=== PATIENT | female | born 1955 | race Caucasian/White ===

== ENCOUNTER 2019-12-30 15:19 | Emergency (ER) | payer MEDICAID, SELFPAY | END 2019-12-30 19:41 | disposition admitted as inpatient to this hospital (09) | LOC: ER 03-30 13:19 | PROVIDERS: Emergency Provider Family Medicine | DX: R61 Generalized hyperhidrosis (principal); F17.210 Nicotine dependence, cigarettes, uncomplicated | CPT/HCPCS: 51702; 71045; 93005; 96372; 96374; 96375; 99285; J0330; J1940; J1956; J2704; J3490 ==

== ENCOUNTER 2019-12-30 15:19 | Inpatient (IN) | payer MEDICAID, SELFPAY ==
[2019-12-30] VITALS (39 sets, daily range): BP systolic 71–160; BP diastolic 46–90; PULSE 81–147; RESP 12–28; TEMP 37.2; O2SAT 90–100; BMI 42.9
--- NOTE | 2019-12-30 15:20 | ED_ITS ---
Entered by Sandy Owen, acting as scribe for Josh Alvarado DO HPI - General Adult General: Chief complaint: Arrhythmia/Palpitations Stated complaint: R/O PNEUMONIA, AFIB W RVR Time Seen by Provider: 12/30/19 15:21 History of Present Illness: HPI narrative: 64 yo female presents with possible pneumonia and afib with rvr. EMS has given pt breathing treatments enroute. Pt recieved cardizem for her heart rate that was 150. Pt was 94% on 4 liters of o2. Pt states that she feels hot. Pt is wheezing. On arrival patient was alert answers questions appropriately. Was diaphoretic and dyspneic. MD complaint: possible pneumonia and afib with rvr Associated symptoms: Reports diaphoresis and dyspnea; Deny chest pain, nausea or vomiting Review of Systems Const: Reports: fatigue and diaphoresis ENMT: Denies: throat pain, ear pain, nasal discharge or nasal congestion Card: Denies: chest pain, edema, shortness of breath on exertion or shortness of breath when lying down Resp: Reports: shortness of breath and wheezing GI: Denies: abdominal pain, nausea, vomiting, vomiting blood, coffee grounds in vomit, diarrhea, constipation, bloating, blood in stool or black tarry stool : Denies: flank pain, difficulty urinating, painful urination, urinary frequency or urinary urgency PFSH ED PFSH: Family History Other CAD (coronary artery disease) Social History Smoking and tobacco status: current every day smoker Alcohol intake: never Substance/Drug Use: never Physical Exam Const: GENERAL APPEARANCE: cooperative, in distress (Respiratory distress), lethargic and diaphoretic NUTRITIONAL APPEARANCE: obese ORIENTATION/CONSCIOUSNESS: Yes awake, Yes oriented to person, Yes oriented to place, Yes oriented to time and Yes lethargic HENMT: COMMON NORMALS: normocephalic, head/scalp atraumatic, hearing grossly normal bilaterally, external ears normal, EAC's normal, TM's normal bilaterally, nasal mucous membranes and turbinates normal, moist oral mucous membranes and oropharynx normal HEAD & SCALP: normocephalic and atraumatic NOSE: nasal mucous membranes and turbinates normal EXTERNAL EAR: Yes external ears normal EXTERNAL AUDITORY CANAL: EAC's normal TYMPANIC MEMBRANE: TM's normal bilaterally Eye: COMMON NORMALS: PERRL, EOMs intact bilaterally, conjunctivae normal and no scleral icterus CONJUNCTIVA: Yes conjunctivae normal PUPIL: Yes PERRL Neck/C-Spine: COMMON NORMALS: full ROM, no lymphadenopathy, supple and no JVD Lymph: LYMPHATIC: no lymphadenopathy noted and no lymphedema noted Resp: EFFORT & INSPECTION: Yes tachypneic, Yes respiratory distress and Yes labored AUSCULTATION: rhonchi and wheezes OTHER: pts lips are slightly cyanotic Cardio: COMMON NORMALS: no JVD and no murmurs RATE: tachycardic RHYTHM: abnormal rhythm GI: COMMON NORMALS: soft to palpation and no hepatosplenomegaly AUSCULTATION: Yes normoactive bowel sounds PALPATION: Yes soft, No tender, No guarding and Yes no hepatosplenomegaly Extremity: COMMON NORMALS: normal to inspection, normal capillary refill, no clubbing, cyanosis or edema, no calf tenderness and no pedal edema Neuro: SENSORIUM/ORIENTATION: Yes oriented to person, Yes oriented to place, Yes oriented to time and Yes lethargic Skin: COMMON NORMALS: no rashes or lesions noted GENERAL SKIN EXAM: no rashes or lesions noted Procedures Intubation Time out performed: No sedative: Etomidate paralytic: Succinylcholine Laryngoscope: Jameson ET Tube Size: 8.5 ET Tube Uncuffed: Yes Tube Secured Depth (cm): 22 Tube Secured Location: teeth Tube Placement Confirmation: visualized tube passing through cords, equal breath sounds bilaterally, no breath sounds over epigastrium and confirmation by capnometry Patient Tolerated Procedure: well Intubation Complications: none Course ED course: After arriving ABG showed a pH is 7.2. She is in acute respiratory distress and clinically is deteriorating. Patient was intubated emergently and started on a ventilator. After work-up complete. His she is in congestive heart failure secondary to her A. fib. A. fib was treated with diltiazem. Also concerned that she is septic suspect she has an underlying pneumonia her white count is 17K could in part be due to due to steroids she received in route and stress reaction but also believe she does need to be covered for sepsis secondary to pneumonia. Appropriate antibiotics were started she appears to be septic. Her delta on her first troponin was +20 think in part it was due to congestive heart failure and the stress from the atrial fibrillation she will need to be evaluated for coronary disease well discussed Dr. Stephens will admit her to the ICU she is currently on the ventilator. Her urine output to this point has been poor. Vital Signs: Vital signs: Vital Signs Temperature 98.5 F 01/01/20 02:00 Pulse Rate 88 01/01/20 06:00 Respiratory Rate 16 01/01/20 07:43 Blood Pressure 102/76 01/01/20 06:00 Pulse Oximetry 95 01/01/20 06:00 [facility] - General Adult Lab Data: Labs: Lab Results 12/30/19 12/30/19 12/30/19 Range/Units 15:58 15:58 15:58 WBC 17.3 H (4.0-10.0) 10^3/ uL RBC 4.44 (4.1-5.3) 10^6/u L Hgb 12.6 (11.5-15.3) g/dL Hct 43.5 (37.0-47.0) % MCV 98.0 (81-99) fL MCH 28.4 (28.0-34.0) pg MCHC 29.0 L (30.0-36.0) g/dL RDW 15.1 (12.1-15.1) % Plt Count 461 H (130-400) 10^3/c mm MPV 10.2 (7.4-10.4) fL Neut % (Auto) 64.1 % Lymph % (Auto) 24.1 % Vilas % (Auto) 10.6 % Eos % (Auto) 0.2 % Baso % (Auto) 0.3 % Neut # (Auto) 11.1 H (1.8-7.7) 10^3/u L Lymph # (Auto) 4.2 (0.8-4.8) 10^3/u L Vilas # (Auto) 1.8 H (0.2-0.9) 10^3/u L Eos # (Auto) 0.0 (0.0-0.8) 10^3/u L Baso # (Auto) 0.1 (0.0-0.1) 10^3/u L Nucleated RBC % (a uto) 1.1 % Nucleated RBCs # 0.2 /100WBC Specimen Type Sample Site ABG pH (7.35-7.45) ABG pCO2 (35-45) mmHg ABG pO2 (80.0-100.0) mmH g ABG HCO3 (22-26) mmol/L ABG O2 Saturation ABG Base Excess (-2.0-2.0) mmol/ L Bennett Test A-a O2 Gradient (5-10) mmHg Hematocrit (37-47) % Hgb O2 Saturation (95-100) % Carboxyhemoglobin (0.4-20.1) %THgb Methemoglobin (0.4-1.5) % Total Hemoglobin (12-16) g/dL Sodium 136 (131-143) mmol/L Potassium 4.3 (3.5-5.0) mmol/L Glucose 181 H (70-115) mg/dL Ionized Calcium (1.1-1.4) mmol/L Respiration Rate % O2 Delivery Device O2 Liters/Min % FiO2 % Tidal Volume PEEP cmH20 Instructor Of Education ID Chloride 97 L (98-107) mmol/L Carbon Dioxide 27 (22-29) mmol/L Anion Gap 16.3 (5-19) BUN 20 (8-23) mg/dL Creatinine 1.2 H (0.5-0.9) mg/dL GFR Calculation 45.5 L (90-130) mL/min Lactate (0.5-2.2) mmol/L Calcium 8.7 (8.5-10.5) mg/dL Phosphorus (2.5-4.5) mg/dL Magnesium (1.7-2.3) mg/dL Total Bilirubin 1.6 H (0.15-1.2) mg/dL AST 745 H (0-32) U/L ALT 563 H (0-33) U/L Alkaline Phosphata se 181 H (35-105) IU/L Troponin T Baselin e 47 H (0-10) ng/mL C-Reactive Protein (0.0-4.9) mg/L NT-Pro-B Natriuret Pep (0-125) pg/mL Total Protein 7.6 (6.6-8.7) g/dL Albumin 3.5 (3.5-5.2) g/dL Globulin 4.1 (1.3-4.6) g/dL Procalcitonin (0-0.5) ng/mL TSH (0.27-4.20) uIU/ mL Ethyl Alcohol (0-10) mg/dL Hepatitis A IgM Ab (Nonreactive) Hep Bs Antigen (Nonreactive) Hep B Core IgM Ab (Nonreactive) Hepatitis C Antibo dy (Nonreactive) 12/30/19 12/30/19 12/30/19 Range/Units 15:58 15:58 15:58 WBC (4.0-10.0) 10^3/ uL RBC (4.1-5.3) 10^6/u L Hgb (11.5-15.3) g/dL Hct (37.0-47.0) % MCV (81-99) fL MCH (28.0-34.0) pg MCHC (30.0-36.0) g/dL RDW (12.1-15.1) % Plt Count (130-400) 10^3/c mm MPV (7.4-10.4) fL Neut % (Auto) % Lymph % (Auto) % Vilas % (Auto) % Eos % (Auto) % Baso % (Auto) % Neut # (Auto) (1.8-7.7) 10^3/u L Lymph # (Auto) (0.8-4.8) 10^3/u L Vilas # (Auto) (0.2-0.9) 10^3/u L Eos # (Auto) (0.0-0.8) 10^3/u L Baso # (Auto) (0.0-0.1) 10^3/u L Nucleated RBC % (a uto) % Nucleated RBCs # /100WBC Specimen Type Arterial Sample Site Brachial, right ABG pH 7.22 L (7.35-7.45) ABG pCO2 79.1 H* (35-45) mmHg ABG pO2 38.6 L* (80.0-100.0) mmH g ABG HCO3 32.4 H (22-26) mmol/L ABG O2 Saturation 58.4 ABG Base Excess 2.2 H (-2.0-2.0) mmol/ L Bennett Test Pos A-a O2 Gradient 17.5 H (5-10) mmHg Hematocrit 41.5 (37-47) % Hgb O2 Saturation 57.0 L (95-100) % Carboxyhemoglobin 1.9 (0.4-20.1) %THgb Methemoglobin 0.5 (0.4-1.5) % Total Hemoglobin 13.5 (12-16) g/dL Sodium 140.0 (131-143) mmol/L Potassium 4.2 (3.5-5.0) mmol/L Glucose 150.0 H (70-115) mg/dL Ionized Calcium 1.1 (1.1-1.4) mmol/L Respiration Rate % O2 Delivery Device Nc O2 Liters/Min 6.0 % FiO2 % Tidal Volume PEEP cmH20 Instructor Of Education ID jmn Chloride (98-107) mmol/L Carbon Dioxide (22-29) mmol/L Anion Gap (5-19) BUN (8-23) mg/dL Creatinine (0.5-0.9) mg/dL GFR Calculation (90-130) mL/min Lactate 1.3 (0.5-2.2) mmol/L Calcium (8.5-10.5) mg/dL Phosphorus (2.5-4.5) mg/dL Magnesium (1.7-2.3) mg/dL Total Bilirubin (0.15-1.2) mg/dL AST (0-32) U/L ALT (0-33) U/L Alkaline Phosphata se (35-105) IU/L Troponin T Baselin e (0-10) ng/mL C-Reactive Protein 150.2 H (0.0-4.9) mg/L NT-Pro-B Natriuret Pep 5155 H (0-125) pg/mL Total Protein (6.6-8.7) g/dL Albumin (3.5-5.2) g/dL Globulin (1.3-4.6) g/dL Procalcitonin 0.23 (0-0.5) ng/mL TSH 1.87 (0.27-4.20) uIU/ mL Ethyl Alcohol < 10 (0-10) mg/dL Hepatitis A IgM Ab (Nonreactive) Hep Bs Antigen (Nonreactive) Hep B Core IgM Ab (Nonreactive) Hepatitis C Antibo dy (Nonreactive) 12/30/19 12/30/19 12/30/19 Range/Units 15:58 15:58 17:10 WBC (4.0-10.0) 10^3/ uL RBC (4.1-5.3) 10^6/u L Hgb (11.5-15.3) g/dL Hct (37.0-47.0) % MCV (81-99) fL MCH (28.0-34.0) pg MCHC (30.0-36.0) g/dL RDW (12.1-15.1) % Plt Count (130-400) 10^3/c mm MPV (7.4-10.4) fL Neut % (Auto) % Lymph % (Auto) % Vilas % (Auto) % Eos % (Auto) % Baso % (Auto) % Neut # (Auto) (1.8-7.7) 10^3/u L Lymph # (Auto) (0.8-4.8) 10^3/u L Vilas # (Auto) (0.2-0.9) 10^3/u L Eos # (Auto) (0.0-0.8) 10^3/u L Baso # (Auto) (0.0-0.1) 10^3/u L Nucleated RBC % (a uto) % Nucleated RBCs # /100WBC Specimen Type Arterial Sample Site Brachial, right ABG pH 7.26 L (7.35-7.45) ABG pCO2 60.8 H* (35-45) mmHg ABG pO2 69.2 L (80.0-100.0) mmH g ABG HCO3 27.4 H (22-26) mmol/L ABG O2 Saturation 90.6 ABG Base Excess -0.8 (-2.0-2.0) mmol/ L Bennett Test Pos A-a O2 Gradient 281.5 H (5-10) mmHg Hematocrit 39.6 (37-47) % Hgb O2 Saturation 88.6 L (95-100) % Carboxyhemoglobin 1.8 (0.4-20.1) %THgb Methemoglobin 0.5 (0.4-1.5) % Total Hemoglobin 12.9 (12-16) g/dL Sodium 139.0 (131-143) mmol/L Potassium 4.5 (3.5-5.0) mmol/L Glucose 170.0 H (70-115) mg/dL Ionized Calcium 1.1 (1.1-1.4) mmol/L Respiration Rate 16.0 % O2 Delivery Device Vent O2 Liters/Min % FiO2 60.0 % Tidal Volume 0.4 PEEP 8.0 cmH20 Instructor Of Education ID [email or web address] Chloride (98-107) mmol/L Carbon Dioxide (22-29) mmol/L Anion Gap (5-19) BUN (8-23) mg/dL Creatinine (0.5-0.9) mg/dL GFR Calculation (90-130) mL/min Lactate (0.5-2.2) mmol/L Calcium (8.5-10.5) mg/dL Phosphorus 5.3 H (2.5-4.5) mg/dL Magnesium 2.4 H (1.7-2.3) mg/dL Total Bilirubin (0.15-1.2) mg/dL AST (0-32) U/L ALT (0-33) U/L Alkaline Phosphata se (35-105) IU/L Troponin T Baselin e (0-10) ng/mL C-Reactive Protein (0.0-4.9) mg/L NT-Pro-B Natriuret Pep (0-125) pg/mL Total Protein (6.6-8.7) g/dL Albumin (3.5-5.2) g/dL Globulin (1.3-4.6) g/dL Procalcitonin (0-0.5) ng/mL TSH (0.27-4.20) uIU/ mL Ethyl Alcohol (0-10) mg/dL Hepatitis A IgM Ab Non-reactive (Nonreactive) Hep Bs Antigen Non-reactive (Nonreactive) Hep B Core IgM Ab Non-reactive (Nonreactive) Hepatitis C Antibo dy Non-reactive (Nonreactive) Discharge Plan Discharge Patient Disposition: Admitted As Inpatient Admit Provider: Harshad Dunham Discharge Date/Time: 12/30/19 19:41 Coding Level of Care Code ED Police Detention Attendant for Chg Fwd Exam Comprehensive The documentation recorded by the Brayden varma Kialy, accurately reflects the service I personally performed and the decisions made by Christiano hammer Curtis L, DO Dec 30, 2019 15:19
--- NOTE | 2019-12-30 15:27 | ECG_ITS ---
Measurements Intervals [place] Rate: 138 P: AL: 0 QRS: 3 QRSD: 102 T: 216 QT: 332 QTc: 505 ATRIAL FLUTTER WITH RAPID VENTRICULAR RESPONSE NONSPECIFIC ST & T-WAVE ABNORMALITY No previous ECG available for comparison Electronically Signed On 12-31-2019 6:30:52 CATEGORY CONSULTANT by Keira Rodriguez M.D. [id number] f
--- NOTE | 2019-12-30 15:51 | XRR_ITS ---
PROCEDURE INFORMATION: Exam: XR Chest, 1 View Exam date and time: 12/30/2019 4:48 PM Age: 64 years old Clinical indication: Device placement; Additional info: Dyspnea/cough TECHNIQUE: Imaging protocol: XR of the chest Views: 1 view. COMPARISON: No relevant prior studies available. FINDINGS: Tubes, catheters and devices: Intubation with tip 3 cm above the elba. NG tube extends into the mid stomach, off the field of view. Lungs: Vascular congestion. Diffuse interstitial pulmonary opacities. Pleural space: Unremarkable. No pleural effusion. No pneumothorax. Heart/Mediastinum: Cardiomegaly. Bones/joints: Unremarkable. XR/XR chest 1V portable [id number] IMPRESSION: Congestive heart failure pattern.
[2019-12-30 16:12] LABS: Basophils # 0.1 10^3/uL (0.0-0.1); Basophils % 0.3 %; Eosinophils % 0.2 %; Hematocrit 43.5 % (37.0-47.0); Hemoglobin 12.6 g/dL (11.5-15.3); Lymphocytes # 4.2 10^3/uL (0.8-4.8); Lymphocytes % 24.1 %; Mean Corpuscular Hemoglobin 28.4 pg (28.0-34.0); Mean Platelet Volume 10.2 fL (7.4-10.4); Monocytes # 1.8 10^3/uL (0.2-0.9); Monocytes % 10.6 %; Neutrophils # 11.1 10^3/uL (1.8-7.7); Neutrophils % 64.1 %; Nucleated Red Blood Cells # 0.2 /100WBC; Nucleated Red Blood Cells % 1.1 %; Platelet Count 461 10^3/cmm (130-400); Red Blood Count 4.44 10^6/uL (4.1-5.3); Red Cell Distribution Width 15.1 % (12.1-15.1); White Blood Count 17.3 10^3/uL (4.0-10.0)
[2019-12-30] MEDS: succinylcholine 20 mg/mL SDV 10mL 170.097 MG IV (16:13)
[2019-12-30 16:23] LABS: Alanine Aminotransferase 563 U/L (0-33); Albumin Level 3.5 g/dL (3.5-5.2); Alkaline Phosphatase 181 IU/L (35-105); Anion Gap 16.3 (5-19); Blood Urea Nitrogen 20 mg/dL (8-23); Calcium 8.7 mg/dL (8.5-10.5); Carbon Dioxide 27 mmol/L (22-29); Chloride 97 mmol/L (98-107); Globulin 4.1 g/dL (1.3-4.6); Glomerular Filtration Rate 45.5 mL/min (90-130); Glucose 181 mg/dL (65-115); Potassium 4.3 mmol/L (3.5-5.1); Sodium 136 mmol/L (136-145); Total Bilirubin 1.6 mg/dL (0.15-1.2); Total Protein 7.6 g/dL (6.6-8.7)
[2019-12-30 16:25] LABS: Troponin(5th) Baseline 47 ng/mL (0-10)
[2019-12-30 16:40] LABS: Lactate (Lactic Acid level) 1.3 mmol/L (0.5-2.2)
[2019-12-30 16:41] LABS: Aspartate Amino Transferase 745 U/L (0-32)
[2019-12-30 16:42] LABS: ABG PH Result 7.22 (7.35-7.45); Alveolar-Arterial Oxygen Gradi 17.5 mmHg (5-10); Arterial Blood Gas Hematocrit 41.5 % (37-47); Base Excess ABG 2.2 mmol/L (-2.0-2.0); Blood Gas Allen Test Pos; Blood Gas Sample Site Brachial, right; Blood Gas Sample Type Arterial; Carboxyhemoglobin 1.9 %THgb (0.4-20.1); HCO3 ABG 32.4 mmol/L (22-26); Ionized Calcium Level - ABG 1.1 mmol/L (1.1-1.4); Methemoglobin 0.5 % (0.4-1.5); Oxygen Device NC; Oxygen Saturation ABG 58.4; PO2 ABG 38.6 mmHg (80.0-100.0); Potassium Level - ABG 4.2 mmol/L (3.5-5.0); Total Hemoglobin 13.5 g/dL (12-16)
[2019-12-30 16:43] LABS: ABG PCO2 79.1 mmHg (35-45)
[2019-12-30] MEDS: aztreonam 2,000 MG in sodium chloride 0.9% (plus) 100 ML 200 MG IV (16:58)
[2019-12-30] MEDS: propofol 1,000 MG/100 ML INJ 10 MG (16:59)
[2019-12-30] MEDS: FUROsemide 10 mg/mL SDV 10mL 60 MG IVP (17:12)
[2019-12-30] MEDS: levofloxacin-dextrose 5 % 750 MG/150 ML PREMIX 150 MG IV (17:21)
[2019-12-30 17:23] LABS: ABG PH Result 7.26 (7.35-7.45); Alveolar-Arterial Oxygen Gradi 281.5 mmHg (5-10); Arterial Blood Gas Hematocrit 39.6 % (37-47); Base Excess ABG -0.8 mmol/L (-2.0-2.0); Blood Gas Allen Test Pos; Blood Gas Sample Site Brachial, right; Blood Gas Sample Type Arterial; Blood Gas Tidal Volume 0.4; Carboxyhemoglobin 1.8 %THgb (0.4-20.1); HCO3 ABG 27.4 mmol/L (22-26); HGB O2 Sat 88.6 % (95-100); Ionized Calcium Level - ABG 1.1 mmol/L (1.1-1.4); Methemoglobin 0.5 % (0.4-1.5); Oxygen Device VENT; Oxygen Saturation ABG 90.6; PO2 ABG 69.2 mmHg (80.0-100.0); Potassium Level - ABG 4.5 mmol/L (3.5-5.0); Total Hemoglobin 12.9 g/dL (12-16)
[2019-12-30 17:24] LABS: ABG PCO2 60.8 mmHg (35-45)
--- NOTE | 2019-12-30 17:27 | ECG_ITS ---
Measurements Intervals [place] Rate: 136 P: -88 DC: 118 QRS: 1 QRSD: 105 T: 214 QT: 328 QTc: 494 ATRIAL FLUTTER WITH RVR NONSPECIFIC ST & T-WAVE ABNORMALITY No previous ECG available for comparison Electronically Signed On 12-31-2019 6:38:48 TUBE CUTTER OPERATOR by Keira Rodriguez M.D. [id number] f
[2019-12-30 17:57] LABS: Magnesium 2.4 mg/dL (1.7-2.3); Phosphorus 5.3 mg/dL (2.5-4.5)
[2019-12-30 18:01] LABS: Hepatitis A Antibody IgM. Non-Reactive (Nonreactive); Hepatitis B Core IgM Non-Reactive (Nonreactive); Hepatitis B Surface Antigen. Non-Reactive (Nonreactive); Hepatitis C Virus Antibody Non-Reactive (Nonreactive)
[2019-12-30 18:03] LABS: C Reactive Protein 150.2 mg/L (0.0-4.9); NT Pro B Type Natriuretic Pept 5155 pg/mL (0-125); Thyroid Stimulating Hormone 1.87 uIU/mL (0.27-4.20)
--- NOTE | 2019-12-30 18:03 | PC.NURSE ---
patient at this time has had no urine output
[2019-12-30 18:08] LABS: Alcohol Level < 10 mg/dL (0-10)
--- NOTE | 2019-12-30 18:12 | P.HP_ITS ---
Providers/Chief Complaint Primary Care Provider: EDISON Castro Chief Complaint: ACUTE RESPIRACTORY FAILURE History of Present Illness Nehal Hull is a 64 year old female with no significant past medical history who presents to the emergency room for shortness of breath, cough, fevers, chills, URI symptoms. Currently patient is intubated, sedated, on a ventilator and most of the history was provided by the daughter at bedside. Patient's daughter states that patient lives alone, is retired, is fairly functional, can carry out activities of daily living, can drive, can take care of herself. Over the last year patient has a slow decline in her functioning, has been more short of breath, more short of breath with exertion. No complaints of chest pain. No hospitalizations. No ER visits. Has not seen a physician in over a year. Patient's daughter states that a month ago she had complaints of cough, fevers, chills, shortness of breath at rest on exertion.. Patient's daughter was diagnosed with influenza, but patient did not receive treatment. Over the period of a month patient has progressively become even more short of breath, short of breath with exertion, progressing to shortness of breath at rest, productive cough, complaints of fevers, chills, URI symptoms. Patient significantly deteriorated over the last week, however refused to come to the physician. Finally she agreed after the advisement of her daughter to come to the physician today, she presented to her Aileen Pelletier's office, where they told her to come immediately to the emergency room. In the emergency room patient was found to have acute hypoxic hypercarbic respiratory failure was tachypneic, was immediately intubated by emergency room physician, placed on the ventilator, still hypoxic and hypercarbic after ventilation, her PCO2 is 60.8, PO2 69.2, pH is 7.26. Patient was also found to have A. fib with RVR, heart rates in the high 150s, placed on the Cardizem drip, started on Levophed due to hypotensive episodes in addition. Her chest x-ray shows pulmonary vascular congestion, she was treated for CHF exacerbation with 80 mg of Lasix. In the ambulance arrived she did receive 125 mg of steroids and 60 mg of Lasix. Patient's daughter states that she has smoked for over 50 years, she does use Advair which is her daughters, no diagnosis of COPD, knows diagnosis of heart failure, no history of CAD, no significant medical history as per daughter's knowledge. Review of Systems Const: Reports: fever, chills, fatigue and malaise ENMT: Reports: nasal congestion; Denies: hoarseness Card: Reports: irregular heart rhythm; Denies: chest pain or palpitations Resp: Reports: shortness of breath and productive cough GI: Denies: abdominal pain, nausea or vomiting : Denies: flank pain, urinary frequency, urinary urgency or blood in urine Musc: Denies: back pain Neuro: Denies: headache Medications/Allergies Allergies Allergy/AdvReac Type Severity Reaction Status Date / Time Penicillins Allergy Unknown Verified 12/30/19 15:43 PFSH Acute PFSH: Family History (Updated 12/30/19 @ 18:18 by Harshad Dunham MD) Other CAD (coronary artery disease) Social History (Updated 12/30/19 @ 18:18 by Harshad Dunham MD) Smoking and tobacco status: current every day smoker Alcohol intake: never Substance/Drug Use: never Vitals/I&O/Wt Last Vital Signs Temp 98.9 F 12/30/19 15:34 Pulse 147 H 12/30/19 15:34 Resp 17 12/30/19 17:47 BP 160/88 12/30/19 15:34 Pulse Ox 90 12/30/19 15:34 Weight last 48 hrs Weight 113.398 kg Physical Exam Narrative: EXAM NARRATIVE: Intubated and sedated Const: COMMON NORMALS: no apparent distress NUTRITIONAL APPEARANCE: obese OTHER: Intubated and sedated HENMT: COMMON NORMALS: normocephalic HEAD & SCALP: normocephalic Eye: COMMON NORMALS: PERRL PUPIL: Yes PERRL Neck/C-Spine: COMMON NORMALS: full ROM, no lymphadenopathy, no JVD and thyroid normal THYROID: thyroid normal Lymph: LYMPHATIC: no lymphadenopathy noted Chest: COMMONS NORMALS: inspection of chest normal Resp: COMMON NORMALS: normal respiratory effort, no retractions, no use of accessory muscles and clear to auscultation bilaterally AUSCULTATION: clear to auscultation bilaterally Cardio: COMMON NORMALS: no JVD, S2 normal heart sound, no gallops, no clicks a nd no murmurs RATE: regular rate and tachycardic RHYTHM: abnormal rhythm irregularly irregular HEART SOUNDS: S1 normal and S2 normal GI: COMMON NORMALS: soft to palpation and no hepatosplenomegaly INSPECTION: Yes abdominal distension and Yes central obesity AUSCULTATION: Yes hypoactive bowel sounds PALPATION: Yes soft and Yes no hepatosplenomegaly PERCUSSION: tympanic to percussion Extremity: COMMON NORMALS: normal to inspection, full ROM and no pedal edema Neuro: COMMON NORMALS: oriented x3, CN's II-XII intact bilaterally, moves all extremities and no focal motor deficits Psych: COMMON NORMALS: mental status grossly normal, thought process normal and cooperative THOUGHT PROCESS: normal thought process Data : 12/30/19 15:58 12/30/19 15:58 Micro: Microbiology 12/30/19 15:58 Blood Culture - Preliminary Blood SPECIMEN COLLECTED 12/30/19 16:25 Blood Culture - Preliminary Blood SPECIMEN COLLECTED A&P Assessment and plan (1) Acute on chronic respiratory failure with hypoxia and hypercapnia: -Chest x-ray shows pulmonary vascular congestion, BNP 5155, mild pitting edema, JVD difficult to assess given body habitus, no history of heart failure -Patient has a white blood cell count of 17.3, patient received steroids on the way to the emergency room, procalcitonin pending, does have complaints of fevers, chills, URI symptoms, and exposure to influenza by family members -Lactate 1.3 Repeat ABG shows pH is 7.26, PCO2 60. 8, PO2 69.2 -Patient likely has acute flash pulmonary edema from underlying CHF and or atrial fibrillation Plan: -Currently on a ventilator, minimize FiO2, minimize PEEP -Lovenox for DVT prophylaxis, Protonix for GI prophylaxis -We will start the patient on a Lasix drip, Levophed for pressure support -Monitor urine output -Patient's daughter is at bedside, advised that her status is critical, prognosis is guarded, patient will be transferred to the ICU Status: Acute Code(s): J96.21 - Acute and chronic respiratory failure with hypoxia; J96.22 - Acute and chronic respiratory failure with hypercapnia (2) Transaminitis: -AST 745, ALT 563, T bili 1.6, alk phos 181, blood alcohol negative hep panel negative -Abdomen is quite distended -No abdominal complaints as per family members -No fevers here -We will do a right upper quadrant ultrasound, possibly shock liver secondary to respiratory failure Status: Acute Code(s): R74.0 - Nonspecific elevation of levels of transaminase and lactic acid dehydrogenase [LDH] (3) Acute kidney injury: Likely cardiorenal syndrome related to heart failure Status: Acute Code(s): N17.9 - Acute kidney failure, unspecified (4) Atrial flutter: -No known history of atrial flutter or atrial fibrillation -No complaints of chest pain, palpitations -Possibly atrial flutter is related to acute respiratory failure or vice versa, unsure as patient has not been vocal about her medical problems to family members Plan: -Continue Cardizem drip -TSH unremarkable -Magnesium 2.4 Status: Acute Code(s): I48.92 - Unspecified atrial flutter Attestations Medical Necessity Statement*: Patient requires hospitalization, inpatient, greater than 2 minutes due to acute respiratory failure Coding Level of Care Code Acute Territory Sales Consultant for [facility] Diagnoses Acute on chronic respiratory failure with hypoxia and hypercapnia J96.21; J96.22 Transaminitis R74.0 Acute kidney injury N17.9 Atrial flutter I48.92
[2019-12-30 18:24] LABS: Lactic Sepsis W/Reflex 2.8 mmol/L (0.5-2.2)
[2019-12-30 18:26] LABS: Troponin 5 2HR 67.37 ng/mL (0-10)
[2019-12-30] MEDS: enoxaparin 40 mg/0.4 mL Syringe SUBCUT (18:34)
[2019-12-30] MEDS: pantoprazole 40 mg SDV IVP (18:35)
[2019-12-30 18:40] LABS: Troponin 5 2HR Delta 20.37 ABS# (0-10)
[2019-12-30 18:43] LABS: Procalcitonin 0.23 ng/mL (0-0.5)
[2019-12-30 19:04] LABS: Influenza A by IFA Negative (Negative); Influenza B by IFA Negative (Negative)
[2019-12-30 19:20] LABS: Lipase 7 U/L (13-60)
[2019-12-30 19:51] LABS: Reflex Lactate Order REFLEX LACTIC ORDERD
[2019-12-30] MEDS: atorvastatin 40 mg Tablet PO ×2 (20:00→20:01)
[2019-12-30] MEDS: aspirin 325 mg Tablet PO (20:00)
[2019-12-30] MEDS: FUROsemide 100 MG in sodium chloride 0.9% 40 ML 20 MG IV (20:01)
[2019-12-30] MEDS: heparin 5,000 unit/mL INJ 1 mL IV (20:24)
[2019-12-30] MEDS: heparin drip 25,000 UNIT/500 ML PREMIX 33.6 UNIT IV (20:24)
[2019-12-30] MEDS: FUROsemide 100 MG in sodium chloride 0.9% 40 ML IV (20:26)
--- NOTE | 2019-12-30 20:30 | ECG_ITS ---
Measurements Intervals [place] Rate: 112 P: [place]: 0 QRS: 15 QRSD: 99 T: 240 QT: 356 QTc: 486 ATRIAL FLUTTER WITH RAPID VENTRICULAR RESPONSE NONSPECIFIC ST & T-WAVE ABNORMALITY No previous ECG available for comparison Electronically Signed On 12-31-2019 6:38:13 DIRECTOR SUPPLY CHAIN by Keira Rodriguez M.D. [id number]
[2019-12-30 20:58] LABS: Lactic Acid level (Lactate) 2.3 mmol/L (0.5-2.2)
[2019-12-30 20:59] LABS: Troponin 5 6HR 58.44 ng/mL (0-10); Troponin 5 6HR Delta 11.44 ng/L (0-12)
[2019-12-30 21:08] LABS: Partial Thromboplastin Time 160.2 SECONDS (23.9-36.7)
[2019-12-30 21:54] LABS: Barbiturates Screen Urine Negative (Negative); Benzodiazepines Screen Urine Negative (Negative); Cocaine Screen Urine Negative (Negative); Opiate Screen Urine Negative (Negative); PCP Screen Urine Negative (Negative); THC Screen Urine Negative (Negative)
[2019-12-30 22:05] LABS: Amphetamines Screen Urine Positive (Negative)
[2019-12-30] MEDS: propofol 1,000 MG/100 ML INJ 23.8 MG IV (22:18)
--- NOTE | 2019-12-30 22:55 | PC.NURSE ---
Went over all medications with daughter at great length. Education provided on all medications, lab and and morning xray. Daughter told multiple times that patient is extremely critical, daughter responded with question Will you discharge her with Oxygen?
--- NOTE | 2019-12-30 23:30 | ECG_ITS ---
Measurements Intervals [place] Rate: 81 P: [place]: 0 QRS: 5 QRSD: 95 T: 240 QT: 291 QTc: [address] DEVIATION AND MODERATE T-WAVE ABNORMALITY, CONSIDER INFERIOR ISCHEMIA [-0.1+ mV T WAVE IN II/aVF] No previous ECG available for comparison Electronically Signed On 12-31-2019 6:35:57 INVESTMENT SPECIALIST by Keira Rodriguez M.D. [id number]
[2019-12-31] VITALS (49 sets, daily range): BP systolic 77–120; BP diastolic 45–81; PULSE 72–147; RESP 14–16; TEMP 36.6–37; O2SAT 90–98; BMI 42.9
[2019-12-31] MEDS: propofol 1,000 MG/100 ML INJ 23.8 MG IV ×5 (01:12→17:54)
--- NOTE | 2019-12-31 01:42 | PC.NURSE ---
At 0006 patient converted to Sinus Rhythm
[2019-12-31] MEDS: FUROsemide 100 MG in sodium chloride 0.9% 40 ML IV ×2 (02:14→09:04)
[2019-12-31 02:22] LABS: Partial Thromboplastin Time 63.8 SECONDS (23.9-36.7)
[2019-12-31 04:49] LABS: Basophils % 0.1 %; Hematocrit 38.3 % (37.0-47.0); Hemoglobin 11.9 g/dL (11.5-15.3); Lymphocytes # 1.4 10^3/uL (0.8-4.8); Lymphocytes % 9.3 %; Mean Corpuscular HGB Conc 31.1 g/dL (30.0-36.0); Mean Corpuscular Hemoglobin 29.7 pg (28.0-34.0); Mean Corpuscular Volume 95.5 fL (81-99); Mean Platelet Volume 10.5 fL (7.4-10.4); Monocytes # 0.8 10^3/uL (0.2-0.9); Monocytes % 5.4 %; Neutrophils # 12.5 10^3/uL (1.8-7.7); Neutrophils % 84.1 %; Nucleated Red Blood Cells # 0.2 /100WBC; Nucleated Red Blood Cells % 1.2 %; Platelet Count 389 10^3/cmm (130-400); Red Blood Count 4.01 10^6/uL (4.1-5.3); Red Cell Distribution Width 14.8 % (12.1-15.1); White Blood Count 14.9 10^3/uL (4.0-10.0)
--- NOTE | 2019-12-31 04:55 | PC.NURSE ---
Spoke with Graciela Acevedo at [facility], Case #[id number]. Attempting to get son home who is in [employer]
[2019-12-31 05:03] LABS: Cholesterol 127 mg/dL (0-200); HDL Cholesterol 27 mg/dL (60-100); LDL Cholesterol Calculated 73 mg/dL (50-129); Triglycerides 135 mg/dL (0-150)
[2019-12-31 05:08] LABS: Alanine Aminotransferase 519 U/L (0-33); Albumin Level 2.9 g/dL (3.5-5.2); Alkaline Phosphatase 151 IU/L (35-105); Anion Gap 20.3 (5-19); Aspartate Amino Transferase 513 U/L (0-32); Blood Urea Nitrogen 28 mg/dL (8-23); Calcium 8.6 mg/dL (8.5-10.5); Carbon Dioxide 25 mmol/L (22-29); Chloride 97 mmol/L (98-107); Globulin 3.5 g/dL (1.3-4.6); Glomerular Filtration Rate 30.5 mL/min (90-130); Glucose 206 mg/dL (65-115); Magnesium 2.1 mg/dL (1.7-2.3); Phosphorus 4.2 mg/dL (2.5-4.5); Potassium 4.3 mmol/L (3.5-5.1); Sodium 138 mmol/L (136-145); Total Bilirubin 1.3 mg/dL (0.15-1.2); Total Protein 6.4 g/dL (6.6-8.7)
[2019-12-31 05:35] LABS: ABG PCO2 42.6 mmHg (35-45); ABG PH Result 7.42 (7.35-7.45); Arterial Blood Gas Hematocrit 37.7 % (37-47); Base Excess ABG 2.4 mmol/L (-2.0-2.0); Blood Gas Allen Test Pos; Blood Gas Sample Site Radial, right; Blood Gas Sample Type Arterial; Blood Gas Tidal Volume 0.45; HCO3 ABG 27.3 mmol/L (22-26); Oxygen Device VENT; PO2 ABG 67.9 mmHg (80.0-100.0)
[2019-12-31 05:47] LABS: Estmated Average Glucose 137; Hemoglobin A1C 6.4 % (4.0-6.0)
--- NOTE | 2019-12-31 06:00 | USCV_ITS ---
Nehal Hull Age: 64 Gender: F : 1955 Exam Date: 12/31/2019 06:21 Ordering Phys: Harshad Dunham MD Technologist: Rosy Gonzales [place] [facility] [place] NEW O[place]ET CHF BP: 116 / 76 HR: 81 Rhythm: Sinus Technical Quality: Technically difficult study MEASUREMENTS (Male / Female) Normal Values 2D ECHO LV Diastolic Diameter PLAX 5.7 cm 4.2 - 5.9 / 3.9 - 5.3 cm LV Systolic Diameter PLAX 5.2 cm IVS Diastolic Thickness 1.1 cm 0.6 - 1.0 / 0.6 - 0.9 cm IVS Systolic Thickness 1.2 cm LVPW Diastolic Thickness 1.1 cm 0.6 - 1.0 / 0.6 - 0.9 cm LVPW Systolic Thickness 1.1 cm LVOT Diameter 2.0 cm LV Ejection Fraction 2D Teich 21.0 % LA Diameter 3.9 cm LA Width 3.7 cm LA Height 5.1 cm RA Width 3.6 cm RA Height 4.5 cm Aorta at Sinotubular Diameter 2.4 cm M-MODE LV Diastolic Diameter MM 5.3 cm 4.2 - 5.9 / 3.9 - 5.3 cm LV Systolic Diameter MM 4.7 cm LV Ejection Fraction MM Teich 24.8 % IVS Diastolic Thickness MM 1.1 cm 0.6 - 1.0 / 0.6 - 0.9 cm IVS Systolic Thickness MM 1.2 cm LVPW Diastolic Thickness MM 1.2 cm 0.6 - 1.0 / 0.6 - 0.9 cm LVPW Systolic Thickness MM 1.3 cm Aortic Annulus Diameter 2.9 cm LA Ao Ratio MM 1.4 MV E Point Septal Separation 1.4 cm DOPPLER AV Peak Velocity 138.0 cm/s LVOT Peak Velocity 71.0 cm/s AV Area Cont Eq vti 1.6 cm squared AV Area Cont Eq pk 1.6 cm squared MV Area PHT 3.9 cm squared MV E' Velocity 120.0 cm/s TR Peak Velocity 251.3 cm/s TR Peak Gradient 25.3 mmHg TR Mean Velocity 182.6 cm/s TR Mean Gradient 15.1 mmHg TR Velocity Time Integral 82.2 cm TV Peak E Velocity 61.0 cm/s Right Atrial Pressure 8.0 mmHg Pulmonary Artery Systolic Pressu 33.3 mmHg PV Peak Velocity 64.0 cm/s RV Acceleration Time 0.1 s RV Ejection Time 0.3 s RV AcT/ET 0.3 FINDINGS Left Ventricle Dilated left ventricular cavity. Severely decreased left ventricular systolic function. Left ventricular ejection fraction is estimated at 20%. Severe global hypokinesis. Right Ventricle Normal right ventricular size and systolic function. Right ventricular systolic pressure 33.3 mmHg, assuming right atrial pressurte of 8 mm Hg. Right Atrium Normal right atrial size. Left Atrium Normal left atrial size. Mitral Valve Mild mitral annular calcification. No mitral valve stenosis. Trace mitral valve regurgitation. Aortic Valve Aortic valve not well visualized. Mildly thickened and calcified probably trileafleft aortic valve. No aortic valve stenosis. No aortic valve regurgitation. Tricuspid Valve Structurally normal tricuspid valve. No tricuspid valve stenosis. Mild tricuspid valve regurgitation. Pulmonic Valve Pulmonic valve not well visualized. Trace pulmonary valve regurgitation. Pericardium No pericardial effusion. Aorta Normal size aortic root and proximal ascending aorta. IVC not well viaualized. CONCLUSIONS 1. This is a technically difficult study. Ultrasound enhancing agent (Optison) was used. 2. Dilated left ventricular cavity with severely decreased left ventricular systolic function. Left ventricular ejection fraction is estimated at 20%. Severe global hypokinesis. 3. Normal right ventricular size and systolic function. 4. Pulmonary artery pressure estimated at 33 mmHg. 5. Mild tricuspid valve regurgitation. 6. No prior similar studies to compare. Keira Rodriguez MD (Electronically Signed) Final Date: 31 December 2019 17:51 S
--- NOTE | 2019-12-31 06:14 | PM.CONSULT ---
Providers/Reason For Consult Consulting Physican/Specialty*: Dr. Rodriguez, Cardiology Reason for Consult*: Pulmonary edema, Atrial flutter with RVR, concern for late presentation [place] Attending Physician: Harshad Dunham MD Primary Care Provider: Aileen Pelletier, DI[facility] History of Present Illness History of Present Illness Nehal Hull is a 64 year old female with history of hypertension, at least 50-year history of smoking and was not taking any medications. She presented to the ER from PCPs office with worsening shortness of breath. History was obtained from chart and from her daughters. Patient was living by herself and caring her out her activities of daily living until recently when she started having worsening shortness of breath. As per daughter she has been sick for a long time but refused to go to the physician. For the past month her shortness of breath progressively worsened and really got worse over the last week and she agreed to go to Ms. Aileen Pelletier's office. She does have history of hypertension but was not taking her medications regularly. On arrival to primary care physician's office she was noted to be in respiratory distress and she was sent immediately to the emergency room. In the ER she was found to be in acute hypoxic hypercarbic respiratory failure with tachypnea and was intubated by ER physician and placed on ventilator. ABG on arrival with pH of 7.22, PCO2 79 and PO2 of 38.6. her ABG post intubation showed pH of 7.26, PCO2 of 69 and PCO2 of 60. Her baseline troponin was 47 which increased to 67 and 6-hour troponin I has come down to 58.4. Her NT proBNP was 5155. Her hemoglobin A1c was 6.3. She was also noted to be in atrial flutter with rapid ventricular response with heart rate running in 140s to 50s. She was started on Cardizem drip as well as low-dose levophed given hypotension post intubation. Chest x-ray showed pulmonary vascular congestion and diffuse infiltrates and she was started on Lasix. Bedside ultrasound performed by Dr. Davenport showed dilated left atrium akinetic septum and dilated IVC. I have been asked to evaluate the patient and assist in further management. Overnight patient was placed on Lasix drip 10 mg/h but has her urine output has been poor and she has just made 450 mL of urine. EKG on arrival showed atrial flutter with rapid ventricular response and since then patient has converted to normal sinus rhythm at around midnight yesterday. Review of Systems General: Reports: ROS unobtainable due to endotracheal tube Meds/Allergies Home Medications and Allergies Home Medications Medication Instructions Recorded Confirmed Type No Known Home Medications 12/30/19 12/30/19 History Allergies Allergy/AdvReac Type Severity Reaction Status Date / Time Penicillins Allergy Unknown Verified 12/30/19 15:43 Current Medications Current Medications Generic Name Dose Route Start Last Admin Trade Name Freq PRN Reason Stop Dose Admin Aspirin 325 mg 12/30/19 18:58 12/30/19 20:00 Aspirin PO 325 mg DAILY BRANT Administration Atorvastatin Calcium 40 mg 12/30/19 21:00 12/30/19 20:01 Lipitor PO 40 mg BEDTIME BRANT Administration Heparin Sodium (Beef Lung) 0 unit 12/30/19 18:58 12/30/19 20:24 Heparin IV 6,000 unit PRN PRN Administration Heparin weight-base protocol Protocol Diltiazem HCl 125 mg/ Sodium 125 mls @ 0 mls/hr 12/30/19 15:30 12/31/19 04:26 Chloride IV 5 mg/hr .Q0M BRANT 5 mls/hr Administration Protocol Per Protocol Furosemide 100 mg/ Sodium 50 mls @ 0 mls/hr 12/30/19 18:00 12/31/19 02:14 Chloride IV 10 mg/hr .Q0M BRANT 5 mls/hr Administration Protocol Per Protocol Heparin Sodium/Sodium Chloride 25,000 unit in 500 mls @ 0 mls/hr 12/30/19 19:00 12/30/19 20:24 Heparin Drip IV 14.82 unit/kg/hr .Q0M BRANT 33.6 mls/hr Administration Protocol Per Protocol Fentanyl 1,000 mcg/ Sodium 100 mls @ 0 mls/hr 12/30/19 20:15 12/30/19 22:19 Chloride IV 50 mcg/hr .Q0M BRANT 5 mls/hr Titration Protocol Per Protocol Propofol 1,000 mg in 100 mls @ 0 mls/hr 12/30/19 22:00 12/31/19 04:59 Diprivan IV 35 mcg/kg/min .Q0M BRANT 23.8 mls/hr Administration Protocol Per Protocol Pantoprazole Sodium 40 mg 12/30/19 17:25 12/30/19 18:35 Protonix IVP 40 mg DAILY BRANT Administration PFSH Acute PFSH: Family History (Updated 12/30/19 @ 18:18 by Harshad Dunham MD) Other CAD (coronary artery disease) Social History (Updated 12/30/19 @ 18:18 by Harshad Dunham MD) Smoking and tobacco status: current every day smoker Alcohol intake: never Substance/Drug Use: never Vitals/I&O/Wt Last Vital Signs Temp 98.6 F 12/31/19 02:00 Pulse 80 12/31/19 04:00 Resp 16 12/31/19 05:42 BP 99/65 12/31/19 04:00 Pulse Ox 95 12/31/19 04:00 12/30/19 12/30/19 12/31/19 14:59 22:59 06:59 Intake Total 138.417 / 138.417 264.980 / 403.397 Output Total 450 / 450 Balance 138.417 / 138.417 -185.020 / -46.603 Weight last 48 hrs Weight 250 lb Physical Exam Narrative: EXAM NARRATIVE: GENERAL: Obese lady lying in bed currently intubated and sedated. HEENT: Pupils equal round reactive to light. No pallor or icterus. NECK: JVD not appreciated CARDIOVASCULAR SYSTEM: S1-S2 regular. No S3 or S4 present. No murmur rubs or gallops. RESPIRATORY SYSTEM: Coarse bilateral breath sounds. ABDOMEN: Soft and obese. Normal bowel sounds present. EXTREMITIES: No cyanosis; Trace lower extremity edema. 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: Patient is intubated and sedated Urinary Catheter Management^: Cedeño: Cath Placed During This Visit: yes Urethral Indwelling: Yes Reason for Continuing Indwelling Catheter: Accurate Measurement of Urinary Output in Critically Ill Patients Urinary Catheter Date of Insertion: 12/30/19 Data Labs: Other Labs: Laboratory Tests 12/30/19 12/30/19 12/30/19 15:58 15:58 15:58 Hemoglobin A1c Lactic Acid Lactic Acid (Sepsi s) Lactate 1.3 Calcium Magnesium Total Bilirubin AST ALT Alkaline Phosphata se Troponin I 6 Hour Troponin I Hi Sens Del Troponin T Baselin e 47 H Troponin T 120 Min cher-ae heights C-Reactive Protein 150.2 H NT-Pro-B Natriuret Pep 5155 H Triglycerides Cholesterol LDL Cholesterol, C alc HDL Cholesterol TSH 1.87 Ur Amphetamines Sc reen Hepatitis A IgM Ab Hep Bs Antigen Hep B Core IgM Ab Hepatitis C Antibo dy Influenza Type A A g POC Influenza B Ag 12/30/19 12/30/19 12/30/19 15:58 18:02 18:02 Hemoglobin A1c Lactic Acid 2.8 H Lactic Acid (Sepsi s) Lactate Calcium Magnesium Total Bilirubin AST ALT Alkaline Phosphata se Troponin I 6 Hour Troponin I Hi Sens Del Troponin T Baselin e Troponin T 120 Min cher-ae heights 67.37 H C-Reactive Protein NT-Pro-B Natriuret Pep Triglycerides Cholesterol LDL Cholesterol, C alc HDL Cholesterol TSH Ur Amphetamines Sc reen Hepatitis A IgM Ab Non-reactive Hep Bs Antigen Non-reactive Hep B Core IgM Ab Non-reactive Hepatitis C Antibo dy Non-reactive Influenza Type A A g POC Influenza B Ag 12/30/19 12/30/19 12/30/19 18:15 20:35 20:35 Hemoglobin A1c Lactic Acid Lactic Acid (Sepsi s) 2.3 H Lactate Calcium Magnesium Total Bilirubin AST ALT Alkaline Phosphata se Troponin I 6 Hour 58.44 H Troponin I Hi Sens Del 11.44 Troponin T Baselin e Troponin T 120 Min cher-ae heights C-Reactive Protein NT-Pro-B Natriuret Pep Triglycerides Cholesterol LDL Cholesterol, C alc HDL Cholesterol TSH Ur Amphetamines Sc reen Hepatitis A IgM Ab Hep Bs Antigen Hep B Core IgM Ab Hepatitis C Antibo dy Influenza Type A A g Negative POC Influenza B Ag Negative 12/30/19 12/31/19 12/31/19 21:00 04:30 04:30 Hemoglobin A1c 6.4 H Lactic Acid Lactic Acid (Sepsi s) Lactate Calcium Magnesium Total Bilirubin AST ALT Alkaline Phosphata se Troponin I 6 Hour Troponin I Hi Sens Del Troponin T Baselin e Troponin T 120 Min cher-ae heights C-Reactive Protein NT-Pro-B Natriuret Pep Triglycerides 135 Cholesterol 127 LDL Cholesterol, C alc 73 HDL Cholesterol 27 L TSH Ur Amphetamines Sc reen Positive H Hepatitis A IgM Ab Hep Bs Antigen Hep B Core IgM Ab Hepatitis C Antibo dy Influenza Type A A g POC Influenza B Ag 12/31/19 04:30 Hemoglobin A1c Lactic Acid Lactic Acid (Sepsi s) Lactate Calcium 8.6 Magnesium 2.1 Total Bilirubin 1.3 H AST 513 H ALT 519 H Alkaline Phosphata se 151 H Troponin I 6 Hour Troponin I Hi Sens Del Troponin T Baselin e Troponin T 120 Min cher-ae heights C-Reactive Protein NT-Pro-B Natriuret Pep Triglycerides Cholesterol LDL Cholesterol, C alc HDL Cholesterol TSH Ur Amphetamines Sc reen Hepatitis A IgM Ab Hep Bs Antigen Hep B Core IgM Ab Hepatitis C Antibo dy Influenza Type A A g POC Influenza B Ag Micro: Micro: Microbiology 12/30/19 20:58 Gram Stain - Final Sputum - Endotrac heal Tube Aspirate 12/30/19 21:00 Bacterial Antigens - Final Urine,Clean Catch 12/30/19 15:58 Blood Culture - Pr eliminary Blood SPECIMEN COLLE NIRU 12/30/19 16:25 Blood Culture - Pr eliminary Blood SPECIMEN [facility] A&P Assessment and plan (1) Acute on chronic respiratory failure with hypoxia and hypercapnia: Patient is currently intubated on 50% FiO2. Status: Acute Code(s): J96.21 - Acute and chronic respiratory failure with hypoxia; J96.22 - Acute and chronic respiratory failure with hypercapnia (2) Pulmonary edema: Unfortunately, not diuresing much inspite of lasix 20 mg/Hr drip. May support with dobutamine 1 mcg/kg/min. continue drip for now. Status: Acute Qualifiers: Chronicity: acute Qualified Code(s): J81.0 - Acute pulmonary edema Code(s): J81.1 - Chronic pulmonary edema (3) Atrial flutter: converted to NSR, stop cardizem. May try metoprolol 12.5 mg BID, depending on BP. For now use metoprolol 5 mg IV PRN. Status: Acute Code(s): I48.92 - Unspecified atrial flutter (4) CHF (NYHA class III, ACC/AHA stage C): Newly diagnosed CHF. This does not seem like acute event. Echo TDS, dilated LV with LV function severely decreased. Global hypokinesis. I will repeat another echo with contrast. -Possible etiology being Multivessel CAD vs late presentation post ACS now complicated by pulmonary edema vs viral myocarditis. -continue with lasix drip for now. Status: Acute Code(s): I50.9 - Heart failure, unspecified (5) Acute kidney injury: Worsening renal function with decreased UO. Lasix drip increased this morning after bolus of 120 mg of lasix IV. Metolazone ans aldactone added. Close UO monitoring and f/u on BMP. -Not requiring any pressors. Status: Acute Code(s): N17.9 - Acute kidney failure, unspecified (6) Transaminitis: Status: Acute Code(s): R74.0 - Nonspecific elevation of levels of transaminase and lactic acid dehydrogenase [LDH] Additional A&P Information Elevated troponin: NSTEMI type 2 in setting of respiratory failure and tachycardia Suspect portal vein thrombosis Leucocytosis : she is being emperically covered with broad spectrum antibiotics. Anemia Patient remains critically ill. This was discussed with patient and family. Thank you for allowing me to participate in patient's care. Please feel free to call with questions or concerns. Consult Attestations Medical Necessity Statement: She remains critically ill requiring ICU stay Coding Level of Care Code Acute Field Service Engineer for Mary Jane Coates Diagnoses Acute on chronic respiratory failure with hypoxia and hypercapnia J96.21; J96.22 Pulmonary edema J81.0 Chronicity: acute Atrial flutter I48.92 CHF (NYHA class III, ACC/AHA stage C) I50.9 Acute kidney injury N17.9 Transaminitis R74.0
--- NOTE | 2019-12-31 07:00 | US_ITS ---
WS: [id number] RIGHT UPPER QUADRANT ULTRASOUND HISTORY: transaminitis, elevated alkaline phosphatase COMPARISON: None available. Liver: 23.7 cm in length. Liver is enlarged and heterogeneous. Increased attenuation throughout the l iver. No mass or bile duct dilatation. No flow noted within the portal vein. Gallbladder: Contracted gallbladder with diffuse wall thickening and stones. No pericholecystic fluid . Gallbladder wall measures 3.7 mm. CBD: 0.7 cm Pancreas: Normal size and echogenicity. Right kidney: 11.2 cm in length. Normal echogenicity with no mass or hydronephrosis. Aorta and IVC: Unremarkable. No ascites. US/US abdomen limited [id number] IMPRESSION: 1. Cholelithiasis without evidence for acute cholecystitis. Diffuse wall thick ening suggesting chronic cholecystitis. 2. Moderate to severe hepatic enlargement and hepatic steatosis. 3. Suspect portal vein occlusion or thrombosis. No flow identified in the port al vein. Recommend follow-up CT abdomen and pelvis evaluation with IV contrast.
--- NOTE | 2019-12-31 07:00 | XR_ITS ---
WS: [id number] Portable AP supine chest, 12/31/2019 Clinical Data: sob Comparison: Portable chest, 12/30/2019 Findings: The heart is enlarged. There is a small left pleural effusion along with basilar atelectasi s. Right base is clear. There is minimal atelectasis in the right midlung. The pulmonary vascularity is slightly increased. No pneumonia or pneumothorax is seen. The endotracheal tube and nasogastric tu be remain in good position. The aortic arch is tortuous. Monitor leads on the chest wall. XR/XR chest 1V portable [id number] Impression: 1. Cardiomegaly and atherosclerosis. 2. Increased pulmonary vascularity. 3. Nasogastric tube and endotracheal tube remain in good position.
[2019-12-31] MEDS: metOLazone 5 MG Tablet PO (07:47)
[2019-12-31] MEDS: ipratropium-albuterol 3 mL Neb INHALATION ×3 (07:56→19:20)
[2019-12-31 08:42] LABS: Partial Thromboplastin Time 63.3 SECONDS (23.9-36.7)
[2019-12-31] MEDS: FUROsemide 10 mg/mL SDV 10mL 125 MG IVP (08:46)
[2019-12-31] MEDS: pantoprazole 40 mg SDV IVP (08:47)
[2019-12-31] MEDS: spironolactone 25 mg Tablet PO (08:47)
[2019-12-31] MEDS: aspirin 325 mg Tablet PO (08:47)
--- NOTE | 2019-12-31 09:12 | ECG_ITS ---
Measurements Intervals [place] Rate: 87 P: OR: 0 QRS: 13 QRSD: 101 T: 134 QT: 412 QTc: 497 SINUS RHYTHM WITH PAC'S T-WAVE ABNORMALITY, CONSIDER ANTEROLATERAL ISCHEMIA Compared to ECG 12/30/2019 23:56:07 Atrial flutter no longer present T-wave abnormality still present Electronically Signed On 12-31-2019 10:22:47 ELECTION ASSISTANT by Keira Rodriguez M.D. [email or web address]
[2019-12-31] MEDS: heparin drip 25,000 UNIT/500 ML PREMIX 33.6 UNIT IV ×2 (11:13→23:43)
[2019-12-31 11:22] LABS: Glucose Point of Care 166 mg/dL (70-110)
[2019-12-31] MEDS: metoprolol tartrate 25 mg Tablet 12.5 MG OG-TUBE (11:56)
[2019-12-31] MEDS: metoprolol tartrate 1 mg/1 mL SDV 5 mL 5 MG IV ×2 (11:56→22:26)
[2019-12-31] MEDS: DOBUTamine drip 500 MG/250 ML PREMIX 6.8 MG IV (12:07)
[2019-12-31 12:35] LABS: Erythrocyte Sedimentation Rate 30 mm/hr (0-15)
[2019-12-31] MEDS: FUROsemide 100 MG in sodium chloride 0.9% 40 ML 10 MG IV (12:46)
[2019-12-31 13:53] LABS: Alanine Aminotransferase 486 U/L (0-33); Alkaline Phosphatase 147 IU/L (35-105); Anion Gap 19.4 (5-19); Aspartate Amino Transferase 349 U/L (0-32); Blood Urea Nitrogen 38 mg/dL (8-23); Calcium 8.9 mg/dL (8.5-10.5); Carbon Dioxide 25 mmol/L (22-29); Chloride 96 mmol/L (98-107); Globulin 4.3 g/dL (1.3-4.6); Glomerular Filtration Rate 22.6 mL/min (90-130); Glucose 182 mg/dL (65-115); Potassium 4.4 mmol/L (3.5-5.1); Sodium 136 mmol/L (136-145); Total Protein 7.3 g/dL (6.6-8.7)
--- NOTE | 2019-12-31 14:23 | P.PN_ITS ---
Subjective Subjective: Interval history: This morning patient is on a ventilator, intubated, sedated, propofol and fentanyl her sedation had to be turned off due to episodes of agitation, currently on 50% FiO2 PEEP of 8, tidal volume of 450 unfortunately her urine output has been lackluster on Lasix drip, creatinine is increasing to 1.7, has some brief hypotensive episodes that require minimal Levophed, has converted into normal sinus rhythm on very minimal Cardizem, no new ST-T wave changes on EKG, her troponins have trended down, chest x-ray this morning shows progressive pulmonary vascular congestion, her bilateral lower extremities more flushed and pink, DP PT pulses are palpable Vitals/I&O/Wt Last Vital Signs Temp 97.8 F 12/31/19 12:00 Pulse 76 12/31/19 14:00 Resp 16 12/31/19 13:20 BP 91/69 12/31/19 14:00 Pulse Ox 93 12/31/19 14:00 12/30/19 12/31/19 12/31/19 22:59 06:59 14:59 Intake Total 138.417 / 138.417 264.980 / 881.466 3856.424 / 1039.424 Output Total 450 / 450 Balance 138.417 / 138.417 -185.020 / -46.603 1039.424 / 1039.424 Weight last 48 hrs Weight 113.398 kg Weight 113.398 kg Physical Exam Const: COMMON NORMALS: no apparent distress OTHER: Intubated and sedated HENMT: COMMON NORMALS: normocephalic HEAD & SCALP: normocephalic Neck/C-Spine: COMMON NORMALS: no JVD Resp: COMMON NORMALS: normal respiratory effort, no retractions and no use of accessory muscles AUSCULTATION: crackles Cardio: COMMON NORMALS: no JVD, regular rate, regular rhythm, S1 normal heart sound and S2 normal heart sound RATE: regular rate RHYTHM: regular rhythm HEART SOUNDS: S1 normal and S2 normal GI: COMMON NORMALS: normal to inspection, nondistended, normoactive bowel sounds, soft to palpation, non-tender, no hepatosplenomegaly, no masses and no bruits PALPATION: Yes soft and Yes no hepatosplenomegaly Extremity: COMMON NORMALS: normal capillary refill, no clubbing, cyanosis or edema, no calf tenderness and no pedal edema Skin: NARRATIVE SKIN EXAM: Bilateral DP PT pulses palpable, lower extremities flushed and pink-colored Urinary Catheter Management^: Cedeño: Cath Placed During This Visit: yes Urethral Indwelling: Yes Reason for Continuing Indwelling Catheter: Accurate Measurement of Urinary Output in Critically Ill Patients Urinary Catheter Date of Insertion: 12/30/19 Data : 12/31/19 04:30 12/31/19 13:25 Micro: Microbiology 12/30/19 20:15 MRSA Culture - Final Nose 12/30/19 20:58 Gram Stain - Final Sputum - Endotracheal Tube Aspirate 12/30/19 21:00 Bacterial Antigens - Final Urine,Clean Catch 12/30/19 15:58 Blood Culture - Preliminary Blood SPECIMEN COLLECTED 12/30/19 16:25 Blood Culture - Preliminary Blood SPECIMEN COLLECTED A&P Assessment and plan (1) Acute on chronic respiratory failure with hypoxia and hypercapnia: -Cardiogenic shock secondary to cardiomyopathy, ischemic versus nonischemic -Chest x-ray shows pulmonary vascular congestion, BNP 5155, mild pitting edema, JVD difficult to assess given body habitus, no history of heart failure -Patient has a white blood cell count of 17.3, likely reactive, patient received steroids on the way to the emergency room, procalcitonin pending, does have complaints of fevers, chills, URI symptoms, and exposure to influenza by family members -Repeat ABG shows pH is 7.42, PO2 67.9, bicarb 27.3, PCO2 42.6 -Chest x-ray this morning shows increased pulmonary vascular congestion -Echocardiogram so far pending, bedside ultrasound shows diminished ejection fraction 15 to 20%, with akinetic segments including septum Plan: -Currently on a ventilator, minimize FiO2, minimize PEEP: 450 tidal volume, 50% FiO2, 8 PEEP -Lovenox for DVT prophylaxis, Protonix for GI prophylaxis -Unfortunately patient has failed Lasix bolus, Lasix drip, metolazone, with wo rsening creatinine up to 2.2, and lackluster urine output, with concerns of cardiorenal syndrome versus ATN -Continue aspirin, statin -Continue heparin drip -We will consult nephrology for ultrafiltration, will need dialysis catheter placed if agreeable -Monitor urine output -Patient's daughter is at bedside, advised that her status is critical, prognosis is guarded, patient is in ICU Status: Acute Code(s): J96.21 - Acute and chronic respiratory failure with hypoxia; J96.22 - Acute and chronic respiratory failure with hypercapnia (2) CHF (NYHA class III, ACC/AHA stage C): Continue aspirin, statin, beta-arabella PRN Status: Acute Code(s): I50.9 - Heart failure, unspecified (3) Pulmonary edema: Status: Acute Qualifiers: Chronicity: acute Qualified Code(s): J81.0 - Acute pulmonary edema Code(s): J81.1 - Chronic pulmonary edema (4) Atrial flutter: -No known history of atrial flutter or atrial fibrillation -No complaints of chest pain, palpitations -Possibly atrial flutter is related to acute respiratory failure or vice versa, unsure as patient has not been vocal about her medical problems to family members -Currently in normal sinus rhythm Plan: -Cardizem drip has been stopped, and metoprolol IV as needed -TSH unremarkable -Magnesium within normal limits Status: Acute Code(s): I48.92 - Unspecified atrial flutter (5) Acute kidney injury: Likely cardiorenal syndrome related to heart failure with concerns for progressing to ATN, creatinine 2.2 Status: Acute Code(s): N17.9 - Acute kidney failure, unspecified (6) Transaminitis: -AST 745, ALT 563, T bili 1.6, alk phos 181, blood alcohol negative hep panel negative -Abdomen is quite distended -No abdominal complaints as per family members -No fevers here -Likely secondary to cardiogenic shock/cardiac cirrhosis, and portal vein thrombosis Status: Acute Code(s): R74.0 - Nonspecific elevation of levels of transaminase and lactic acid dehydrogenase [LDH] (7) Portal vein thrombosis: -Patient's right upper quadrant ultrasound shows concerns for no flow through portal vein, possible portal vein occlusion or thrombosis -I am not sure of the etiology, possibly is secondary to severe cardiogenic shoc k, with stasis of blood flow in portal vein? 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
--- NOTE | 2019-12-31 15:14 | P.CONIM_ITS ---
Providers/Reason For Consult Consulting Physican/Specialty*: Montse Medina DO, telenephrology Reason for Consult*: Acute Kidney Injury, pulmonary edema, oliguria Was on furosemide gtt at 10, then 20 mg/hr and received 125 mg IV furosemide without significant diuresis Currently on dobutamine and levophed. Echo with EF 15-20% Attending Physician: Harshad Dunham MD Primary Care Provider: EDISON Castro History of Present Illness History of Present Illness Nehal Hull is a 64 year old female who presented to ER in respiratory distress and was intubated. History obtained from daughters Megan and Lillian. Review of Systems General: Reports: ROS unobtainable due to medical condition Meds/Allergies Home Medications and Allergies Home Medications Medication Instructions Recorded Confirmed Type No Known Home Medications 12/30/19 12/30/19 History Allergies Allergy/AdvReac Type Severity Reaction Status Date / Time Penicillins Allergy Unknown Verified 12/30/19 15:43 Current Medications Current Medications Generic Name Dose Route Start Last Admin Trade Name Freq PRN Reason Stop Dose Admin Albuterol/Ipratropium 3 ml 12/31/19 00:00 12/31/19 15:07 Duoneb INHALATION 3 ml Q4H.RESPIRATORY PRN Administration BRONCHOSPASM Aspirin 325 mg 12/30/19 18:58 12/31/19 08:47 Aspirin PO 325 mg DAILY BRATN Administration Atorvastatin Calcium 40 mg 12/30/19 21:00 12/30/19 20:01 Lipitor PO 40 mg BEDTIME BRANT Administration Heparin Sodium (Beef Lung) 0 unit 12/30/19 18:58 12/30/19 20:24 Heparin IV 6,000 unit PRN PRN Administration Heparin weight-base protocol Protocol Diltiazem HCl 125 mg/ Sodium 125 mls @ 0 mls/hr 12/30/19 15:30 12/31/19 09:04 Chloride IV 0 mg/hr .Q0M BRANT 0 mls/hr Titration Protocol Per Protocol Furosemide 100 mg/ Sodium 50 mls @ 0 mls/hr 12/30/19 18:00 12/31/19 14:29 Chloride IV 0 mg/hr .Q0M BRANT 0 mls/hr Titration Protocol Per Protocol Heparin Sodium/Sodium Chloride 25,000 unit in 500 mls @ 0 mls/hr 12/30/19 19:00 12/31/19 11:13 Heparin Drip IV 14.82 unit/kg/hr .Q0M BRANT 33.6 mls/hr Administration Protocol Per Protocol Fentanyl 1,000 mcg/ Sodium 100 mls @ 0 mls/hr 12/30/19 20:15 12/31/19 09:04 Chloride IV 25 mcg/hr .Q0M BRANT 2.5 mls/hr Titration Protocol Per Protocol Propofol 1,000 mg in 100 mls @ 0 mls/hr 12/30/19 22:00 12/31/19 13:45 Diprivan IV 35 mcg/kg/min .Q0M BRANT 23.8 mls/hr Administration Protocol Per Protocol Dobutamine HCl/Dextrose 500 mg in 250 mls @ 0 mls/hr 12/31/19 11:45 12/31/19 12:07 Dobutamine Drip IV 2 mcg/kg/min .Q0M BRANT 6.8 mls/hr Administration Protocol Per Protocol Metolazone 5 mg 12/31/19 07:45 12/31/19 07:47 Zaroxolyn PO 5 mg DAILY BRANT Administration Pantoprazole Sodium 40 mg 12/30/19 17:25 12/31/19 08:47 Protonix IVP 40 mg DAILY BRANT Administration Spironolactone 25 mg 12/31/19 09:00 12/31/19 08:47 Aldactone PO 25 mg DAILY BRANT Administration PFSH Acute PFSH: Family History Other CAD (coronary artery disease) Social History Smoking and tobacco status: current every day smoker Alcohol intake: never Substance/Drug Use: never Vitals/I&O/Wt Last Vital Signs Temp 97.8 F 12/31/19 12:00 Pulse 97 12/31/19 15:11 Resp 16 12/31/19 15:11 BP 91/69 12/31/19 14:00 Pulse Ox 94 12/31/19 15:11 12/31/19 12/31/19 12/31/19 06:59 14:59 22:59 Intake Total 264.980 / 115.461 8689.591 / 1056.591 Output Total 450 / 450 Balance -185.020 / -46.603 1056.591 / 1056.591 Weight last 48 hrs Weight 113.398 kg Weight 113.398 kg Physical Exam Narrative: EXAM NARRATIVE: sedated on ventilator Resp: AUSCULTATION: crackles Cardio: COMMON NORMALS: regular rate RATE: regular rate Extremity: GENERAL: Yes edema Urinary Catheter Management^: Cedeño: Cath Placed During This Visit: yes Urethral Indwelling: Yes Reason for Continuing Indwelling Catheter: Accurate Measurement of Urinary Output in Critically Ill Patients Urinary Catheter Date of Insertion: 12/30/19 Data Micro: Micro: Microbiology 12/30/19 20:15 MRSA Culture - Fin al Nose 12/30/19 20:58 Gram Stain - Final Sputum - Endotrac heal Tube Aspirate 12/30/19 21:00 Bacterial Antigens - Final Urine,Clean Catch 12/30/19 15:58 Blood Culture - Pr eliminary Blood SPECIMEN COLLEC NIRU 12/30/19 16:25 Blood Culture - Pr eliminary Blood SPECIMEN COLLEC NIRU Other Data: Other data: 7.42/43/68 on 50% FIO2 Abdominal ultrasound: 1. Cholelithiasis without evidence for acute cholecystitis. Diffuse wall thickening suggesting chronic cholecystitis. 2. Moderate to severe hepatic enlargement and hepatic steatosis. No ascites 3. Suspect portal vein occlusion or thrombosis. No flow identified in the portal vein. Recommend follow-up CT abdomen and pelvis evaluation with IV contrast. CXR: 1. Cardiomegaly and atherosclerosis. 2. Increased pulmonary vascularity. 3. Nasogastric tube and endotracheal tube remain in good position. A&P Additional A&P Information Impression: 1. Acute oliguric kidney injury. Baseline renal function not known. 2. Volume overload, not responding adequately to diuretics 3. Cardiogenic shock Recommend: urinalysis, continue intermittent furosemide. Consider ultrafiltration/dialysis. Indications and potential complication discussed in detail with daughters and they are agreeable to proceeding. Hospitalist will discuss with critical care and cardiology and contact me regarding decision. Consult Attestations Medical Necessity Statement: critically ill, cardiogenic shock, JOSEFA, VDRF Time Spent in Patient Care: Greater than 35 minutes (>than 50% of time spent in counselling and/or direct pt care on unit) . Coding Level of Care Code Acute Aircraft Structural Repair Mechanic for Mary Jane Coates
[2019-12-31 16:08] LABS: Partial Thromboplastin Time 57.1 SECONDS (23.9-36.7)
[2019-12-31] MEDS: FUROsemide 10 mg/mL SDV 10mL 80 MG IVP (17:30)
[2019-12-31 18:06] LABS: Bilirubin Urine Neg (NEGATIVE); Blood Urine Neg (Negative); Glucose Urine UA Norm (Normal); Ketones Urine Negative (Negative); Leukocyte Esterase Urine Negative (Negative); Nitrate Urine Negative (Negative); Protein Urine Neg (Negative); Urine Appearance Hazy (CLEAR); Urine Color Yellow (Yellow); Urobilinogen Urine Norm (Negative); pH Urine 5 (5-7)
[2019-12-31 18:07] LABS: Bacteria Urine 1+; Squamous Epithelial Cell Urine 0-4 (0-5); WBC Urine 0-4 /hpf (0-5)
[2019-12-31 18:08] LABS: Add Urine Culture? No; Amorphous Sediment Urine TRACE; Mucus Urine TRACE
--- NOTE | 2019-12-31 18:18 | PM.OP ---
Operative Report Date of procedure: December 31, 2019 Pre-op Diagnosis: Acute on chronic renal failure. Post-op diagnosis: same Procedure Done: Right femoral vein temporary hemodialysis catheter placement. Specimens removed/disposition: None. Surgeon: Aaron Dickerson Anesthesia: Local Estimated blood loss (mL): 10 Complications: None. Condition: stable Disposition: ICU Procedure: The patient was encountered in the ICU in a supine position on her bed. She is intubated and sedated. The right femoral area was prepped and draped in a sterile fashion. 1% lidocaine was used for local anesthetic. The right femoral vein was accessed on the first pass with a needle and syringe as evidenced by the return of dark nonpulsatile blood. The guidewire was easily passed down the needle and the needle was removed. A scalpel was used to slightly enlarge the skin opening at the insertion point of the J-wire. Small to medium sized dilators were then sequentially placed over the guidewire to dilate the skin and subcutaneous tissue. The dialysis catheter was then easily passed over the wire into the vein. The wire was removed. Both ports were aspirated and flushed with hep flush solution. Both ports showed excellent flow and were then left filled with concentrated hep flush solution. The catheter was sewn in place in the right femoral area with some interrupted sutures of 3-0 nylon. A sterile dressing followed. The patient was left in the ICU following the procedure in stable condition.
[2019-12-31] MEDS: heparin, porcine 1,000 unit/mL INJ 10 mL 5000 UNIT INJECTION (18:20)
[2019-12-31] MEDS: propofol 1,000 MG/100 ML INJ 20.4 MG IV (22:00)
--- NOTE | 2019-12-31 22:04 | PC.NURSE ---
Called Dr. Daniel about heart rate sustaining 147. No new orders were given this timed. informed me she will look at it when she is done with admission in ER.
[2019-12-31 23:25] LABS: Partial Thromboplastin Time 28.5 SECONDS (23.9-36.7)
[2020-01-01] VITALS (42 sets, daily range): BP systolic 89–129; BP diastolic 54–89; PULSE 77–150; RESP 16; TEMP 36.5–36.9; O2SAT 94–100
--- NOTE | 2020-01-01 | SC_ITS ---
WS: [id number] C-arm FL for CVA [id number] REASON FOR EXAM: DIALYSIS CATHETER PLACEMENT FINDINGS: A dialysis catheter is inserted with the carotid approach. The tip appears to be poorly see n but appears to be in the upper's inferior vena cava. The endotracheal tube is well positioned. Better than previous exam. SC/C-arm FL for CVA [id number] IMPRESSION: Dialysis catheter insertion under fluoroscopic guidance. Note the projections a re underpenetrated. Recommend AP chest.
--- NOTE | 2020-01-01 | SCC_ITS ---
Procedure Done: 1. Placement of 12 Chinese dual-lumen 20 cm temporary hemodialysis catheter into the left subclavian vein with intraoperative fluoroscopy interpretation. 2. Placement of triple-lumen venous catheter in the right internal jugular vein with intraoperative fluoroscopy interpretation. 6.6 seconds of fluoroscopic guidance, for a cumulative dose of 00.69 mGy, was provided to Dr. Dickerson by the radiology department. C-arm images of the chest were saved for the patient's permanent record. HAIDER
[2020-01-01] MEDS: propofol 1,000 MG/100 ML INJ 13.6 MG IV (03:49)
[2020-01-01] MEDS: ipratropium-albuterol 3 mL Neb INHALATION ×2 (04:46→17:51)
[2020-01-01 05:14] LABS: Basophils % 0.1 %; Hematocrit 40.3 % (37.0-47.0); Hemoglobin 12.4 g/dL (11.5-15.3); Lymphocytes # 2.4 10^3/uL (0.8-4.8); Lymphocytes % 11.7 %; Mean Corpuscular HGB Conc 30.8 g/dL (30.0-36.0); Mean Corpuscular Hemoglobin 28.4 pg (28.0-34.0); Mean Corpuscular Volume 92.4 fL (81-99); Mean Platelet Volume 10.8 fL (7.4-10.4); Monocytes # 2.2 10^3/uL (0.2-0.9); Monocytes % 10.6 %; Neutrophils # 15.9 10^3/uL (1.8-7.7); Neutrophils % 76.6 %; Nucleated Red Blood Cells # 1.2 /100WBC; Nucleated Red Blood Cells % 5.8 %; Platelet Count 406 10^3/cmm (130-400); Red Blood Count 4.36 10^6/uL (4.1-5.3); Red Cell Distribution Width 14.9 % (12.1-15.1); White Blood Count 20.7 10^3/uL (4.0-10.0)
[2020-01-01 05:54] LABS: Partial Thromboplastin Time 40.7 SECONDS (23.9-36.7)
[2020-01-01] MEDS: heparin 5,000 unit/mL INJ 1 mL IV (06:13)
--- NOTE | 2020-01-01 07:00 | XRR_ITS ---
PROCEDURE INFORMATION: Exam: XR Chest, 1 View Exam date and time: 01/01/2020 5:40 AM Age: 64 years old Clinical indication: Device placement; Ett placement (vent status); Additional info: SOB TECHNIQUE: Imaging protocol: XR of the chest Views: Frontal portable supine view of the chest. COMPARISON: CR XR chest 1V portable [id number] 12/31/2019 5:57 AM FINDINGS: Tubes, catheters and devices: The endotracheal tube tip is approximately 4 cm above the elba. The feeding tube enters the stomach with the tip off the limits of the image. EKG leads are present overlying the chest. Lungs: Stable bibasilar partial/subsegmental atelectasis. The pulmonary vasculature is less congested and better defined. Pleural space: No definite pleural effusion. No pneumothorax. Heart/Mediastinum: Stable moderate cardiomegaly. Mediastinum: Stable. Bones/joints: Stable. XR/XR chest 1V portable [id number] IMPRESSION: 1. Stable bibasilar partial/subsegmental atelectasis. 2. Improved pulmonary vascular congestion.
[2020-01-01 07:03] LABS: Magnesium 2.6 mg/dL (1.7-2.3); Phosphorus 6.8 mg/dL (2.5-4.5)
[2020-01-01 07:42] LABS: Alanine Aminotransferase 473 U/L (0-33); Albumin Level 3.1 g/dL (3.5-5.2); Alkaline Phosphatase 157 IU/L (35-105); Anion Gap 22.4 (5-19); Aspartate Amino Transferase 305 U/L (0-32); Blood Urea Nitrogen 60 mg/dL (8-23); Calcium 8.9 mg/dL (8.5-10.5); Carbon Dioxide 21 mmol/L (22-29); Chloride 93 mmol/L (98-107); Globulin 3.9 g/dL (1.3-4.6); Glomerular Filtration Rate 14.2 mL/min (90-130); Glucose 162 mg/dL (65-115); Potassium 4.4 mmol/L (3.5-5.1); Sodium 132 mmol/L (136-145); Total Bilirubin 0.8 mg/dL (0.15-1.2)
[2020-01-01] MEDS: aspirin 325 mg Tablet PO (08:49)
[2020-01-01] MEDS: metOLazone 5 MG Tablet PO (08:49)
[2020-01-01] MEDS: spironolactone 25 mg Tablet PO (08:50)
[2020-01-01] MEDS: pantoprazole 40 mg SDV IVP (08:50)
--- NOTE | 2020-01-01 08:50 | PM.PN ---
Subjective Subjective: Interval history: cardiogenic shock, VDRF, JOSEFA received 2'50 UF overnight with UF 1.8 liters - catheter flow as poor FIO2 reduced to 40%, off dobutamin and levophed overnight urine output 450 ml Medications: Reviewed: Yes Vitals/I&O/Wt Last Vital Signs Temp 98.5 F 01/01/20 02:00 Pulse 88 01/01/20 06:00 Resp 16 01/01/20 07:43 BP 102/76 01/01/20 06:00 Pulse Ox 95 01/01/20 06:00 12/31/19 01/01/20 01/01/20 22:59 06:59 14:59 Intake Total 241.57 / 1298.161 644.752 / 1942.913 Output Total 550 / 550 200 / 750 Balance -308.43 / 748.161 444.752 / 1192.913 Weight last 48 hrs Weight 117.027 kg Weight 113.398 kg Weight 113.398 kg Physical Exam Narrative: EXAM NARRATIVE: sedated on ventilator, daughter at bedside HENMT: COMMON NORMALS: normocephalic HEAD & SCALP: normocephalic MOUTH: other (oral ETT) Resp: AUSCULTATION: rhonchi Cardio: COMMON NORMALS: regular rate RATE: regular rate Extremity: NARRATIVE EXTREMITY EXAM: + edema Urinary Catheter Management^: Cedeño: Cath Placed During This Visit: yes Urethral Indwelling: Yes Reason for Continuing Indwelling Catheter: Accurate Measurement of Urinary Output in Critically Ill Patients Urinary Catheter Date of Insertion: 12/30/19 Data : 01/01/20 04:57 01/01/20 06:30 Micro: Microbiology 12/30/19 15:58 Blood Culture - Preliminary Blood NEGATIVE TO DATE 12/30/19 16:25 Blood Culture - Preliminary Blood NEGATIVE TO DATE 12/30/19 20:15 MRSA Culture - Final Nose CXR: 1. Stable bibasilar partial/subsegmental atelectasis. 2. Improved pulmonary vascular congestion. Urinalysis unremarkable, 7.42/37/83, Phos 6.8, albumin 3.1, transaminases improving A&P Additional A&P Information Impression: 1. Acute oliguric kidney injury. 2. Volume overload, not responding adequately to diuretics, s/p ultrafiltration overnight with improvement in oxygenation 3. Cardiogenic shock 4. hyperphosphatemia Recommend: will dialyze today 3 hours with goal UF 2 liters as BP tolerates, continue intermittent furosemide. Dialysis catheter may need repositioning. Continue intermittent lasix. When enteral feeds initiated, use renal solution ([place]). Attestations Medical Necessity Statement*: critically ill Time Spent in Patient Care: Greater than 35 minutes Coding Level of Care Code Acute Screen Examiner for Mary Jane Coates
[2020-01-01] MEDS: FUROsemide 10 mg/mL SDV 10mL 80 MG IVP ×2 (08:51→18:06)
[2020-01-01] MEDS: propofol 1,000 MG/100 ML INJ 20.4 MG IV ×3 (10:24→19:18)
[2020-01-01 11:05] LABS: ABG PCO2 36.9 mmHg (35-45); ABG PH Result 7.42 (7.35-7.45); Base Excess ABG -0.4 mmol/L (-2.0-2.0); HCO3 ABG 23.8 mmol/L (22-26); Oxygen Device VENT; PO2 ABG 82.7 mmHg (80.0-100.0)
--- NOTE | 2020-01-01 11:12 | PC.CHAP ---
Pastoral Care Encounter/Spiritual Assessment Type of Contact [] Declined filler and trimmer visit [] Patient/Family/Request visit [] Outpatient visit [] Follow-up visit [] Physician referral [] Code/Alert [x] Routine visit [] Staff referral [] Actively dying [] Patient sleeping [x] Family support [] [] Out of room [] Palliative care [] [] Receiving care in room [] Pre-surgical visit [] Trauma [] Long length of stay [x] ICU visit [] Other: Relational/Emotional Strength [] Patient feels connected with others/family/visitors/staff [] Distress [] Loneliness/isolation [] Abandonment Spirituality of Patient [] Person of [place] [] Attends Christianity of their [place] [] Believes in Prayer [] Reads Bible or Roman Catholic materials [] There are Spiritual issues to be addressed Still Cleaner Interventions [x] Prayer [] Active listening [] Non-anxious presence [] Spiritual/emotional support [] Crisis/trauma care [] Spiritual counseling [] Bereavement support [] Provided bereavement packet [] Provided Bible/devotional materials [] Provided toy/stuffed animal, coloring book to patient or family member [] Provided Communion [] Anointing/[place] [] Salvation [x] Completed spiritual assessment [] Other: Impact on Illness or Injury [] Angry [] Fearful [] Anxious [] Often cries [] Exhaustion [] Unable to work [] Unable to attend rastafari [] Unable to walk/stand [] Unable to read [] Unable to drive [] Unable to eat/drink [] Unable to sleep [] Unable to be with family [] Patient intubated [] Other: Summary Patient no responsive, however daughter present. Prayed with daughter. Time spent with patient 10min
[2020-01-01 11:26] LABS: Partial Thromboplastin Time 101.3 SECONDS (23.9-36.7)
--- NOTE | 2020-01-01 12:46 | P.PN_ITS ---
Subjective Subjective: Interval history: Was notified by the dialysis team today that they were having some difficulty with high pressures regarding the right femoral dialysis catheter that was placed yesterday. This apparently happened last night and despite trying to reverse lines, changing circuits on the dialysis machine, etc. they were still having issues with low flow at times. I came in today and actually pulled the dialysis catheter out slightly to see if that would make any difference but it seems as if the venous or arterial pressure is always high and the flow rates are not adequate, although this seems to be an intermittent problem. They seem to be convinced that the patient's body habitus is the issue given the femoral location of the catheter. Vitals/I&O/Wt Last Vital Signs Temp 98.5 F 01/01/20 02:00 Pulse 88 01/01/20 10:00 Resp 16 01/01/20 11:08 BP 102/82 01/01/20 10:00 Pulse Ox 97 01/01/20 10:00 12/31/19 01/01/20 01/01/20 22:59 06:59 14:59 Intake Total 273.236 / 1329.827 644.752 / 1974.579 72.573 / 72.573 Output Total 550 / 550 200 / 750 Balance -276.764 / 779.827 444.752 / 1224.579 72.573 / 72.573 Weight last 48 hrs Weight 258 lb Weight 250 lb Weight 250 lb Physical Exam Narrative: EXAM NARRATIVE: The right femoral dialysis catheter was removed after a J-wire had been placed through the existing catheter. I was going to try to replace the catheter with a shorter one but the second catheter would not thread easily along the wire after the first dialysis catheter had been removed and so the procedure was aborted. Urinary Catheter Management^: Cedeño: Cath Placed During This Visit: yes Urethral Indwelling: Yes Reason for Continuing Indwelling Catheter: Accurate Measurement of Urinary Output in Critically Ill Patients Urinary Catheter Date of Insertion: 12/30/19 Data : 01/01/20 04:57 01/01/20 06:30 Micro: Microbiology 12/30/19 20:58 Gram Stain - Final Sputum - Endotracheal Tube Aspirate Sputum Culture - Preliminary 12/30/19 15:58 Blood Culture - Preliminary Blood NEGATIVE TO DATE 12/30/19 16:25 Blood Culture - Preliminary Blood NEGATIVE TO DATE 12/30/19 20:15 MRSA Culture - Final Nose A&P Assessment and plan (1) Acute renal failure: The dialysis team has requested a temporary subclavian hemodialysis catheter if possible. They are fairly convinced that the patient's body habitus is making this a difficult case. The patient's heparin drip has been put on hold. I will make arrangements to take her to the operating room for a hemodialysis catheter placement at a different access site. Status: Acute Code(s): N17.9 - Acute kidney failure, unspecified Attestations Medical Necessity Statement*: See admitting service's notation. Coding Level of Care Code Acute Guest Laundry Attendant for [facility] Aminata Diagnoses Acute renal failure N17.9
--- NOTE | 2020-01-01 13:13 | ANES.PREANE2 ---
Pre-Anesthetic Assessment Pre-Anesthetic Assessment: Height/Weight: Height 1.63 m Weight 117.027 kg Temp Pulse Resp BP Pulse Ox 98.5 F 88 16 102/82 97 01/01/20 02:00 01/01/20 10:00 01/01/20 13:09 01/01/20 10:00 01/01/20 10:00 Preop Diagnosis: Acute on chronic renal failure. Proposed Procedure: Operation Date: 01/01/20 14:00 Proposed Procedures p Dialysis Catheter Insertion(Not Applicable) - Aaron Dickerson MD Last Intake: 23:59 Social: Social History: Tobacco Exam: Pre-Anes Outpt Exam: regular rate & rhythm Airway: Additional comments: intubated Pulmonary: Comments: hypoxic, hypercapnia respiratory failure requiring intubation on Saturday CV/HEM: CV/HEM: Afib and CHF Comments: Echo EF 15% : : None reported Comments: acute renal failure requiring dialysis Hepatic: Comments: hepatic congestion Neuropsych: Comments: sedated Anesthetic Plan: ASA status: 4 Meds/Allergies Current Medications: Current Medications Generic Name Dose Route Start Last Admin Trade Name Freq PRN Reason Stop Dose Admin Albuterol/Ipratrop ium 3 ml 12/31/19 00:00 01/01/20 04:46 Duoneb INHALATION 3 ml Q4H.RESPIRATORY P RN Administration BRONCHOSPASM Aspirin 325 mg 12/30/19 18:58 01/01/20 08:49 Aspirin PO 325 mg DAILY BRANT Administration Atorvastatin Calci um 40 mg 12/30/19 21:00 12/30/19 20:01 Lipitor PO 40 mg BEDTIME BRANT Administration Furosemide 80 mg 12/31/19 16:15 01/01/20 08:51 Lasix IVP 80 mg Q8H BRANT Administration Heparin Sodium (Be ef Lung) 0 unit 12/30/19 18:58 01/01/20 06:13 Heparin IV 4,800 unit PRN PRN Administration Heparin weight-ba se protocol Protocol Diltiazem HCl 125 mg/ Sodium 125 mls @ 0 mls/h r 12/30/19 15:30 12/31/19 09:04 Chloride IV 0 mg/hr .Q0M BRANT 0 mls/hr Titration Protocol Per Protocol Norepinephrine Bit artrate 4 mg 254 mls @ 0 mls/h r 12/30/19 17:45 01/01/20 03:49 / Dextrose IV 2 mcg/min .Q0M BRANT 7.6 mls/hr Titration Protocol Per Protocol Furosemide 100 mg/ Sodium 50 mls @ 0 mls/hr 12/30/19 18:00 12/31/19 14:29 Chloride IV 0 mg/hr .Q0M BRANT 0 mls/hr Titration Protocol Per Protocol Heparin Sodium/Sod ium Chloride 25,000 unit in 50 0 mls @ 0 mls/hr 12/30/19 19:00 12/31/19 23:43 Heparin Drip IV 14.82 unit/kg/hr .Q0M BRANT 33.6 mls/hr Administration Protocol Per Protocol Fentanyl 1,000 mcg / Sodium 100 mls @ 0 mls/h r 12/30/19 20:15 01/01/20 08:44 Chloride IV 25 mcg/hr .Q0M BRANT 2.5 mls/hr Administration Protocol Per Protocol Propofol 1,000 mg in 100 m ls @ 0 mls/hr 12/30/19 22:00 01/01/20 10:24 Diprivan IV 30 mcg/kg/min .Q0M BRANT 20.4 mls/hr Administration Protocol Per Protocol Dobutamine HCl/Dex trose 500 mg in 250 mls @ 0 mls/hr 12/31/19 11:45 12/31/19 18:46 Dobutamine Drip IV 0 mcg/kg/min .Q0M BRANT 0 mls/hr Titration Protocol Per Protocol Metolazone 5 mg 12/31/19 07:45 01/01/20 08:49 Zaroxolyn PO 5 mg DAILY BRANT Administration Pantoprazole Sodiu m 40 mg 12/30/19 17:25 01/01/20 08:50 Protonix IVP 40 mg DAILY BRANT Administration Spironolactone 25 mg 12/31/19 09:00 01/01/20 08:50 Aldactone PO 25 mg DAILY BRANT Administration PFSH Anesthesia PFSH: Family History Other CAD (coronary artery disease) Social History Smoking and tobacco status: current every day smoker Alcohol intake: never Substance/Drug Use: never Data Anesthesia CBC & Chem 7: 01/01/20 04:57 01/01/20 06:30 Other Labs: Laboratory Results - last 48 hr 12/30/19 12/30/19 12/30/19 15:58 15:58 15:58 WBC 17.3 H RBC 4.44 Hgb 12.6 Hct 43.5 MCV 98.0 MCH 28.4 MCHC 29.0 L RDW 15.1 Plt Count 461 H MPV 10.2 Neut % (Auto) 64.1 Lymph % (Auto) 24.1 [place] % (Auto) 10.6 Eos % (Auto) 0.2 Baso % (Auto) 0.3 Neut # (Auto) 11.1 H Lymph # (Auto) 4.2 [place] # (Auto) 1.8 H Eos # (Auto) 0.0 Baso # (Auto) 0.1 Nucleated RBC % (auto) 1.1 Nucleated RBCs # 0.2 ESR APTT Specimen Type Sample Site ABG pH ABG pCO2 ABG pO2 ABG HCO3 ABG O2 Saturation ABG Base Excess Bennett Test A-a O2 Gradient Hematocrit Hgb O2 Saturation Carboxyhemoglobin Methemoglobin Total Hemoglobin Sodium 136 Potassium 4.3 Glucose 181 H Ionized Calcium Respiration Rate O2 Delivery Device O2 Liters/Min FiO2 Tidal Volume PEEP Building Construction Engineer ID Chloride 97 L Carbon Dioxide 27 Anion Gap 16.3 BUN 20 Creatinine 1.2 H GFR Calculation 45.5 L POC Glucose Random Glucose Estimat Average Glucose Hemoglobin A1c Lactic Acid Lactic Acid (Sepsis) Lactate Calcium 8.7 Phosphorus Magnesium Total Bilirubin 1.6 H AST 745 H ALT 563 H Alkaline Phosphatase 181 H Troponin I 6 Hour Troponin I Hi Sens Del Troponin T Baseline 47 H Troponin T 120 Minute Delta Troponin T C-Reactive Protein NT-Pro-B Natriuret Pep Total Protein 7.6 Albumin 3.5 Globulin 4.1 Triglycerides Cholesterol LDL Cholesterol, Calc HDL Cholesterol LDL/HDL Ratio Cholesterol/HDL Ratio Lipase Procalcitonin TSH Urine Color Urine Appearance Urine pH Ur Specific [place] Urine Protein Urine Glucose (UA) Urine Ketones Urine Blood Urine Nitrate Urine Bilirubin Urine Urobilinogen Ur Leukocyte Esterase Urine RBC Urine WBC Ur Squamous Epith Cells Amorphous Sediment Urine Bacteria Hyaline Casts Urine Mucus Urine Opiates Screen Ur Barbiturates Screen Ur Phencyclidine Scrn Ur Amphetamines Screen U Benzodiazepines Scrn Urine Cocaine Screen U Marijuana (THC) Screen Ethyl Alcohol Hepatitis A IgM Ab Hep Bs Antigen Hep B Core IgM Ab Hepatitis C Antibody Influenza Type A Ag POC Influenza B Ag 12/30/19 12/30/19 12/30/19 15:58 15:58 15:58 WBC RBC Hgb Hct MCV MCH MCHC RDW Plt Count MPV Neut % (Auto) Lymph % (Auto) [place] % (Auto) Eos % (Auto) Baso % (Auto) Neut # (Auto) Lymph # (Auto) [place] # (Auto) Eos # (Auto) Baso # (Auto) Nucleated RBC % (auto) Nucleated RBCs # ESR APTT Specimen Type Arterial Sample Site Brachial, right ABG pH 7.22 L ABG pCO2 79.1 H* ABG pO2 38.6 L* ABG HCO3 32.4 H ABG O2 Saturation 58.4 ABG Base Excess 2.2 H Bennett Test Pos A-a O2 Gradient 17.5 H Hematocrit 41.5 Hgb O2 Saturation 57.0 L Carboxyhemoglobin 1.9 Methemoglobin 0.5 Total Hemoglobin 13.5 Sodium 140.0 Potassium 4.2 Glucose 150.0 H Ionized Calcium 1.1 Respiration Rate O2 Delivery Device Nc O2 Liters/Min 6.0 FiO2 Tidal Volume PEEP Building Construction Engineer ID jmn Chloride Carbon Dioxide Anion Gap BUN Creatinine GFR Calculation POC Glucose Random Glucose Estimat Average Glucose Hemoglobin A1c Lactic Acid Lactic Acid (Sepsis) Lactate 1.3 Calcium Phosphorus Magnesium Total Bilirubin AST ALT Alkaline Phosphatase Troponin I 6 Hour Troponin I Hi Sens Del Troponin T Baseline Troponin T 120 Minute Delta Troponin T C-Reactive Protein 150.2 H NT-Pro-B Natriuret Pep 5155 H Total Protein Albumin Globulin Triglycerides Cholesterol LDL Cholesterol, Calc HDL Cholesterol LDL/HDL Ratio Cholesterol/HDL Ratio Lipase Procalcitonin 0.23 TSH 1.87 Urine Color Urine Appearance Urine pH Ur Specific [place] Urine Protein Urine Glucose (UA) Urine Ketones Urine Blood Urine Nitrate Urine Bilirubin Urine Urobilinogen Ur Leukocyte Esterase Urine RBC Urine WBC Ur Squamous Epith Cells Amorphous Sediment Urine Bacteria Hyaline Casts Urine Mucus Urine Opiates Screen Ur Barbiturates Screen Ur Phencyclidine Scrn Ur Amphetamines Screen U Benzodiazepines Scrn Urine Cocaine Screen U Marijuana (THC) Screen Ethyl Alcohol < 10 Hepatitis A IgM Ab Hep Bs Antigen Hep B Core IgM Ab Hepatitis C Antibody Influenza Type A Ag POC Influenza B Ag 12/30/19 12/30/19 12/30/19 15:58 15:58 17:10 WBC RBC Hgb Hct MCV MCH MCHC RDW Plt Count MPV Neut % (Auto) Lymph % (Auto) [place] % (Auto) Eos % (Auto) Baso % (Auto) Neut # (Auto) Lymph # (Auto) [place] # (Auto) Eos # (Auto) Baso # (Auto) Nucleated RBC % (auto) Nucleated RBCs # ESR APTT Specimen Type Arterial Sample Site Brachial, right ABG pH 7.26 L ABG pCO2 60.8 H* ABG pO2 69.2 L ABG HCO3 27.4 H ABG O2 Saturation 90.6 ABG Base Excess -0.8 Bennett Test Pos A-a O2 Gradient 281.5 H Hematocrit 39.6 Hgb O2 Saturation 88.6 L Carboxyhemoglobin 1.8 Methemoglobin 0.5 Total Hemoglobin 12.9 Sodium 139.0 Potassium 4.5 Glucose 170.0 H Ionized Calcium 1.1 Respiration Rate 16.0 O2 Delivery Device Vent O2 Liters/Min FiO2 60.0 Tidal Volume 0.4 PEEP 8.0 Building Construction Engineer ID [place]ro Chloride Carbon Dioxide Anion Gap BUN Creatinine GFR Calculation POC Glucose Random Glucose Estimat Average Glucose Hemoglobin A1c Lactic Acid Lactic Acid (Sepsis) Lactate Calcium Phosphorus 5.3 H Magnesium 2.4 H Total Bilirubin AST ALT Alkaline Phosphatase Troponin I 6 Hour Troponin I Hi Sens Del Troponin T Baseline Troponin T 120 Minute Delta Troponin T C-Reactive Protein NT-Pro-B Natriuret Pep Total Protein Albumin Globulin Triglycerides Cholesterol LDL Cholesterol, Calc HDL Cholesterol LDL/HDL Ratio Cholesterol/HDL Ratio Lipase Procalcitonin TSH Urine Color Urine Appearance Urine pH Ur Specific [place] Urine Protein Urine Glucose (UA) Urine Ketones Urine Blood Urine Nitrate Urine Bilirubin Urine Urobilinogen Ur Leukocyte Esterase Urine RBC Urine WBC Ur Squamous Epith Cells Amorphous Sediment Urine Bacteria Hyaline Casts Urine Mucus Urine Opiates Screen Ur Barbiturates Screen Ur Phencyclidine Scrn Ur Amphetamines Screen U Benzodiazepines Scrn Urine Cocaine Screen U Marijuana (THC) Screen Ethyl Alcohol Hepatitis A IgM Ab Non-reactive Hep Bs Antigen Non-reactive Hep B Core IgM Ab Non-reactive Hepatitis C Antibody Non-reactive Influenza Type A Ag POC Influenza B Ag 12/30/19 12/30/19 12/30/19 18:02 18:02 18:02 WBC RBC Hgb Hct MCV MCH MCHC RDW Plt Count MPV Neut % (Auto) Lymph % (Auto) [place] % (Auto) Eos % (Auto) Baso % (Auto) Neut # (Auto) Lymph # (Auto) [place] # (Auto) Eos # (Auto) Baso # (Auto) Nucleated RBC % (auto) Nucleated RBCs # ESR APTT Specimen Type Sample Site ABG pH ABG pCO2 ABG pO2 ABG HCO3 ABG O2 Saturation ABG Base Excess Bennett Test A-a O2 Gradient Hematocrit Hgb O2 Saturation Carboxyhemoglobin Methemoglobin Total Hemoglobin Sodium Potassium Glucose Ionized Calcium Respiration Rate O2 Delivery Device O2 Liters/Min FiO2 Tidal Volume PEEP Building Construction Engineer ID Chloride Carbon Dioxide Anion Gap BUN Creatinine GFR Calculation POC Glucose Random Glucose Estimat Average Glucose Hemoglobin A1c Lactic Acid 2.8 H Lactic Acid (Sepsis) Lactate Calcium Phosphorus Magnesium Total Bilirubin AST ALT Alkaline Phosphatase Troponin I 6 Hour Troponin I Hi Sens Del Troponin T Baseline Troponin T 120 Minute 67.37 H Delta Troponin T 20.37 H* C-Reactive Protein NT-Pro-B Natriuret Pep Total Protein Albumin Globulin Triglycerides Cholesterol LDL Cholesterol, Calc HDL Cholesterol LDL/HDL Ratio Cholesterol/HDL Ratio Lipase 7 L Procalcitonin TSH Urine Color Urine Appearance Urine pH Ur Specific [place] Urine Protein Urine Glucose (UA) Urine Ketones Urine Blood Urine Nitrate Urine Bilirubin Urine Urobilinogen Ur Leukocyte Esterase Urine RBC Urine WBC Ur Squamous Epith Cells Amorphous Sediment Urine Bacteria Hyaline Casts Urine Mucus Urine Opiates Screen Ur Barbiturates Screen Ur Phencyclidine Scrn Ur Amphetamines Screen U Benzodiazepines Scrn Urine Cocaine Screen U Marijuana (THC) Screen Ethyl Alcohol Hepatitis A IgM Ab Hep Bs Antigen Hep B Core IgM Ab Hepatitis C Antibody Influenza Type A Ag POC Influenza B Ag 12/30/19 12/30/19 12/30/19 18:15 20:35 20:35 WBC RBC Hgb Hct MCV MCH MCHC RDW Plt Count MPV Neut % (Auto) Lymph % (Auto) [place] % (Auto) Eos % (Auto) Baso % (Auto) Neut # (Auto) Lymph # (Auto) [place] # (Auto) Eos # (Auto) Baso # (Auto) Nucleated RBC % (auto) Nucleated RBCs # ESR APTT Specimen Type Sample Site ABG pH ABG pCO2 ABG pO2 ABG HCO3 ABG O2 Saturation ABG Base Excess Bennett Test A-a O2 Gradient Hematocrit Hgb O2 Saturation Carboxyhemoglobin Methemoglobin Total Hemoglobin Sodium Potassium Glucose Ionized Calcium Respiration Rate O2 Delivery Device O2 Liters/Min FiO2 Tidal Volume PEEP Building Construction Engineer ID Chloride Carbon Dioxide Anion Gap BUN Creatinine GFR Calculation POC Glucose Random Glucose Estimat Average Glucose Hemoglobin A1c Lactic Acid Lactic Acid (Sepsis) 2.3 H Lactate Calcium Phosphorus Magnesium Total Bilirubin AST ALT Alkaline Phosphatase Troponin I 6 Hour 58.44 H Troponin I Hi Sens Del 11.44 Troponin T Baseline Troponin T 120 Minute Delta Troponin T C-Reactive Protein NT-Pro-B Natriuret Pep Total Protein Albumin Globulin Triglycerides Cholesterol LDL Cholesterol, Calc HDL Cholesterol LDL/HDL Ratio Cholesterol/HDL Ratio Lipase Procalcitonin TSH Urine Color Urine Appearance Urine pH Ur Specific [place] Urine Protein Urine Glucose (UA) Urine Ketones Urine Blood Urine Nitrate Urine Bilirubin Urine Urobilinogen Ur Leukocyte Esterase Urine RBC Urine WBC Ur Squamous Epith Cells Amorphous Sediment Urine Bacteria Hyaline Casts Urine Mucus Urine Opiates Screen Ur Barbiturates Screen Ur Phencyclidine Scrn Ur Amphetamines Screen U Benzodiazepines Scrn Urine Cocaine Screen U Marijuana (THC) Screen Ethyl Alcohol Hepatitis A IgM Ab Hep Bs Antigen Hep B Core IgM Ab Hepatitis C Antibody Influenza Type A Ag Negative POC Influenza B Ag Negative 12/30/19 12/30/19 12/31/19 20:35 21:00 01:55 WBC RBC Hgb Hct MCV MCH MCHC RDW Plt Count MPV Neut % (Auto) Lymph % (Auto) [place] % (Auto) Eos % (Auto) Baso % (Auto) Neut # (Auto) Lymph # (Auto) [place] # (Auto) Eos # (Auto) Baso # (Auto) Nucleated RBC % (auto) Nucleated RBCs # ESR APTT 160.2 H* 63.8 H D Specimen Type Sample Site ABG pH ABG pCO2 ABG pO2 ABG HCO3 ABG O2 Saturation ABG Base Excess Bennett Test A-a O2 Gradient Hematocrit Hgb O2 Saturation Carboxyhemoglobin Methemoglobin Total Hemoglobin Sodium Potassium Glucose Ionized Calcium Respiration Rate O2 Delivery Device O2 Liters/Min FiO2 Tidal Volume PEEP Building Construction Engineer ID Chloride Carbon Dioxide Anion Gap BUN Creatinine GFR Calculation POC Glucose Random Glucose Estimat Average Glucose Hemoglobin A1c Lactic Acid Lactic Acid (Sepsis) Lactate Calcium Phosphorus Magnesium Total Bilirubin AST ALT Alkaline Phosphatase Troponin I 6 Hour Troponin I Hi Sens Del Troponin T Baseline Troponin T 120 Minute Delta Troponin T C-Reactive Protein NT-Pro-B Natriuret Pep Total Protein Albumin Globulin Triglycerides Cholesterol LDL Cholesterol, Calc HDL Cholesterol LDL/HDL Ratio Cholesterol/HDL Ratio Lipase Procalcitonin TSH Urine Color Urine Appearance Urine pH Ur Specific [place] Urine Protein Urine Glucose (UA) Urine Ketones Urine Blood Urine Nitrate Urine Bilirubin Urine Urobilinogen Ur Leukocyte Esterase Urine RBC Urine WBC Ur Squamous Epith Cells Amorphous Sediment Urine Bacteria Hyaline Casts Urine Mucus Urine Opiates Screen Negative Ur Barbiturates Screen Negative Ur Phencyclidine Scrn Negative Ur Amphetamines Screen Positive H U Benzodiazepines Scrn Negative Urine Cocaine Screen Negative U Marijuana (THC) Screen Negative Ethyl Alcohol Hepatitis A IgM Ab Hep Bs Antigen Hep B Core IgM Ab Hepatitis C Antibody Influenza Type A Ag POC Influenza B Ag 12/31/19 12/31/19 12/31/19 04:30 04:30 04:30 WBC 14.9 H RBC 4.01 L Hgb 11.9 Hct 38.3 MCV 95.5 MCH 29.7 MCHC 31.1 D RDW 14.8 Plt Count 389 MPV 10.5 H Neut % (Auto) 84.1 Lymph % (Auto) 9.3 [place] % (Auto) 5.4 Eos % (Auto) 0.0 Baso % (Auto) 0.1 Neut # (Auto) 12.5 H Lymph # (Auto) 1.4 [place] # (Auto) 0.8 Eos # (Auto) 0.0 Baso # (Auto) 0.0 Nucleated RBC % (auto) 1.2 Nucleated RBCs # 0.2 ESR APTT Specimen Type Sample Site ABG pH ABG pCO2 ABG pO2 ABG HCO3 ABG O2 Saturation ABG Base Excess Bennett Test A-a O2 Gradient Hematocrit Hgb O2 Saturation Carboxyhemoglobin Methemoglobin Total Hemoglobin Sodium Potassium Glucose Ionized Calcium Respiration Rate O2 Delivery Device O2 Liters/Min FiO2 Tidal Volume PEEP Building Construction Engineer ID Chloride Carbon Dioxide Anion Gap BUN Creatinine GFR Calculation POC Glucose Random Glucose Estimat Average Glucose 137 Hemoglobin A1c 6.4 H Lactic Acid Lactic Acid (Sepsis) Lactate Calcium Phosphorus Magnesium Total Bilirubin AST ALT Alkaline Phosphatase Troponin I 6 Hour Troponin I Hi Sens Del Troponin T Baseline Troponin T 120 Minute Delta Troponin T C-Reactive Protein NT-Pro-B Natriuret Pep Total Protein Albumin Globulin Triglycerides 135 Cholesterol 127 LDL Cholesterol, Calc 73 HDL Cholesterol 27 L LDL/HDL Ratio 2.70 Cholesterol/HDL Ratio 4.70 H Lipase Procalcitonin TSH Urine Color Urine Appearance Urine pH Ur Specific [place] Urine Protein Urine Glucose (UA) Urine Ketones Urine Blood Urine Nitrate Urine Bilirubin Urine Urobilinogen Ur Leukocyte Esterase Urine RBC Urine WBC Ur Squamous Epith Cells Amorphous Sediment Urine Bacteria Hyaline Casts Urine Mucus Urine Opiates Screen Ur Barbiturates Screen Ur Phencyclidine Scrn Ur Amphetamines Screen U Benzodiazepines Scrn Urine Cocaine Screen U Marijuana (THC) Screen Ethyl Alcohol Hepatitis A IgM Ab Hep Bs Antigen Hep B Core IgM Ab Hepatitis C Antibody Influenza Type A Ag POC Influenza B Ag 12/31/19 12/31/19 12/31/19 04:30 04:30 05:23 WBC RBC Hgb Hct MCV MCH MCHC RDW Plt Count MPV Neut % (Auto) Lymph % (Auto) [place] % (Auto) Eos % (Auto) Baso % (Auto) Neut # (Auto) Lymph # (Auto) [place] # (Auto) Eos # (Auto) Baso # (Auto) Nucleated RBC % (auto) Nucleated RBCs # ESR 30 H APTT Specimen Type Arterial Sample Site Radial, right ABG pH 7.42 ABG pCO2 42.6 ABG pO2 67.9 L ABG HCO3 27.3 H ABG O2 Saturation ABG Base Excess 2.4 H Bennett Test Pos A-a O2 Gradient Hematocrit 37.7 Hgb O2 Saturation Carboxyhemoglobin Methemoglobin Total Hemoglobin Sodium 138 Potassium 4.3 Glucose 206 H Ionized Calcium Respiration Rate 16.0 O2 Delivery Device Vent O2 Liters/Min FiO2 50.0 Tidal Volume 0.45 PEEP 8.0 Building Construction Engineer ID jose Chloride 97 L Carbon Dioxide 25 Anion Gap 20.3 H BUN 28 H Creatinine 1.7 H GFR Calculation 30.5 L POC Glucose Random Glucose Estimat Average Glucose Hemoglobin A1c Lactic Acid Lactic Acid (Sepsis) Lactate Calcium 8.6 Phosphorus 4.2 Magnesium 2.1 Total Bilirubin 1.3 H AST 513 H ALT 519 H Alkaline Phosphatase 151 H Troponin I 6 Hour Troponin I Hi Sens Del Troponin T Baseline Troponin T 120 Minute Delta Troponin T C-Reactive Protein NT-Pro-B Natriuret Pep Total Protein 6.4 L Albumin 2.9 L Globulin 3.5 Triglycerides Cholesterol LDL Cholesterol, Calc HDL Cholesterol LDL/HDL Ratio Cholesterol/HDL Ratio Lipase Procalcitonin TSH Urine Color Urine Appearance Urine pH Ur Specific [place] Urine Protein Urine Glucose (UA) Urine Ketones Urine Blood Urine Nitrate Urine Bilirubin Urine Urobilinogen Ur Leukocyte Esterase Urine RBC Urine WBC Ur Squamous Epith Cells Amorphous Sediment Urine Bacteria Hyaline Casts Urine Mucus Urine Opiates Screen Ur Barbiturates Screen Ur Phencyclidine Scrn Ur Amphetamines Screen U Benzodiazepines Scrn Urine Cocaine Screen U Marijuana (THC) Screen Ethyl Alcohol Hepatitis A IgM Ab Hep Bs Antigen Hep B Core IgM Ab Hepatitis C Antibody Influenza Type A Ag POC Influenza B Ag 12/31/19 12/31/19 12/31/19 07:53 11:07 13:25 WBC RBC Hgb Hct MCV MCH MCHC RDW Plt Count MPV Neut % (Auto) Lymph % (Auto) [place] % (Auto) Eos % (Auto) Baso % (Auto) Neut # (Auto) Lymph # (Auto) [place] # (Auto) Eos # (Auto) Baso # (Auto) Nucleated RBC % (auto) Nucleated RBCs # ESR APTT 63.3 H Specimen Type Sample Site ABG pH ABG pCO2 ABG pO2 ABG HCO3 ABG O2 Saturation ABG Base Excess Bennett Test A-a O2 Gradient Hematocrit Hgb O2 Saturation Carboxyhemoglobin Methemoglobin Total Hemoglobin Sodium 136 Potassium 4.4 Glucose 182 H Ionized Calcium Respiration Rate O2 Delivery Device O2 Liters/Min FiO2 Tidal Volume PEEP Building Construction Engineer ID Chloride 96 L Carbon Dioxide 25 Anion Gap 19.4 H BUN 38 H Creatinine 2.2 H GFR Calculation 22.6 L POC Glucose 166 Random Glucose Estimat Average Glucose Hemoglobin A1c Lactic Acid Lactic Acid (Sepsis) Lactate Calcium 8.9 Phosphorus Magnesium Total Bilirubin 1.0 AST 349 H ALT 486 H Alkaline Phosphatase 147 H Troponin I 6 Hour Troponin I Hi Sens Del Troponin T Baseline Troponin T 120 Minute Delta Troponin T C-Reactive Protein NT-Pro-B Natriuret Pep Total Protein 7.3 Albumin 3.0 L Globulin 4.3 Triglycerides Cholesterol LDL Cholesterol, Calc HDL Cholesterol LDL/HDL Ratio Cholesterol/HDL Ratio Lipase Procalcitonin TSH Urine Color Urine Appearance Urine pH Ur Specific [place] Urine Protein Urine Glucose (UA) Urine Ketones Urine Blood Urine Nitrate Urine Bilirubin Urine Urobilinogen Ur Leukocyte Esterase Urine RBC Urine WBC Ur Squamous Epith Cells Amorphous Sediment Urine Bacteria Hyaline Casts Urine Mucus Urine Opiates Screen Ur Barbiturates Screen Ur Phencyclidine Scrn Ur Amphetamines Screen U Benzodiazepines Scrn Urine Cocaine Screen U Marijuana (THC) Screen Ethyl Alcohol Hepatitis A IgM Ab Hep Bs Antigen Hep B Core IgM Ab Hepatitis C Antibody Influenza Type A Ag POC Influenza B Ag 12/31/19 12/31/19 12/31/19 15:23 17:15 22:35 WBC RBC Hgb Hct MCV MCH MCHC RDW Plt Count MPV Neut % (Auto) Lymph % (Auto) [place] % (Auto) Eos % (Auto) Baso % (Auto) Neut # (Auto) Lymph # (Auto) [place] # (Auto) Eos # (Auto) Baso # (Auto) Nucleated RBC % (auto) Nucleated RBCs # ESR APTT 57.1 H 28.5 D Specimen Type Sample Site ABG pH ABG pCO2 ABG pO2 ABG HCO3 ABG O2 Saturation ABG Base Excess Bennett Test A-a O2 Gradient Hematocrit Hgb O2 Saturation Carboxyhemoglobin Methemoglobin Total Hemoglobin Sodium Potassium Glucose Ionized Calcium Respiration Rate O2 Delivery Device O2 Liters/Min FiO2 Tidal Volume PEEP Building Construction Engineer ID Chloride Carbon Dioxide Anion Gap BUN Creatinine GFR Calculation POC Glucose Random Glucose Estimat Average Glucose Hemoglobin A1c Lactic Acid Lactic Acid (Sepsis) Lactate Calcium Phosphorus Magnesium Total Bilirubin AST ALT Alkaline Phosphatase Troponin I 6 Hour Troponin I Hi Sens Del Troponin T Baseline Troponin T 120 Minute Delta Troponin T C-Reactive Protein NT-Pro-B Natriuret Pep Total Protein Albumin Globulin Triglycerides Cholesterol LDL Cholesterol, Calc HDL Cholesterol LDL/HDL Ratio Cholesterol/HDL Ratio Lipase Procalcitonin TSH Urine Color Yellow Urine Appearance Hazy A Urine pH 5 Ur Specific [place] 1.010 Urine Protein Neg Urine Glucose (UA) Norm Urine Ketones Negative Urine Blood Neg Urine Nitrate Negative Urine Bilirubin Neg Urine Urobilinogen Norm Ur Leukocyte Esterase Negative Urine RBC None Urine WBC 0-4 H Ur Squamous Epith Cells 0-4 H Amorphous Sediment Trace Urine Bacteria 1+ H Hyaline Casts 5-10 H Urine Mucus Trace Urine Opiates Screen Ur Barbiturates Screen Ur Phencyclidine Scrn Ur Amphetamines Screen U Benzodiazepines Scrn Urine Cocaine Screen U Marijuana (THC) Screen Ethyl Alcohol Hepatitis A IgM Ab Hep Bs Antigen Hep B Core IgM Ab Hepatitis C Antibody Influenza Type A Ag POC Influenza B Ag 01/01/20 01/01/20 01/01/20 04:57 04:57 04:57 WBC 20.7 H RBC 4.36 Hgb 12.4 Hct 40.3 MCV 92.4 MCH 28.4 MCHC 30.8 RDW 14.9 Plt Count 406 H MPV 10.8 H Neut % (Auto) 76.6 Lymph % (Auto) 11.7 [place] % (Auto) 10.6 Eos % (Auto) 0.0 Baso % (Auto) 0.1 Neut # (Auto) 15.9 H Lymph # (Auto) 2.4 [place] # (Auto) 2.2 H Eos # (Auto) 0.0 Baso # (Auto) 0.0 Nucleated RBC % (auto) 5.8 Nucleated RBCs # 1.2 ESR APTT 40.7 H Specimen Type Sample Site ABG pH ABG pCO2 ABG pO2 ABG HCO3 ABG O2 Saturation ABG Base Excess Bennett Test A-a O2 Gradient Hematocrit Hgb O2 Saturation Carboxyhemoglobin Methemoglobin Total Hemoglobin Sodium Cancelled Potassium Cancelled Glucose Cancelled Ionized Calcium Respiration Rate O2 Delivery Device O2 Liters/Min FiO2 Tidal Volume PEEP Building Construction Engineer ID Chloride Cancelled Carbon Dioxide Cancelled Anion Gap Cancelled BUN Cancelled Creatinine Cancelled GFR Calculation Cancelled POC Glucose Random Glucose Estimat Average Glucose Hemoglobin A1c Lactic Acid Lactic Acid (Sepsis) Lactate Calcium Cancelled Phosphorus Cancelled Magnesium Cancelled Total Bilirubin Cancelled AST Cancelled ALT Cancelled Alkaline Phosphatase Cancelled Troponin I 6 Hour Troponin I Hi Sens Del Troponin T Baseline Troponin T 120 Minute Delta Troponin T C-Reactive Protein NT-Pro-B Natriuret Pep Total Protein Cancelled Albumin Cancelled Globulin Cancelled Triglycerides Cholesterol LDL Cholesterol, Calc HDL Cholesterol LDL/HDL Ratio Cholesterol/HDL Ratio Lipase Procalcitonin TSH Urine Color Urine Appearance Urine pH Ur Specific [place] Urine Protein Urine Glucose (UA) Urine Ketones Urine Blood Urine Nitrate Urine Bilirubin Urine Urobilinogen Ur Leukocyte Esterase Urine RBC Urine WBC Ur Squamous Epith Cells Amorphous Sediment Urine Bacteria Hyaline Casts Urine Mucus Urine Opiates Screen Ur Barbiturates Screen Ur Phencyclidine Scrn Ur Amphetamines Screen U Benzodiazepines Scrn Urine Cocaine Screen U Marijuana (THC) Screen Ethyl Alcohol Hepatitis A IgM Ab Hep Bs Antigen Hep B Core IgM Ab Hepatitis C Antibody Influenza Type A Ag POC Influenza B Ag 01/01/20 01/01/20 01/01/20 05:16 06:30 06:30 WBC RBC Hgb Hct MCV MCH MCHC RDW Plt Count MPV Neut % (Auto) Lymph % (Auto) [place] % (Auto) Eos % (Auto) Baso % (Auto) Neut # (Auto) Lymph # (Auto) [place] # (Auto) Eos # (Auto) Baso # (Auto) Nucleated RBC % (auto) Nucleated RBCs # ESR APTT Specimen Type Arterial Sample Site Rr ABG pH 7.42 ABG pCO2 36.9 ABG pO2 82.7 ABG HCO3 23.8 ABG O2 Saturation ABG Base Excess -0.4 Bennett Test Pos A-a O2 Gradient Hematocrit 40.0 Hgb O2 Saturation Carboxyhemoglobin Methemoglobin Total Hemoglobin Sodium Cancelled 132 L Potassium Cancelled 4.4 Glucose 162 H Ionized Calcium Respiration Rate O2 Delivery Device Vent O2 Liters/Min FiO2 40.0 Tidal Volume PEEP Building Construction Engineer ID Jh Chloride Cancelled 93 L Carbon Dioxide Cancelled 21 L Anion Gap Cancelled 22.4 H BUN Cancelled 60 H Creatinine Cancelled 3.3 H GFR Calculation Cancelled 14.2 L POC Glucose Random Glucose Cancelled Estimat Average Glucose Hemoglobin A1c Lactic Acid Lactic Acid (Sepsis) Lactate Calcium Cancelled 8.9 Phosphorus 6.8 H Magnesium 2.6 H Total Bilirubin Cancelled 0.8 AST Cancelled 305 H ALT Cancelled 473 H Alkaline Phosphatase Cancelled 157 H Troponin I 6 Hour Troponin I Hi Sens Del Troponin T Baseline Troponin T 120 Minute Delta Troponin T C-Reactive Protein NT-Pro-B Natriuret Pep Total Protein Cancelled 7.0 Albumin Cancelled 3.1 L Globulin Cancelled 3.9 Triglycerides Cholesterol LDL Cholesterol, Calc HDL Cholesterol LDL/HDL Ratio Cholesterol/HDL Ratio Lipase Procalcitonin TSH Urine Color Urine Appearance Urine pH Ur Specific [place] Urine Protein Urine Glucose (UA) Urine Ketones Urine Blood Urine Nitrate Urine Bilirubin Urine Urobilinogen Ur Leukocyte Esterase Urine RBC Urine WBC Ur Squamous Epith Cells Amorphous Sediment Urine Bacteria Hyaline Casts Urine Mucus Urine Opiates Screen Ur Barbiturates Screen Ur Phencyclidine Scrn Ur Amphetamines Screen U Benzodiazepines Scrn Urine Cocaine Screen U Marijuana (THC) Screen Ethyl Alcohol Hepatitis A IgM Ab Hep Bs Antigen Hep B Core IgM Ab Hepatitis C Antibody Influenza Type A Ag POC Influenza B Ag 01/01/20 11:01 WBC RBC Hgb Hct MCV MCH MCHC RDW Plt Count MPV Neut % (Auto) Lymph % (Auto) [place] % (Auto) Eos % (Auto) Baso % (Auto) Neut # (Auto) Lymph # (Auto) [place] # (Auto) Eos # (Auto) Baso # (Auto) Nucleated RBC % (auto) Nucleated RBCs # ESR APTT 101.3 H D Specimen Type Sample Site ABG pH ABG pCO2 ABG pO2 ABG HCO3 ABG O2 Saturation ABG Base Excess Bennett Test A-a O2 Gradient Hematocrit Hgb O2 Saturation Carboxyhemoglobin Methemoglobin Total Hemoglobin Sodium Potassium Glucose Ionized Calcium Respiration Rate O2 Delivery Device O2 Liters/Min FiO2 Tidal Volume PEEP Building Construction Engineer ID Chloride Carbon Dioxide Anion Gap BUN Creatinine GFR Calculation POC Glucose Random Glucose Estimat Average Glucose Hemoglobin A1c Lactic Acid Lactic Acid (Sepsis) Lactate Calcium Phosphorus Magnesium Total Bilirubin AST ALT Alkaline Phosphatase Troponin I 6 Hour Troponin I Hi Sens Del Troponin T Baseline Troponin T 120 Minute Delta Troponin T C-Reactive Protein NT-Pro-B Natriuret Pep Total Protein Albumin Globulin Triglycerides Cholesterol LDL Cholesterol, Calc HDL Cholesterol LDL/HDL Ratio Cholesterol/HDL Ratio Lipase Procalcitonin TSH Urine Color Urine Appearance Urine pH Ur Specific [place] Urine Protein Urine Glucose (UA) Urine Ketones Urine Blood Urine Nitrate Urine Bilirubin Urine Urobilinogen Ur Leukocyte Esterase Urine RBC Urine WBC Ur Squamous Epith Cells Amorphous Sediment Urine Bacteria Hyaline Casts Urine Mucus Urine Opiates Screen Ur Barbiturates Screen Ur Phencyclidine Scrn Ur Amphetamines Screen U Benzodiazepines Scrn Urine Cocaine Screen U Marijuana (THC) Screen Ethyl Alcohol Hepatitis A IgM Ab Hep Bs Antigen Hep B Core IgM Ab Hepatitis C Antibody Influenza Type A Ag POC Influenza B Ag Micro: Microbiology 12/30/19 20:58 Gram Stain - Final Sputum - Endotracheal Tube Aspirate Sputum Culture - Preliminary 12/30/19 15:58 Blood Culture - Preliminary Blood NEGATIVE TO DATE 12/30/19 16:25 Blood Culture - Preliminary Blood NEGATIVE TO DATE 12/30/19 20:15 MRSA Culture - Final Nose Cardiac Studies: Echocardiogram 12/31/19
--- NOTE | 2020-01-01 13:17 | P.PN_ITS ---
Subjective Subjective: Interval history: Patient underwent dialysis catheter placement and underwent ultrafiltration of 1.8 L. Overnight urine output of 450 mL. Intermittent episodes of atrial flutter with rapid ventricular response with conversion to sinus rhythm after IV Lopressor. Patient remains intubated FiO2 has reduced to 40%. Medications: Reviewed: Yes Vitals/I&O/Wt Last Vital Signs Temp 98.5 F 01/01/20 02:00 Pulse 88 01/01/20 10:00 Resp 16 01/01/20 13:09 BP 102/82 01/01/20 10:00 Pulse Ox 97 01/01/20 10:00 12/31/19 01/01/20 01/01/20 22:59 06:59 14:59 Intake Total 273.236 / 1329.827 644.752 / 1974.579 72.573 / 72.573 Output Total 550 / 550 200 / 750 Balance -276.764 / 779.827 444.752 / 1224.579 72.573 / 72.573 Weight last 48 hrs Weight 258 lb Weight 250 lb Weight 250 lb Physical Exam Narrative: EXAM NARRATIVE: GENERAL: Obese lady lying in bed currently intubated and sedated. HEENT: Pupils equal round reactive to light. No pallor or icterus. NECK: JVD not appreciated CARDIOVASCULAR SYSTEM: S1-S2 regular. No S3 or S4 present. No murmur rubs or gallops. RESPIRATORY SYSTEM: Coarse bilateral breath sounds. ABDOMEN: Soft and obese. Normal bowel sounds present. EXTREMITIES: No cyanosis; Trace lower extremity edema. Bilateral dorsalis pedis 1+, biphasic flow on Doppler, warm to touch. MANAGER RECRUITMENT: Patient is intubated and sedated Urinary Catheter Management^: Cedeño: Cath Placed During This Visit: yes Urethral Indwelling: Yes Reason for Continuing Indwelling Catheter: Accurate Measurement of Urinary Output in Critically Ill Patients Urinary Catheter Date of Insertion: 12/30/19 Data : 01/01/20 04:57 01/01/20 06:30 Micro: Microbiology 12/30/19 20:58 Gram Stain - Final Sputum - Endotracheal Tube Aspirate Sputum Culture - Preliminary 12/30/19 15:58 Blood Culture - Preliminary Blood NEGATIVE TO DATE 12/30/19 16:25 Blood Culture - Preliminary Blood NEGATIVE TO DATE 12/30/19 20:15 MRSA Culture - Final Nose A&P Assessment and plan (1) Acute on chronic respiratory failure with hypoxia and hypercapnia: Patient is currently intubated on 40% FiO2. Status: Acute Code(s): J96.21 - Acute and chronic respiratory failure with hypoxia; J96.22 - Acute and chronic respiratory failure with hypercapnia (2) Pulmonary edema: Did not respond much to diuretics and was started on ultrafiltration. - 1.8 UF yesterday with a goal of 2 L today. Repeat chest x-ray with continued pulmonary congestion with some improvement and stable bibasilar partial/subsegmental atelectasis. -Volume management with ultrafiltration. Status: Acute Qualifiers: Chronicity: acute Qualified Code(s): J81.0 - Acute pulmonary edema Code(s): J81.1 - Chronic pulmonary edema (3) Atrial flutter: converted to NSR, stop cardizem. May try metoprolol 12.5 mg BID, depending on BP. For now use metoprolol 5 mg IV PRN. Status: Acute Qualifiers: Atrial flutter type: typical Qualified Code(s): I48.3 - Typical atrial flutter Code(s): I48.92 - Unspecified atrial flutter (4) CHF (NYHA class III, ACC/AHA stage C): Newly diagnosed CHF. This does not seem like acute event. Echo TDS, dilated LV with LV function severely decreased. Global hypokinesis. LVEF=15%. 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 -continue with lasix and UF. Status: Acute Code(s): I50.9 - Heart failure, unspecified (5) Transaminitis: Status: Acute Code(s): R74.0 - Nonspecific elevation of levels of transaminase and lactic acid dehydrogenase [LDH] (6) Acute renal failure: Worsening renal function with decreased UO. Continue ultrafiltration. Currently on furosemide 80 mg IV every 8 hours and metolazone. Stop spironolactone. Status: Acute Qualifiers: Acute renal failure type: unspecified Qualified Code(s): N17.9 - Acute kidney failure, unspecified Code(s): N17.9 - Acute kidney failure, unspecified Additional A&P Information Elevated troponin: NSTEMI type 2 in setting of respiratory failure and tachycardia Suspect portal vein thrombosis Leucocytosis : she is being emperically covered with broad spectrum antibiotics. Anemia Patient remains critically ill. This was discussed with patient and family. Thank you for allowing me to participate in patient's care. Please feel free to call with questions or concerns. Attestations Medical Necessity Statement*: Patient remains critically ill. Coding Level of Care Code Acute Ambulance Operations Supervisor for Mary Jane Coates Diagnoses Acute on chronic respiratory failure with hypoxia and hypercapnia J96.21; J96.22 Pulmonary edema J81.0 Chronicity: acute Atrial flutter I48.3 Atrial flutter type: typical CHF (NYHA class III, ACC/AHA stage C) I50.9 Transaminitis R74.0 Acute renal failure N17.9 Acute renal failure type: unspecified
[2020-01-01 13:30] LABS: Blood Gas Allen Test Pos; Blood Gas Sample Site Radial, right; Blood Gas Sample Type Arterial; Blood Gas Tidal Volume 0.45
--- NOTE | 2020-01-01 14:10 | PC.NURSE ---
pt transferred to OR with OR staff.
[2020-01-01] MEDS: heparin, porcine 1,000 unit/mL INJ 10 mL 7000 UNIT HE (14:38)
--- NOTE | 2020-01-01 14:57 | P.OP_ITS ---
Operative Report Date of procedure: January 01, 2020 Pre-op Diagnosis: 1. Acute on chronic renal failure.2. ICU patient in need of central venous access. Post-op diagnosis: same Procedure Done: 1. Placement of 12 Portuguese dual-lumen 20 cm temporary hemodialysis catheter into the left subclavian vein with intraoperative fluoroscopy interpretation. 2. Placement of triple-lumen venous catheter in the right internal jugular vein with intraoperative fluoroscopy interpretation. Implants: As above. Pathology: none sent Surgeon: Aaron Dickerson Anesthesia: General Estimated blood loss (mL): 10 Complications: None. Condition: stable Disposition: ICU Procedure: The patient was brought to the operating room from the intensive care unit and was placed in a supine position on the operating room table bed. The patient was already intubated. Further sedation/general anesthesia was continued. The anterior surface of the neck and chest were prepped and draped in a sterile fashion. 1% lidocaine was used for local anesthesia throughout the procedures for postoperative anesthesia. The patient was placed in Trendelenburg position. The left subclavian vein was accessed with a needle and syringe as evidenced by the return of dark nonpulsatile blood. The J-wire was easily passed down the needle and the needle was removed. The C-arm was positioned and showed the wire extending down into the vena cava. The skin opening was slightly enlarged with a scalpel and then the skin and subcutaneous tissue were progressively dilated with the dilators provided in the kit. The dual-lumen hemodialysis catheter was then placed over the wire and the wire was removed. The C arm was once again position and showed good placement of the dialysis catheter tip in the superior vena cava. The ports aspirated very well and were flushed with some concentrated heparin solution. The catheter was sewn in place at the skin with some interrupted sutures of 3-0 nylon. Eventually a sterile dressing was placed. Attention was then directed to the right internal jugular area. The right internal jugular vein was accessed with a needle and syringe, once again as e videnced by the return of dark, nonpulsatile blood. The J-wire was easily passed down the needle and the needle was withdrawn. The C-arm was positioned and showed the wire extending down the vena cava. The opening at the skin was slightly enlarged with a scalpel and then the dilator was passed over the wire. The dilator was withdrawn and then the triple-lumen catheter was easily passed over the guidewire and the wire was removed. The ports aspirated easily and were flushed with hep flush solution. The triple-lumen catheter was sewn in place on the right side of the neck with some interrupted sutures of 3-0 silk. A sterile dressing was applied. The patient was subsequently taken back to the intensive care unit in stable condition postoperatively.
--- NOTE | 2020-01-01 15:05 | PC.NURSE ---
pt back from OR hemodialysis line noted to left subclavian and triple lumen central line noted to the right IJ
--- NOTE | 2020-01-01 16:29 | PM.PN ---
Subjective Subjective: Interval history: Patient is been afebrile overnight, normotensive, taken off Levophed, dobutamine, she was dialyzed yesterday with issues with flow through her catheter, but 1.8 L was taken off, her chest x-ray is improved this morning, her creatinine has increased to 3.3, transaminitis has significantly improved, bilirubin has improved, patient's family is at bedside, all questions answered, voiced understanding plans to continue dialysis today, continue ventilator, if required she will require a pigtail catheter Medications: Reviewed: Yes Vitals/I&O/Wt Last Vital Signs Temp 98.0 F 01/01/20 15:30 Pulse 81 01/01/20 16:00 Resp 16 01/01/20 16:00 BP 109/74 01/01/20 16:00 Pulse Ox 97 01/01/20 16:00 01/01/20 01/01/20 01/01/20 06:59 14:59 22:59 Intake Total 644.752 / 1974.579 72.573 / 72.573 100 / 172.573 Output Total 200 / 750 Balance 444.752 / 1224.579 72.573 / 72.573 100 / 172.573 Weight last 48 hrs Weight 117.027 kg Weight 113.398 kg Physical Exam Narrative: EXAM NARRATIVE: Intubated and sedated Const: COMMON NORMALS: no apparent distress NUTRITIONAL APPEARANCE: obese OTHER: Intubated and sedated HENMT: COMMON NORMALS: normocephalic HEAD & SCALP: normocephalic Eye: COMMON NORMALS: PERRL PUPIL: Yes PERRL Neck/C-Spine: COMMON NORMALS: full ROM, no lymphadenopathy, no JVD and thyroid normal THYROID: thyroid normal Lymph: LYMPHATIC: no lymphadenopathy noted Chest: COMMONS NORMALS: inspection of chest normal Resp: COMMON NORMALS: normal respiratory effort, no retractions and no use of accessory muscles AUSCULTATION: crackles Cardio: COMMON NORMALS: no JVD, regular rate, regular rhythm, S1 normal heart sound, S2 normal heart sound, no gallops, no clicks and no murmurs RATE: regular rate and tachycardic RHYTHM: regular rhythm and abnormal rhythm irregularly irregular HEART SOUNDS: S1 normal and S2 normal GI: COMMON NORMALS: normal to inspection, nondistended, normoactive bowel sounds, soft to palpation, non-tender, no hepatosplenomegaly, no masses and no bruits INSPECTION: Yes abdominal distension and Yes central obesity AUSCULTATION: Yes hypoactive bowel sounds PALPATION: Yes soft and Yes no hepatosplenomegaly PERCUSSION: tympanic to percussion Extremity: COMMON NORMALS: normal to inspection, full ROM, normal capillary refill, no clubbing, cyanosis or edema, no calf tenderness and no pedal edema Neuro: COMMON NORMALS: CN's II-XII intact bilaterally, moves all extremities and no focal motor deficits Psych: COMMON NORMALS: mental status grossly normal, thought process normal and cooperative THOUGHT PROCESS: normal thought process Skin: NARRATIVE SKIN EXAM: Bilateral DP PT pulses palpable, lower extremities flushed and pink-colored Urinary Catheter Management^: Cedeño: Cath Placed During This Visit: yes Urethral Indwelling: Yes Reason for Continuing Indwelling Catheter: Accurate Measurement of Urinary Output in Critically Ill Patients Urinary Catheter Date of Insertion: 12/30/19 Data : 01/01/20 04:57 01/01/20 06:30 Micro: Microbiology 12/30/19 20:58 Gram Stain - Final Sputum - Endotracheal Tube Aspirate Sputum Culture - Preliminary 12/30/19 15:58 Blood Culture - Preliminary Blood NEGATIVE TO DATE 12/30/19 16:25 Blood Culture - Preliminary Blood NEGATIVE TO DATE 12/30/19 20:15 MRSA Culture - Final Nose A&P Assessment and plan (1) Acute on chronic respiratory failure with hypoxia and hypercapnia: -Cardiogenic shock secondary to cardiomyopathy, ischemic versus nonischemic -Chest x-ray shows pulmonary vascular congestion, BNP 5155, mild pitting edema, JVD difficult to assess given body habitus, no history of heart failure -Patient has a white blood cell count of 20.7, likely reactive, but given the risk of aspiration pneumonia given her intubation, will start her on Primaxin -Chest x-ray this morning shows increased pulmonary vascular congestion but improved from yesterday -Echocardiogram so far pending, bedside ultrasound shows diminished ejection fraction 15 to 20%, with akinetic segments including septum Plan: -Currently on a ventilator, minimize FiO2, minimize PEEP: 450 tidal volume, 40% FiO2, 8 PEEP -Lovenox for DVT prophylaxis, Protonix for GI prophylaxis -Unfortunately patient has failed Lasix bolus, Lasix drip, metolazone, with worsening creatinine up to 2.2, and lackluster urine output, with concerns of cardiorenal syndrome versus ATN -Right femoral catheter in place, receiving dialysis 1.8 L removed, plans for dialysis today, possibly requiring pigtail catheter -Continue aspirin, statin -Continue heparin drip -Monitor urine output -Patient's daughter is at bedside, advised that her status is critical, prognosis is guarded, patient is in ICU Status: Acute Code(s): J96.21 - Acute and chronic respiratory failure with hypoxia; J96.22 - Acute and chronic respiratory failure with hypercapnia (2) CHF (NYHA class III, ACC/AHA stage C): Continue aspirin, statin, beta-arabella PRN Status: Acute Code(s): I50.9 - Heart failure, unspecified (3) Pulmonary edema: Status: Acute Qualifiers: Chronicity: acute Qualified Code(s): J81.0 - Acute pulmonary edema Code(s): J81.1 - Chronic pulmonary edema (4) Atrial flutter: -No known history of atrial flutter or atrial fibrillation -No complaints of chest pain, palpitations -Possibly atrial flutter is related to acute respiratory failure or vice versa, unsure as patient has not been vocal about her medical problems to family members -Currently in normal sinus rhythm Plan: -Cardizem drip has been stopped, and metoprolol IV as needed -TSH unremarkable -Magnesium within normal limits Status: Acute Qualifiers: Atrial flutter type: typical Qualified Code(s): I48.3 - Typical atrial flutter Code(s): I48.92 - Unspecified atrial flutter (5) Acute kidney injury: Likely cardiorenal syndrome related to heart failure with concerns for progressing to ATN, creatinine 3.3 Status: Acute Code(s): N17.9 - Acute kidney failure, unspecified (6) Transaminitis: -AST 305, ALT 473, bili 0.8, blood alcohol negative hep panel negative -Abdomen is quite distended -No abdominal complaints as per family members -No fevers here -Likely secondary to cardiogenic shock/cardiac cirrhosis, and portal vein thrombosis Status: Acute Code(s): R74.0 - Nonspecific elevation of levels of transaminase and lactic acid dehydrogenase [LDH] (7) Portal vein thrombosis: -Patient's right upper quadrant ultrasound shows concerns for no flow through portal vein, possible portal vein occlusion or thrombosis -I am not sure of the etiology, possibly is secondary to severe cardiogenic shock, with stasis of blood flow in portal vein? -Cannot do further imaging to characterize liver and portal vein as creatinine is 3.3 -We will do further work-up if and when patient gets dialysis Status: Acute Code(s): I81 - Portal vein thrombosis Attestations Medical Necessity Statement*: She requires continued hospitalization for acute respiratory failure secondary cardiogenic shock Coding Level of Care Code Acute Power Press Tender for Chg Fwd Diagnoses Acute on chronic respiratory failure with hypoxia and hypercapnia J96.21; J96.22 CHF (NYHA class III, ACC/AHA stage C) I50.9 Pulmonary edema J81.0 Chronicity: acute Atrial flutter I48.3 Atrial flutter type: typical Acute kidney injury N17.9 Transaminitis R74.0 Portal vein thrombosis I81
--- NOTE | 2020-01-01 16:50 | PC.RESP ---
Patient given Pulmonary Rehab/Smoking Cessation information.
[2020-01-01] MEDS: heparin drip 25,000 UNIT/500 ML PREMIX 33.6 UNIT IV (16:55)
[2020-01-01] MEDS: metoprolol tartrate 1 mg/1 mL SDV 5 mL 5 MG IV (20:36)
--- NOTE | 2020-01-01 20:45 | PM.EVENT ---
Event Note Event Note: Called with patient being back in a flutter. Rates as high as 160s. I went on and gave her dose of IV metoprolol. Will monitor response to treatment. She had had an episode last night as well and did respond to metoprolol then. Blood pressure is stable.
[2020-01-01] MEDS: atorvastatin 40 mg Tablet PO (21:00)
--- NOTE | 2020-01-01 21:17 | PC.NURSE ---
Dr Daniel notified of patients heart rate in 150's. Metoprolol 5 mg ordered. Will continue to monitor heart rate.
[2020-01-01 22:15] LABS: Partial Thromboplastin Time 127.6 SECONDS (23.9-36.7)
[2020-01-01] MEDS: propofol 1,000 MG/100 ML INJ 17 MG IV (23:21)
[2020-01-02] VITALS (54 sets, daily range): BP systolic 81–145; BP diastolic 47–96; PULSE 78–153; RESP 16; TEMP 37.2; O2SAT 92–97
[2020-01-02] MEDS: FUROsemide 10 mg/mL SDV 10mL 80 MG IVP ×3 (00:58→17:22)
--- NOTE | 2020-01-02 01:27 | PC.NURSE ---
Dr. Daniel notified of patients heart rate sustaining 140's after 5 mg of metoprolol given. Patient is not symptomatic. Blood pressure 92/68. No new orders at this time.
[2020-01-02] MEDS: metoprolol tartrate 1 mg/1 mL SDV 5 mL 5 MG IV (02:23)
[2020-01-02 04:19] LABS: Basophils % 0.1 %; Eosinophils % 0.1 %; Hematocrit 41.1 % (37.0-47.0); Hemoglobin 12.4 g/dL (11.5-15.3); Lymphocytes # 4.7 10^3/uL (0.8-4.8); Lymphocytes % 22.3 %; Mean Corpuscular HGB Conc 30.2 g/dL (30.0-36.0); Mean Corpuscular Hemoglobin 29.1 pg (28.0-34.0); Mean Corpuscular Volume 96.5 fL (81-99); Mean Platelet Volume 10.5 fL (7.4-10.4); Monocytes # 2.6 10^3/uL (0.2-0.9); Monocytes % 12.2 %; Neutrophils # 13.4 10^3/uL (1.8-7.7); Neutrophils % 63.7 %; Nucleated Red Blood Cells % 4.5 %; Platelet Count 436 10^3/cmm (130-400); Red Blood Count 4.26 10^6/uL (4.1-5.3); Red Cell Distribution Width 15.5 % (12.1-15.1)
[2020-01-02 04:29] LABS: Partial Thromboplastin Time 47.8 SECONDS (23.9-36.7)
[2020-01-02 04:42] LABS: Alanine Aminotransferase 382 U/L (0-33); Albumin Level 3.1 g/dL (3.5-5.2); Alkaline Phosphatase 156 IU/L (35-105); Anion Gap 19.5 (5-19); Aspartate Amino Transferase 206 U/L (0-32); Blood Urea Nitrogen 33 mg/dL (8-23); Calcium 9.1 mg/dL (8.5-10.5); Carbon Dioxide 26 mmol/L (22-29); Chloride 95 mmol/L (98-107); Globulin 4.4 g/dL (1.3-4.6); Glomerular Filtration Rate 20.5 mL/min (90-130); Glucose 153 mg/dL (65-115); Magnesium 2.4 mg/dL (1.7-2.3); Phosphorus 6.4 mg/dL (2.5-4.5); Potassium 4.5 mmol/L (3.5-5.1); Sodium 136 mmol/L (136-145); Total Bilirubin 0.9 mg/dL (0.15-1.2); Total Protein 7.5 g/dL (6.6-8.7)
[2020-01-02] MEDS: heparin 5,000 unit/mL INJ 1 mL IV ×2 (04:47→11:04)
[2020-01-02] MEDS: propofol 1,000 MG/100 ML INJ 17 MG IV ×2 (04:53→16:37)
[2020-01-02 06:20] LABS: ABG PCO2 41.3 mmHg (35-45); ABG PH Result 7.41 (7.35-7.45); Arterial Blood Gas Hematocrit 38.5 % (37-47); Base Excess ABG 1.5 mmol/L (-2.0-2.0); Blood Gas Sample Site Brachial, right; Blood Gas Sample Type Arterial; HCO3 ABG 26.3 mmol/L (22-26); Oxygen Device VENT; PO2 ABG 82.9 mmHg (80.0-100.0)
--- NOTE | 2020-01-02 07:00 | XRR_ITS ---
PROCEDURE INFORMATION: Exam: XR Chest, 1 View Exam date and time: 01/02/2020 6:14 AM Age: 64 years old Clinical indication: Shortness of breath; Additional info: SOB TECHNIQUE: Imaging protocol: XR of the chest Views: 1 view. COMPARISON: CR XR chest 1V portable [id number] 01/01/2020 5:28 AM FINDINGS: Tubes, catheters and devices: The endotracheal tube is above the level of the elba. Dialysis catheter via the left internal jugular approach with the tip in the region of the superior vena cava. Central venous catheter via the right jugular approach with the tip projecting over the superior vena cava. Nasogastric tube overlies the body of the stomach Lungs: See Heart/mediastinum Finding. Pleural space: Unremarkable. No pleural effusion. No pneumothorax. Heart/Mediastinum: Cardiomegaly with mild edema. Some mild basilar airspace disease/atelectasis left greater than right. Minimal change. Bones/joints: Unremarkable. XR/XR chest 1V portable [id number] IMPRESSION: Cardiomegaly with mild edema. mild basilar airspace disease/atelectasis left greater than right. Minimal change.
--- NOTE | 2020-01-02 08:39 | CTR_ITS ---
PROCEDURE INFORMATION: Exam: CT Angiography Chest With Contrast Exam date and time: 01/02/2020 10:21 AM Age: 64 years old Clinical indication: Abdominal pain; Generalized; Other: SOB TECHNIQUE: Imaging protocol: Computed tomographic angiography of the chest with intravenous contrast. 3D rendering: MIP and/or 3D reconstructed images were created by the technologist. Total DLP: 2321.64 mGy-cm Radiation optimization: All CT scans at this facility use at least one of these dose optimization techniques: automated exposure control; mA and/or kV adjustment per patient size (includes targeted exams where dose is matched to clinical indication); or iterative reconstruction. Contrast material: VISI 320; Contrast volume: 95 ml; Contrast route: RT AC; COMPARISON: CR XR chest 1V portable [id number] 01/02/2020 6:06 AM FINDINGS: Tubes, catheters and devices: Nasogastric tube with the tip at the region of the EG junction. Recommend further advancement. Central venous catheter via the left subclavian approach with the tip projecting over the superior vena cava. Endotracheal tube is slightly above the elba. Pulmonary arteries: The exam is limited for embolus. No embolus within the right and left main pulmonary arteries . Consider alternative form of imaging if indicated. Aorta: Non opacification of the aorta however no evidence of dissection. Lungs: Dense airspace consolidation within the right greater than left lung bases. Small pleural effusions. Pleural space: See Lungs Finding. Heart: Cardiomegaly Lymph nodes: Unremarkable. No enlarged lymph nodes. Bones/joints: Unremarkable. No acute fracture. Soft tissues: Soft tissues are unremarkable Other findings: In regards to the visualized portions of the abdomen, no acute process. The thoracic inlet is unremarkable. Mild vascular calcifications IMPRESSION: 1. Nasogastric tube with the tip at the region of the EG junction. Recommend further advancement. 2. The exam is limited for embolus. No embolus within the right and left main pulmonary arteries . Consider alternative form of imaging if indicated. 3. Dense airspace consolidation within the right greater than left lung bases. Small pleural effusions. PROCEDURE INFORMATION: Exam: CT Abdomen And Pelvis With Contrast Exam date and time: 01/02/2020 10:21 AM Age: 64 years old Clinical indication: Abdominal pain; Generalized; Other: SOB TECHNIQUE: Imaging protocol: Computed tomography of the abdomen and pelvis with intravenous contrast. Total DLP: 2321.64 mGy-cm Radiation optimization: All CT scans at this facility use at least one of these dose optimization techniques: automated exposure control; mA and/or kV adjustment per patient size (includes targeted exams where dose is matched to clinical indication); or iterative reconstruction. Contrast material: VISI 320; Contrast volume: 95 ml; Contrast route: RT AC; COMPARISON: CR XR chest 1V portable [id number] 01/02/2020 6:06 AM FINDINGS: Liver: Normal. No mass. Gallbladder and bile ducts: Numerous gallstones. Pancreas: Normal. No ductal dilation. Spleen: Normal. No splenomegaly. Adrenals: 17 mm adrenal nodule on the left Kidneys and ureters: 1 cm cyst upper pole right kidney Stomach and bowel: Diverticulosis without evidence of diverticulitis. Appendix: The appendix is normal. Intraperitoneal space: Trace of free fluid within the pelvis and within the perihepatic region anteriorly. Vasculature: Calcification of the aorta. Lymph nodes: Unremarkable. No enlarged lymph nodes. Bladder: Cedeño catheter is present within a nondistended bladder. Reproductive: Unremarkable as visualized. Bones/joints: Unremarkable. No acute fracture. Soft tissues: Unremarkable. Other findings: No acute intra-abdominal process. No inflammatory process. No obstruction. CT/CT angio chest w abd pel w con IMPRESSION: 1. No acute intra-abdominal process. No inflammatory process. No obstruction. 2. Trace of free fluid within the pelvis and within the perihepatic region anteriorly. 3. Numerous gallstones. 4. Diverticulosis without evidence of diverticulitis. 5. The appendix is normal. Radiation Dose CTDIVOL = (mGy): DLP = 2321.64~2321.64 (mGy-cm)
--- NOTE | 2020-01-02 08:39 | USR_ITS ---
PROCEDURE INFORMATION: Exam: US Duplex Lower Extremity Arteries Exam date and time: 01/02/2020 10:01 AM Age: 64 years old Clinical indication: Other: Decreased flow; Additional info: Decreased blood flow TECHNIQUE: Imaging protocol: Real-time ultrasound scan of the arteries of the bilateral lower extremities with 2-D brown scale, color Doppler flow and spectral waveform analysis. COMPARISON: No relevant prior studies available. FINDINGS: Ankle brachial index on the right 1.1 Ankle brachial index on the left 1.1 Left lower extremity: Left common femoral artery, proximal, mid, and distal superficial femoral artery, and popliteal arteries are triphasic. Left posterior tibial artery distally is likely biphasic. Left dorsalis pedis artery likely biphasic. Right lower extremity: The common femoral artery, proximal, mid, and distal superficial femoral artery, and popliteal arteries are triphasic. Right posterior tibial artery is triphasic. Right dorsalis pedis artery is biphasic. Cardiac arrhythmia US/[place] [id number] IMPRESSION: Minimal infragenicular vascular disease suggested. Otherwise unremarkable.
[2020-01-02 09:05] LABS: NT Pro B Type Natriuretic Pept 1610 pg/mL (0-125)
[2020-01-02] MEDS: pantoprazole 40 mg SDV IVP (09:33)
[2020-01-02 10:01] LABS: Partial Thromboplastin Time 32.1 SECONDS (23.9-36.7)
[2020-01-02] MEDS: digoxin 250 mcg/ml INJ 2 mL IVP ×3 (10:06→19:21)
--- NOTE | 2020-01-02 10:06 | PM.PN ---
Subjective Subjective: Interval history: Remains very sick on the vent. Atrial fib with RVR on iv cardizem. Levo at 4. UO 450 ml overnight. Remains grossly anasarcic Medications: Reviewed: Yes Vitals/I&O/Wt Last Vital Signs Temp 98.9 F 01/02/20 06:00 Pulse 145 H 01/02/20 08:00 Resp 16 01/02/20 09:29 BP 91/75 01/02/20 08:00 Pulse Ox 96 01/02/20 08:00 01/01/20 01/02/20 01/02/20 22:59 06:59 14:59 Intake Total 177.86 / 750.433 350.343 / 1100.776 100 / 100 Output Total 1025 / 1025 350 / 1375 350 / 350 Balance -847.14 / -274.567 0.343 / -274.224 -250 / -250 Weight last 48 hrs Weight 113.852 kg Weight 117.027 kg Physical Exam Const: ORIENTATION/CONSCIOUSNESS: Yes other (sedated and vented ) Lymph: LYMPHATIC: no lymphadenopathy noted Chest: COMMONS NORMALS: inspection of chest normal and palpation of chest normal Resp: AUSCULTATION: crackles and rales Cardio: RATE: tachycardic RHYTHM: abnormal rhythm GI: COMMON NORMALS: normal to inspection, nondistended, normoactive bowel sounds Urinary Catheter Management^: Cedeño: Cath Placed During This Visit: yes Urethral Indwelling: Yes Reason for Continuing Indwelling Catheter: Accurate Measurement of Urinary Output in Critically Ill Patients Urinary Catheter Date of Insertion: 12/30/19 Data : 01/02/20 03:28 01/02/20 03:28 Micro: Microbiology 12/30/19 20:58 Gram Stain - Final Sputum - Endotracheal Tube Aspirate Sputum Culture - Preliminary A&P Additional A&P Information 1. Acute oliguric kidney injury. - clinical picture is consistent with cardiorenal syndrome and renal hypoperfusion - for dialysis later today after iv contrast given - 1-2 L, 3K bath, Albumin prn if pressure drop - will eval for additional need for dialysis tomorrow but likely give her a break - avoid the usuals if at all possible 2. Cardiogenic shock - per Dr Dang - iv Levo at 4 - iv Cardizem to be transitioned to alternative agent - pressors as needed - ? angio/AICD etc down road 3. Lytes look stable 4. LE cyanosis - apparently no evidence of arterial clot - may need vasc surgical eval; defer to primary team 5. 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
[2020-01-02] MEDS: iodixanol 320 mg/mL 100mL Btl IV (10:43)
[2020-01-02] MEDS: aspirin 325 mg Tablet PO (11:03)
[2020-01-02] MEDS: metOLazone 5 MG Tablet PO (11:04)
[2020-01-02] MEDS: heparin drip 25,000 UNIT/500 ML PREMIX 33.6 UNIT IV (11:04)
[2020-01-02] MEDS: ipratropium-albuterol 3 mL Neb INHALATION ×2 (11:21→21:47)
--- NOTE | 2020-01-02 11:40 | PC.NURSE ---
took the patient to CT scan, patient did well, patient back in room heart rate back to normal, stopped the cardizem
--- NOTE | 2020-01-02 15:05 | PM.PN ---
Subjective Subjective: Interval history: Cardiology coverage This patient is admitted to hospital with multiple medical problems. She was found to be in congestive heart failure with a severe left ventricular systolic dysfunction, ejection fraction of around 15%. She also was found to have features of ischemic liver injury, acute kidney failure possibly from the low output state, respiratory failure, portal vein thrombosis and multiple other medical issues. She is currently on a ventilator. She is requiring inotropes for blood pressure. She also was found to be in atrial fibrillation with rapid ventricular rate this morning. Medications: Reviewed: Yes Medication Review Details: Current Medications Acetaminophen (Tylenol) 650 mg PO Q6H PRN PRN Reason: Mild/Mod Pain Or Temp >/= 101 Albuterol/Ipratropium (Duoneb) 3 ml INHALATION Q4H.RESPIRATORY PRN PRN Reason: BRONCHOSPASM Last Admin: 01/02/20 11:21 Dose: 3 ml Documented by: Aspirin (Aspirin) 325 mg PO DAILY [facility] Last Admin: 01/02/20 11:03 Dose: 325 mg Documented by: Atorvastatin Calcium (Lipitor) 40 mg PO BEDTIME [facility] Last Admin: 01/01/20 21:00 Dose: 40 mg Documented by: Dextrose (D50w) 25 ml IVP ONCE PRN; Protocol PRN Reason: hypoglycemia protocol Dextrose (D50w) 50 ml IVP PRN PRN; Protocol PRN Reason: hypoglycemia protocol Furosemide (Lasix) 80 mg IVP Q8H [facility] Last Admin: 01/02/20 09:22 Dose: 80 mg Documented by: Glucagon (Glucagen) 1 mg IM ONCE PRN; Protocol PRN Reason: Adult Acute Hypoglycemia Prot. Heparin Sodium (Beef Lung) (Heparin) 0 unit IV PRN PRN; Protocol PRN Reason: Heparin weight-base protocol Last Admin: 01/02/20 11:04 Dose: 4,800 unit Documented by: Diltiazem HCl 125 mg/ Sodium (Chloride) 125 mls @ 0 mls/hr IV .Q0M [facility]; Protocol Last Titration: 01/02/20 07:55 Dose: 5 mg/hr, 5 mls/hr Documented by: Norepinephrine Bitartrate 4 mg (/ Dextrose) 254 mls @ 0 mls/hr IV .Q0M [facility]; Protocol Last Titration: 01/02/20 04:53 Dose: 2 mcg/min, 7.6 mls/hr Documented by: Furosemide 100 mg/ Sodium (Chloride) 50 mls @ 0 mls/hr IV .Q0M [facility]; Protocol Last Titration: 12/31/19 14:29 Dose: 0 mg/hr, 0 mls/hr Documented by: Dextrose (D5w) 500 mls @ 100 mls/hr IV ONCE PRN; Protocol PRN Reason: Adult Acute Hypoglycemia Prot Heparin Sodium/Sodium Chloride (Heparin Drip) 25,000 unit in 500 mls @ 0 mls/hr IV .Q0M [facility]; Protocol Last Admin: 01/02/20 11:04 Dose: 14.82 unit/kg/hr, 33.6 mls/hr Documented by: Fentanyl 1,000 mcg/ Sodium (Chloride) 100 mls @ 0 mls/hr IV .Q0M [facility]; Protocol Last Titration: 01/01/20 23:21 Dose: 50 mcg/hr, 5 mls/hr Documented by: Propofol (Diprivan) 1,000 mg in 100 mls @ 0 mls/hr IV .Q0M [facility]; Protocol Last Admin: 01/02/20 04:53 Dose: 25 mcg/kg/min, 17 mls/hr Documented by: Dobutamine HCl/Dextrose (Dobutamine Drip) 500 mg in 250 mls @ 0 mls/hr IV .Q0M [facility]; Protocol Last Titration: 12/31/19 18:46 Dose: 0 mcg/kg/min, 0 mls/hr Documented by: Imipenem/Cilastatin Sodium 250 (mg/ Sodium Chloride) 100 mls @ 200 mls/hr IV Q6H [facility]; Protocol Last Admin: 01/02/20 06:38 Dose: 200 mls/hr Documented by: Diltiazem HCl 125 mg/ Sodium (Chloride) 125 mls @ 0 mls/hr IV .Q0M [facility]; Protocol Albumin Human (Albumin) 12.5 gm in 50 mls @ 60 mls/hr IV PRN PRN PRN Reason: Hypotension and/or symptomatic Metolazone (Zaroxolyn) 5 mg PO DAILY [facility] Last Admin: 01/02/20 11:04 Dose: 5 mg Documented by: Midazolam HCl (Versed) 1 mg IVP Q1H PRN PRN Reason: gordon 3 Morphine Sulfate (Morphine) 2 mg IVP Q4H PRN PRN Reason: SEVERE PAIN Ondansetron HCl (Zofran) 4 mg IVP Q8H PRN PRN Reason: vomiting, or N/V if npo Ondansetron HCl (Zofran) 4 mg IVP Q6H PRN PRN Reason: NAUSEA AND VOMITING Pantoprazole Sodium (Protonix) 40 mg IVP DAILY [facility] Last Admin: 01/02/20 09:33 Dose: 40 mg Documented by: Vitals/I&O/Wt Last Vital Signs Temp 98.9 F 01/02/20 14:00 Pulse 84 01/02/20 14:00 Resp 16 01/02/20 14:41 BP 91/75 01/02/20 14:00 Pulse Ox 94 01/02/20 11:21 01/02/20 01/02/20 01/02/20 06:59 14:59 22:59 Intake Total 350.343 / 1100.776 700 / 700 Output Total 350 / 1375 700 / 700 Balance 0.343 / -274.224 0 / 0 Weight last 48 hrs Weight 251 lb Weight 258 lb Physical Exam Narrative: EXAM NARRATIVE: GENERAL: The patient is intubated and sedated HEENT: Moderate pallor, no or lymphadenopathy.Oral cavity: There are no mucous membrane lesions. NECK: Trachea appears to be central. No masses noted. No JVD or thyromegaly appreciated. RESPIRATORY: Chest is symmetrical. No intercostals muscle retraction or any accessory muscle activation. There is no chest wall tenderness. Breath sounds are heard bilaterally. No rales or rhonchi heard. No evidence of any consolidation. BREASTS: Deferred. HEART: The heart sounds are variable. Soft S3. Short systolic murmur in the left sternal border. No pericardial rub ABDOMEN: No vessel pulsations or distention. No tenderness. No organomegaly appreciated. Bowel sounds are normally heard. : Deferred. RECTAL: Deferred. LYMPHATIC: No lymphadenopathy noted in the neck region. EXTREMITIES: Trace edema with no cyanosis. Peripheral pulses are very weak bilaterally. The left lower extremity is relatively cold. Mottling is noted. MUSCULOSKELETAL: No acute joint deformities or swelling SKIN: There are no significant scars or skin rash noted. NEUROPSYCHIATRIC: Patient is sedated and intubated. She moves all the 4 extremities. Urinary Catheter Management^: Cedeño: Cath Placed During This Visit: yes Urethral Indwelling: Yes Reason for Continuing Indwelling Catheter: Accurate Measurement of Urinary Output in Critically Ill Patients Urinary Catheter Date of Insertion: 12/30/19 Data : 01/02/20 03:28 01/02/20 03:28 Other Labs: Abnormal lab results 01/01/20 01/02/20 01/02/20 Range/Units 21:31 03:28 03:28 WBC 21.0 H (4.0-10.0) 10^3/uL RDW 15.5 H (12.1-15.1) % Plt Count 436 H (130-400) 10^3/cmm MPV 10.5 H (7.4-10.4) fL Neut # (Auto) 13.4 H (1.8-7.7) 10^3/uL Snyder # (Auto) 2.6 H (0.2-0.9) 10^3/uL APTT 127.6 H (23.9-36.7) SECONDS ABG HCO3 (22-26) mmol/L Chloride 95 L (98-107) mmol/L Anion Gap 19.5 H (5-19) BUN 33 H (8-23) mg/dL Creatinine 2.4 H (0.5-0.9) mg/dL GFR Calculation 20.5 L (90-130) mL/min Glucose 153 H (65-115) mg/dL Phosphorus 6.4 H (2.5-4.5) mg/dL Magnesium 2.4 H (1.7-2.3) mg/dL AST 206 H (0-32) U/L ALT 382 H (0-33) U/L Alkaline Phosphatase 156 H (35-105) IU/L NT-Pro-B Natriuret Pep (0-125) pg/mL Albumin 3.1 L (3.5-5.2) g/dL 01/02/20 01/02/20 01/02/20 Range/Units 03:28 05:40 08:20 WBC (4.0-10.0) 10^3/uL RDW (12.1-15.1) % Plt Count (130-400) 10^3/cmm MPV (7.4-10.4) fL Neut # (Auto) (1.8-7.7) 10^3/uL Snyder # (Auto) (0.2-0.9) 10^3/uL APTT 47.8 H D (23.9-36.7) SECONDS ABG HCO3 26.3 H (22-26) mmol/L Chloride (98-107) mmol/L Anion Gap (5-19) BUN (8-23) mg/dL Creatinine (0.5-0.9) mg/dL GFR Calculation (90-130) mL/min Glucose (65-115) mg/dL Phosphorus (2.5-4.5) mg/dL Magnesium (1.7-2.3) mg/dL AST (0-32) U/L ALT (0-33) U/L Alkaline Phosphatase (35-105) IU/L NT-Pro-B Natriuret Pep 1610 H (0-125) pg/mL Albumin (3.5-5.2) g/dL The liver enzymes are trending down. However the white cell count is going up. Micro: Microbiology 12/30/19 20:58 Gram Stain - Final Sputum - Endotracheal Tube Aspirate Sputum Culture - Preliminary A&P Assessment and plan (1) Acute on chronic systolic heart failure: Patient has severe LV systolic dysfunction. She has features of low output syndrome. Cold and clammy extremities, acute renal failure, hepatic liver injury, etc. are most likely secondary to the low output state. The blood pressure seems to be maintained with the inotropics. Status: Acute Code(s): I50.23 - Acute on chronic systolic (congestive) heart failure (2) Acute renal failure: Patient is on hemodialysis. Being managed by the nephrology service. Status: Acute Qualifiers: Acute renal failure type: unspecified Qualified Code(s): N17.9 - Acute kidney failure, unspecified Code(s): N17.9 - Acute kidney failure, unspecified (3) Hypotension: Improving with inotropic's. May titrate the dose of Levophed to maintain the mean arterial pressure above 70 Status: Acute Qualifiers: Hypotension type: other hypotension type Qualified Code(s): I95.89 - Other hypotension Code(s): I95.9 - Hypotension, unspecified (4) Elevated liver enzymes: The liver enzymes seem to be trending down. Continue to maintain mean arterial pressure as mentioned above Status: Acute Code(s): R74.8 - Abnormal levels of other serum enzymes (5) Atrial fibrillation/flutter: This appears to be new onset. May be given digoxin IV 0.25 mg now. Because of the severely dysfunction, I may discontinue the Cardizem and start her on an esmolol drip. Status: Acute Code(s): I48.91 - Unspecified atrial fibrillation; I48.92 - Unspecified atrial flutter Additional A&P Information Leukocytosis, etiology? 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
[2020-01-02 18:40] LABS: Partial Thromboplastin Time 66.9 SECONDS (23.9-36.7)
[2020-01-02] MEDS: esmolol drip 2,500 MG/250 ML PREMIX 17.1 MG IV (19:18)
--- NOTE | 2020-01-02 19:54 | PM.PN ---
Subjective Subjective: Interval history: This morning patient was examined, is on a ventilator, on fentanyl and propofol, doing well on the ventilator, episodes of atrial fibrillation overnight, did not respond to metoprolol pushes, responded well to diuresis yesterday, has some urine output, remains afebrile, creatinine improving, white blood cell count has trended up, no fevers, transaminitis has improved Vitals/I&O/Wt Last Vital Signs Temp 98.9 F 01/02/20 16:00 Pulse 92 01/02/20 18:00 Resp 16 01/02/20 18:06 BP 110/69 01/02/20 18:00 Pulse Ox 94 01/02/20 18:00 01/02/20 01/02/20 01/02/20 06:59 14:59 22:59 Intake Total 350.343 / 1100.776 800 / 800 304.234 / 1104.234 Output Total 350 / 1375 700 / 700 1400 / 2100 Balance 0.343 / -274.224 100 / 100 -1095.766 / -995.766 Weight last 48 hrs Weight 113.852 kg Weight 117.027 kg Physical Exam Narrative: EXAM NARRATIVE: Intubated and sedated Const: COMMON NORMALS: no apparent distress NUTRITIONAL APPEARANCE: obese OTHER: Intubated and sedated HENMT: COMMON NORMALS: normocephalic HEAD & SCALP: normocephalic Eye: COMMON NORMALS: PERRL PUPIL: Yes PERRL Neck/C-Spine: COMMON NORMALS: full ROM, no lymphadenopathy, no JVD and thyroid normal THYROID: thyroid normal Lymph: LYMPHATIC: no lymphadenopathy noted Chest: COMMONS NORMALS: inspection of chest normal Resp: COMMON NORMALS: normal respiratory effort, no retractions and no use of accessory muscles AUSCULTATION: crackles Cardio: COMMON NORMALS: no JVD, regular rate, regular rhythm, S1 normal heart sound, S2 normal heart sound, no gallops, no clicks and no murmurs RATE: regular rate and tachycardic RHYTHM: regular rhythm and abnormal rhythm irregularly irregular HEART SOUNDS: S1 normal and S2 normal GI: COMMON NORMALS: normal to inspection, nondistended, normoactive bowel sounds, soft to palpation, non-tender, no hepatosplenomegaly, no masses and no bruits INSPECTION: Yes abdominal distension and Yes central obesity AUSCULTATION: Yes hypoactive bowel sounds PALPATION: Yes soft and Yes no hepatosplenomegaly PERCUSSION: tympanic to percussion Extremity: COMMON NORMALS: normal to inspection, full ROM, normal capillary refill, no clubbing, cyanosis or edema, no calf tenderness and no pedal edema Neuro: COMMON NORMALS: CN's II-XII intact bilaterally, moves all extremities and no focal motor deficits Psych: COMMON NORMALS: mental status grossly normal, thought process normal and cooperative THOUGHT PROCESS: normal thought process Skin: NARRATIVE SKIN EXAM: Bilateral DP PT pulses palpable, lower extremities flushed and pink-colored Urinary Catheter Management^: Cedeño: Cath Placed During This Visit: yes Urethral Indwelling: Yes Reason for Continuing Indwelling Catheter: Accurate Measurement of Urinary Output in Critically Ill Patients Urinary Catheter Date of Insertion: 12/30/19 Data : 01/02/20 03:28 01/02/20 03:28 Micro: Microbiology 12/30/19 20:58 Gram Stain - Final Sputum - Endotracheal Tube Aspirate Sputum Culture - Final Klebsiella oxytoca A&P Assessment and plan (1) Acute on chronic respiratory failure with hypoxia and hypercapnia: -Cardiogenic shock secondary to cardiomyopathy, ischemic versus nonischemic -Chest x-ray shows pulmonary vascular congestion, BNP 5155, mild pitting edema, JVD difficult to assess given body habitus, no history of heart failure -Patient has a white blood cell count of 20.7, likely reactive, but given the risk of aspiration pneumonia given her intubation, will start her on Primaxin -Chest x-ray this morning shows increased pulmonary vascular congestion but improved from yesterday -Echocardiogram so far pending, bedside ultrasound shows diminished ejection fraction 15 to 20%, with akinetic segments including septum Plan: -Currently on a ventilator, minimize FiO2, minimize PEEP: 450 tidal volume, 40% FiO2, 8 PEEP -Lovenox for DVT prophylaxis, Protonix for GI prophylaxis -Unfortunately patient has failed Lasix bolus, Lasix drip, metolazone, with worsening creatinine up to 2.2, and lackluster urine output, with concerns of cardiorenal syndrome versus ATN, doing well on dialysis, dialyzing well, in addition urine output is picking up, creatinine is improving -Right femoral catheter in place, right dialysis catheter in place -Continue aspirin, statin -Continue heparin drip -Monitor urine output -Patient's daughter is at bedside, advised that her status is critical, prognosis is guarded, patient is in ICU Status: Acute Code(s): J96.21 - Acute and chronic respiratory failure with hypoxia; J96.22 - Acute and chronic respiratory failure with hypercapnia (2) CHF (NYHA class III, ACC/AHA stage C): Continue aspirin, statin, beta-arabella PRN Status: Acute Code(s): I50.9 - Heart failure, unspecified (3) Pulmonary edema: Status: Acute Qualifiers: Chronicity: acute Qualified Code(s): J81.0 - Acute pulmonary edema Code(s): J81.1 - Chronic pulmonary edema (4) Atrial flutter: -No known history of atrial flutter or atrial fibrillation -No complaints of chest pain, palpitations -Possibly atrial flutter is related to acute respiratory failure or vice versa, unsure as patient has not been vocal about her medical problems to family members -Currently went back into atrial fibrillation, started on Cardizem drip, converted to normal sinus rhythm Plan: -Cardizem drip has been stopped, was given digoxin bolus -TSH unremarkable -Magnesium within normal limits Status: Acute Qualifiers: Atrial flutter type: typical Qualified Code(s): I48.3 - Typical atrial flutter Code(s): I48.92 - Unspecified atrial flutter (5) Acute kidney injury: Likely cardiorenal syndrome related to heart failure with concerns for progressing to ATN, creatinine 3.3 Status: Acute Code(s): N17.9 - Acute kidney failure, unspecified (6) Transaminitis: -Improving, blood alcohol negative hep panel negative -Abdomen is quite distended -No abdominal complaints as per family members -No fevers here -Likely secondary to cardiogenic shock/cardiac cirrhosis, and portal vein thrombosis -We will obtain a CTA of the chest and abdomen Status: Acute Code(s): R74.0 - Nonspecific elevation of levels of transaminase and lactic acid dehydrogenase [LDH] (7) Portal vein thrombosis: -Patient's right upper quadrant ultrasound shows concerns for no flow through portal vein, possible portal vein occlusion or thrombosis -I am not sure of the etiology, possibly is secondary to severe cardiogenic shock, with stasis of blood flow in portal vein? 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
[2020-01-02] MEDS: atorvastatin 40 mg Tablet PO (20:56)
[2020-01-02] MEDS: propofol 1,000 MG/100 ML INJ 20.4 MG IV (21:31)
[2020-01-03] VITALS (59 sets, daily range): BP systolic 81–160; BP diastolic 40–88; PULSE 96–147; RESP 14–38; TEMP 36.4–36.9; O2SAT 86–98
[2020-01-03] MEDS: lanolin oint 7 gm 1 APPLIC TOPICAL (00:30)
[2020-01-03] MEDS: propofol 1,000 MG/100 ML INJ 20.4 MG IV (00:31)
[2020-01-03] MEDS: FUROsemide 10 mg/mL SDV 10mL 80 MG IVP ×3 (00:33→17:36)
[2020-01-03 00:38] LABS: Partial Thromboplastin Time 58.9 SECONDS (23.9-36.7)
[2020-01-03] MEDS: esmolol drip 2,500 MG/250 ML PREMIX 51.2 MG IV ×2 (01:52→17:26)
[2020-01-03] MEDS: heparin drip 25,000 UNIT/500 ML PREMIX 33.6 UNIT IV (03:02)
[2020-01-03 04:49] LABS: Basophils % 0.2 %; Eosinophils # 0.1 10^3/uL (0.0-0.8); Eosinophils % 0.7 %; Hematocrit 38.5 % (37.0-47.0); Hemoglobin 11.7 g/dL (11.5-15.3); Lymphocytes # 3.7 10^3/uL (0.8-4.8); Mean Corpuscular HGB Conc 30.4 g/dL (30.0-36.0); Mean Corpuscular Hemoglobin 28.1 pg (28.0-34.0); Mean Corpuscular Volume 92.3 fL (81-99); Mean Platelet Volume 10.7 fL (7.4-10.4); Monocytes # 2.5 10^3/uL (0.2-0.9); Monocytes % 12.7 %; Neutrophils # 12.7 10^3/uL (1.8-7.7); Neutrophils % 65.6 %; Nucleated Red Blood Cells # 0.5 /100WBC; Nucleated Red Blood Cells % 2.5 %; Platelet Count 366 10^3/cmm (130-400); Red Blood Count 4.17 10^6/uL (4.1-5.3); Red Cell Distribution Width 15.6 % (12.1-15.1); White Blood Count 19.3 10^3/uL (4.0-10.0)
[2020-01-03 05:12] LABS: Procalcitonin 0.69 ng/mL (0-0.5)
[2020-01-03 05:37] LABS: Alanine Aminotransferase 247 U/L (0-33); Albumin Level 3.3 g/dL (3.5-5.2); Alkaline Phosphatase 152 IU/L (35-105); Anion Gap 21.4 (5-19); Aspartate Amino Transferase 120 U/L (0-32); Blood Urea Nitrogen 42 mg/dL (8-23); C Reactive Protein 74.5 mg/L (0.0-4.9); Calcium 9.2 mg/dL (8.5-10.5); Carbon Dioxide 24 mmol/L (22-29); Chloride 92 mmol/L (98-107); Globulin 3.7 g/dL (1.3-4.6); Glomerular Filtration Rate 23.9 mL/min (90-130); Glucose 164 mg/dL (65-115); Magnesium 2.5 mg/dL (1.7-2.3); Phosphorus 5.7 mg/dL (2.5-4.5); Potassium 4.4 mmol/L (3.5-5.1); Sodium 133 mmol/L (136-145); Total Bilirubin 0.7 mg/dL (0.15-1.2)
[2020-01-03] MEDS: ipratropium-albuterol 3 mL Neb INHALATION ×2 (05:39→11:11)
[2020-01-03 06:10] LABS: ABG PCO2 43.1 mmHg (35-45); ABG PH Result 7.41 (7.35-7.45); Blood Gas Allen Test Pos; Blood Gas Sample Site Radial, right; Blood Gas Sample Type Arterial; HCO3 ABG 27.1 mmol/L (22-26); Oxygen Device VENT; PO2 ABG 85.5 mmHg (80.0-100.0)
--- NOTE | 2020-01-03 07:00 | XRR_ITS ---
PROCEDURE INFORMATION: Exam: XR Chest, 1 View Exam date and time: 01/03/2020 6:19 AM Age: 64 years old Clinical indication: Shortness of breath; Additional info: SOB TECHNIQUE: Imaging protocol: XR of the chest Views: 1 view. COMPARISON: CR XR chest 1V portable [id number] 01/02/2020 6:06 AM FINDINGS: Tubes, catheters and devices: Endotracheal tube adjacent to the elba. Recommend repositioning. Central venous catheter via the right jugular approach with the tip projecting over the superior vena cava. Dialysis catheter via the left internal jugular approach with the tip in the region of the caval atrial junction. Lungs: central pulmonary vasculature is prominent and indistinct. Mild airspace consolidation within the lung bases left greater than right. Pleural space: Small effusions left greater than right. Heart/Mediastinum: cardiac silhouette is enlarged. Bones/joints: Unremarkable. XR/XR chest 1V portable [id number] IMPRESSION: 1. Mild edema with mild basilar consolidation and pleural effusions left greater than right. 2. Endotracheal tube adjacent to the elba. Recommend repositioning.
[2020-01-03 07:08] LABS: Partial Thromboplastin Time 59.2 SECONDS (23.9-36.7)
[2020-01-03 07:31] LABS: Glucose Point of Care 171 mg/dL (70-110)
[2020-01-03] MEDS: metOLazone 5 MG Tablet PO (09:23)
[2020-01-03] MEDS: aspirin 325 mg Tablet PO (09:23)
[2020-01-03] MEDS: pantoprazole 40 mg SDV IVP (09:23)
--- NOTE | 2020-01-03 09:42 | PM.PN ---
Subjective Subjective: Interval history: Remains intubated and vented. iv Cardizem switched to iv Esmolol, rate still high at 140s. Levo at 4, FiO2 at 35%. Good urine output of ~3L yesterday in addition to the dialysis which she had. Minimal edema (improved) Medications: Reviewed: Yes Medication Review Details: Current Medications Acetaminophen (Tylenol) 650 mg PO Q6H PRN PRN Reason: Mild/Mod Pain Or Temp >/= 101 Albuterol/Ipratropium (Duoneb) 3 ml INHALATION Q4H.RESPIRATORY PRN PRN Reason: BRONCHOSPASM Last Admin: 01/02/20 11:21 Dose: 3 ml Documented by: Aspirin (Aspirin) 325 mg PO DAILY BRANT Last Admin: 01/02/20 11:03 Dose: 325 mg Documented by: Atorvastatin Calcium (Lipitor) 40 mg PO BEDTIME BRANT Last Admin: 01/01/20 21:00 Dose: 40 mg Documented by: Dextrose (D50w) 25 ml IVP ONCE PRN; Protocol PRN Reason: hypoglycemia protocol Dextrose (D50w) 50 ml IVP PRN PRN; Protocol PRN Reason: hypoglycemia protocol Furosemide (Lasix) 80 mg IVP Q8H [facility]ANT Last Admin: 01/02/20 09:22 Dose: 80 mg Documented by: Glucagon (Glucagen) 1 mg IM ONCE PRN; Protocol PRN Reason: Adult Acute Hypoglycemia Prot. Heparin Sodium (Beef Lung) (Heparin) 0 unit IV PRN PRN; Protocol PRN Reason: Heparin weight-base protocol Last Admin: 01/02/20 11:04 Dose: 4,800 unit Documented by: Diltiazem HCl 125 mg/ Sodium (Chloride) 125 mls @ 0 mls/hr IV .Q0M BRANT; Protocol Last Titration: 01/02/20 07:55 Dose: 5 mg/hr, 5 mls/hr Documented by: Norepinephrine Bitartrate 4 mg (/ Dextrose) 254 mls @ 0 mls/hr IV .Q0M [facility]ANT; Protocol Last Titration: 01/02/20 04:53 Dose: 2 mcg/min, 7.6 mls/hr Documented by: Furosemide 100 mg/ Sodium (Chloride) 50 mls @ 0 mls/hr IV .Q0M BRANT; Protocol Last Titration: 12/31/19 14:29 Dose: 0 mg/hr, 0 mls/hr Documented by: Dextrose (D5w) 500 mls @ 100 mls/hr IV ONCE PRN; Protocol PRN Reason: Adult Acute Hypoglycemia Prot Heparin Sodium/Sodium Chloride (Heparin Drip) 25,000 unit in 500 mls @ 0 mls/hr IV .Q0M BRANT; Protocol Last Admin: 01/02/20 11:04 Dose: 14.82 unit/kg/hr, 33.6 mls/hr Documented by: Fentanyl 1,000 mcg/ Sodium (Chloride) 100 mls @ 0 mls/hr IV .Q0M BRANT; Protocol Last Titration: 01/01/20 23:21 Dose: 50 mcg/hr, 5 mls/hr Documented by: Propofol (Diprivan) 1,000 mg in 100 mls @ 0 mls/hr IV .Q0M BRANT; Protocol Last Admin: 01/02/20 04:53 Dose: 25 mcg/kg/min, 17 mls/hr Documented by: Dobutamine HCl/Dextrose (Dobutamine Drip) 500 mg in 250 mls @ 0 mls/hr IV .Q0M BRANT; Protocol Last Titration: 12/31/19 18:46 Dose: 0 mcg/kg/min, 0 mls/hr Documented by: Imipenem/Cilastatin Sodium 250 (mg/ Sodium Chloride) 100 mls @ 200 mls/hr IV Q6H BRANT; Protocol Last Admin: 01/02/20 06:38 Dose: 200 mls/hr Documented by: Diltiazem HCl 125 mg/ Sodium (Chloride) 125 mls @ 0 mls/hr IV .Q0M BRANT; Protocol Albumin Human (Albumin) 12.5 gm in 50 mls @ 60 mls/hr IV PRN PRN PRN Reason: Hypotension and/or symptomatic Metolazone (Zaroxolyn) 5 mg PO DAILY [facility] Last Admin: 01/02/20 11:04 Dose: 5 mg Documented by: Midazolam HCl (Versed) 1 mg IVP Q1H PRN PRN Reason: gordon 3 Morphine Sulfate (Morphine) 2 mg IVP Q4H PRN PRN Reason: SEVERE PAIN Ondansetron HCl (Zofran) 4 mg IVP Q8H PRN PRN Reason: vomiting, or N/V if npo Ondansetron HCl (Zofran) 4 mg IVP Q6H PRN PRN Reason: NAUSEA AND VOMITING Pantoprazole Sodium (Protonix) 40 mg IVP DAILY [facility] Last Admin: 01/02/20 09:33 Dose: 40 mg Documented by: Vitals/I&O/Wt Last Vital Signs Temp 98.4 F 01/03/20 04:00 Pulse 142 H 01/03/20 08:00 Resp 30 H 01/03/20 09:15 BP 88/69 01/03/20 08:00 Pulse Ox 95 01/03/20 08:00 01/02/20 01/03/20 01/03/20 22:59 06:59 14:59 Intake Total 458.909 / 1716.753 6949.03 / 3028.397 Output Total 1400 / 2100 975 / 3075 Balance -941.091 / -777.633 731.03 / -46.603 Weight last 48 hrs Weight 112.491 kg Weight 113.852 kg Physical Exam Const: ORIENTATION/CONSCIOUSNESS: Yes other (sedated and vented ) Lymph: LYMPHATIC: no lymphadenopathy noted Chest: COMMONS NORMALS: inspection of chest normal and palpation of chest normal Resp: AUSCULTATION: crackles and rales Cardio: RATE: tachycardic RHYTHM: abnormal rhythm GI: COMMON NORMALS: normal to inspection, nondistended, normoactive bowel sounds Urinary Catheter Management^: Cedeño: Cath Placed During This Visit: yes Urethral Indwelling: Yes Reason for Continuing Indwelling Catheter: Accurate Measurement of Urinary Output in Critically Ill Patients Urinary Catheter Date of Insertion: 12/30/19 Data : 01/03/20 04:15 01/03/20 04:15 Micro: Microbiology 12/30/19 20:58 Gram Stain - Final Sputum - Endotracheal Tube Aspirate Sputum Culture - Final Klebsiella oxytoca A&P Additional A&P Information 1. Acute oliguric kidney injury. - clinical picture is consistent with cardiorenal syndrome and renal hypoperfusion - excellent urine output - will eval for additional need for dialysis tomorrow but will evaluate her before ordering dialysis - avoid the usuals if at all possible 2. Cardiogenic shock - per Dr Dang - iv Levo at 4 - iv Cardizem to be transitioned to esmolol - pressors as needed - ? angio/AICD etc down road 3. Lytes look stable 4. LE cyanosis - apparently no evidence of arterial clot - may need vasc surgical eval; defer to primary team 5. VDRF - CXR reviewed, vascular prominence. 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
[2020-01-03] MEDS: digoxin 250 mcg/ml INJ 2 mL IVP (10:26)
--- NOTE | 2020-01-03 11:00 | PM.PN ---
Subjective Subjective: Interval history: Overnight had episodes of sinus tachycardia, currently on esmolol drip, no fevers, had a couple of hypotensive episodes likely secondary to sinus tachycardia, on Levophed, remains afebrile, leukocytosis 19.3, creatinine improved to 2.1, urine output 0.5 mL/kg/hr, had dialysis yesterday, chest x-ray looks improved this morning, patient is doing well on the ventilator, will attempt weaning trial this morning, try to get heart rate under control Vitals/I&O/Wt Last Vital Signs Temp 98.4 F 01/03/20 09:36 Pulse 102 H 01/03/20 10:30 Resp 30 H 01/03/20 09:36 BP 91/68 01/03/20 10:30 Pulse Ox 93 01/03/20 10:30 01/02/20 01/03/20 01/03/20 22:59 06:59 14:59 Intake Total 458.909 / 2369.543 2187.03 / 3028.397 Output Total 1400 / 2100 975 / 3075 Balance -941.091 / -777.633 731.03 / -46.603 Weight last 48 hrs Weight 112.491 kg Weight 113.852 kg Physical Exam Narrative: EXAM NARRATIVE: Intubated and sedated Const: COMMON NORMALS: no apparent distress and oriented x3 NUTRITIONAL APPEARANCE: obese OTHER: Intubated and sedated HENMT: COMMON NORMALS: normocephalic HEAD & SCALP: normocephalic Eye: COMMON NORMALS: PERRL PUPIL: Yes PERRL Neck/C-Spine: COMMON NORMALS: no JVD and thyroid normal THYROID: thyroid normal Lymph: LYMPHATIC: no lymphadenopathy noted Chest: COMMONS NORMALS: inspection of chest normal Resp: COMMON NORMALS: normal respiratory effort, no retractions, no use of accessory muscles and clear to auscultation bilaterally AUSCULTATION: clear to auscultation bilaterally Cardio: COMMON NORMALS: no JVD, regular rhythm, S1 normal heart sound and S2 normal heart sound RATE: tachycardic RHYTHM: regular rhythm HEART SOUNDS: S1 normal and S2 normal GI: COMMON NORMALS: normal to inspection, nondistended, normoactive bowel sounds, soft to palpation, non-tender, no hepatosplenomegaly, no masses and no bruits INSPECTION: Yes abdominal distension and Yes central obesity AUSCULTATION: Yes hypoactive bowel sounds PALPATION: Yes soft and Yes no hepatosplenomegaly PERCUSSION: tympanic to percussion Extremity: COMMON NORMALS: normal capillary refill and no calf tenderness NARRATIVE EXTREMITY EXAM: Right lower extremity, flushed, pink, good DP PT pulses Left lower extremity, cool, diminished DP pulse but dopplerable, Neuro: COMMON NORMALS: oriented x3 Psych: COMMON NORMALS: mental status grossly normal and thought process normal THOUGHT PROCESS: normal thought process Skin: NARRATIVE SKIN EXAM: Bilateral DP PT pulses palpable, lower extremities flushed and pink-colored Urinary Catheter Management^: Cedeño: Cath Placed During This Visit: yes Urethral Indwelling: Yes Reason for Continuing Indwelling Catheter: Accurate Measurement of Urinary Output in Critically Ill Patients Urinary Catheter Date of Insertion: 12/30/19 Data : 01/03/20 04:15 01/03/20 04:15 Micro: Microbiology 12/30/19 20:58 Gram Stain - Final Sputum - Endotracheal Tube Aspirate Sputum Culture - Final Klebsiella oxytoca A&P Assessment and plan (1) Acute on chronic respiratory failure with hypoxia and hypercapnia: -Cardiogenic shock secondary to cardiomyopathy, ischemic versus nonischemic -Chest x-ray shows pulmonary vascular congestion, BNP improved to 1610, chest x-ray improved pulmonary vascular congestion, had 2000 cc output from dialysis -Patient has a white blood cell count of 19.3, likely reactive, no fevers, unremarkable procalcitonin, but given the risk of aspiration pneumonia given her intubation, on Primaxin for possible aspiration -Chest x-ray this morning shows improved probably vascular congestion, -Echocardiogram shows ejection fraction of 20%, severe global hypokinesis, pulmonary arterial pressure 33 Plan: -Currently on a ventilator, minimize FiO2, minimize PEEP: 450 tidal volume, 40% FiO2, 8 PEEP -Heparin for DVT prophylaxis, Protonix for GI prophylaxis -Unfortunately patient has failed Lasix bolus, Lasix drip, metolazone, with worsening creatinine up to 2.2, and lackluster urine output, with concerns of cardiorenal syndrome versus ATN, creatinine improving to 2.1, doing well on dialysis, dialyzing well, in addition urine output is picking up, creatinine is improving -Right femoral catheter in place, right dialysis catheter in place -Continue aspirin, statin -Continue heparin drip -Monitor urine output -Plan is to do a weaning trial today, but given her sinus tachycardia, and hypotension, I think that she will be on the ventilator for at least another 24 hours until we get patients cardiac status in a better place -Patient's daughter is at bedside, advised that her status is critical, prognosis is guarded, patient is in ICU Status: Acute Code(s): J96.21 - Acute and chronic respiratory failure with hypoxia; J96.22 - Acute and chronic respiratory failure with hypercapnia (2) CHF (NYHA class III, ACC/AHA stage C): Continue aspirin, statin, esmolol drip Status: Acute Code(s): I50.9 - Heart failure, unspecified (3) Pulmonary edema: Status: Acute Qualifiers: Chronicity: acute Qualified Code(s): J81.0 - Acute pulmonary edema Code(s): J81.1 - Chronic pulmonary edema (4) Atrial flutter: -No known history of atrial flutter or atrial fibrillation -No complaints of chest pain, palpitations -Possibly atrial flutter is related to acute respiratory failure or vice versa, unsure as patient has not been vocal about her medical problems to family members -This morning patient has sinus tachycardia heart rates in the 140s, on esmolol drip, receiving digoxin pushes Plan: -On esmolol drip, getting digoxin pushes -We will await cardiology's recommendation -TSH unremarkable -Magnesium within normal limits Status: Acute Qualifiers: Atrial flutter type: typical Qualified Code(s): I48.3 - Typical atrial flutter Code(s): I48.92 - Unspecified atrial flutter (5) Acute kidney injury: Likely cardiorenal syndrome related to heart failure with concerns for progressing to ATN, creatinine 2.1 Status: Acute Code(s): N17.9 - Acute kidney failure, unspecified (6) Transaminitis: -Improving, blood alcohol negative hep panel negative -Abdomen is quite distended -No abdominal complaints as per family members -No fevers here -Likely secondary to cardiogenic shock/cardiac cirrhosis, and portal vein thrombosis -We will obtain a CTA of the chest and abdomen Status: Acute Code(s): R74.0 - Nonspecific elevation of levels of transaminase and lactic acid dehydrogenase [LDH] (7) Portal vein thrombosis: -Patient's right upper quadrant ultrasound shows concerns for no flow through portal vein, possible portal vein occlusion or thrombosis -I am not sure of the etiology, possibly is secondary to severe cardiogenic shock, with stasis of blood flow in portal vein? 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
[2020-01-03 11:19] LABS: Glucose Point of Care 161 mg/dL (70-110)
[2020-01-03 11:19] LABS: Glucose Point of Care 114 mg/dL (70-110)
[2020-01-03 11:19] LABS: Glucose Point of Care 166 mg/dL (70-110)
[2020-01-03 11:19] LABS: Glucose Point of Care 140 mg/dL (70-110)
[2020-01-03 11:19] LABS: Glucose Point of Care 127 mg/dL (70-110)
[2020-01-03 11:19] LABS: Glucose Point of Care 93 mg/dL (70-110)
--- NOTE | 2020-01-03 17:26 | PM.PN ---
Subjective Subjective: Interval history: Cardiology coverage This patient is admitted to hospital with multiple medical problems. She was found to be in congestive heart failure with a severe left ventricular systolic dysfunction, ejection fraction of around 15%. She also was found to have features of ischemic liver injury, acute kidney failure possibly from the low output state, respiratory failure, portal vein thrombosis and multiple other medical issues. Patient just is still having intermittent atrial fibrillation with rapid ventricular rate. She continues to require IV Levophed intermittently to maintain the mean arterial pressure above 70. She was given esmolol and a total of 0.75 mg of IV digoxin. After the 0.5 mg of digoxin, she had hemodialysis She is in the process of being extubated Medications: Reviewed: Yes Medication Review Details: Current Medications Acetaminophen (Tylenol) 650 mg PO Q6H PRN PRN Reason: Mild/Mod Pain Or Temp >/= 101 Hydrocodone Bitart/Acetaminophen ([place] 5-325 Mg) 1 tab PO Q6H PRN PRN Reason: MODERATE PAIN Last Admin: 01/03/20 17:27 Dose: 1 tab Documented by: Albuterol/Ipratropium (Duoneb) 3 ml INHALATION Q4H.RESPIRATORY PRN PRN Reason: BRONCHOSPASM Last Admin: 01/03/20 11:11 Dose: 3 ml Documented by: Aspirin (Aspirin) 325 mg PO DAILY [facility] Last Admin: 01/03/20 09:23 Dose: 325 mg Documented by: Atorvastatin Calcium (Lipitor) 40 mg PO BEDTIME [facility] Last Admin: 01/02/20 20:56 Dose: 40 mg Documented by: Dextrose (D50w) 25 ml IVP ONCE PRN; Protocol PRN Reason: hypoglycemia protocol Dextrose (D50w) 50 ml IVP PRN PRN; Protocol PRN Reason: hypoglycemia protocol Furosemide (Lasix) 80 mg IVP Q8H [facility] Last Admin: 01/03/20 09:24 Dose: 80 mg Documented by: Glucagon (Glucagen) 1 mg IM ONCE PRN; Protocol PRN Reason: Adult Acute Hypoglycemia Prot. Heparin Sodium (Beef Lung) (Heparin) 0 unit IV PRN PRN; Protocol PRN Reason: Heparin weight-base protocol Last Admin: 01/02/20 11:04 Dose: 4,800 unit Documented by: Norepinephrine Bitartrate 4 mg (/ Dextrose) 254 mls @ 0 mls/hr IV .Q0M BRANT; Protocol Last Admin: 01/02/20 19:44 Dose: 2 mcg/min, 7.6 mls/hr Documented by: Furosemide 100 mg/ Sodium (Chloride) 50 mls @ 0 mls/hr IV .Q0M [facility]ANT; Protocol Last Titration: 12/31/19 14:29 Dose: 0 mg/hr, 0 mls/hr Documented by: Dextrose (D5w) 500 mls @ 100 mls/hr IV ONCE PRN; Protocol PRN Reason: Adult Acute Hypoglycemia Prot Heparin Sodium/Sodium Chloride (Heparin Drip) 25,000 unit in 500 mls @ 0 mls/hr IV .Q0M BRANT; Protocol Last Admin: 01/03/20 03:02 Dose: 14.82 unit/kg/hr, 33.6 mls/hr Documented by: Fentanyl 1,000 mcg/ Sodium (Chloride) 100 mls @ 0 mls/hr IV .Q0M [facility]ANT; Protocol Last Titration: 01/03/20 17:12 Dose: Infused Documented by: Propofol (Diprivan) 1,000 mg in 100 mls @ 0 mls/hr IV .Q0M [facility]; Protocol Last Admin: 01/03/20 00:31 Dose: 30 mcg/kg/min, 20.4 mls/hr Documented by: Dobutamine HCl/Dextrose (Dobutamine Drip) 500 mg in 250 mls @ 0 mls/hr IV .Q0M [facility]; Protocol Last Titration: 12/31/19 18:46 Dose: 0 mcg/kg/min, 0 mls/hr Documented by: Imipenem/Cilastatin Sodium 250 (mg/ Sodium Chloride) 100 mls @ 200 mls/hr IV Q6H [facility]; Protocol Last Admin: 01/03/20 10:34 Dose: 200 mls/hr Documented by: Diltiazem HCl 125 mg/ Sodium (Chloride) 125 mls @ 0 mls/hr IV .Q0M BRANT; Protocol Albumin Human (Albumin) 12.5 gm in 50 mls @ 60 mls/hr IV PRN PRN PRN Reason: Hypotension and/or symptomatic Esmolol HCl (Brevibloc Drip) 2,500 mg in 250 mls @ 0 mls/hr IV .Q0M [facility]ANT; Protocol Last Admin: 01/03/20 17:26 Dose: 75 mcg/kg/min, 51.2 mls/hr Documented by: Lanolin (Lanolin Oint) 1 applic TOPICAL PRN PRN PRN Reason: DRYNESS Last Admin: 01/03/20 00:30 Dose: 1 applic Documented by: Metolazone (Zaroxolyn) 5 mg PO DAILY [facility] Last Admin: 01/03/20 09:23 Dose: 5 mg Documented by: Midazolam HCl (Versed) 1 mg IVP Q1H PRN PRN Reason: gordon 3 Morphine Sulfate (Morphine) 2 mg IVP Q4H PRN PRN Reason: SEVERE PAIN Ondansetron HCl (Zofran) 4 mg IVP Q8H PRN PRN Reason: vomiting, or N/V if npo Pantoprazole Sodium (Protonix) 40 mg IVP DAILY [facility] Last Admin: 01/03/20 09:23 Dose: 40 mg Documented by: Vitals/I&O/Wt Last Vital Signs Temp 98.4 F 01/03/20 13:00 Pulse 102 H 01/03/20 14:30 Resp 26 H 01/03/20 13:21 BP 125/61 01/03/20 14:30 Pulse Ox 92 01/03/20 14:30 01/03/20 01/03/20 01/03/20 06:59 14:59 22:59 Intake Total 1706.03 / 3028.397 Output Total 975 / 3075 700 / 700 Balance 731.03 / -46.603 -700 / -700 20 / -680 Weight last 48 hrs Weight 248 lb Weight 251 lb Physical Exam Narrative: EXAM NARRATIVE: GENERAL: The patient is intubated and sedated HEENT: Moderate pallor, no or lymphadenopathy.Oral cavity: There are no mucous membrane lesions. NECK: Trachea appears to be central. No masses noted. No JVD or thyromegaly appreciated. RESPIRATORY: Chest is symmetrical. No intercostals muscle retraction or any accessory muscle activation. There is no chest wall tenderness. Breath sounds are heard bilaterally. No rales or rhonchi heard. No evidence of any consolidation. BREASTS: Deferred. HEART: The heart sounds are variable. Soft S3. Short systolic murmur in the left sternal border. No pericardial rub ABDOMEN: No vessel pulsations or distention. No tenderness. No organomegaly appreciated. Bowel sounds are normally heard. : Deferred. RECTAL: Deferred. LYMPHATIC: No lymphadenopathy noted in the neck region. EXTREMITIES: Trace edema with no cyanosis. Peripheral pulses are very weak bilaterally. The left lower extremity is warmer today MUSCULOSKELETAL: No acute joint deformities or swelling SKIN: There are no significant scars or skin rash noted. NEUROPSYCHIATRIC: Patient is sedated and intubated. She moves all the 4 extremities. Urinary Catheter Management^: Cedeño: Cath Placed During This Visit: yes Urethral Indwelling: Yes Reason for Continuing Indwelling Catheter: Accurate Measurement of Urinary Output in Critically Ill Patients Urinary Catheter Date of Insertion: 12/30/19 Data : 01/03/20 04:15 01/03/20 04:15 Other Labs: Abnormal lab results 01/02/20 01/03/20 01/03/20 Range/Units 18:09 00:13 04:15 WBC 19.3 H (4.0-10.0) 10^3/uL RDW 15.6 H (12.1-15.1) % MPV 10.7 H (7.4-10.4) fL Neut # (Auto) 12.7 H (1.8-7.7) 10^3/uL [place] # (Auto) 2.5 H (0.2-0.9) 10^3/uL APTT 66.9 H D 58.9 H (23.9-36.7) SECONDS ABG HCO3 (22-26) mmol/L Sodium (136-145) mmol/L Chloride (98-107) mmol/L Anion Gap (5-19) BUN (8-23) mg/dL Creatinine (0.5-0.9) mg/dL GFR Calculation (90-130) mL/min Glucose (65-115) mg/dL Phosphorus (2.5-4.5) mg/dL Magnesium (1.7-2.3) mg/dL AST (0-32) U/L ALT (0-33) U/L Alkaline Phosphatase (35-105) IU/L C-Reactive Protein (0.0-4.9) mg/L Albumin (3.5-5.2) g/dL Procalcitonin (0-0.5) ng/mL 01/03/20 01/03/20 01/03/20 Range/Units 04:15 04:15 05:45 WBC (4.0-10.0) 10^3/uL RDW (12.1-15.1) % MPV (7.4-10.4) fL Neut # (Auto) (1.8-7.7) 10^3/uL [place] # (Auto) (0.2-0.9) 10^3/uL APTT (23.9-36.7) SECONDS ABG HCO3 27.1 H (22-26) mmol/L Sodium 133 L (136-145) mmol/L Chloride 92 L (98-107) mmol/L Anion Gap 21.4 H (5-19) BUN 42 H (8-23) mg/dL Creatinine 2.1 H (0.5-0.9) mg/dL GFR Calculation 23.9 L (90-130) mL/min Glucose 164 H (65-115) mg/dL Phosphorus 5.7 H (2.5-4.5) mg/dL Magnesium 2.5 H (1.7-2.3) mg/dL AST 120 H (0-32) U/L ALT 247 H (0-33) U/L Alkaline Phosphatase 152 H (35-105) IU/L C-Reactive Protein 74.5 H (0.0-4.9) mg/L Albumin 3.3 L (3.5-5.2) g/dL Procalcitonin 0.69 H (0-0.5) ng/mL 01/03/20 Range/Units 06:51 WBC (4.0-10.0) 10^3/uL RDW (12.1-15.1) % MPV (7.4-10.4) fL Neut # (Auto) (1.8-7.7) 10^3/uL [place] # (Auto) (0.2-0.9) 10^3/uL APTT 59.2 H (23.9-36.7) SECONDS ABG HCO3 (22-26) mmol/L Sodium (136-145) mmol/L Chloride (98-107) mmol/L Anion Gap (5-19) BUN (8-23) mg/dL Creatinine (0.5-0.9) mg/dL GFR Calculation (90-130) mL/min Glucose (65-115) mg/dL Phosphorus (2.5-4.5) mg/dL Magnesium (1.7-2.3) mg/dL AST (0-32) U/L ALT (0-33) U/L Alkaline Phosphatase (35-105) IU/L C-Reactive Protein (0.0-4.9) mg/L Albumin (3.5-5.2) g/dL Procalcitonin (0-0.5) ng/mL Micro: Microbiology 12/30/19 20:58 Gram Stain - Final Sputum - Endotracheal Tube Aspirate Sputum Culture - Final Klebsiella oxytoca A&P Assessment and plan (1) Acute on chronic systolic heart failure: Patient has severe LV systolic dysfunction. Her heart failure is slowly getting compensated. Some improvement in the hemodynamic status. Consider coronary angiogram, once the other medical conditions are properly treated Status: Acute Code(s): I50.23 - Acute on chronic systolic (congestive) heart failure (2) Acute renal failure: Patient is on hemodialysis. Being managed by the nephrology service. The BUN/creatinine ratio is improving. Status: Acute Qualifiers: Acute renal failure type: unspecified Qualified Code(s): N17.9 - Acute kidney failure, unspecified Code(s): N17.9 - Acute kidney failure, unspecified (3) Hypotension: Improving with inotropic's. May gradually titrate off the IV Levophed. Status: Acute Qualifiers: Hypotension type: other hypotension type Qualified Code(s): I95.89 - Other hypotension Code(s): I95.9 - Hypotension, unspecified (4) Elevated liver enzymes: The liver enzymes seem to be trending down. Continue to maintain mean arterial pressure as mentioned above Status: Acute Code(s): R74.8 - Abnormal levels of other serum enzymes (5) Atrial fibrillation/flutter: Patient may be given another 0.25 mg of IV digoxin. May consider starting her on amiodarone, once the liver functions are returned back to baseline. Status: Acute Code(s): I48.91 - Unspecified atrial fibrillation; I48.92 - Unspecified atrial flutter Additional A&P Information Leukocytosis, etiology? Portal vein thrombosis-no mention of portal vein thrombosis, based on the CTA of the abdomen Hypoxic and hypercapnic respiratory failure clinically improving Attestations Medical Necessity Statement*: Patient requires continued hospital stay for close monitoring and further management Coding Level of Care Code Acute Movie Shot Camera Operator for Chg Fwd Diagnoses Acute on chronic systolic heart failure I50.23 Acute renal failure N17.9 Acute renal failure type: unspecified Hypotension I95.89 Hypotension type: other hypotension type Elevated liver enzymes R74.8 Atrial fibrillation/flutter I48.91; I48.92
[2020-01-03] MEDS: HYDROcodone-acetaminophen 5-325 mg Tablet 1 TAB PO (17:27)
[2020-01-03 17:57] LABS: Glucose Point of Care 125 mg/dL (70-110)
[2020-01-03 17:57] LABS: Glucose Point of Care 188 mg/dL (70-110)
[2020-01-03 17:57] LABS: Glucose Point of Care 105 mg/dL (70-110)
[2020-01-03 17:57] LABS: Glucose Point of Care 112 mg/dL (70-110)
--- NOTE | 2020-01-03 19:27 | PC.NURSE ---
Dr. Dang at bedside, order given to keep patient NPO for possible heart cath tomorrow.
[2020-01-03] MEDS: heparin drip 25,000 UNIT/500 ML PREMIX 31.6 UNIT IV (19:44)
[2020-01-03 19:54] LABS: Glucose Point of Care 206 mg/dL (70-110)
[2020-01-03 19:54] LABS: Glucose Point of Care 129 mg/dL (70-110)
[2020-01-03 20:35] LABS: Partial Thromboplastin Time 55.8 SECONDS (23.9-36.7)
[2020-01-03] MEDS: atorvastatin 40 mg Tablet PO (21:44)
[2020-01-04] VITALS (45 sets, daily range): BP systolic 93–152; BP diastolic 46–102; PULSE 81–130; RESP 16–31; TEMP 36.7–37.1; O2SAT 75–100
[2020-01-04 02:30] LABS: Basophils % 0.2 %; Eosinophils # 0.2 10^3/uL (0.0-0.8); Hematocrit 43.5 % (37.0-47.0); Hemoglobin 13.4 g/dL (11.5-15.3); Lymphocytes # 2.7 10^3/uL (0.8-4.8); Lymphocytes % 15.4 %; Mean Corpuscular HGB Conc 30.8 g/dL (30.0-36.0); Mean Corpuscular Hemoglobin 29.2 pg (28.0-34.0); Mean Corpuscular Volume 94.8 fL (81-99); Mean Platelet Volume 10.3 fL (7.4-10.4); Monocytes # 2.2 10^3/uL (0.2-0.9); Monocytes % 12.6 %; Neutrophils # 12.1 10^3/uL (1.8-7.7); Neutrophils % 69.1 %; Nucleated Red Blood Cells # 0.2 /100WBC; Platelet Count 304 10^3/cmm (130-400); Red Blood Count 4.59 10^6/uL (4.1-5.3); Red Cell Distribution Width 15.8 % (12.1-15.1); White Blood Count 17.5 10^3/uL (4.0-10.0)
[2020-01-04 02:52] LABS: Partial Thromboplastin Time 52.6 SECONDS (23.9-36.7)
[2020-01-04 02:56] LABS: Alanine Aminotransferase 171 U/L (0-33); Albumin Level 3.4 g/dL (3.5-5.2); Alkaline Phosphatase 142 IU/L (35-105); Anion Gap 18.6 (5-19); Aspartate Amino Transferase 94 U/L (0-32); Blood Urea Nitrogen 45 mg/dL (8-23); Calcium 9.6 mg/dL (8.5-10.5); Carbon Dioxide 31 mmol/L (22-29); Chloride 89 mmol/L (98-107); Globulin 4.5 g/dL (1.3-4.6); Glomerular Filtration Rate 32.7 mL/min (90-130); Glucose 111 mg/dL (65-115); Magnesium 2.6 mg/dL (1.7-2.3); Phosphorus 5.5 mg/dL (2.5-4.5); Potassium 3.6 mmol/L (3.5-5.1); Sodium 135 mmol/L (136-145); Total Bilirubin 1.1 mg/dL (0.15-1.2); Total Protein 7.9 g/dL (6.6-8.7)
[2020-01-04 03:08] LABS: Procalcitonin 0.42 ng/mL (0-0.5)
[2020-01-04] MEDS: FUROsemide 10 mg/mL SDV 10mL 80 MG IVP ×3 (03:27→19:33)
[2020-01-04] MEDS: heparin 5,000 unit/mL INJ 1 mL IV (03:48)
[2020-01-04 06:14] LABS: Glucose Point of Care 132 mg/dL (70-110)
[2020-01-04 07:31] LABS: Glucose Point of Care 106 mg/dL (70-110)
[2020-01-04 09:02] LABS: Partial Thromboplastin Time 74.9 SECONDS (23.9-36.7)
[2020-01-04] MEDS: aspirin 325 mg Tablet PO (09:31)
[2020-01-04] MEDS: metOLazone 5 MG Tablet PO (09:31)
[2020-01-04] MEDS: pantoprazole 40 mg SDV IVP (09:31)
[2020-01-04] MEDS: esmolol drip 2,500 MG/250 ML PREMIX 51.2 MG IV (09:32)
--- NOTE | 2020-01-04 10:41 | P.PN_ITS ---
Subjective Subjective: Interval history: Last 24 hours: She has been extubated yesterday. UO > 3200 ml. Renal function improving. She continues to be in atrial flutter with RVR and is on esmolol drip. No episodes of hypotension requiring levophed. Vitals/I&O/Wt Last Vital Signs Temp 98.7 F 01/04/20 10:00 Pulse 83 01/04/20 10:00 Resp 19 H 01/04/20 10:00 BP 115/82 01/04/20 10:00 Pulse Ox 97 01/04/20 10:00 01/03/20 01/04/20 01/04/20 22:59 06:59 14:59 Intake Total 1200 / 1200 554.907 / 1754.907 Output Total 2575 / 3275 Balance 1200 / 500 -2020.093 / -1520.093 Intake & Output 01/02/20 01/03/20 01/04/20 01/05/20 06:59 06:59 06:59 06:59 Intake Total 1200.776 / 9426.232 2417.397 / 3278.397 1754.907 / 1754.907 705.093 / 705.093 Output Total 1375 / 1375 3075 / 3075 3275 / 3275 3600 / 3600 Balance -174.224 / -174.224 203.397 / 203.397 -1520.093 / -1520.093 -2894.907 / -2894.907 Weight 251 lb 248 lb 236 lb 12.8 oz Weight last 48 hrs Weight 236 lb 12.8 oz Weight 248 lb Physical Exam Narrative: EXAM NARRATIVE: GEN: obese woman with mild respiratory distress Neck: No JVD appreciated HEENT: PERRL, No pallor RS: air entry equal bilaterally, No wheezing or rales CVS: S1, S2 irregular, No murmur, rub or gallop Ext: warm extremities, No edema, cyanosis or clubbing INCLUSION PARAEDUCATOR: AAOx 3, No FND Urinary Catheter Management^: Cedeño: Cath Placed During This Visit: yes Urethral Indwelling: Yes Reason for Continuing Indwelling Catheter: Accurate Measurement of Urinary Output in Critically Ill Patients Urinary Catheter Date of Insertion: 12/30/19 Data : 01/04/20 02:22 03/02/20 02:22 A&P Assessment and plan (1) Acute on chronic systolic heart failure: Possible etiology ischemic (multivessel CAD) vs non ischemic (viral myocarditis). -Coronary angiogram discussed in detail with patient and her daughter. Patient is reluctant to have the procedure as her dad due to complications of coronary angiogram. I will continue with medical management. -Continue lasix, metolazone. UF as needed. I will start on ACEI/ARB or entresto once renal function improves. -I/O charting. Status: Acute Code(s): I50.23 - Acute on chronic systolic (congestive) heart failure (2) Acute renal failure: Renal function improving. Status: Acute Qualifiers: Acute renal failure type: unspecified Qualified Code(s): N17.9 - Acute kidney failure, unspecified Code(s): N17.9 - Acute kidney failure, unspecified (3) Hypotension: -resolved. She has not needed pressors for last 24 hours. Status: Acute Qualifiers: Hypotension type: other hypotension type Qualified Code(s): I95.89 - Other hypotension Code(s): I95.9 - Hypotension, unspecified (4) Elevated liver enzymes: resolving Status: Acute Code(s): R74.8 - Abnormal levels of other serum enzymes (5) Atrial fibrillation/flutter: start on low dose metoporlol and wean off esmolol. Start on Amiodarone once liver function normalizes. Status: Acute Code(s): I48.91 - Unspecified atrial fibrillation; I48.92 - Unspecified atrial flutter Additional A&P Information Leukocytosis: Unclear etiology, on broad spectrum antibiotics Portal vein thrombosis-no evidence of portal vein thrombosis on the CTA of the abdomen Hypoxic and hypercapnic respiratory failure clinically improving : extubated. Attestations Medical Necessity Statement*: As per primary team Coding Level of Care Code Acute Electronic Systems Technician for Mary Jane Fwd Diagnoses Acute on chronic systolic heart failure I50.23 Acute renal failure N17.9 Acute renal failure type: unspecified Hypotension I95.89 Hypotension type: other hypotension type Elevated liver enzymes R74.8 Atrial fibrillation/flutter I48.91; I48.92
--- NOTE | 2020-01-04 12:10 | US_ITS ---
WS: [id number] Abdomen ultrasound, 01/04/2020 Clinical Data: evaluate flow through portal vine Comparison: Abdomen ultrasound, 12/31/2019. Findings: The pancreas shows no cyst, pseudocyst or evidence of pancreatitis. The liver shows no cysts, masses or dilated intrahepatic ducts. The liver measures 19.[address] AP diameter. There was fatty infiltration. Portal vein did show normal flow on this examination. The gallbladder has stones.. The wall measures 3.0 mm with no pericholecystic fluid. The common bile duct is 4.2 mm and no intraductal abnormalities are noted. The right kidney is 10.6 cm. No cysts, masses or hydronephrosis is seen. The left kidney is 10.9 cm. No cysts, masses or hydronephrosis is seen. The abdominal aorta is not dilated and the inferior vena cava has normal flow. No vascular abnormalit ies are seen. The spleen measures 13.64 cm and there are no intrasplenic masses are capsular abnormalities. US/US abdomen complete* [id number] Impression: 1. Normal portal venous flow. 2. Cholelithiasis with thickened gallbladder wall consistent with acute and/or chronic cholecystitis. 3. Enlarged liver with fatty infiltration.
[2020-01-04] MEDS: heparin drip 25,000 UNIT/500 ML PREMIX 33.6 UNIT IV (12:40)
--- NOTE | 2020-01-04 12:49 | PM.PN ---
Subjective Subjective: Interval history: Extubated and feels better. No acute pain issues, breathing comfortably, minimal edema. Hemodynamics are much jaquan stable since yesterday. Cedeño in and making a robust amount of urine. Eating clear liquids and pudding etc. No acute uremic Sx. Medications: Reviewed: Yes Medication Review Details: Current Medications Acetaminophen (Tylenol) 650 mg PO Q6H PRN PRN Reason: Mild/Mod Pain Or Temp >/= 101 Hydrocodone Bitart/Acetaminophen ([place] 5-325 Mg) 1 tab PO Q6H PRN PRN Reason: MODERATE PAIN Last Admin: 01/03/20 17:27 Dose: 1 tab Documented by: Albuterol/Ipratropium (Duoneb) 3 ml INHALATION Q4H.RESPIRATORY PRN PRN Reason: BRONCHOSPASM Last Admin: 01/03/20 11:11 Dose: 3 ml Documented by: Aspirin (Aspirin) 325 mg PO DAILY [facility] Last Admin: 01/03/20 09:23 Dose: 325 mg Documented by: Atorvastatin Calcium (Lipitor) 40 mg PO BEDTIME [facility] Last Admin: 01/02/20 20:56 Dose: 40 mg Documented by: Dextrose (D50w) 25 ml IVP ONCE PRN; Protocol PRN Reason: hypoglycemia protocol Dextrose (D50w) 50 ml IVP PRN PRN; Protocol PRN Reason: hypoglycemia protocol Furosemide (Lasix) 80 mg IVP Q8H [facility] Last Admin: 01/03/20 09:24 Dose: 80 mg Documented by: Glucagon (Glucagen) 1 mg IM ONCE PRN; Protocol PRN Reason: Adult Acute Hypoglycemia Prot. Heparin Sodium (Beef Lung) (Heparin) 0 unit IV PRN PRN; Protocol PRN Reason: Heparin weight-base protocol Last Admin: 01/02/20 11:04 Dose: 4,800 unit Documented by: Norepinephrine Bitartrate 4 mg (/ Dextrose) 254 mls @ 0 mls/hr IV .Q0M [facility]; Protocol Last Admin: 01/02/20 19:44 Dose: 2 mcg/min, 7.6 mls/hr Documented by: Furosemide 100 mg/ Sodium (Chloride) 50 mls @ 0 mls/hr IV .Q0M [facility]; Protocol Last Titration: 12/31/19 14:29 Dose: 0 mg/hr, 0 mls/hr Documented by: Dextrose (D5w) 500 mls @ 100 mls/hr IV ONCE PRN; Protocol PRN Reason: Adult Acute Hypoglycemia Prot Heparin Sodium/Sodium Chloride (Heparin Drip) 25,000 unit in 500 mls @ 0 mls/hr IV .Q0M [facility]; Protocol Last Admin: 01/03/20 03:02 Dose: 14.82 unit/kg/hr, 33.6 mls/hr Documented by: Fentanyl 1,000 mcg/ Sodium (Chloride) 100 mls @ 0 mls/hr IV .Q0M [facility]; Protocol Last Titration: 01/03/20 17:12 Dose: Infused Documented by: Propofol (Diprivan) 1,000 mg in 100 mls @ 0 mls/hr IV .Q0M [facility]; Protocol Last Admin: 01/03/20 00:31 Dose: 30 mcg/kg/min, 20.4 mls/hr Documented by: Dobutamine HCl/Dextrose (Dobutamine Drip) 500 mg in 250 mls @ 0 mls/hr IV .Q0M BRANT; Protocol Last Titration: 12/31/19 18:46 Dose: 0 mcg/kg/min, 0 mls/hr Documented by: Imipenem/Cilastatin Sodium 250 (mg/ Sodium Chloride) 100 mls @ 200 mls/hr IV Q6H [facility]; Protocol Last Admin: 01/03/20 10:34 Dose: 200 mls/hr Documented by: Diltiazem HCl 125 mg/ Sodium (Chloride) 125 mls @ 0 mls/hr IV .Q0M BRANT; Protocol Albumin Human (Albumin) 12.5 gm in 50 mls @ 60 mls/hr IV PRN PRN PRN Reason: Hypotension and/or symptomatic Esmolol HCl (Brevibloc Drip) 2,500 mg in 250 mls @ 0 mls/hr IV .Q0M [facility]ANT; Protocol Last Admin: 01/03/20 17:26 Dose: 75 mcg/kg/min, 51.2 mls/hr Documented by: Lanolin (Lanolin Oint) 1 applic TOPICAL PRN PRN PRN Reason: DRYNESS Last Admin: 01/03/20 00:30 Dose: 1 applic Documented by: Metolazone (Zaroxolyn) 5 mg PO DAILY [facility] Last Admin: 01/03/20 09:23 Dose: 5 mg Documented by: Midazolam HCl (Versed) 1 mg IVP Q1H PRN PRN Reason: gordon 3 Morphine Sulfate (Morphine) 2 mg IVP Q4H PRN PRN Reason: SEVERE PAIN Ondansetron HCl (Zofran) 4 mg IVP Q8H PRN PRN Reason: vomiting, or N/V if npo Pantoprazole Sodium (Protonix) 40 mg IVP DAILY [facility] Last Admin: 01/03/20 09:23 Dose: 40 mg Documented by: Vitals/I&O/Wt Last Vital Signs Temp 98.7 F 01/04/20 10:00 Pulse 83 01/04/20 10:00 Resp 19 H 01/04/20 10:00 BP 115/82 01/04/20 10:00 Pulse Ox 97 01/04/20 10:00 01/03/20 01/04/20 01/04/20 22:59 06:59 14:59 Intake Total 1200 / 1200 554.907 / 1754.907 245.093 / 245.093 Output Total 2575 / 3275 Balance 1200 / 500 -2020.093 / -1520.093 245.093 / 245.093 Weight last 48 hrs Weight 107.411 kg Weight 112.491 kg Physical Exam Const: ORIENTATION/CONSCIOUSNESS: Yes other (sedated and vented ) Lymph: LYMPHATIC: no lymphadenopathy noted Chest: COMMONS NORMALS: inspection of chest normal and palpation of chest normal Resp: AUSCULTATION: crackles and rales Cardio: RATE: tachycardic RHYTHM: abnormal rhythm GI: COMMON NORMALS: normal to inspection, nondistended, normoactive bowel sounds Urinary Catheter Management^: Cedeño: Cath Placed During This Visit: yes Urethral Indwelling: Yes Reason for Continuing Indwelling Catheter: Accurate Measurement of Urinary Output in Critically Ill Patients Urinary Catheter Date of Insertion: 12/30/19 Data : 01/04/20 02:22 01/04/20 02:22 A&P Additional A&P Information 1. Acute oliguric kidney injury. - clinical picture is consistent with cardiorenal syndrome and renal hypoperfusion - excellent urine output - no indication for dialysis today and hopefully will continue to show evidence of recovery - avoid the usuals if at all possible 2. Cardiogenic shock - per Dr Dang - ? angio/AICD etc down road - angio will put her renal fucntion at risk of course, but the potential benefit of some salvage of cardiac function is appreciated 3. Lytes look stable 4. LE cyanosis - apparently no evidence of arterial clot - may need vasc surgical eval; defer to primary team 5. VDRF - extubated 01/03/20 - d/w bedside RN Attestations Medical Necessity Statement*: renal failure Coding Level of Care Code Acute Traffic Engineering Director for Mary Jane Coates
[2020-01-04] MEDS: metoprolol tartrate 25 mg Tablet 12.5 MG PO (13:17)
[2020-01-04] MEDS: HYDROcodone-acetaminophen 5-325 mg Tablet 1 TAB PO (14:26)
[2020-01-04 14:56] LABS: Partial Thromboplastin Time 81.8 SECONDS (23.9-36.7)
--- NOTE | 2020-01-04 16:30 | P.PN_ITS ---
Subjective Subjective: Interval history: This morning patient was examined, she is on 4 L oxygen, has complaints of sore throat, she wants to try to eat something, she has been kept n.p.o. for possible cardiac catheterization, states that her breathing has improved, she does feel weak, no lightheadedness, no dizziness, no nausea, no vomiting, no chest pain Patient states that for the past few months she is been having increased shortness of breath, shortness of breath with exertion progressing to shortness of breath at rest. She denies any chest pain, does not does have a family history of CAD. Patient states that she has a history of hypertension, has not been taking her hypertensive medications due to not having any insurance. This afternoon patient was reexamined with patient's daughter, patient adamantly refuses to have a cardiac catheterization, she states that her father after his cardiac catheterization, she does not want that the same fate, after discussion risk and benefits, patient voiced understanding, all questions answered, patient refuses cardiac catheterization. Patient states that she wants some time to think about possibly having it in the near future, wants medical treatment for now. Patient wants to remain a full code. Vitals/I&O/Wt Last Vital Signs Temp 98.2 F 01/04/20 15:00 Pulse 85 01/04/20 15:00 Resp 21 H 01/04/20 15:00 BP 128/65 01/04/20 15:00 Pulse Ox 98 01/04/20 15:00 01/04/20 01/04/20 01/04/20 06:59 14:59 22:59 Intake Total 554.907 / 1754.907 585.093 / 585.093 Output Total 2575 / 3275 Balance -2020.093 / -1520.093 585.093 / 585.093 Weight last 48 hrs Weight 107.411 kg Weight 112.491 kg Physical Exam Narrative: EXAM NARRATIVE: Intubated and sedated Const: COMMON NORMALS: no apparent distress and oriented x3 NUTRITIONAL APPEARANCE: obese OTHER: Intubated and sedated HENMT: COMMON NORMALS: normocephalic HEAD & SCALP: normocephalic Eye: COMMON NORMALS: PERRL PUPIL: Yes PERRL Neck/C-Spine: COMMON NORMALS: no JVD and thyroid normal THYROID: thyroid normal Lymph: LYMPHATIC: no lymphadenopathy noted Chest: COMMONS NORMALS: inspection of chest normal Resp: COMMON NORMALS: normal respiratory effort, no retractions, no use of accessory muscles and clear to auscultation bilaterally AUSCULTATION: clear to auscultation bilaterally Cardio: COMMON NORMALS: no JVD, regular rate, regular rhythm, S1 normal heart sound and S2 normal heart sound RATE: regular rate RHYTHM: regular rhythm HEART SOUNDS: S1 normal and S2 normal GI: COMMON NORMALS: normal to inspection, nondistended, normoactive bowel sounds, soft to palpation, non-tender, no hepatosplenomegaly, no masses and no bruits INSPECTION: Yes abdominal distension and Yes central obesity AUSCULTATION: Yes hypoactive bowel sounds PALPATION: Yes soft and Yes no hepatosplenomegaly PERCUSSION: tympanic to percussion Extremity: COMMON NORMALS: normal capillary refill, no clubbing, cyanosis or edema, no calf tenderness and no pedal edema NARRATIVE EXTREMITY EXAM: Right lower extremity, flushed, pink, good DP PT pulses Left lower extremity, cool, diminished DP pulse but dopplerable, Neuro: COMMON NORMALS: oriented x3 Psych: COMMON NORMALS: mental status grossly normal and thought process normal THOUGHT PROCESS: normal thought process Skin: NARRATIVE SKIN EXAM: Bilateral DP PT pulses palpable, lower extremities flushed and pink-colored Urinary Catheter Management^: Cedeño: Cath Placed During This Visit: yes Urethral Indwelling: Yes Reason for Continuing Indwelling Catheter: Accurate Measurement of Urinary Output in Critically Ill Patients Urinary Catheter Date of Insertion: 12/30/19 Data : 01/04/20 02:22 01/04/20 02:22 Micro: Microbiology 12/30/19 16:25 Blood Culture - Final Blood NO GROWTH AFTER 5 DAYS A&P Assessment and plan (1) Acute on chronic respiratory failure with hypoxia and hypercapnia: -Cardiogenic shock secondary to cardiomyopathy, ischemic versus nonischemic -Echocardiogram shows ejection fraction of 20%, severe global hypokinesis, pulmonary arterial pressure 33 -Currently creatinine 1.6, patient's diuresed 8925 cc this admission, tolerating diuresis well, breathing has improved, patient remains bedbound Plan: -Continue Lasix 80 every 8 hours, monitor urine output, fluid restrictions 1500 cc -Currently on esmolol drip, heart rates in the 80s, normal sinus rhythm -Heparin for DVT prophylaxis, Protonix for GI prophylaxis -Right femoral catheter in place, right dialysis catheter in place -Continue aspirin, statin -Continue heparin drip -Monitor urine output -Follow cardiology's recommendations, currently patient refuses cardiac catheterizations, understands the risks and benefits, voiced understanding -Plan is to have PT OT evaluate patient, up out of bed into a chair, oxygen therapy Status: Acute Code(s): J96.21 - Acute and chronic respiratory failure with hypoxia; J96.22 - Acute and chronic respiratory failure with hypercapnia (2) CHF (NYHA class III, ACC/AHA stage C): Continue aspirin, statin, esmolol drip, Lasix, monitor urine output Status: Acute Code(s): I50.9 - Heart failure, unspecified (3) Pulmonary edema: Status: Acute Qualifiers: Chronicity: acute Qualified Code(s): J81.0 - Acute pulmonary edema Code(s): J81.1 - Chronic pulmonary edema (4) Atrial flutter: -No known history of atrial flutter or atrial fibrillation -No complaints of chest pain, palpitations -Possibly atrial flutter is related to acute respiratory failure or vice versa, unsure as patient has not been vocal about her medical problems to family members -This morning she is normal sinus rhythm, on esmolol drip Plan: -On esmolol drip, getting digoxin pushes, currently normal sinus rhythm -We will await cardiology's recommendation -TSH unremarkable -Magnesium within normal limits Status: Acute Qualifiers: Atrial flutter type: typical Qualified Code(s): I48.3 - Typical atrial flutter Code(s): I48.92 - Unspecified atrial flutter (5) Acute kidney injury: Likely cardiorenal syndrome related to heart failure with concerns for progressing to ATN, creatinine improving to 1.6 Status: Acute Code(s): N17.9 - Acute kidney failure, unspecified (6) Transaminitis: -Improving, blood alcohol negative hep panel negative -Abdomen is quite distended -No abdominal complaints as per family members -No fevers here -Likely secondary to cardiogenic shock/cardiac cirrhosis, and portal vein thrombosis -Creatinine is improving Status: Acute Code(s): R74.0 - Nonspecific elevation of levels of transaminase and lactic acid dehydrogenase [LDH] (7) Portal vein thrombosis: -Likely secondary to venous stasis from severe cardiogenic shock and heart failure -Patient's right upper quadrant ultrasound shows concerns for no flow through portal vein, possible portal vein occlusion or thrombosis -Patient's repeat CT of the abdomen and pelvis with contrast does not show the thrombus -I reached out to radiology Dr. Montes today, to go over the scans, he definitely stay states that he sees no portal vein on the ultrasound, but the CT scan does not show any thrombus -He asked me to repeat the ultrasound of the abdomen, will await results, continue heparin Status: Acute Code(s): I81 - Portal vein thrombosis Attestations Medical Necessity Statement*: Patient requires continued hospitalization for cardiogenic shock, atrial flutter, portal vein thrombosis Coding Level of Care Code Acute Machine Operator Transplanter for [facility] F[facility] Diagnoses Acute on chronic respiratory failure with hypoxia and hypercapnia J96.21; J96.22 CHF (NYHA class III, ACC/AHA stage C) I50.9 Pulmonary edema J81.0 Chronicity: acute Atrial flutter I48.3 Atrial flutter type: typical Acute kidney injury N17.9 Transaminitis R74.0 Portal vein thrombosis I81
[2020-01-04 17:35] LABS: Glucose Point of Care 117 mg/dL (70-110)
[2020-01-04] MEDS: morphine 4 mg/mL SDV 1 mL 2 MG IVP (19:39)
[2020-01-04 20:43] LABS: Partial Thromboplastin Time 71.6 SECONDS (23.9-36.7)
[2020-01-04] MEDS: atorvastatin 40 mg Tablet PO (21:09)
[2020-01-04 22:03] LABS: Glucose Point of Care 147 mg/dL (70-110)
[2020-01-05] VITALS (23 sets, daily range): BP systolic 91–148; BP diastolic 38–86; PULSE 79–142; RESP 13–26; TEMP 36.1–37.1; O2SAT 91–97
[2020-01-05] MEDS: metoprolol tartrate 25 mg Tablet 12.5 MG PO (00:29)
[2020-01-05] MEDS: morphine 4 mg/mL SDV 1 mL 2 MG IVP (00:29)
[2020-01-05 02:27] LABS: Basophils % 0.2 %; Eosinophils # 0.5 10^3/uL (0.0-0.8); Eosinophils % 2.5 %; Hematocrit 41.4 % (37.0-47.0); Lymphocytes # 2.6 10^3/uL (0.8-4.8); Lymphocytes % 13.2 %; Mean Corpuscular HGB Conc 31.4 g/dL (30.0-36.0); Mean Corpuscular Volume 89.2 fL (81-99); Mean Platelet Volume 10.1 fL (7.4-10.4); Monocytes # 2.5 10^3/uL (0.2-0.9); Monocytes % 12.7 %; Neutrophils # 13.9 10^3/uL (1.8-7.7); Neutrophils % 70.5 %; Nucleated Red Blood Cells % 0.1 %; Platelet Count 335 10^3/cmm (130-400); Red Blood Count 4.64 10^6/uL (4.1-5.3); Red Cell Distribution Width 15.2 % (12.1-15.1); White Blood Count 19.6 10^3/uL (4.0-10.0)
[2020-01-05 02:50] LABS: Alanine Aminotransferase 109 U/L (0-33); Albumin Level 3.6 g/dL (3.5-5.2); Alkaline Phosphatase 135 IU/L (35-105); Anion Gap 16.4 (5-19); Aspartate Amino Transferase 61 U/L (0-32); Blood Urea Nitrogen 50 mg/dL (8-23); C Reactive Protein 75.6 mg/L (0.0-4.9); Calcium 9.6 mg/dL (8.5-10.5); Carbon Dioxide 38 mmol/L (22-29); Chloride 82 mmol/L (98-107); Globulin 4.6 g/dL (1.3-4.6); Glomerular Filtration Rate 45.5 mL/min (90-130); Glucose 127 mg/dL (65-115); Magnesium 2.4 mg/dL (1.7-2.3); Phosphorus 5.4 mg/dL (2.5-4.5); Potassium 3.4 mmol/L (3.5-5.1); Sodium 133 mmol/L (136-145); Total Bilirubin 1.1 mg/dL (0.15-1.2); Total Protein 8.2 g/dL (6.6-8.7)
[2020-01-05 03:01] LABS: Procalcitonin 0.27 ng/mL (0-0.5)
[2020-01-05 03:16] LABS: Partial Thromboplastin Time 59.3 SECONDS (23.9-36.7)
[2020-01-05] MEDS: FUROsemide 10 mg/mL SDV 10mL 80 MG IVP (04:15)
[2020-01-05] MEDS: heparin drip 25,000 UNIT/500 ML PREMIX 31.6 UNIT IV (04:47)
--- NOTE | 2020-01-05 07:00 | XR_ITS ---
WS: [id number] Portable AP upright chest, 01/05/2020 Clinical Data: extuabted/respiratory Comparison: Portable chest, 01/03/2020. Findings: The endotracheal tube and nasogastric tube have been removed. The right internal jugular ve nous catheter remains in the same position. The left dialysis catheter remains unchanged. The pulmona ry vascularity remains increased. There is opacification of the left lower lobe which is probably a c ombination of atelectasis and possible minimal pneumonia. The heart size remains the same. XR/XR chest 1V portable [id number] Impression: 1. Removal of nasogastric tube and endotracheal tube. 2. No change in right internal jugular venous catheter and left dialysis cathet er. 3. No change in cardiomegaly, pulmonary vascular congestion and left lower lobe opacity.
[2020-01-05] MEDS: HYDROcodone-acetaminophen 5-325 mg Tablet 1 TAB PO ×2 (07:52→17:59)
[2020-01-05] MEDS: potassium chloride premix 40 MEQ/100 ML PREMIX 25 MEQ IV (07:55)
[2020-01-05] MEDS: aspirin 325 mg Tablet PO (08:05)
[2020-01-05] MEDS: pantoprazole DR 40 mg Tablet PO (08:05)
[2020-01-05] MEDS: metOLazone 5 MG Tablet PO (08:05)
[2020-01-05 09:26] LABS: Partial Thromboplastin Time 81.9 SECONDS (23.9-36.7)
--- NOTE | 2020-01-05 09:52 | PC.CHAP ---
Pastoral Care Encounter/Spiritual Assessment Type of Contact [] Declined automotive buyer visit [] Patient/Family/Request visit [] Outpatient visit [] Follow-up visit [] Physician referral [] Code/Alert [x] Routine visit [] Staff referral [] Actively dying [x] Patient sleeping [] Family support [] [] Out of room [] Palliative care [] [] Receiving care in room [] Pre-surgical visit [] Trauma [] Long length of stay [x] ICU visit [] Other: Relational/Emotional Strength [] Patient feels connected with others/family/visitors/staff [] Distress [] Loneliness/isolation [] Abandonment Spirituality of Patient [] Person of [place] [] Attends Buddhism of their [place] [] Believes in Prayer [] Reads Bible or Synagogue materials [] There are Spiritual issues to be addressed 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 Interventions [] Prayer [] Active listening [] Non-anxious presence [] Spiritual/emotional support [] Crisis/trauma care [] Spiritual counseling [] Bereavement support [] Provided bereavement packet [] Provided Bible/devotional materials [] Provided toy/stuffed animal, coloring book to patient or family member [] Provided Communion [] Anointing/[place] [] Salvation [x] Completed spiritual assessment [] Other: Impact on Illness or Injury [] Angry [] Fearful [] Anxious [] Often cries [] Exhaustion [] Unable to work [] Unable to attend restoration [] Unable to walk/stand [] Unable to read [] Unable to drive [] Unable to eat/drink [] Unable to sleep [] Unable to be with family [] Patient intubated [] Other: Summary seemed to be resting better today. Time spent with patient
--- NOTE | 2020-01-05 10:15 | PM.PN ---
Subjective Subjective: Interval history: Last 24 Hrs: She continues to have excellent UO ~ 5.5 L yesterday. She is currently on oxygen via [place] at 4-5 L. No CP, SOB. She remains in atrial flutter with RVR. HR currently in 110's-130's. Medications: Reviewed: Yes Medication Review Details: Current Medications Acetaminophen (Tylenol) 650 mg PO Q6H PRN PRN Reason: Mild/Mod Pain Or Temp >/= 101 Hydrocodone Bitart/Acetaminophen ([place] 5-325 Mg) 1 tab PO Q6H PRN PRN Reason: MODERATE PAIN Last Admin: 01/05/20 07:52 Dose: 1 tab Documented by: Albuterol/Ipratropium (Duoneb) 3 ml INHALATION Q4H.RESPIRATORY PRN PRN Reason: BRONCHOSPASM Last Admin: 01/03/20 11:11 Dose: 3 ml Documented by: Amiodarone HCl (Cordarone) 200 mg PO Q12H [facility] Aspirin (Aspirin) 325 mg PO DAILY [facility] Last Admin: 01/05/20 08:05 Dose: 325 mg Documented by: Atorvastatin Calcium (Lipitor) 40 mg PO BEDTIME BRANT Last Admin: 01/04/20 21:09 Dose: 40 mg Documented by: Dextrose (D50w) 25 ml IVP ONCE PRN; Protocol PRN Reason: hypoglycemia protocol Dextrose (D50w) 50 ml IVP PRN PRN; Protocol PRN Reason: hypoglycemia protocol Furosemide (Lasix) 80 mg IVP DAILY [facility]ANT Glucagon (Glucagen) 1 mg IM ONCE PRN; Protocol PRN Reason: Adult Acute Hypoglycemia Prot. Heparin Sodium (Beef Lung) (Heparin) 0 unit IV PRN PRN; Protocol PRN Reason: Heparin weight-base protocol Last Admin: 01/04/20 03:48 Dose: 2,400 unit Documented by: Dextrose (D5w) 500 mls @ 100 mls/hr IV ONCE PRN; Protocol PRN Reason: Adult Acute Hypoglycemia Prot Heparin Sodium/Sodium Chloride (Heparin Drip) 25,000 unit in 500 mls @ 0 mls/hr IV .Q0M [facility]ANT; Protocol Last Admin: 01/05/20 04:47 Dose: 13.93 unit/kg/hr, 31.6 mls/hr Documented by: Fentanyl 1,000 mcg/ Sodium (Chloride) 100 mls @ 0 mls/hr IV .Q0M [facility]ANT; Protocol Last Titration: 01/03/20 17:12 Dose: Infused Documented by: Imipenem/Cilastatin Sodium 250 (mg/ Sodium Chloride) 100 mls @ 200 mls/hr IV Q6H [facility]; Protocol Last Admin: 01/05/20 09:06 Dose: 200 mls/hr Documented by: Albumin Human (Albumin) 12.5 gm in 50 mls @ 60 mls/hr IV PRN PRN PRN Reason: Hypotension and/or symptomatic Esmolol HCl (Brevibloc Drip) 2,500 mg in 250 mls @ 0 mls/hr IV .Q0M [facility]; Protocol Last Admin: 01/04/20 09:32 Dose: 75 mcg/kg/min, 51.2 mls/hr Documented by: Potassium Chloride (K-Tito) 40 meq in 100 mls @ 25 mls/hr IV ONCE ONE Stop: 01/05/20 11:16 Last Admin: 01/05/20 07:55 Dose: 25 mls/hr Documented by: Lanolin (Lanolin Oint) 1 applic TOPICAL PRN PRN PRN Reason: DRYNESS Last Admin: 01/03/20 00:30 Dose: 1 applic Documented by: Metolazone (Zaroxolyn) 5 mg PO DAILY [facility] Last Admin: 01/05/20 08:05 Dose: 5 mg Documented by: Metoprolol Tartrate (Lopressor) 12.5 mg PO Q12H [facility] Last Admin: 01/05/20 00:29 Dose: 12.5 mg Documented by: Midazolam HCl (Versed) 1 mg IVP Q1H PRN PRN Reason: gordon 3 Morphine Sulfate (Morphine) 2 mg IVP Q4H PRN PRN Reason: SEVERE PAIN Last Admin: 01/05/20 00:29 Dose: 2 mg Documented by: Ondansetron HCl (Zofran) 4 mg IVP Q8H PRN PRN Reason: vomiting, or N/V if npo Pantoprazole Sodium (Protonix) 40 mg PO DAILY [facility] Last Admin: 01/05/20 08:05 Dose: 40 mg Documented by: Vitals/I&O/Wt Last Vital Signs Temp 98.1 F 01/04/20 22:00 Pulse 126 H 01/05/20 08:17 Resp 20 H 01/05/20 08:17 BP 107/38 01/05/20 06:00 Pulse Ox 91 01/05/20 08:17 01/04/20 01/05/20 01/05/20 22:59 06:59 14:59 Intake Total 532.8 / 1117.893 370.18 / 1488.073 200 / 200 Output Total 4600 / 4600 1000 / 5600 Balance -4067.2 / -3482.107 -629.82 / -4111.927 200 / 200 Weight last 48 hrs Weight 235 lb Weight 236 lb 12.8 oz Physical Exam Narrative: EXAM NARRATIVE: EXAM NARRATIVE: GEN: obese woman with no respiratory distress Neck: No JVD appreciated HEENT: PERRL, No pallor or icterus RS: air entry equal bilaterally, No wheezing or rales CVS: S1, S2 irregular, tachycardia +, No murmur, rub or gallop Ext: warm extremities, No edema, cyanosis or clubbing, 2+ DP 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 OPERATOR: AAOx 3, No FND Urinary Catheter Management^: Cedeño: Cath Placed During This Visit: yes Urethral Indwelling: Yes Reason for Continuing Indwelling Catheter: Accurate Measurement of Urinary Output in Critically Ill Patients Urinary Catheter Date of Insertion: 12/30/19 Data : 01/05/20 02:25 01/05/20 02:25 Micro: Microbiology 12/30/19 15:58 Blood Culture - Final Blood NO GROWTH AFTER 5 DAYS 12/30/19 16:25 Blood Culture - Final Blood NO GROWTH AFTER 5 DAYS A&P Assessment and plan (1) Acute on chronic systolic heart failure: Possible etiology ischemic (multivessel CAD) vs non ischemic (viral myocarditis). -Coronary angiogram discussed in detail with patient and her daughter. Patient is reluctant to have the procedure as her dad due to complications of coronary angiogram. I will continue with the medical management. -Continue metolazone. Decrease lasix from 80 mg TID to daily. I/O charting and follow up on BMP. -I will start her on ACEI/ARB or entresto once renal function improves. -continue metoprolol. Status: Acute Code(s): I50.23 - Acute on chronic systolic (congestive) heart failure (2) Acute renal failure: Renal function improving. Creatinine down to 1.2 and BUN increased to 50. Status: Acute Qualifiers: Acute renal failure type: unspecified Qualified Code(s): N17.9 - Acute kidney failure, unspecified Code(s): N17.9 - Acute kidney failure, unspecified (3) Hypotension: -resolved. She has not needed pressors for last 24 hours. Status: Acute Qualifiers: Hypotension type: other hypotension type Qualified Code(s): I95.89 - Other hypotension Code(s): I95.9 - Hypotension, unspecified (4) Elevated liver enzymes: resolving Status: Acute Code(s): R74.8 - Abnormal levels of other serum enzymes (5) Atrial fibrillation/flutter: -continue low dose metoprolol. She has been off esmolol. -Start on Amiodarone 200 mg twice a day. Follow up on liver panel. -transition to Eliquis this evening. Status: Acute Code(s): I48.91 - Unspecified atrial fibrillation; I48.92 - Unspecified atrial flutter Additional A&P Information Leukocytosis: Unclear etiology, on broad spectrum antibiotics Portal vein thrombosis-no evidence of portal vein thrombosis on the CTA of the abdomen Hypoxic and hypercapnic respiratory failure clinically improving : extubated to [place]. Hypokalemia: replaced Attestations Medical Necessity Statement*: As per primary team. Coding Level of Care Code Acute [place] Presser for [facility] Coates Diagnoses Acute on chronic systolic heart failure I50.23 Acute renal failure N17.9 Acute renal failure type: unspecified Hypotension I95.89 Hypotension type: other hypotension type Elevated liver enzymes R74.8 Atrial fibrillation/flutter I48.91; I48.92
--- NOTE | 2020-01-05 10:24 | PM.PN ---
Subjective Subjective: Interval history: Last 24 hours reviewed. UO very robust. Renal function improving. She continues to be in atrial flutter which is rate controlled and she is stating amiodarone and currently on oral esmol. No episodes of hypotension requiring levophed. Minimal edema Medications: Reviewed: Yes Medication Review Details: Current Medications Acetaminophen (Tylenol) 650 mg PO Q6H PRN PRN Reason: Mild/Mod Pain Or Temp >/= 101 Hydrocodone Bitart/Acetaminophen ([place] 5-325 Mg) 1 tab PO Q6H PRN PRN Reason: MODERATE PAIN Last Admin: 01/03/20 17:27 Dose: 1 tab Documented by: Albuterol/Ipratropium (Duoneb) 3 ml INHALATION Q4H.RESPIRATORY PRN PRN Reason: BRONCHOSPASM Last Admin: 01/03/20 11:11 Dose: 3 ml Documented by: Aspirin (Aspirin) 325 mg PO DAILY [facility] Last Admin: 01/03/20 09:23 Dose: 325 mg Documented by: Atorvastatin Calcium (Lipitor) 40 mg PO BEDTIME [facility] Last Admin: 01/02/20 20:56 Dose: 40 mg Documented by: Dextrose (D50w) 25 ml IVP ONCE PRN; Protocol PRN Reason: hypoglycemia protocol Dextrose (D50w) 50 ml IVP PRN PRN; Protocol PRN Reason: hypoglycemia protocol Furosemide (Lasix) 80 mg IVP Q8H [facility] Last Admin: 01/03/20 09:24 Dose: 80 mg Documented by: Glucagon (Glucagen) 1 mg IM ONCE PRN; Protocol PRN Reason: Adult Acute Hypoglycemia Prot. Heparin Sodium (Beef Lung) (Heparin) 0 unit IV PRN PRN; Protocol PRN Reason: Heparin weight-base protocol Last Admin: 01/02/20 11:04 Dose: 4,800 unit Documented by: Norepinephrine Bitartrate 4 mg (/ Dextrose) 254 mls @ 0 mls/hr IV .Q0M [facility]; Protocol Last Admin: 01/02/20 19:44 Dose: 2 mcg/min, 7.6 mls/hr Documented by: Furosemide 100 mg/ Sodium (Chloride) 50 mls @ 0 mls/hr IV .Q0M [facility]; Protocol Last Titration: 12/31/19 14:29 Dose: 0 mg/hr, 0 mls/hr Documented by: Dextrose (D5w) 500 mls @ 100 mls/hr IV ONCE PRN; Protocol PRN Reason: Adult Acute Hypoglycemia Prot Heparin Sodium/Sodium Chloride (Heparin Drip) 25,000 unit in 500 mls @ 0 mls/hr IV .Q0M [facility]; Protocol Last Admin: 01/03/20 03:02 Dose: 14.82 unit/kg/hr, 33.6 mls/hr Documented by: Fentanyl 1,000 mcg/ Sodium (Chloride) 100 mls @ 0 mls/hr IV .Q0M [facility]; Protocol Last Titration: 01/03/20 17:12 Dose: Infused Documented by: Propofol (Diprivan) 1,000 mg in 100 mls @ 0 mls/hr IV .Q0M [facility]; Protocol Last Admin: 01/03/20 00:31 Dose: 30 mcg/kg/min, 20.4 mls/hr Documented by: Dobutamine HCl/Dextrose (Dobutamine Drip) 500 mg in 250 mls @ 0 mls/hr IV .Q0M [facility]; Protocol Last Titration: 12/31/19 18:46 Dose: 0 mcg/kg/min, 0 mls/hr Documented by: Imipenem/Cilastatin Sodium 250 (mg/ Sodium Chloride) 100 mls @ 200 mls/hr IV Q6H [facility]; Protocol Last Admin: 01/03/20 10:34 Dose: 200 mls/hr Documented by: Diltiazem HCl 125 mg/ Sodium (Chloride) 125 mls @ 0 mls/hr IV .Q0M [facility]; Protocol Albumin Human (Albumin) 12.5 gm in 50 mls @ 60 mls/hr IV PRN PRN PRN Reason: Hypotension and/or symptomatic Esmolol HCl (Brevibloc Drip) 2,500 mg in 250 mls @ 0 mls/hr IV .Q0M [facility]; Protocol Last Admin: 01/03/20 17:26 Dose: 75 mcg/kg/min, 51.2 mls/hr Documented by: Lanolin (Lanolin Oint) 1 applic TOPICAL PRN PRN PRN Reason: DRYNESS Last Admin: 01/03/20 00:30 Dose: 1 applic Documented by: Metolazone (Zaroxolyn) 5 mg PO DAILY [facility] Last Admin: 01/03/20 09:23 Dose: 5 mg Documented by: Midazolam HCl (Versed) 1 mg IVP Q1H PRN PRN Reason: gordon 3 Morphine Sulfate (Morphine) 2 mg IVP Q4H PRN PRN Reason: SEVERE PAIN Ondansetron HCl (Zofran) 4 mg IVP Q8H PRN PRN Reason: vomiting, or N/V if npo Pantoprazole Sodium (Protonix) 40 mg IVP DAILY [facility] Last Admin: 01/03/20 09:23 Dose: 40 mg Documented by: Vitals/I&O/Wt Last Vital Signs Temp 98.1 F 01/04/20 22:00 Pulse 126 H 01/05/20 08:17 Resp 20 H 01/05/20 08:17 BP 107/38 01/05/20 06:00 Pulse Ox 91 01/05/20 08:17 01/04/20 01/05/20 01/05/20 22:59 06:59 14:59 Intake Total 532.8 / 1117.893 370.18 / 1488.073 200 / 200 Output Total 4600 / 4600 1000 / 5600 Balance -4067.2 / -3482.107 -629.82 / -4111.927 200 / 200 Weight last 48 hrs Weight 106.594 kg Weight 107.411 kg Physical Exam Const: ORIENTATION/CONSCIOUSNESS: Yes other (sedated and vented ) Lymph: LYMPHATIC: no lymphadenopathy noted Chest: COMMONS NORMALS: inspection of chest normal and palpation of chest normal Resp: AUSCULTATION: crackles and rales Cardio: RATE: tachycardic RHYTHM: abnormal rhythm GI: COMMON NORMALS: normal to inspection, nondistended, normoactive bowel sounds Urinary Catheter Management^: Cedeño: Cath Placed During This Visit: yes Urethral Indwelling: Yes Reason for Continuing Indwelling Catheter: Accurate Measurement of Urinary Output in Critically Ill Patients Urinary Catheter Date of Insertion: 12/30/19 Data : 01/05/20 02:25 01/05/20 02:25 Micro: Microbiology 12/30/19 15:58 Blood Culture - Final Blood NO GROWTH AFTER 5 DAYS 12/30/19 16:25 Blood Culture - Final Blood NO GROWTH AFTER 5 DAYS A&P Additional A&P Information 1. Acute oliguric kidney injury. - clinical picture is consistent with cardiorenal syndrome and renal hypoperfusion - excellent urine output - no indication for dialysis today and will DC dialysis line and foleyt cath - avoid the usuals if at all possible 2. Cardiogenic shock - per Dr Dang - ? angio/AICD etc down road - patient counseled by cardiology and she is currently refusing 3. Lytes look stable 4. VDRF - extubated 01/03/20 5. OOB to chair, PT/OT etc - d/w bedside RN Attestations Medical Necessity Statement*: mgmt of JOSEFA Coding Level of Care Code Acute Studio Technician Video Operator for Mary Jane Coates
[2020-01-05] MEDS: amiodarone 200 mg Tablet PO ×2 (10:29→23:04)
--- NOTE | 2020-01-05 11:08 | PC.NURSE ---
dr. jerez notified of dialysis cath removal per dr. oneal. orders tostop heparin gtt now. and restart after catheter removed.
[2020-01-05 11:09] LABS: Glucose Point of Care 222 mg/dL (70-110)
[2020-01-05] MEDS: metoprolol tartrate 1 mg/1 mL SDV 5 mL 5 MG IV (12:19)
[2020-01-05] MEDS: metoprolol tartrate 25 mg Tablet PO ×2 (12:19→17:59)
--- NOTE | 2020-01-05 14:13 | PM.PN ---
Subjective Subjective: Interval history: This morning patient was examined she was laying in bed, she had no complaints this morning, no chest pain, no shortness of breath, was able to sit up in bed, has not ambulated out of bed, no lightheadedness, no dizziness, no nausea, no vomiting, no lightheadedness, no dizziness, no abdominal pain, no fevers, no chills Patient still adamant about not having a cardiac catheterization procedure wants to be medically managed, is adamant that she will follow-up with a primary care provider, she will follow medical instructions Vitals/I&O/Wt Last Vital Signs Temp 98.1 F 01/04/20 22:00 Pulse 126 H 01/05/20 08:17 Resp 20 H 01/05/20 08:17 BP 107/38 01/05/20 06:00 Pulse Ox 91 01/05/20 08:17 01/04/20 01/05/20 01/05/20 22:59 06:59 14:59 Intake Total 532.8 / 1117.893 370.18 / 1488.073 200 / 200 Output Total 4600 / 4600 1000 / 5600 Balance -4067.2 / -3482.107 -629.82 / -4111.927 200 / 200 Weight last 48 hrs Weight 106.594 kg Weight 107.411 kg Physical Exam Const: COMMON NORMALS: no apparent distress and oriented x3 HENMT: COMMON NORMALS: normocephalic HEAD & SCALP: normocephalic Neck/C-Spine: COMMON NORMALS: no JVD Resp: COMMON NORMALS: normal respiratory effort, no retractions, no use of accessory muscles and clear to auscultation bilaterally AUSCULTATION: clear to auscultation bilaterally Cardio: COMMON NORMALS: no JVD, regular rate, regular rhythm, S1 normal heart sound and S2 normal heart sound RATE: regular rate RHYTHM: regular rhythm HEART SOUNDS: S1 normal and S2 normal GI: COMMON NORMALS: normal to inspection, nondistended, normoactive bowel sounds, soft to palpation, non-tender, no hepatosplenomegaly, no masses and no bruits PALPATION: Yes soft and Yes no hepatosplenomegaly Extremity: COMMON NORMALS: normal capillary refill, no clubbing, cyanosis or edema, no calf tenderness and no pedal edema Neuro: COMMON NORMALS: oriented x3 Psych: COMMON NORMALS: mental status grossly normal Urinary Catheter Management^: Cedeño: Cath Placed During This Visit: yes Urethral Indwelling: Yes Reason for Continuing Indwelling Catheter: Accurate Measurement of Urinary Output in Critically Ill Patients Urinary Catheter Date of Insertion: 12/30/19 Data : 01/05/20 02:25 01/05/20 02:25 Micro: Microbiology 12/30/19 15:58 Blood Culture - Final Blood NO GROWTH AFTER 5 DAYS 12/30/19 16:25 Blood Culture - Final Blood NO GROWTH AFTER 5 DAYS A&P Assessment and plan (1) Acute on chronic respiratory failure with hypoxia and hypercapnia: -Cardiogenic shock secondary to cardiomyopathy, ischemic versus nonischemic -Echocardiogram shows ejection fraction of 20%, severe global hypokinesis, pulmonary arterial pressure 33 -Currently creatinine 1.2, patient's diuresed 19062 cc this admission, tolerating diuresis well, breathing has improved, patient remains bedbound -We will move the patient out of the ICU to cardiac stepdown unit Plan: -Patient continues to have good urine output, Lasix has been decreased to 80 mg once daily -Currently metoprolol p.o. -Lovenox for DVT prophylaxis, Protonix for GI prophylaxis -Dialysis catheter will be removed today by Dr. Dickerson -Continue aspirin, statin -Patient cannot afford Eliquis, with 340b be will cost $90 a month, patient does not have insurance, I will transition to Lovenox bridge and Coumadin for atrial flutter and portal vein thrombosis -Follow cardiology's recommendations, currently patient refuses cardiac catheterizations, understands the risks and benefits, voiced understanding -Plan is to have PT OT evaluate patient, up out of bed into a chair, oxygen therapy Status: Acute Code(s): J96.21 - Acute and chronic respiratory failure with hypoxia; J96.22 - Acute and chronic respiratory failure with hypercapnia (2) CHF (NYHA class III, ACC/AHA stage C): Continue aspirin, statin, esmolol drip, Lasix, monitor urine output Status: Acute Code(s): I50.9 - Heart failure, unspecified (3) Pulmonary edema: Status: Acute Qualifiers: Chronicity: acute Qualified Code(s): J81.0 - Acute pulmonary edema Code(s): J81.1 - Chronic pulmonary edema (4) Atrial flutter: -No known history of atrial flutter or atrial fibrillation -No complaints of chest pain, palpitations -Possibly atrial flutter is related to acute respiratory failure or vice versa, unsure as patient has not been vocal about her medical problems to family members -This morning she is normal sinus rhythm, on esmolol drip Plan: -On esmolol drip, getting digoxin pushes, currently normal sinus rhythm -We will await cardiology's recommendation -TSH unremarkable -Magnesium within normal limits Status: Acute Qualifiers: Atrial flutter type: typical Qualified Code(s): I48.3 - Typical atrial flutter Code(s): I48.92 - Unspecified atrial flutter (5) Acute kidney injury: Likely cardiorenal syndrome related to heart failure with concerns for progressing to ATN, creatinine improving to 1.2 Status: Acute Code(s): N17.9 - Acute kidney failure, unspecified (6) Transaminitis: -Improving, blood alcohol negative hep panel negative -Abdomen is quite distended -No abdominal complaints as per family members -No fevers here -Likely secondary to cardiogenic shock/cardiac cirrhosis, and portal vein thrombosis -Liver functions are improving Status: Acute Code(s): R74.0 - Nonspecific elevation of levels of transaminase and lactic acid dehydrogenase [LDH] (7) Portal vein thrombosis: -Likely secondary to venous stasis from severe cardiogenic shock and heart failure -Patient's right upper quadrant ultrasound shows concerns for no flow through portal vein, possible portal vein occlusion or thrombosis -Patient's repeat CT of the abdomen and pelvis with contrast does not show the thrombus -I reached out to radiology Dr. Montes today, to go over the scans, he definitely stay states that he sees no portal vein on the ultrasound, but the CT scan does not show any thrombus -Repeat ultrasound shows no portal vein thrombosis, transaminitis is significantly improved -Likely patient's portal vein thrombus dissolved or recannulated with anticoagulation heparin drip Plan: -Coumadin for at least 6 months, bridging with Lovenox, INR 2-3 Status: Acute Code(s): I81 - Portal vein thrombosis (8) Embolism, arterial, leg, left: -Patient's left lower extremity, was cool, clammy during admission, but DP PT pulses were dopplerable -Ultrasound of left lower extremity showed JUANY 1.1 on the left -areterial study showed Left lower extremity: Left common femoral artery, proximal, mid, and distal superficial femoral artery, and popliteal arteries are triphasic. Left posterior tibial artery distally is likely biphasic. Left dorsalis pedis artery likely biphasic. -Today left lower extremity is flushed, pink, DP PT pulses are palpable -Patient has no pain in left lower extremity, no evidence of ischemia -Possibly patient could have shed emboli with her atrial flutter, which have resolved with anticoagulation -Patient's receiving anticoagulation, and will receive anticoagulation chronically due to atrial flutter Status: Acute Code(s): I74.3 - Embolism and thrombosis of arteries of the lower extremities Attestations Medical Necessity Statement*: Patient requires hospitalization due to acute respiratory failure secondary to cardiogenic shock Coding Level of Care Code Acute Reed Fixer for [facility] Diagnoses Acute on chronic respiratory failure with hypoxia and hypercapnia J96.21; J96.22 CHF (NYHA class III, ACC/AHA stage C) I50.9 Pulmonary edema J81.0 Chronicity: acute Atrial flutter I48.3 Atrial flutter type: typical Acute kidney injury N17.9 Transaminitis R74.0 Portal vein thrombosis I81 Embolism, arterial, leg, left I74.3
--- NOTE | 2020-01-05 15:21 | PC.NURSE ---
has been resting quietly this afternoon
--- NOTE | 2020-01-05 15:39 | PC.NURSE ---
dr. jerez in this afternoon. dialysis catheter removed, appears to be intact. pressure dressing in place.
[2020-01-05] MEDS: enoxaparin 100 mg/mL Syringe SUBCUT (16:54)
[2020-01-05] MEDS: warfarin 5 mg Tablet PO (17:57)
--- NOTE | 2020-01-05 18:21 | PC.NURSE ---
up to chair. incontient of stool and urine with coughing. severereddened areasbetween legs.
[2020-01-05] MEDS: atorvastatin 40 mg Tablet PO (20:43)
[2020-01-05 21:04] LABS: Glucose Point of Care 126 mg/dL (70-110)
[2020-01-06] VITALS (7 sets, daily range): BP systolic 100–141; BP diastolic 53–62; PULSE 86–141; RESP 17–27; TEMP 36.6–37.1; O2SAT 94–100
--- NOTE | 2020-01-06 00:51 | PC.NURSE ---
Patient requesting something for sleep. Dr. Lares notified with new order received for Trazadone 25mg PO x1. Medication given. Patient repositioned with assist of 2. Will monitor.
[2020-01-06] MEDS: trazodone 50 mg Tablet 25 MG PO (01:02)
[2020-01-06] MEDS: metoprolol tartrate 25 mg Tablet PO ×3 (03:41→21:15)
[2020-01-06] MEDS: HYDROcodone-acetaminophen 5-325 mg Tablet 1 TAB PO ×4 (03:42→22:45)
--- NOTE | 2020-01-06 03:46 | PC.NURSE ---
Patient's HR sustaining 140-150's. Dr. Lares notified. Order received to give am dose of Metoprolol. Medication given along with pain medication for generalized pain rating a 9 . Will monitor.
--- NOTE | 2020-01-06 04:39 | PC.NURSE ---
HR down to lower 100's. Continues to show A-Fib. Resting with eyes closed with respirations even and unlabored. Will monitor.
--- NOTE | 2020-01-06 05:00 | PC.NURSE ---
This nurse went to draw labs from right internal jugular. Triple lumen noted. Only able to draw blood from blue port. Flushed without difficulty. Area slightly red. No drainage noted. Patient requesting another pain pill. Didn't realize that she had just gotten one approximately an hour ago. States, Oh...I forgot. Up to BSC with assist of 1. Very unsteady. This nurse called for assistance to assist patient back to bed after voiding. Will monitor.
[2020-01-06] MEDS: levoFLOXacin 750 mg Tablet PO (05:11)
[2020-01-06] MEDS: enoxaparin 100 mg/mL Syringe SUBCUT ×2 (05:12→18:28)
[2020-01-06 05:30] LABS: Basophils % 0.1 %; Eosinophils # 0.7 10^3/uL (0.0-0.8); Eosinophils % 3.3 %; Hematocrit 42.5 % (37.0-47.0); Lymphocytes # 2.3 10^3/uL (0.8-4.8); Lymphocytes % 11.3 %; Mean Corpuscular HGB Conc 30.6 g/dL (30.0-36.0); Mean Corpuscular Hemoglobin 27.5 pg (28.0-34.0); Mean Corpuscular Volume 89.9 fL (81-99); Mean Platelet Volume 10.3 fL (7.4-10.4); Monocytes # 2.6 10^3/uL (0.2-0.9); Monocytes % 12.7 %; Neutrophils # 14.5 10^3/uL (1.8-7.7); Neutrophils % 71.9 %; Nucleated Red Blood Cells % 0 %; Platelet Count 365 10^3/cmm (130-400); Red Blood Count 4.73 10^6/uL (4.1-5.3); White Blood Count 20.1 10^3/uL (4.0-10.0)
[2020-01-06 05:43] LABS: Alanine Aminotransferase 67 U/L (0-33); Albumin Level 3.5 g/dL (3.5-5.2); Alkaline Phosphatase 142 IU/L (35-105); Anion Gap 15.6 (5-19); Aspartate Amino Transferase 34 U/L (0-32); Blood Urea Nitrogen 66 mg/dL (8-23); Calcium 9.9 mg/dL (8.5-10.5); Carbon Dioxide 38 mmol/L (22-29); Chloride 83 mmol/L (98-107); Globulin 4.3 g/dL (1.3-4.6); Glomerular Filtration Rate 45.5 mL/min (90-130); Glucose 165 mg/dL (65-115); Magnesium 2.5 mg/dL (1.7-2.3); Phosphorus 4.1 mg/dL (2.5-4.5); Potassium 3.6 mmol/L (3.5-5.1); Sodium 133 mmol/L (136-145); Total Bilirubin 0.8 mg/dL (0.15-1.2); Total Protein 7.8 g/dL (6.6-8.7)
[2020-01-06 06:21] LABS: Glucose Point of Care 159 mg/dL (70-110)
--- NOTE | 2020-01-06 07:00 | XR_ITS ---
WS: [id number] XR chest 1V portable [id number] REASON FOR EXAM: sob FINDINGS: Comparisons were made to January 05, 2020. The catheter is again seen from the jugular approac h on the right. Satisfactory position. Fullness persist in the right hilum suggesting low-grade atele ctasis this appears to be somewhat improved since earlier exam. There is a severe scoliosis convex to the left. XR/XR chest 1V portable [id number] IMPRESSION: Fullness persist in the right hilum with low-grade atelectasis. A catheter is seen extending from the jugular approach on the right in good pos ition. Severe scoliosis convex to the left.
[2020-01-06 09:33] LABS: INR 1.01 (0.8-1.2)
[2020-01-06] MEDS: pantoprazole DR 40 mg Tablet PO (09:35)
[2020-01-06] MEDS: aspirin 325 mg Tablet PO (09:35)
[2020-01-06] MEDS: amiodarone 200 mg Tablet PO ×2 (09:51→22:46)
[2020-01-06 10:26] LABS: LAB Peripheral Smear Sent for Review
--- NOTE | 2020-01-06 10:34 | P.PN_ITS ---
Subjective Subjective: Interval history: She feels worn and generally unwell, she didn't sleep well last night. She denies uremic Sx. Dialysis and Cedeño lines removed. No edema and no SOB at this time. No uremic Sx. N o acute issues at this time Medications: Reviewed: Yes Medication Review Details: Current Medications Acetaminophen (Tylenol) 650 mg PO Q6H PRN PRN Reason: Mild/Mod Pain Or Temp >/= 101 Hydrocodone Bitart/Acetaminophen ([place] 5-325 Mg) 1 tab PO Q6H PRN PRN Reason: MODERATE PAIN Last Admin: 01/03/20 17:27 Dose: 1 tab Documented by: Albuterol/Ipratropium (Duoneb) 3 ml INHALATION Q4H.RESPIRATORY PRN PRN Reason: BRONCHOSPASM Last Admin: 01/03/20 11:11 Dose: 3 ml Documented by: Aspirin (Aspirin) 325 mg PO DAILY BRANT Last Admin: 01/03/20 09:23 Dose: 325 mg Documented by: Atorvastatin Calcium (Lipitor) 40 mg PO BEDTIME BRANT Last Admin: 01/02/20 20:56 Dose: 40 mg Documented by: Dextrose (D50w) 25 ml IVP ONCE PRN; Protocol PRN Reason: hypoglycemia protocol Dextrose (D50w) 50 ml IVP PRN PRN; Protocol PRN Reason: hypoglycemia protocol Furosemide (Lasix) 80 mg IVP Q8H BRANT Last Admin: 01/03/20 09:24 Dose: 80 mg Documented by: Glucagon (Glucagen) 1 mg IM ONCE PRN; Protocol PRN Reason: Adult Acute Hypoglycemia Prot. Heparin Sodium (Beef Lung) (Heparin) 0 unit IV PRN PRN; Protocol PRN Reason: Heparin weight-base protocol Last Admin: 01/02/20 11:04 Dose: 4,800 unit Documented by: Norepinephrine Bitartrate 4 mg (/ Dextrose) 254 mls @ 0 mls/hr IV .Q0M BRANT; Protocol Last Admin: 01/02/20 19:44 Dose: 2 mcg/min, 7.6 mls/hr Documented by: Furosemide 100 mg/ Sodium (Chloride) 50 mls @ 0 mls/hr IV .Q0M BRANT; Protocol Last Titration: 12/31/19 14:29 Dose: 0 mg/hr, 0 mls/hr Documented by: Dextrose (D5w) 500 mls @ 100 mls/hr IV ONCE PRN; Protocol PRN Reason: Adult Acute Hypoglycemia Prot Heparin Sodium/Sodium Chloride (Heparin Drip) 25,000 unit in 500 mls @ 0 mls/hr IV .Q0M BRANT; Protocol Last Admin: 01/03/20 03:02 Dose: 14.82 unit/kg/hr, 33.6 mls/hr Documented by: Fentanyl 1,000 mcg/ Sodium (Chloride) 100 mls @ 0 mls/hr IV .Q0M BRANT; Protocol Last Titration: 01/03/20 17:12 Dose: Infused Documented by: Propofol (Diprivan) 1,000 mg in 100 mls @ 0 mls/hr IV .Q0M BRANT; Protocol Last Admin: 01/03/20 00:31 Dose: 30 mcg/kg/min, 20.4 mls/hr Documented by: Dobutamine HCl/Dextrose (Dobutamine Drip) 500 mg in 250 mls @ 0 mls/hr IV .Q0M BRANT; Protocol Last Titration: 12/31/19 18:46 Dose: 0 mcg/kg/min, 0 mls/hr Documented by: Imipenem/Cilastatin Sodium 250 (mg/ Sodium Chloride) 100 mls @ 200 mls/hr IV Q6H BRANT; Protocol Last Admin: 01/03/20 10:34 Dose: 200 mls/hr Documented by: Diltiazem HCl 125 mg/ Sodium (Chloride) 125 mls @ 0 mls/hr IV .Q0M BRANT; Protocol Albumin Human (Albumin) 12.5 gm in 50 mls @ 60 mls/hr IV PRN PRN PRN Reason: Hypotension and/or symptomatic Esmolol HCl (Brevibloc Drip) 2,500 mg in 250 mls @ 0 mls/hr IV .Q0M BRANT; Protocol Last Admin: 01/03/20 17:26 Dose: 75 mcg/kg/min, 51.2 mls/hr Documented by: Lanolin (Lanolin Oint) 1 applic TOPICAL PRN PRN PRN Reason: DRYNESS Last Admin: 01/03/20 00:30 Dose: 1 applic Documented by: Metolazone (Zaroxolyn) 5 mg PO DAILY BRANT Last Admin: 01/03/20 09:23 Dose: 5 mg Documented by: Midazolam HCl (Versed) 1 mg IVP Q1H PRN PRN Reason: gordon 3 Morphine Sulfate (Morphine) 2 mg IVP Q4H PRN PRN Reason: SEVERE PAIN Ondansetron HCl (Zofran) 4 mg IVP Q8H PRN PRN Reason: vomiting, or N/V if npo Pantoprazole Sodium (Protonix) 40 mg IVP DAILY BRANT Last Admin: 01/03/20 09:23 Dose: 40 mg Documented by: Vitals/I&O/Wt Last Vital Signs Temp 98.1 F 01/06/20 07:13 Pulse 100 01/06/20 09:05 Resp 18 01/06/20 09:05 BP 100/60 01/06/20 07:13 Pulse Ox 94 01/06/20 09:05 01/05/20 01/06/20 01/06/20 22:59 06:59 14:59 Intake Total 600 / 800 240 / 1040 120 / 120 Output Total 1800 / 1800 300 / 2100 Balance -1200 / -1000 -60 / -1060 120 / 120 Weight last 48 hrs Weight 107.275 kg Weight 106.594 kg Physical Exam Const: ORIENTATION/CONSCIOUSNESS: Yes other (sedated and vented ) Lymph: LYMPHATIC: no lymphadenopathy noted Chest: COMMONS NORMALS: inspection of chest normal and palpation of chest normal Resp: COMMON NORMALS: normal respiratory effort and no retractions Cardio: RATE: tachycardic RHYTHM: abnormal rhythm GI: COMMON NORMALS: normal to inspection, nondistended, normoactive bowel sounds Urinary Catheter Management^: Cedeño: Cath Placed During This Visit: yes, but has since been removed by the nurse Urethral Indwelling: No Urinary Catheter Date of Insertion: 12/30/19 Date Urinary Catheter Removed: 01/05/20 Data : 01/06/20 05:02 01/06/20 05:02 A&P Additional A&P Information 1. Acute oliguric kidney injury. - clinical picture is consistent with cardiorenal syndrome and renal hypoperfusion - excellent urine output - renal function has recovered nicely 2. Cardiogenic shock - per Dr Dang - patient counseled by cardiology and she is currently refusing LHC 3. Lytes look stable 4. VDRF - extubated 01/03/20 5. 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
--- NOTE | 2020-01-06 11:05 | PC.NURSE ---
telenephrologist saw pt today...and stated he will now be off case.dr nick held zaroxyln and lasix today.right tlc dc'd using aseptic technique.pt tolerated procedure well.
[2020-01-06] MEDS: metoprolol tartrate 1 mg/1 mL SDV 5 mL 5 MG IV (11:34)
[2020-01-06 11:41] LABS: Glucose Point of Care 149 mg/dL (70-110)
--- NOTE | 2020-01-06 12:54 | P.PN_ITS ---
Subjective Subjective: Interval history: This morning patient was examined in bed, patient states that she is doing well, no fevers, no chills, no nausea, no vomiting, no lightheadedness patient has not gotten out of bed, the plan is today for her to get up out of bed Vitals/I&O/Wt Last Vital Signs Temp 98.7 F 01/06/20 10:56 Pulse 112 H 01/06/20 10:56 Resp 17 01/06/20 10:56 BP 131/53 01/06/20 10:56 Pulse Ox 95 01/06/20 10:56 01/05/20 01/06/20 01/06/20 22:59 06:59 14:59 Intake Total 600 / 800 240 / 1040 120 / 120 Output Total 1800 / 1800 300 / 2100 Balance -1200 / -1000 -60 / -1060 120 / 120 Weight last 48 hrs Weight 107.275 kg Weight 106.594 kg Physical Exam Narrative: EXAM NARRATIVE: Intubated and sedated Const: COMMON NORMALS: no apparent distress and oriented x3 NUTRITIONAL APPEARANCE: obese OTHER: Intubated and sedated HENMT: COMMON NORMALS: normocephalic HEAD & SCALP: normocephalic Eye: COMMON NORMALS: PERRL PUPIL: Yes PERRL Neck/C-Spine: COMMON NORMALS: no JVD and thyroid normal THYROID: thyroid normal Lymph: LYMPHATIC: no lymphadenopathy noted Chest: COMMONS NORMALS: inspection of chest normal Resp: COMMON NORMALS: normal respiratory effort, no retractions, no use of accessory muscles and clear to auscultation bilaterally AUSCULTATION: clear to auscultation bilaterally Cardio: COMMON NORMALS: no JVD, regular rate, regular rhythm, S1 normal heart sound and S2 normal heart sound RATE: regular rate RHYTHM: regular rhythm HEART SOUNDS: S1 normal and S2 normal GI: COMMON NORMALS: normal to inspection, nondistended, normoactive bowel sounds, soft to palpation, non-tender, no hepatosplenomegaly, no masses and no bruits INSPECTION: Yes abdominal distension and Yes central obesity AUSCULTATION: Yes hypoactive bowel sounds PALPATION: Yes soft and Yes no hepatosplenomegaly PERCUSSION: tympanic to percussion Extremity: COMMON NORMALS: normal capillary refill, no clubbing, cyanosis or edema, no calf tenderness and no pedal edema NARRATIVE EXTREMITY EXAM: Right lower extremity, flushed, pink, good DP PT pulses Left lower extremity, cool, diminished DP pulse but dopplerable, Neuro: COMMON NORMALS: oriented x3 Psych: COMMON NORMALS: mental status grossly normal and thought process normal THOUGHT PROCESS: normal thought process Skin: NARRATIVE SKIN EXAM: Bilateral DP PT pulses palpable, lower extremities flushed and pink-colored Urinary Catheter Management^: Cedeño: Cath Placed During This Visit: yes, but has since been removed by the nurse Urethral Indwelling: No Reason for Continuing Indwelling Catheter: Accurate Measurement of Urinary Output in Critically Ill Patients Urinary Catheter Date of Insertion: 12/30/19 Date Urinary Catheter Removed: 01/05/20 Data : 01/06/20 05:02 01/06/20 05:02 A&P Assessment and plan (1) Acute on chronic respiratory failure with hypoxia and hypercapnia: -Cardiogenic shock secondary to cardiomyopathy, ischemic versus nonischemic -Echocardiogram shows ejection fraction of 20%, severe global hypokinesis, pulmonary arterial pressure 33 -Currently creatinine 1.2, patient's diuresed 61801 cc this admission, tolerating diuresis well, breathing has improved, patient remains bedbound -Patient is in the cardiac IMC PLAN: -Hold diuresis today as patient is quite dry, BUN has been elevated -Currently metoprolol p.o. -Lovenox for DVT prophylaxis, Protonix for GI prophylaxis -Dialysis catheter will be removed today by Dr. Dickerson -Continue aspirin, statin -Patient cannot afford Eliquis, with 340b be will cost $90 a month, patient does not have insurance, I will transition to Lovenox bridge and Coumadin for atrial flutter and portal vein thrombosis -Follow cardiology's recommendations, currently patient refuses cardiac catheterizations, understands the risks and benefits, voiced understanding -Plan is to have PT OT evaluate patient, up out of bed into a chair, oxygen therapy Status: Acute Code(s): J96.21 - Acute and chronic respiratory failure with hypoxia; J96.22 - Acute and chronic respiratory failure with hypercapnia (2) CHF (NYHA class III, ACC/AHA stage C): Continue aspirin, statin, esmolol drip, Lasix, monitor urine output Status: Acute Code(s): I50.9 - Heart failure, unspecified (3) Pulmonary edema: Status: Acute Qualifiers: Chronicity: acute Qualified Code(s): J81.0 - Acute pulmonary edema Code(s): J81.1 - Chronic pulmonary edema (4) Atrial flutter: -No known history of atrial flutter or atrial fibrillation -No complaints of chest pain, palpitations -Possibly atrial flutter is related to acute respiratory failure or vice versa, unsure as patient has not been vocal about her medical problems to family members -This morning she is normal sinus rhythm, on esmolol drip Plan: -On esmolol drip, getting digoxin pushes, currently normal sinus rhythm -We will await cardiology's recommendation -TSH unremarkable -Magnesium within normal limits Status: Acute Qualifiers: Atrial flutter type: typical Qualified Code(s): I48.3 - Typical atrial flutter Code(s): I48.92 - Unspecified atrial flutter (5) Acute kidney injury: Likely cardiorenal syndrome related to heart failure with concerns for progressing to ATN, creatinine improving to 1.2 Status: Acute Code(s): N17.9 - Acute kidney failure, unspecified (6) Transaminitis: -Improving, blood alcohol negative hep panel negative -Abdomen is quite distended -No abdominal complaints as per family members -No fevers here -Likely secondary to cardiogenic shock/cardiac cirrhosis, and portal vein thrombosis -Liver functions are improving Status: Acute Code(s): R74.0 - Nonspecific elevation of levels of transaminase and lactic acid dehydrogenase [LDH] (7) Portal vein thrombosis: -Likely secondary to venous stasis from severe cardiogenic shock and heart failure -Patient's right upper quadrant ultrasound shows concerns for no flow through portal vein, possible portal vein occlusion or thrombosis -Patient's repeat CT of the abdomen and pelvis with contrast does not show the thrombus -I reached out to radiology Dr. Montes today, to go over the scans, he definitely stay states that he sees no portal vein on the ultrasound, but the CT scan does not show any thrombus -Repeat ultrasound shows no portal vein thrombosis, transaminitis is significantly improved -Likely patient's portal vein thrombus dissolved or recannulated with anticoa gulation heparin drip Plan: -Coumadin for at least 6 months, bridging with Lovenox, INR 2-3 Status: Acute Code(s): I81 - Portal vein thrombosis (8) Embolism, arterial, leg, left: -Patient's left lower extremity, was cool, clammy during admission, but DP PT pulses were dopplerable -Ultrasound of left lower extremity showed JUANY 1.1 on the left -areterial study showed Left lower extremity: Left common femoral artery, proximal, mid, and distal superficial femoral artery, and popliteal arteries are triphasic. Left posterior tibial artery distally is likely biphasic. Left dorsalis pedis artery likely biphasic. -Today left lower extremity is flushed, pink, DP PT pulses are palpable -Patient has no pain in left lower extremity, no evidence of ischemia -Possibly patient could have shed emboli with her atrial flutter, which have resolved with anticoagulation -Patient's receiving anticoagulation, and will receive anticoagulation chronically due to atrial flutter Status: Acute Code(s): I74.3 - Embolism and thrombosis of arteries of the lower extremities Attestations Medical Necessity Statement*: Patient requires continued hospitalization due to cardiogenic shock, acute respiratory failure, atrial flutter, Coding Level of Care Code 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
[2020-01-06] MEDS: warfarin 5 mg Tablet PO (14:21)
--- NOTE | 2020-01-06 14:25 | P.PN_ITS ---
Subjective Subjective: Interval history: She continues to have good UO. She is currently on oxygen via NC at 4 L. No CP, SOB. She remains in atrial flutter with RVR. She received earlier dose of metoprolol and later got lopressor 5 mg IV as she was tachycardic. Metolazone and lasix held this morning. Medications: Reviewed: Yes Medication Review Details: Current Medications Acetaminophen (Tylenol) 650 mg PO Q6H PRN PRN Reason: Mild/Mod Pain Or Temp >/= 101 Hydrocodone Bitart/Acetaminophen (Lenora 5-325 Mg) 1 tab PO Q6H PRN PRN Reason: MODERATE PAIN Last Admin: 01/06/20 09:34 Dose: 1 tab Documented by: Albuterol/Ipratropium (Duoneb) 3 ml INHALATION Q4H.RESPIRATORY PRN PRN Reason: BRONCHOSPASM Last Admin: 01/03/20 11:11 Dose: 3 ml Documented by: Amiodarone HCl (Cordarone) 200 mg PO Q12H [facility] Last Admin: 01/06/20 09:51 Dose: 200 mg Documented by: Aspirin (Aspirin) 325 mg PO DAILY [facility] Last Admin: 01/06/20 09:35 Dose: 325 mg Documented by: Atorvastatin Calcium (Lipitor) 40 mg PO BEDTIME [facility] Last Admin: 01/05/20 20:43 Dose: 40 mg Documented by: Dextrose (D50w) 25 ml IVP ONCE PRN; Protocol PRN Reason: hypoglycemia protocol Dextrose (D50w) 50 ml IVP PRN PRN; Protocol PRN Reason: hypoglycemia protocol Enoxaparin Sodium (Lovenox) 100 mg 1 mg/kg (110 mg) SUBCUT Q12H [facility] Last Admin: 01/06/20 05:12 Dose: 100 mg Documented by: Furosemide (Lasix) 80 mg IVP DAILY [facility] Last Admin: 01/06/20 10:59 Dose: Not Given Documented by: Glucagon (Glucagen) 1 mg IM ONCE PRN; Protocol PRN Reason: Adult Acute Hypoglycemia Prot. Dextrose (D5w) 500 mls @ 100 mls/hr IV ONCE PRN; Protocol PRN Reason: Adult Acute Hypoglycemia Prot Albumin Human (Albumin) 12.5 gm in 50 mls @ 60 mls/hr IV PRN PRN PRN Reason: Hypotension and/or symptomatic Lanolin (Lanolin Oint) 1 applic TOPICAL PRN PRN PRN Reason: DRYNESS Last Admin: 01/03/20 00:30 Dose: 1 applic Documented by: Levofloxacin (Levaquin) 750 mg PO DAILY@0600 [facility]; Protocol Last Admin: 01/06/20 05:11 Dose: 750 mg Documented by: Metoprolol Succinate (Toprol Xl) 50 mg PO DAILY [facility] Metoprolol Succinate (Toprol Xl) 25 mg PO BEDTIME [facility] Metoprolol Tartrate (Lopressor) 25 mg PO BID [facility] Stop: 01/06/20 20:00 Last Admin: 01/06/20 03:41 Dose: 25 mg Documented by: Ondansetron HCl (Zofran) 4 mg IVP Q8H PRN PRN Reason: vomiting, or N/V if npo Pantoprazole Sodium (Protonix) 40 mg PO DAILY [facility] Last Admin: 01/06/20 09:35 Dose: 40 mg Documented by: Warfarin Sodium (Coumadin) 5 mg PO 1400 [facility] Last Admin: 01/06/20 14:21 Dose: 5 mg Documented by: Vitals/I&O/Wt Last Vital Signs Temp 98.7 F 01/06/20 10:56 Pulse 112 H 01/06/20 10:56 Resp 17 01/06/20 10:56 BP 131/53 01/06/20 10:56 Pulse Ox 95 01/06/20 10:56 01/05/20 01/06/20 01/06/20 22:59 06:59 14:59 Intake Total 600 / 800 240 / 1040 120 / 120 Output Total 1800 / 1800 300 / 2100 Balance -1200 / -1000 -60 / -1060 120 / 120 Weight last 48 hrs Weight 236 lb 8 oz Weight 235 lb Physical Exam Narrative: EXAM NARRATIVE: GEN: obese woman with no respiratory distress; lying comfortably in bed Neck: No JVD appreciated HEENT: PERRL, No pallor or icterus RS: air entry equal bilaterally, No wheezing or rales heard. 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 -Coronary angiogram discussed in detail with patient and her daughter. Patient is reluctant to have the procedure as her dad due to complications of coronary angiogram. I will continue with the medical management. -D/C metolazone. Lasix held. Possibly transition to PO lasix 60 mg in morning based on renal function. - I/O charting and follow up on BMP. -I will start her on ACEI/ARB/ARNI once renal function improves. -Change to metoprolol succinate in morning. -will get her fitted for life vest. Patient and family agreeable. Status: Acute Code(s): I50.9 - Heart failure, unspecified (2) Atrial fibrillation/flutter: -Increase metoprolol to 25 mg three times a day. -Started on Amiodarone 200 mg twice a day, continue for 3 weeks and then change to 200 mg daily. Follow up on liver panel. -transition to warfarin and lovenox yesterday. Status: Acute Code(s): I48.91 - Unspecified atrial fibrillation; I48.92 - Unspecified atrial flutter (3) Acute renal failure: Cardiorenal in etiology: Renal function improved with UF and diuresis. Creatinine down to 1.2 and BUN increased to 66. Status: Acute Qualifiers: Acute renal failure type: unspecified Qualified Code(s): N17.9 - Acute kidney failure, unspecified Code(s): N17.9 - Acute kidney failure, unspecified (4) Hypotension: -Probably cardiogenic in nature given severely decreased LV function and atrial flutter with RVR; leading to intermittent hypotension. -She was on dobutamine and levophed briefly -resolved. She has not needed pressors for last 2-3 days. Status: Acute Qualifiers: Hypotension type: other hypotension type Qualified Code(s): I95.89 - Other hypotension Code(s): I95.9 - Hypotension, unspecified (5) Elevated liver enzymes: resolving Status: Acute Code(s): R74.8 - Abnormal levels of other serum enzymes Additional A&P Information Leukocytosis: Treated emperically for PNA, on levaquin. Portal vein thrombosis-no evidence of portal vein thrombosis on the CTA of the abdomen Hypoxic and hypercapnic respiratory failure clinically improving : extubated to [place]. Hypokalemia: replaced Attestations Medical Necessity Statement*: Needs hospital stay for atrial flutter with RVR, CHF and renal failure. 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
[2020-01-06 17:05] LABS: Glucose Point of Care 214 mg/dL (70-110)
[2020-01-06] MEDS: nicotine 21 mg Patch 1 PATCH TRANSDERMA (18:29)
[2020-01-06] MEDS: atorvastatin 40 mg Tablet PO (21:14)
[2020-01-06] MEDS: hyDROXYzine 25 mg Capsule PO (21:15)
[2020-01-07] VITALS (8 sets, daily range): BP systolic 116–139; BP diastolic 65–93; PULSE 80–95; RESP 17–27; TEMP 36.7–37.1; O2SAT 96–100
--- NOTE | 2020-01-07 | USCV_ITS ---
Nehal Hull Age: 64 Gender: F : 1955 Exam Date: 01/07/2020 11:21 Ordering Phys: Harshad Dunham MD Technologist: Shelia Baca Exam Location: [facility] [place] Indication: REDUCED LV FUNCTION BP: / HR: 86 Rhythm: Sinus Technical Quality: Adequate MEASUREMENTS (Male / Female) Normal Values 2D ECHO LV Ejection Fraction MOD 2C 57.6 % LV Ejection Fraction 2C AL 57.1 % FINDINGS Left Ventricle Normal left ventricular cavity size. Normal left ventricular systolic function. Left ventricular ejection fraction is estimated at 55 %. No regional wall motion abnormalities. Right Ventricle Right ventricle not well visualized. Probably normal right ventricle size and systolic function. Right Atrium Right atrium not well visualized. Left Atrium Left atrium not well visualized. Mitral Valve Mitral valve not well visualized. Aortic Valve Aortic valve not well visualized. Tricuspid Valve Tricuspid valve not well visualized. Pulmonic Valve Pulmonic valve not well visualized. Pericardium No pericardial effusion. Aorta Aorta not well visualized. CONCLUSIONS 1. This is a limited echocardiogram with ultrasound enhancing agent (Optison). 2. Normal left ventricular cavity size and systolic function. Left ventricular ejection fraction is estimated at 55%. No regional wall motion abnormalities. 3. Probably normal right ventricle size and systolic function. 4. When compared to previous echocardiogram dated 12/31/19, left ventricular systolic function has significantly improved. Keira Rodriguez MD (Electronically Signed) Final Date: 07 January 2020 13:16 C MTDD
--- NOTE | 2020-01-07 00:58 | PC.NURSE ---
Patient requesting ice cream. Reminded patient that she is NPO except for water. Oh...I didn't know what that meant. Will monitor.
[2020-01-07] MEDS: hyDROXYzine 25 mg Capsule PO ×3 (01:05→17:45)
--- NOTE | 2020-01-07 01:22 | PC.NURSE ---
Patient states, Did I take my pain pill yet tonight? This nurse explained to patient that she had taken the pain pill earlier. Ok...can I have one when it's time.....I just elvia hurt all over. Will monitor.
[2020-01-07 04:19] LABS: Basophils % 0.2 %; Eosinophils # 0.6 10^3/uL (0.0-0.8); Eosinophils % 3.7 %; Hematocrit 41.6 % (37.0-47.0); Hemoglobin 12.7 g/dL (11.5-15.3); Lymphocytes % 18.1 %; Mean Corpuscular HGB Conc 30.5 g/dL (30.0-36.0); Mean Corpuscular Hemoglobin 27.7 pg (28.0-34.0); Mean Corpuscular Volume 90.8 fL (81-99); Mean Platelet Volume 10.6 fL (7.4-10.4); Monocytes # 2.3 10^3/uL (0.2-0.9); Monocytes % 14.1 %; Neutrophils # 10.3 10^3/uL (1.8-7.7); Neutrophils % 62.9 %; Nucleated Red Blood Cells % 0 %; Platelet Count 374 10^3/cmm (130-400); Red Blood Count 4.58 10^6/uL (4.1-5.3); White Blood Count 16.4 10^3/uL (4.0-10.0)
[2020-01-07 04:27] LABS: INR 1.12 (0.8-1.2)
[2020-01-07 04:43] LABS: Alanine Aminotransferase 43 U/L (0-33); Albumin Level 3.2 g/dL (3.5-5.2); Alkaline Phosphatase 128 IU/L (35-105); Anion Gap 14.3 (5-19); Aspartate Amino Transferase 25 U/L (0-32); Blood Urea Nitrogen 48 mg/dL (8-23); Calcium 9.9 mg/dL (8.5-10.5); Carbon Dioxide 40 mmol/L (22-29); Chloride 85 mmol/L (98-107); Globulin 4.6 g/dL (1.3-4.6); Glomerular Filtration Rate 45.5 mL/min (90-130); Glucose 114 mg/dL (65-115); Magnesium 2.5 mg/dL (1.7-2.3); Phosphorus 3.9 mg/dL (2.5-4.5); Potassium 3.3 mmol/L (3.5-5.1); Sodium 136 mmol/L (136-145); Total Bilirubin 0.7 mg/dL (0.15-1.2); Total Protein 7.8 g/dL (6.6-8.7)
[2020-01-07] MEDS: HYDROcodone-acetaminophen 5-325 mg Tablet 1 TAB PO ×3 (05:38→20:13)
[2020-01-07] MEDS: levoFLOXacin 750 mg Tablet PO (05:38)
[2020-01-07] MEDS: enoxaparin 100 mg/mL Syringe SUBCUT ×2 (05:38→17:45)
--- NOTE | 2020-01-07 05:46 | PC.NURSE ---
Dressing to right side of neck, where IJ was, is dry and intact with no drainage noted. Will monitor.
--- NOTE | 2020-01-07 07:57 | SUR.PREOP ---
Patient reports no pain or discomfort prior to the start of the procedure.
[2020-01-07] MEDS: regadenoson 0.4 Mg/5 ml Syringe IVP (08:02)
[2020-01-07] MEDS: nicotine 21 mg Patch 1 PATCH TRANSDERMA (10:16)
[2020-01-07] MEDS: metoprolol succinate ER (24 HR) 50 mg Tablet PO (10:17)
[2020-01-07] MEDS: pantoprazole DR 40 mg Tablet PO (10:17)
[2020-01-07] MEDS: aspirin 325 mg Tablet PO (10:17)
[2020-01-07] MEDS: perflutren protein-a microsphr 0.22 mg/mL SDV 3 mL IV (11:31)
[2020-01-07] MEDS: amiodarone 200 mg Tablet PO ×2 (11:41→23:01)
[2020-01-07] MEDS: FUROsemide 40 mg Tablet 60 MG PO (11:41)
[2020-01-07] MEDS: potassium chloride premix 40 MEQ/100 ML PREMIX 25 MEQ IV (11:42)
[2020-01-07] MEDS: lidocaine 1% INJ 20 mL 5 ML IV (11:43)
--- NOTE | 2020-01-07 13:05 | PM.PN ---
Subjective Subjective: Interval history: She continues to have good UO. She has converted to NSR with HR in 80's. She underwent stress test and echocardiogram today. Medications: Reviewed: Yes Medication Review Details: Current Medications Acetaminophen (Tylenol) 650 mg PO Q6H PRN PRN Reason: Mild/Mod Pain Or Temp >/= 101 Hydrocodone Bitart/Acetaminophen (Maupin 5-325 Mg) 1 tab PO Q6H PRN PRN Reason: MODERATE PAIN Last Admin: 01/07/20 11:41 Dose: 1 tab Documented by: Albuterol/Ipratropium (Duoneb) 3 ml INHALATION Q4H.RESPIRATORY PRN PRN Reason: BRONCHOSPASM Last Admin: 01/03/20 11:11 Dose: 3 ml Documented by: Aminophylline (Aminophylline) 25 mg IVP Q2M PRN PRN Reason: see dose instructions Stop: 01/08/20 06:33 Amiodarone HCl (Cordarone) 200 mg PO Q12H [facility] Last Admin: 01/07/20 11:41 Dose: 200 mg Documented by: Aspirin (Aspirin) 325 mg PO DAILY [facility] Last Admin: 01/07/20 10:17 Dose: 325 mg Documented by: Atorvastatin Calcium (Lipitor) 40 mg PO BEDTIME [facility] Last Admin: 01/06/20 21:14 Dose: 40 mg Documented by: Dextrose (D50w) 25 ml IVP ONCE PRN; Protocol PRN Reason: hypoglycemia protocol Dextrose (D50w) 50 ml IVP PRN PRN; Protocol PRN Reason: hypoglycemia protocol Enoxaparin Sodium (Lovenox) 100 mg 1 mg/kg (110 mg) SUBCUT Q12H [facility] Last Admin: 01/07/20 05:38 Dose: 100 mg Documented by: Furosemide (Lasix) 60 mg PO DAILY@0800 [facility] Last Admin: 01/07/20 11:41 Dose: 60 mg Documented by: Glucagon (Glucagen) 1 mg IM ONCE PRN; Protocol PRN Reason: Adult Acute Hypoglycemia Prot. Hydroxyzine Pamoate (Vistaril) 25 mg PO Q8H [facility] Last Admin: 01/07/20 10:17 Dose: 25 mg Documented by: Dextrose (D5w) 500 mls @ 100 mls/hr IV ONCE PRN; Protocol PRN Reason: Adult Acute Hypoglycemia Prot Albumin Human (Albumin) 12.5 gm in 50 mls @ 60 mls/hr IV PRN PRN PRN Reason: Hypotension and/or symptomatic Lanolin (Lanolin Oint) 1 applic TOPICAL PRN PRN PRN Reason: DRYNESS Last Admin: 01/03/20 00:30 Dose: 1 applic Documented by: Levofloxacin (Levaquin) 750 mg PO DAILY@0600 [facility]; Protocol Last Admin: 01/07/20 05:38 Dose: 750 mg Documented by: Metoprolol Succinate (Toprol Xl) 50 mg PO DAILY [facility] Last Admin: 01/07/20 10:17 Dose: 50 mg Documented by: Metoprolol Succinate (Toprol Xl) 25 mg PO BEDTIME [facility] Nicotine (Nicoderm 21 Mg Patch) 1 patch TRANSDERMA DAILY [facility] Last Admin: 01/07/20 10:16 Dose: 1 patch Documented by: Nitroglycerin (Nitrostat) 0.4 mg SUBLINGUAL Q5M PRN PRN Reason: CHEST PAIN Stop: 01/08/20 06:33 Ondansetron HCl (Zofran) 4 mg IVP Q8H PRN PRN Reason: vomiting, or N/V if npo Ondansetron HCl (Zofran) 4 mg IVP Q2M PRN PRN Reason: NAUSEA Pantoprazole Sodium (Protonix) 40 mg PO DAILY [facility] Last Admin: 01/07/20 10:17 Dose: 40 mg Documented by: Potassium Chloride (Klor-Con 10) 20 meq PO DAILY [facility] Last Admin: 01/07/20 10:17 Dose: 20 meq Documented by: Warfarin Sodium (Coumadin) 5 mg PO 1400 [facility] Last Admin: 01/06/20 14:21 Dose: 5 mg Documented by: Vitals/I&O/Wt Last Vital Signs Temp 98.0 F 01/07/20 07:18 Pulse 93 01/07/20 08:10 Resp 27 H 01/07/20 07:18 BP 116/65 01/07/20 08:10 Pulse Ox 98 01/07/20 07:18 01/06/20 01/07/20 01/07/20 22:59 06:59 14:59 Intake Total 240 / 360 480 / 480 Output Total 150 / 150 100 / 250 Balance 90 / 210 -100 / 110 480 / 480 Weight last 48 hrs Weight 233 lb 9.6 oz Weight 236 lb 8 oz Physical Exam Narrative: EXAM NARRATIVE: GEN: obese woman with no respiratory distress; lying comfortably in bed Neck: No JVD appreciated HEENT: PERRL, No pallor or icterus RS: air entry equal bilaterally, No wheezing or rales heard. 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 -Stress test with no ischemia and LV function has normalized. -change to lasix 40 mg daily, probably would need it for short duration after diacharge. - I/O charting and follow up on BMP. -continue metoprolol succinate 50 mg daily.. -No indication for life vest. -Follow up with me in [facility] in 1 week. -CMP in 1 week Status: Acute Code(s): I50.9 - Heart failure, unspecified (2) Atrial fibrillation/flutter: -Paroxysmal and converted to NSR. -continue Amiodarone 200 mg twice a day, continue for 3 weeks and then change to 200 mg daily. -Follow up on liver panel. -transition to warfarin and lovenox yesterday. INR goal 2-3. Status: Acute Code(s): I48.91 - Unspecified atrial fibrillation; I48.92 - Unspecified atrial flutter (3) Acute renal failure: Cardiorenal in etiology: Renal function improved with UF and diuresis. Creatinine down to 1.2 and BUN decreased to 48. Status: Acute Qualifiers: Acute renal failure type: unspecified Qualified Code(s): N17.9 - Acute kidney failure, unspecified Code(s): N17.9 - Acute kidney failure, unspecified (4) Hypotension: -Probably cardiogenic in nature given severely decreased LV function and atrial flutter with RVR; leading to intermittent hypotension. -She was on dobutamine and levophed briefly -resolved. She has not needed pressors for last 2-3 days. Status: Acute Qualifiers: Hypotension type: other hypotension type Qualified Code(s): I95.89 - Other hypotension Code(s): I95.9 - Hypotension, unspecified (5) Elevated liver enzymes: resolving Status: Acute Code(s): R74.8 - Abnormal levels of other serum enzymes Additional A&P Information Leukocytosis: Treated emperically for PNA, on levaquin. Portal vein thrombosis-no evidence of portal vein thrombosis on the CTA of the abdomen Hypoxic and hypercapnic respiratory failure clinically improving : extubated to [place]. Hypokalemia: replaced Deconditioning Attestations Medical Necessity Statement*: Stable from cardiac standpoint to be discharged. Discharge planning as per primary team. 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
[2020-01-07] MEDS: warfarin 5 mg Tablet PO (13:49)
--- NOTE | 2020-01-07 16:29 | P.PN_ITS ---
Subjective Subjective: Interval history: Patient was seen in the stress lab this morning, states that she wants to eat something after the stress test, states that she was able to ambulate yesterday, she is improving, still feels weak Vitals/I&O/Wt Last Vital Signs Temp 98.7 F 01/07/20 14:50 Pulse 83 01/07/20 14:50 Resp 19 H 01/07/20 14:50 BP 131/93 01/07/20 14:50 Pulse Ox 98 01/07/20 14:50 01/07/20 01/07/20 01/07/20 06:59 14:59 22:59 Intake Total 480 / 480 Output Total 100 / 250 Balance -100 / 110 480 / 480 Weight last 48 hrs Weight 105.959 kg Weight 107.275 kg Physical Exam Const: COMMON NORMALS: no apparent distress and oriented x3 HENMT: COMMON NORMALS: normocephalic HEAD & SCALP: normocephalic Neck/C-Spine: COMMON NORMALS: no JVD Resp: COMMON NORMALS: normal respiratory effort, no retractions, no use of ac cessory muscles and clear to auscultation bilaterally AUSCULTATION: clear to auscultation bilaterally Cardio: COMMON NORMALS: no JVD, regular rate, regular rhythm, S1 normal heart sound and S2 normal heart sound RATE: regular rate RHYTHM: regular rhythm HEART SOUNDS: S1 normal and S2 normal GI: COMMON NORMALS: normal to inspection, nondistended, normoactive bowel sounds, soft to palpation, non-tender, no hepatosplenomegaly, no masses and no bruits PALPATION: Yes soft and Yes no hepatosplenomegaly Extremity: COMMON NORMALS: normal capillary refill, no clubbing, cyanosis or edema, no calf tenderness and no pedal edema Neuro: COMMON NORMALS: oriented x3 Psych: COMMON NORMALS: mental status grossly normal Urinary Catheter Management^: Cedeño: Cath Placed During This Visit: yes, but has since been removed by the nurse Urethral Indwelling: No Reason for Continuing Indwelling Catheter: Accurate Measurement of Urinary Output in Critically Ill Patients Urinary Catheter Date of Insertion: 12/30/19 Date Urinary Catheter Removed: 01/05/20 Data : 01/07/20 03:20 01/07/20 03:20 A&P Assessment and plan (1) Acute on chronic respiratory failure with hypoxia and hypercapnia: -Cardiogenic shock secondary to cardiomyopathy, ischemic versus nonischemic -Echocardiogram shows ejection fraction of 20%, severe global hypokinesis, pulmonary arterial pressure 33 -Currently creatinine 1.2, patient's diuresed 81741 cc this admission, tolerating diuresis well, breathing has improved, patient remains bedbound -Patient is in the cardiac IMC PLAN: -Continue Lasix 40 mg p.o. daily -Currently metoprolol p.o. -Lovenox for DVT prophylaxis, Protonix for GI prophylaxis -Continue aspirin, statin -Continue Coumadin with Lovenox bridge -will have a cardiac stress test today -Plan is to have PT OT evaluate patient, up out of bed into a chair, oxygen therapy -Discharge in the next 24 hours Status: Acute Code(s): J96.21 - Acute and chronic respiratory failure with hypoxia; J96.22 - Acute and chronic respiratory failure with hypercapnia (2) CHF (NYHA class III, ACC/AHA stage C): Continue aspirin, statin, esmolol drip, Lasix, monitor urine output Status: Acute Code(s): I50.9 - Heart failure, unspecified (3) Pulmonary edema: Status: Acute Qualifiers: Chronicity: acute Qualified Code(s): J81.0 - Acute pulmonary edema Code(s): J81.1 - Chronic pulmonary edema (4) Atrial flutter: -No known history of atrial flutter or atrial fibrillation -No complaints of chest pain, palpitationsp Plan: -Continue amiodarone 200 twice daily, metoprolol 50 once daily Status: Acute Qualifiers: Atrial flutter type: typical Qualified Code(s): I48.3 - Typical atrial flutter Code(s): I48.92 - Unspecified atrial flutter (5) Acute kidney injury: Likely cardiorenal syndrome related to heart failure with concerns for progressing to ATN, creatinine improving to 1.2 Status: Acute Code(s): N17.9 - Acute kidney failure, unspecified (6) Transaminitis: -Improving, blood alcohol negative hep panel negative -Abdomen is quite distended -No abdominal complaints as per family members -No fevers here -Likely secondary to cardiogenic shock/cardiac cirrhosis, and portal vein thrombosis -Liver functions are improving Status: Acute Code(s): R74.0 - Nonspecific elevation of levels of transaminase and lactic acid deh ydrogenase [LDH] (7) Portal vein thrombosis: -Likely secondary to venous stasis from severe cardiogenic shock and heart failure -Patient's right upper quadrant ultrasound shows concerns for no flow through portal vein, possible portal vein occlusion or thrombosis -Patient's repeat CT of the abdomen and pelvis with contrast does not show the thrombus -I reached out to radiology Dr. Montes today, to go over the scans, he definitely stay states that he sees no portal vein on the ultrasound, but the CT scan does not show any thrombus -Repeat ultrasound shows no portal vein thrombosis, transaminitis is significantly improved -Likely patient's portal vein thrombus dissolved or recannulated with anticoagulation heparin drip Plan: -Coumadin for at least 6 months, bridging with Lovenox, INR 2-3 Status: Acute Code(s): I81 - Portal vein thrombosis (8) Embolism, arterial, leg, left: -Patient's left lower extremity, was cool, clammy during admission, but DP PT pulses were dopplerable -Ultrasound of left lower extremity showed JUANY 1.1 on the left -areterial study showed Left lower extremity: Left common femoral artery, proximal, mid, and distal superficial femoral artery, and popliteal arteries are triphasic. Left posterior tibial artery distally is likely biphasic. Left dorsalis pedis artery likely biphasic. 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 Status: Acute Code(s): I74.3 - Embolism and thrombosis of arteries of the lower extremities Attestations Medical Necessity Statement*: She requires hospitalization due to acute respiratory failure, discharge in the next 24 hours Coding Level of Care Code Acute [employer] for [facility] Diagnoses Acute on chronic respiratory failure with hypoxia and hypercapnia J96.21; J96.22 CHF (NYHA class III, ACC/AHA stage C) I50.9 Pulmonary edema J81.0 Chronicity: acute Atrial flutter I48.3 Atrial flutter type: typical Acute kidney injury N17.9 Transaminitis R74.0 Portal vein thrombosis I81 Embolism, arterial, leg, left I74.3
--- NOTE | 2020-01-07 17:24 | NMCV_ITS ---
NM jesus perf SPECT r/s* [id number] Nehal Hull Age: 64 Gender: F : 1955 Exam Date: 01/07/2020 07:08 Ordering Phys: Keira Rodriguez MD [email or web address]) Technologist: KITTY Menard Exam Location: [facility] Indications: ACUTE RESPIRATORY FAILURE STRESS TEST Please see separate stress test report in [facility] for full findings IMAGE PROTOCOL Rest/Stress 1 Lexiscan Day Radiopharmaceutical Dose (mCi) Administration Site Administered by Rest: Tc-99m 11.0 IV KITTY Menard Sestamibi Stress:Tc-99m 33.0 IV KITTY Zimmerman Sestamibi Rest: 07-Jan-2020 60 Discovery 630 Stress: 07-Jan-2020 30 Discovery 630 0.4mg Lexiscan. Supine position only as patient was unable to lay prone. SPECT RESULTS Technical Quality: Good Raw Data Analysis: Breast attenuation Image Corrections: No attenuation or motion correction applied Summed Stress Score: 0 Summed Rest Score: 2 Summed Difference Score: 0 PERFUSION FINDINGS Small size perfusion abnormality of mild severity of mid anterior, apical lateral and apical anterior wall on rest images with improved tracer uptake on stress images. This is suggestive of attenuation artifact. FUNCTIONAL RESULTS (calculated via Gated SPECT) Stress Image LV EF (%): 57 Stress EDV (mL):125 TID: 0.93 Stress ESV (mL):54 FUNCTIONAL FINDINGS: The left ventricle is normal in size. Transient Ischemia Dilatation of 0.93. There is normal left ventricular systolic function. The left ventricular ejection fraction is normal with a value of 57%. There is normal left ventricular wall thickening. IMPRESSIONS 1. Myocardial perfusion imaging is normal. Breast attenuation artifact noted. 2. Overall left ventricular systolic function is normal without regional wall motion abnormalities. 3. The left ventricular ejection fraction is normal with a value of 57%. 4. This study suggests a low likelihood of angiographically significant coronary artery disease. Keira Rodriguez MD (Electronically Signed) Final Date: 07 January 2020 11:53 S
[2020-01-07] MEDS: atorvastatin 40 mg Tablet PO (20:13)
[2020-01-08] VITALS (7 sets, daily range): BP systolic 100–132; BP diastolic 56–74; PULSE 75–83; RESP 18–24; TEMP 36.5–36.7; O2SAT 85–98; BMI 40.8
[2020-01-08] MEDS: hyDROXYzine 25 mg Capsule PO ×3 (00:46→17:01)
[2020-01-08 04:00] LABS: Basophils % 0.3 %; Eosinophils # 0.6 10^3/uL (0.0-0.8); Eosinophils % 4.3 %; Hematocrit 41.7 % (37.0-47.0); Hemoglobin 12.8 g/dL (11.5-15.3); Lymphocytes # 2.8 10^3/uL (0.8-4.8); Lymphocytes % 19.3 %; Mean Corpuscular HGB Conc 30.7 g/dL (30.0-36.0); Mean Corpuscular Hemoglobin 28.9 pg (28.0-34.0); Mean Corpuscular Volume 94.1 fL (81-99); Mean Platelet Volume 10.1 fL (7.4-10.4); Monocytes # 1.8 10^3/uL (0.2-0.9); Monocytes % 12.4 %; Neutrophils % 62.7 %; Nucleated Red Blood Cells % 0 %; Platelet Count 363 10^3/cmm (130-400); Red Blood Count 4.43 10^6/uL (4.1-5.3); White Blood Count 14.4 10^3/uL (4.0-10.0)
[2020-01-08 04:06] LABS: INR 1.31 (0.8-1.2)
[2020-01-08 04:26] LABS: Alanine Aminotransferase 37 U/L (0-33); Albumin Level 3.4 g/dL (3.5-5.2); Alkaline Phosphatase 118 IU/L (35-105); Anion Gap 12.3 (5-19); Aspartate Amino Transferase 26 U/L (0-32); Blood Urea Nitrogen 43 mg/dL (8-23); Calcium 9.7 mg/dL (8.5-10.5); Chloride 88 mmol/L (98-107); Creatinine Clr Calc Pharmacy 62.9545; Glomerular Filtration Rate 50.3 mL/min (90-130); Glucose 148 mg/dL (65-115); Magnesium 2.2 mg/dL (1.7-2.3); Phosphorus 3.7 mg/dL (2.5-4.5); Potassium 3.3 mmol/L (3.5-5.1); Sodium 138 mmol/L (136-145); Total Bilirubin 0.5 mg/dL (0.15-1.2); Total Protein 7.4 g/dL (6.6-8.7)
[2020-01-08 04:41] LABS: Carbon Dioxide 41 mmol/L (22-29)
[2020-01-08] MEDS: enoxaparin 100 mg/mL Syringe SUBCUT ×2 (05:02→17:19)
[2020-01-08] MEDS: levoFLOXacin 750 mg Tablet PO (05:02)
[2020-01-08] MEDS: nicotine 21 mg Patch 1 PATCH TRANSDERMA (09:46)
[2020-01-08] MEDS: pantoprazole DR 40 mg Tablet PO (09:46)
[2020-01-08] MEDS: aspirin 325 mg Tablet PO (09:46)
[2020-01-08] MEDS: metoprolol succinate ER (24 HR) 50 mg Tablet PO (09:46)
[2020-01-08] MEDS: lidocaine 1% INJ 20 mL 5 ML IV (09:47)
[2020-01-08] MEDS: potassium chloride premix 40 MEQ/100 ML PREMIX 25 MEQ IV (09:47)
[2020-01-08] MEDS: FUROsemide 40 mg Tablet 60 MG PO (09:47)
[2020-01-08] MEDS: acetaminophen 325 mg Tablet 650 MG PO (12:57)
[2020-01-08] MEDS: amiodarone 200 mg Tablet PO (12:57)
[2020-01-08 14:14] LABS: Glucose Point of Care 138 mg/dL (70-110)
--- NOTE | 2020-01-08 14:51 | PM.PN ---
Subjective Subjective: Interval history: She continues to have good UO (though not documentedO. She has converted to NSR with HR in 80's. She underwent stress test and echocardiogram yesterday. Medications: Reviewed: Yes Medication Review Details: Current Medications Acetaminophen (Tylenol) 650 mg PO Q6H PRN PRN Reason: Mild/Mod Pain Or Temp >/= 101 Last Admin: 01/08/20 12:57 Dose: 650 mg Documented by: Hydrocodone Bitart/Acetaminophen ([place] 5-325 Mg) 1 tab PO Q6H PRN PRN Reason: MODERATE PAIN Last Admin: 01/07/20 20:13 Dose: 1 tab Documented by: Albuterol/Ipratropium (Duoneb) 3 ml INHALATION Q4H.RESPIRATORY PRN PRN Reason: BRONCHOSPASM Last Admin: 01/03/20 11:11 Dose: 3 ml Documented by: Amiodarone HCl (Cordarone) 200 mg PO Q12H [facility] Last Admin: 01/08/20 12:57 Dose: 200 mg Documented by: Aspirin (Aspirin) 325 mg PO DAILY [facility] Last Admin: 01/08/20 09:46 Dose: 325 mg Documented by: Atorvastatin Calcium (Lipitor) 40 mg PO BEDTIME [facility] Last Admin: 01/07/20 20:13 Dose: 40 mg Documented by: Dextrose (D50w) 25 ml IVP ONCE PRN; Protocol PRN Reason: hypoglycemia protocol Dextrose (D50w) 50 ml IVP PRN PRN; Protocol PRN Reason: hypoglycemia protocol Enoxaparin Sodium (Lovenox) 100 mg 1 mg/kg (110 mg) SUBCUT Q12H [facility] Last Admin: 01/08/20 05:02 Dose: 100 mg Documented by: Furosemide (Lasix) 60 mg PO DAILY@0800 [facility] Last Admin: 01/08/20 09:47 Dose: 60 mg Documented by: Glucagon (Glucagen) 1 mg IM ONCE PRN; Protocol PRN Reason: Adult Acute Hypoglycemia Prot. Hydroxyzine Pamoate (Vistaril) 25 mg PO Q8H [facility] Last Admin: 01/08/20 09:46 Dose: 25 mg Documented by: Dextrose (D5w) 500 mls @ 100 mls/hr IV ONCE PRN; Protocol PRN Reason: Adult Acute Hypoglycemia Prot Albumin Human (Albumin) 12.5 gm in 50 mls @ 60 mls/hr IV PRN PRN PRN Reason: Hypotension and/or symptomatic Lanolin (Lanolin Oint) 1 applic TOPICAL PRN PRN PRN Reason: DRYNESS Last Admin: 01/03/20 00:30 Dose: 1 applic Documented by: Levofloxacin (Levaquin) 750 mg PO DAILY@0600 [facility]; Protocol Last Admin: 01/08/20 05:02 Dose: 750 mg Documented by: Metoprolol Succinate (Toprol Xl) 50 mg PO DAILY [facility] Last Admin: 01/08/20 09:46 Dose: 50 mg Documented by: Nicotine (Nicoderm 21 Mg Patch) 1 patch TRANSDERMA DAILY [facility] Last Admin: 01/08/20 09:46 Dose: 1 patch Documented by: Ondansetron HCl (Zofran) 4 mg IVP Q8H PRN PRN Reason: vomiting, or N/V if npo Ondansetron HCl (Zofran) 4 mg IVP Q2M PRN PRN Reason: NAUSEA Pantoprazole Sodium (Protonix) 40 mg PO DAILY [facility] Last Admin: 01/08/20 09:46 Dose: 40 mg Documented by: Potassium Chloride (Klor-Con 10) 20 meq PO DAILY [facility] Last Admin: 01/08/20 09:46 Dose: 20 meq Documented by: Vitals/I&O/Wt Last Vital Signs Temp 98.0 F 01/08/20 11:43 Pulse 77 01/08/20 11:43 Resp 21 H 01/08/20 11:43 BP 129/64 01/08/20 11:43 Pulse Ox 92 01/08/20 13:46 01/07/20 01/08/20 01/08/20 22:59 06:59 14:59 Intake Total 360 / 840 240 / 1080 360 / 360 Output Total 350 / 350 300 / 300 Balance 360 / 840 -110 / 730 60 / 60 Weight last 48 hrs Weight 237 lb 12.8 oz Weight 237 lb 12.8 oz Weight 233 lb 9.6 oz Physical Exam Narrative: EXAM NARRATIVE: GEN: obese woman with no respiratory distress; lying comfortably in bed Neck: No JVD appreciated HEENT: PERRL, No pallor or icterus RS: air entry equal bilaterally, No wheezing or rales heard. 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 Stress cardiomyopathy is a possibility however in absence of significant regional wall motion abnormalities less likely. -Stress test with no ischemia and LV function has normalized. -change to lasix 40 mg dailyon discharge, probably would need it for short duration after diacharge. - I/O charting and follow up on [facility]. -continue metoprolol succinate 50 mg daily.. -No indication for life vest. -Follow up with me in [facility] in 1-2 weeks. -CMP in 1 week Status: Acute Code(s): I50.9 - Heart failure, unspecified (2) Atrial fibrillation/flutter: -Paroxysmal atrial flutter that has converted to NSR. -continue Amiodarone 200 mg twice a day, continue for 3 weeks and then change to 200 mg daily. -Follow up on liver panel. -transition to warfarin and lovenox. INR goal 2-3. Status: Acute Code(s): I48.91 - Unspecified atrial fibrillation; I48.92 - Unspecified atrial flutter (3) Acute renal failure: Cardiorenal in etiology: Renal function improved with UF and diuresis. Creatinine down to 1.1 and BUN decreased to 43. Status: Acute Qualifiers: Acute renal failure type: unspecified Qualified Code(s): N17.9 - Acute kidney failure, unspecified Code(s): N17.9 - Acute kidney failure, unspecified (4) Hypotension: -Probably cardiogenic in nature given severely decreased LV function and atrial flutter with RVR on admission; leading to intermittent hypotension. -She was on dobutamine and levophed briefly -resolved. She has not needed pressors for last several days. Status: Acute Qualifiers: Hypotension type: other hypotension type Qualified Code(s): I95.89 - Other hypotension Code(s): I95.9 - Hypotension, unspecified (5) Elevated liver enzymes: resolving Status: Acute Code(s): R74.8 - Abnormal levels of other serum enzymes Additional A&P Information Leukocytosis: Treated emperically for PNA, on levaquin. Portal vein thrombosis-no evidence of portal vein thrombosis on the CTA of the abdomen Hypoxic and hypercapnic respiratory failure clinically improving : extubated to UT. Hypokalemia: replaced Deconditioning Attestations Medical Necessity Statement*: Discharge planning as per primary team. 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
--- NOTE | 2020-01-08 15:39 | PM.DCS ---
Discharge Providers Date of Admission: 12/30/19 17:24 Date of Discharge: January 08, 2020 Attending Provider at Admission: Harshad Dunham MD Attending Provider at Discharge: Harshad Dunham MD Primary Care Provider: EDISON Castro Diagnoses at Discharge Discharge Diagnosis (1) CHF (NYHA class III, ACC/AHA stage C): Status: Acute (2) Atrial fibrillation/flutter: Status: Acute (3) Acute renal failure: Status: Acute Qualifiers: Acute renal failure type: unspecified Qualified Code(s): N17.9 - Acute kidney failure, unspecified (4) Hypotension: Status: Acute Qualifiers: Hypotension type: other hypotension type Qualified Code(s): I95.89 - Other hypotension (5) Elevated liver enzymes: Status: Acute Reason for Visit Reason for Visit: Reason For Visit: ACUTE RESPIRACTORY FAILURE Hospital Course Discharge Summary: Nehal Hull is a 64 year old female with no significant past medical history who presents to the emergency room for shortness of breath, cough, fevers, chills, URI symptoms. Currently patient is intubated, sedated, on a ventilator and most of the history was provided by the daughter at bedside. Patient's daughter states that patient lives alone, is retired, is fairly functional, can carry out activities of daily living, can drive, can take care of herself. Over the last year patient has a slow decline in her functioning, has been more short of breath, more short of breath with exertion. No complaints of chest pain. No hospitalizations. No ER visits. Has not seen a physician in over a year. Patient's daughter states that a month ago she had complaints of cough, fevers, chills, shortness of breath at rest on exertion.. Patient's daughter was diagnosed with influenza, but patient did not receive treatment. Over the period of a month patient has progressively become even more short of breath, short of breath with exertion, progressing to shortness of breath at rest, productive cough, complaints of fevers, chills, URI symptoms. Patient significantly deteriorated over the last week, however refused to come to the physician. Finally she agreed after the advisement of her daughter to come to the physician today, she presented to her Aileen Pelletier's office, where they told her to come immediately to the emergency room. In the emergency room patient was found to have acute hypoxic hypercarbic respiratory failure was tachypneic, was immediately intubated by emergency room physician, placed on the ventilator, still hypoxic and hypercarbic after ventilation, her PCO2 is 60.8, PO2 69.2, pH is 7.26. Patient was also found to have A. fib with RVR, heart rates in the high 150s, placed on the Cardizem drip, started on Levophed due to hypotensive episodes in addition. Her chest x-ray shows pulmonary vascular congestion, she was treated for CHF exacerbation . Patient's daughter states that she has smoked for over 50 years, she does use Advair which is her daughters, no diagnosis of COPD, knows diagnosis of heart failure, no history of CAD, no significant medical history as per daughter's knowledge. Patient was admitted to the intensive care unit for acute hypoxic hypercarbic respiratory failure related cardiogenic shock, acute systolic heart failure, and acute pulmonary edema. Patient was placed on a ventilator, received sedation, IV diuretics, and monitored. However patient did not adequately respond to diuretics, and was developing acute tubular necrosis. Nephrology was consulted, a right pigtail catheter placed, received inpatient dialysis, patient tolerated it well, as her kidney function improved, IV diuretics were initiated, and patient's clinical condition improved. Patient was eventually extubated successfully onto nasal cannula, she was diuresed, and transferred out of the intensive care unit. Initial echocardiogram on admission showed an ejection fraction of 15%, with global hypokinesis. Cardiac catheterization was offered to the patient, however she refused due to her father passing away during her cardiac catheterization. Thus a cardiac stress test was performed, which showed low likelihood of ischemia and LV function that had normalized. 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 Patient is to follow-up cardiology in 2 weeks. Discharged on aspirin, statin, and medications as below. Patient also had aspiration pneumonia related to intubation on admission, received IV antibiotics as inpatient, discharged on Levaquin for 5 remaining days. Patient had acute tubular necrosis secondary to cardiogenic shock and diuretic therapy, her kidney function recovered, creatinine on discharge was 1.2. , On admission patient was also found to have atrial fibrillation atrial flutter, required several drips at one point, but eventually transitioned to amiodarone 200 every 12 hours and metoprolol 50 once daily, remains in normal sinus rhythm. On admission patient was also found to have a portal vein thrombus, severe transaminitis, which was likely related to cardiogenic shock, she was placed on a heparin drip, portal thrombus was not seen on repeat imaging, she will be discharged on Coumadin and on Lovenox bridge. On discharge patient was discharged on Lasix 40 mg once daily, with a BMP in 1 week, and likely short duration of diuretic therapy. Metoprolol 50 once daily. No indication for LifeVest. For atrial flutter/fibrillation she was discharged on amiodarone 200 twice daily, Metroprolol 50 once daily, with a recheck of her liver function 1 week. For atrial fibrillation, she will be discharged on Coumadin and Lovenox bridge, she has received 5 mg of Coumadin x3, 7.5 mg on Saturday, with instructions to continue 5 mg Saturday, Saturday, Saturday, Saturday with a recheck INR with me on Saturday. On admission patient was found to have a hemoglobin A1c of 6.4, her blood sugars were in the high 200s, likely she has type 2 diabetes mellitus, was discharged with metformin thousand once daily, instructions to check her blood sugars 3 times daily, bring blood sugars logs to when she sees me in 1 week. On imaging and on history taking patient likely has COPD, discharged on albuterol and Advair, will require pulmonary function testing in 1 month. Patient was advised to quit smoking. Physical Exam Const: COMMON NORMALS: no apparent distress and oriented x3 NUTRITIONAL APPEARANCE: obese HENMT: COMMON NORMALS: normocephalic HEAD & SCALP: normocephalic Neck/C-Spine: COMMON NORMALS: no JVD Lymph: LYMPHATIC: no lymphadenopathy noted Chest: COMMONS NORMALS: inspection of chest normal Resp: COMMON NORMALS: normal respiratory effort, no retractions, no use of accessory muscles and clear to auscultation bilaterally AUSCULTATION: clear to auscultation bilaterally and crackles Cardio: COMMON NORMALS: no JVD, regular rate, regular rhythm, S1 normal heart sound, S2 normal heart sound, no gallops, no clicks and no murmurs RATE: regular rate RHYTHM: regular rhythm HEART SOUNDS: S1 normal and S2 normal GI: COMMON NORMALS: normal to inspection, nondistended, normoactive bowel sounds, soft to palpation, non-tender, no hepatosplenomegaly, no masses and no bruits INSPECTION: Yes abdominal distension and Yes central obesity AUSCULTATION: Yes hypoactive bowel sounds PALPATION: Yes soft and Yes no hepatosplenomegaly PERCUSSION: tympanic to percussion Extremity: COMMON NORMALS: normal to inspection, full ROM, normal capillary refill, no clubbing, cyanosis or edema, no calf tenderness and no pedal edema Neuro: COMMON NORMALS: oriented x3, CN's II-XII intact bilaterally, moves all extremities and no focal motor deficits Urinary Catheter Management^: Cedeño: Cath Placed During This Visit: yes, but has since been removed by the nurse Urethral Indwelling: No Reason for Continuing Indwelling Catheter: Accurate Measurement of Urinary Output in Critically Ill Patients Urinary Catheter Date of Insertion: 12/30/19 Date Urinary Catheter Removed: 01/05/20 Discharge Data Data Completed and Pending: Completed Studies During Hospitalization Category Date Time Status CT angio chest w abd pel w con Stat Cat Scan 01/02/20 08:39 Completed XR chest 1V ame ble [id number] Routine Exams 12/31/19 07:00 Completed XR chest 1V ame ble [id number] Routine Exams 01/01/20 07:00 Completed XR chest 1V ame ble [id number] Routine Exams 01/02/20 07:00 Completed XR chest 1V ame ble [id number] Routine Exams 01/03/20 07:00 Completed XR chest 1V ame ble [id number] Routine Exams 01/05/20 07:00 Completed XR chest 1V ame ble [id number] Routine Exams 01/06/20 07:00 Completed XR chest 1V ame ble [id number] Stat Exams 12/30/19 15:51 Completed NM jesus perf SPECT r/s* [id number] Routin e Nuc Med 01/07/20 17:24 [place] [id number] Stat Ultrasound 01/02/20 08:39 Completed CV echo lmt wo/w contras [id number] Rout ine Ultrasound 01/07/20 Completed CV echo wo/w cont rast [id number] Routine Ultrasound 12/31/19 06:00 Completed US abdomen comple te* [id number] Stat Ultrasound 01/04/20 12:10 Completed US abdomen limite d [id number] Routine Ultrasound 12/31/19 07:00 Completed US/CV paperwork R outine Ultrasound 12/31/19 Completed US/CV paperwork R outine Ultrasound 01/07/20 Completed Pending at discharge Category Date Time Status Sestamibi Stress Test Request Peyton ne Exams 01/06/20 17:24 Ordered Prothrombin Time INR AM LABS Lab 01/09/20 04:00 Ordered Labs from last 24 hours 01/08/20 01/08/20 01/08/20 13:56 03:05 03:05 WBC 14.4 H RBC 4.43 Hgb 12.8 Hct 41.7 MCV 94.1 MCH 28.9 MCHC 30.7 RDW 15.0 Plt Count 363 MPV 10.1 Neut % (Auto) 62.7 Lymph % (Auto) 19.3 Haakon % (Auto) 12.4 Eos % (Auto) 4.3 Baso % (Auto) 0.3 Neut # (Auto) 9.0 H Lymph # (Auto) 2.8 Haakon # (Auto) 1.8 H Eos # (Auto) 0.6 Baso # (Auto) 0.0 Nucleated RBC % (a uto) 0 Nucleated RBCs # 0.0 PT INR Sodium 138 Potassium 3.3 L Chloride 88 L Carbon Dioxide 41 H Anion Gap 12.3 BUN 43 H Creatinine 1.1 H GFR Calculation 50.3 L Glucose 148 H POC Glucose 138 Calcium 9.7 Phosphorus 3.7 Magnesium 2.2 Total Bilirubin 0.5 AST 26 ALT 37 H Alkaline Phosphata se 118 H Total Protein 7.4 Albumin 3.4 L Globulin 4.0 01/08/20 03:05 WBC RBC Hgb Hct MCV MCH MCHC RDW Plt Count MPV Neut % (Auto) Lymph % (Auto) Haakon % (Auto) Eos % (Auto) Baso % (Auto) Neut # (Auto) Lymph # (Auto) Haakon # (Auto) Eos # (Auto) Baso # (Auto) Nucleated RBC % (a uto) Nucleated RBCs # PT 16.80 H INR 1.31 H Sodium Potassium Chloride Carbon Dioxide Anion Gap BUN Creatinine GFR Calculation Glucose POC Glucose Calcium Phosphorus Magnesium Total Bilirubin AST ALT Alkaline Phosphata se Total Protein Albumin Globulin Vitals: Last Vital Signs Temp 97.7 F 01/08/20 15:20 Pulse 76 01/08/20 15:20 Resp 18 01/08/20 15:20 BP 132/74 01/08/20 15:20 Pulse Ox 95 01/08/20 15:20 Discharge Plan Discharge Patient Disposition: Home, Self-Care Condition: Stable Prescriptions: New furosemide 40 mg Tablet 40 mg PO DAILY@0800 30 Days Qty: 30 RF: 0 atorvastatin 40 mg Tablet 40 mg PO BEDTIME 30 Days Qty: 30 RF: 0 Pacerone 200 mg Tablet 200 mg PO Q12H 30 Days Qty: 60 RF: 0 metoprolol succinate 50 mg Tablet Extended Release 24 Hr 50 mg PO DAILY 30 Days Qty: 30 RF: 0 nicotine 21 mg/24 hr Patch 24 Hour 1 patch transdermal DAILY 30 Days Qty: 30 RF: 0 levofloxacin 750 mg Tablet 750 mg PO DAILY@0600 5 Days Qty: 5 RF: 0 hydroxyzine pamoate 25 mg Capsule 25 mg PO Q8H 30 Days Qty: 90 RF: 0 enoxaparin 100 mg/mL Syringe 100 mg SUBCUT Q12H 15 Days Qty: 30 RF: 0 Klor-Con M20 20 mEq tablet,ER particles/crystals 20 meq PO BID 30 Days Qty: 60 RF: 0 Adult Aspirin Regimen 81 mg tablet,delayed release (DR/EC) 81 mg PO DAILY 30 Days Qty: 30 RF: 0 (DME) diabetic supplies, miscellan. Kit See Rx Instructions .ROUTE .MEDSUPPLY Qty: 1 RF: 0 Coumadin 5 mg tablet 5 mg PO DAILY 90 Days Qty: 90 RF: 0 Coumadin 1 mg tablet 1 mg PO DAILY 90 Days Qty: 90 RF: 0 metformin 1,000 mg tablet extended release 24hr 1,000 mg PO DAILY 30 Days Qty: 30 RF: 0 albuterol sulfate 90 mcg/actuation HFA aerosol inhaler 1 inh INHALATION Q6H PRN (Reason: shortness of breath or wheezing) Qty: 18 RF: 0 Advair Diskus 100-50 mcg/dose blister with device 1 inh INHALATION BID 30 Days Qty: 60 RF: 0 Otto 5-325 mg tablet 1 tab PO Q12H PRN (Reason: pain) 15 Days Qty: 30 RF: 0 No Action No Known Home Medications RF: 0 Discharge Orders: Discharge Order (Routine); Ordered 01/08/20 Ordered By: Harshad Dunham Other Ambulatory Orders: DME: Oxygen (Order) Location: None Selected Ordered By: Harshad Dunham Referrals: Aileen Pelletier, CONSTRUCTION SECRETARY-C [Primary Care Provider] - 01/11/20 10:40 am (You will have an PT/INR drawn on this appointment date/time.) Keira Rodriguez MD [Physician] - 2 weeks (You have a follow up appointment with Dr. Rodriguez on , January 20 at 1:00pm. You will need to bring with you your insurance card and drivers license and check in at 12:45pm. If you have any questions or concerns please call the clinic) Discharge Diet: Cardiac and Diabetic Discharge Activity: Resume usual activity Patient Instructions: Metoprolol (By mouth), Furosemide (By mouth), Albuterol (By breathing), Nicotine (Into the mouth), Potassium Chloride (By mouth), Warfarin (By mouth), Aspirin (By mouth), Amiodarone (By mouth), Hydroxyzine Pamoate (By mouth), Enoxaparin (Injection), Atorvastatin (By mouth), Levofloxacin (By mouth), Fluticasone/Salmeterol (By breathing), Congestive Heart Failure, Heart Failure (GEN), Atrial Flutter (GEN), Pulmonary Edema (DC), Acute Kidney Injury (DC), Cigarette Smoking and Your Health (GEN), How to Check Your Blood Sugar (GEN), Diabetic Hypoglycemia (GEN), Diabetes Mellitus Type 2 in Adults (DC), Meal Planning with Diabetes Exchanges (DC), Diabetic Retinopathy (GEN), Diabetic Neuropathy (GEN), CHF Stoplight Activity Restrictions/Additional Instructions: -If you have bloody or black stools come to the emergency room -Take Coumadin 5 mg once daily, recheck INR on Saturday when he see me in clinic -Continue Lovenox 100 mg injections twice daily until INR is 2-3, overlap for 24 hours -Check blood sugars 3 times daily -If blood sugar greater than 500 call primary care -If blood sugar less than 60, drink or juice, call primary care Discharge Attestations Time Spent in Discharge Care*: less than 30 min Quality Metrics Clinical Quality Measures During this hospital stay, did patient experience: None Coding Level of Care Code 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
--- NOTE | 2020-01-08 16:30 | PC.NURSE ---
pt and daughter educated on how to monitor pt's blood sugar at home. verbalized understanding from both of them. pt did a return demonstration for nurse. pt and daughter educated and shown how to do lovenox injection. both verbalized an understanding. discharge instructions and future appointments were given and both verbalized an understanding. all questions were answered at this time. medications and blood glucose testing supplies brought up from [facility] and sent home with the patient. 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 pt had oxygen tank from company of choice. pt escorted via wheelchair to main entrance were private vehicle picked her up. oxygen loaded in car along with all medication.
[2020-01-08] MEDS: lanolin oint 7 gm 1 APPLIC TOPICAL (17:01)
[2020-01-08 17:40] LABS: Glucose Point of Care 185 mg/dL (70-110)
== END 2020-01-08 17:25 | disposition home or self-care (01) | DRG 208 ==
LOC: ER 16:30 → ICU 18:14 → CSU 01-05 21:19
PROVIDERS: Hospitalist; Internal Medicine; Surgery; Admitting Provider Family Medicine; Emergency Provider Family Medicine; PCP Nurse Practitioner; Visit Provider Family Medicine
PROC: 02HV33Z Insertion of Infusion Device into Superior Vena Cava, Percutaneous Approach (ICD-10-PCS; principal; 2020-01-01 14:00)
PROC: 02HV33Z Insertion of Infusion Device into Superior Vena Cava, Percutaneous Approach (ICD-10-PCS; 2020-01-01 14:00)
DX: J96.21 Acute and chronic respiratory failure with hypoxia (principal); R57.0 Cardiogenic shock; N17.0 Acute kidney failure with tubular necrosis; J69.0 Pneumonitis due to inhalation of food and vomit; I81 Portal vein thrombosis; I50.23 Acute on chronic systolic (congestive) heart failure; J98.11 Atelectasis; I48.92 Unspecified atrial flutter; I74.3 Embolism and thrombosis of arteries of the lower extremities; J96.22 Acute and chronic respiratory failure with hypercapnia; I95.89 Other hypotension; R74.8 Abnormal levels of other serum enzymes; F17.200 Nicotine dependence, unspecified, uncomplicated; E87.70 Fluid overload, unspecified; E83.39 Other disorders of phosphorus metabolism; I48.91 Unspecified atrial fibrillation; I25.10 Atherosclerotic heart disease of native coronary artery without angina pectoris; E87.6 Hypokalemia
CPT/HCPCS: 12345; 36415; 36416; 36592; 36600; 51702; 71045; 71275; 74177; 76700; 76705; 77001; 78452; 80051; 80053; 80061; 80074; 80307; 81001; 82803; 82810; 82962; 83036; 83605; 83690; 83735; 83880; 83986; 84100; 84145; 84443; 84484; 85025; 85610; 85651; 85730; 86140; 86403; 87040; 87070; 87077; 87186; 87205; 87641; 87804; 90935; 93005; 93017; 93306; 93308; 93925; 94002; 94003; 94640; 94664; 94799; 96372; 96374; 96375; 97110; 97116; 97161; 97167; 97530; 97535; 99285; A4570; A9500; C1752; C8924; C8929; C9113; J0330; J0743; J1160; J1250; J1644; J1650; J1940; J1956; J2001; J2270; J2704; J2785; J3010; J3480; J3490; J7050; Q3014; Q9956; Q9967

== ENCOUNTER → 2020-01-15 10:32 | Outpatient (BNVA) | payer MEDICAID, SELFPAY | PROVIDERS: PCP Nurse Practitioner; Visit Provider Nurse Practitioner | DX: I48.91 Unspecified atrial fibrillation (principal); I48.92 Unspecified atrial flutter; M41.24 Other idiopathic scoliosis, thoracic region | CPT/HCPCS: 80053; 85025; 85610 ==

== ENCOUNTER → 2020-01-21 14:32 | Outpatient (BNVA) | payer MEDICAID, SELFPAY | PROVIDERS: PCP Nurse Practitioner; Visit Provider Internal Medicine Cardiovascular Disease | DX: I48.91 Unspecified atrial fibrillation (principal); I48.92 Unspecified atrial flutter | CPT/HCPCS: 85610 ==

== ENCOUNTER → 2020-02-01 10:06 | Outpatient (BNVA) | payer MEDICAID, SELFPAY | PROVIDERS: PCP Nurse Practitioner; Visit Provider Nurse Practitioner | DX: I48.91 Unspecified atrial fibrillation (principal); I48.92 Unspecified atrial flutter; D69.9 Hemorrhagic condition, unspecified; I10 Essential (primary) hypertension; E11.9 Type 2 diabetes mellitus without complications; M41.24 Other idiopathic scoliosis, thoracic region | CPT/HCPCS: 80053; 85025; 85610 ==

== ENCOUNTER → 2020-02-04 11:06 | Outpatient (BNVA) | payer MEDICAID, SELFPAY | PROVIDERS: PCP Nurse Practitioner; Visit Provider Nurse Practitioner | DX: I48.91 Unspecified atrial fibrillation (principal); I48.92 Unspecified atrial flutter; I42.9 Cardiomyopathy, unspecified; E11.9 Type 2 diabetes mellitus without complications | CPT/HCPCS: 85610 ==

== ENCOUNTER → 2020-02-08 11:31 | Outpatient (BNVA) | payer MEDICAID, SELFPAY | PROVIDERS: PCP Nurse Practitioner; Visit Provider Nurse Practitioner | DX: Z51.81 Encounter for therapeutic drug level monitoring (principal); Z79.01 Long term (current) use of anticoagulants | CPT/HCPCS: 85610 ==

== ENCOUNTER → 2020-02-18 11:21 | Outpatient (BNVA) | payer MEDICAID, SELFPAY | PROVIDERS: PCP Nurse Practitioner; Visit Provider Nurse Practitioner | DX: I48.91 Unspecified atrial fibrillation (principal); I48.92 Unspecified atrial flutter; Z51.81 Encounter for therapeutic drug level monitoring; Z79.01 Long term (current) use of anticoagulants | CPT/HCPCS: 85610 ==

== ENCOUNTER → 2020-02-25 11:09 | Outpatient (BNVA) | payer MEDICAID, SELFPAY | PROVIDERS: PCP Nurse Practitioner; Visit Provider Nurse Practitioner | DX: I48.91 Unspecified atrial fibrillation (principal); I48.92 Unspecified atrial flutter; Z51.81 Encounter for therapeutic drug level monitoring; Z79.01 Long term (current) use of anticoagulants | CPT/HCPCS: 85610 ==

== ENCOUNTER → 2020-03-07 13:52 | Outpatient (BNVA) | payer MEDICAID, SELFPAY | PROVIDERS: PCP Nurse Practitioner; Visit Provider Nurse Practitioner | DX: I48.91 Unspecified atrial fibrillation (principal); I48.92 Unspecified atrial flutter; Z51.81 Encounter for therapeutic drug level monitoring; Z79.01 Long term (current) use of anticoagulants; F41.1 Generalized anxiety disorder | CPT/HCPCS: 85610 ==

== ENCOUNTER → 2020-04-04 11:28 | Outpatient (BNVA) | payer MEDICAID, SELFPAY | PROVIDERS: PCP Nurse Practitioner; Visit Provider Nurse Practitioner | DX: M41.24 Other idiopathic scoliosis, thoracic region (principal); I10 Essential (primary) hypertension; E11.65 Type 2 diabetes mellitus with hyperglycemia; E78.2 Mixed hyperlipidemia; F41.1 Generalized anxiety disorder; I48.92 Unspecified atrial flutter; I48.91 Unspecified atrial fibrillation; R05 Cough; I25.10 Atherosclerotic heart disease of native coronary artery without angina pectoris | CPT/HCPCS: 71046; 85610 ==

== ENCOUNTER → 2020-04-06 09:21 | Outpatient (BNVA) | payer MEDICAID, SELFPAY | PROVIDERS: PCP Nurse Practitioner; Visit Provider Nurse Practitioner | DX: E11.65 Type 2 diabetes mellitus with hyperglycemia (principal); I10 Essential (primary) hypertension | CPT/HCPCS: 80053; 83036; 84443; 85025 ==

== ENCOUNTER 2020-04-13 11:15 | Outpatient (CLI) | payer MEDICAID, SELFPAY ==
--- NOTE | 2020-04-13 11:30 | CT_ITS ---
WS: [id number] CT CHEST WITHOUT INTRAVENOUS CONTRAST HISTORY: Abnormal chest radiograph. TECHNIQUE: Contiguous 5 mm axial imaging performed on the thorax. Coronal and sagittal reformats are submitted. All CT scans at [facility] use at least one of these dose optimization techniq ues: automated exposure control; mA and/or kV adjustment per patient size (includes targeted exams wh ere dose is matched to clinical indication); or iterative reconstruction. CONTRAST: None DLP: 1279.87 mGy.cm COMPARISON: 01/02/2020 Lungs and central airway: No pulmonary mass or nodule. Mild pulmonary hyperexpansion with areas of sc arring and atelectasis at the lingula and RIGHT middle lobe. No apical neoplasm. Pleura: Normal. No pleural effusion. Heart and pericardium: Mildly enlarged cardiac chambers. No pericardial effusion. Mediastinum and lazaro: No mediastinum or hilar adenopathy. Vessels: Pulmonary artery size is equal to the aorta. Chest wall and lower neck: No soft tissue masses. Upper abdomen: Hepatic and splenic granulomata. Mildly contracted gallbladder contains stones. Fatty mass in the upper pole of the RIGHT kidney slightly lobulated measuring 15 mm. No adrenal mass. Osseous structures: Moderate to severe thoracolumbar scoliosis. No osteoblastic or osteolytic lesions are identified. CT/CT chest wo con [id number] IMPRESSION: 1. No suspicious pulmonary mass or neoplasm. 2. Scarring in the lingula and RIGHT middle lobe. 3. Chronic emphysema and mild pulmonary hypertension. 4. Cholelithiasis.
== END 2020-04-13 11:16 | disposition home or self-care (01) ==
LOC: RAD 11:20
PROVIDERS: PCP Nurse Practitioner; Visit Provider Nurse Practitioner
DX: R93.89 Abnormal findings on diagnostic imaging of other specified body structures (principal); J43.9 Emphysema, unspecified; I27.20 Pulmonary hypertension, unspecified; K80.20 Calculus of gallbladder without cholecystitis without obstruction
CPT/HCPCS: 71250

== ENCOUNTER → 2020-05-24 10:38 | Outpatient (BNVA) | payer MEDICAID, SELFPAY | PROVIDERS: PCP Nurse Practitioner; Visit Provider Nurse Practitioner | DX: S59.901A Unspecified injury of right elbow, initial encounter (principal); W19.XXXA Unspecified fall, initial encounter | CPT/HCPCS: 73080 ==

== ENCOUNTER → 2020-08-18 15:36 | Outpatient (BNVA) | payer MEDICAID, SELFPAY | PROVIDERS: PCP Nurse Practitioner; Visit Provider Nurse Practitioner Family | DX: R35.0 Frequency of micturition (principal) | CPT/HCPCS: 81000 ==

== ENCOUNTER → 2020-09-12 11:19 | Outpatient (BNVA) | payer MEDICAID, SELFPAY | PROVIDERS: PCP Nurse Practitioner; Visit Provider Nurse Practitioner Family | DX: R31.9 Hematuria, unspecified (principal); E11.65 Type 2 diabetes mellitus with hyperglycemia | CPT/HCPCS: 80053; 81000; 83036; 85025 ==

== ENCOUNTER 2020-09-13 13:50 | Outpatient (CLI) | payer MEDICAID, SELFPAY ==
--- NOTE | 2020-09-13 14:39 | XR_ITS ---
WS: [id number] KU, 09/13/2020 Clinical Data: R31.9 - Hematuria, unspecified Comparison: None. Findings: No abnormal intraabdominal masses or calcifications are seen. There is no dilatated small bowel or ev idence of obstruction. No definite renal or ureteral calculi are seen. There is a large amount of fecal material throughout the colon. XR/XR abdomen 1V* [id number] Impression: Large amount of fecal material in the colon.
== END 2020-09-13 13:51 | disposition home or self-care (01) ==
PROVIDERS: PCP Nurse Practitioner; Visit Provider Nurse Practitioner Family
DX: R31.9 Hematuria, unspecified (principal)
CPT/HCPCS: 74018

== ENCOUNTER → 2020-09-19 15:14 | Outpatient (BNVA) | payer MEDICAID, SELFPAY | PROVIDERS: PCP Nurse Practitioner; Visit Provider Nurse Practitioner | DX: J44.9 Chronic obstructive pulmonary disease, unspecified (principal); M41.24 Other idiopathic scoliosis, thoracic region; I48.92 Unspecified atrial flutter; F41.1 Generalized anxiety disorder; I48.91 Unspecified atrial fibrillation; E11.65 Type 2 diabetes mellitus with hyperglycemia | CPT/HCPCS: 81003 ==

== ENCOUNTER → 2020-10-17 11:52 | Outpatient (BNVA) | payer MEDICAID, SELFPAY | PROVIDERS: PCP Nurse Practitioner; Visit Provider Nurse Practitioner | DX: R31.9 Hematuria, unspecified (principal); R31.29 Other microscopic hematuria | CPT/HCPCS: 81003 ==

== ENCOUNTER 2020-11-08 10:53 | Outpatient (CLI) | payer MEDICAID, SELFPAY ==
--- NOTE | 2020-11-08 11:00 | US_ITS ---
WS: [id number] RENAL ULTRASOUND HISTORY: R31.29 - Other microscopic hematuria COMPARISON: CT 01/02/2020. TECHNIQUE: 2-D and color Doppler imaging of the kidney submitted. Right kidney: 11.5 cm x 4.8 cm x 5.4 cm. Normal size kidney. Hyperechoic mass in the upper pole measures 1.8 x 1.8 x 2.0 cm. No increased vasc ularity. There was a mass on a prior CT that corresponds in size and location consistent with an luis daniel omyolipoma. No increase in size. No hemorrhage. Left kidney: 10.6 cm x 5.3 cm x 5.1 cm. Normal echogenicity with no hydronephrosis or mass. Aorta: Normal. Urinary Bladder: Nondistended. US/US renal BI* [id number] IMPRESSION: 1. No renal obstruction. 2. Stable RIGHT renal angiomyolipoma since 01/02/2020.
== END 2020-11-08 10:54 | disposition home or self-care (01) ==
PROVIDERS: PCP Nurse Practitioner; Visit Provider Nurse Practitioner
DX: R31.29 Other microscopic hematuria (principal); D17.71 Benign lipomatous neoplasm of kidney
CPT/HCPCS: 76770

== ENCOUNTER → 2021-04-11 12:11 | Outpatient (BNVA) | payer MEDICAID, SELFPAY | PROVIDERS: PCP Nurse Practitioner; Visit Provider Nurse Practitioner | DX: E11.65 Type 2 diabetes mellitus with hyperglycemia (principal) | CPT/HCPCS: 81003; 87077; 87086; 87184 ==

== ENCOUNTER → 2021-05-02 15:49 | Outpatient (BNVA) | payer MEDICAID, SELFPAY | PROVIDERS: PCP Nurse Practitioner; Visit Provider Nurse Practitioner Family | DX: E11.65 Type 2 diabetes mellitus with hyperglycemia (principal); M41.24 Other idiopathic scoliosis, thoracic region; I48.92 Unspecified atrial flutter; Z87.891 Personal history of nicotine dependence; F41.1 Generalized anxiety disorder; I48.91 Unspecified atrial fibrillation; I10 Essential (primary) hypertension; J44.9 Chronic obstructive pulmonary disease, unspecified; E78.2 Mixed hyperlipidemia; F32.9 Major depressive disorder, single episode, unspecified | CPT/HCPCS: 81000 ==

== ENCOUNTER → 2021-06-05 15:14 | Outpatient (BNVA) | payer MEDICAID, SELFPAY | PROVIDERS: PCP Nurse Practitioner; Visit Provider Nurse Practitioner | DX: E11.65 Type 2 diabetes mellitus with hyperglycemia (principal); E55.9 Vitamin D deficiency, unspecified; J44.9 Chronic obstructive pulmonary disease, unspecified; B33.24 Viral cardiomyopathy | CPT/HCPCS: 80053; 80061; 82306; 82607; 83036; 84443; 85025 ==

== ENCOUNTER 2021-11-01 12:36 | Emergency (ER) | payer MEDICAID, SELFPAY ==
[2021-11-01 13:31] VITALS: BP 132/70; PULSE 92; RESP 22; TEMP 37; O2SAT 95; BMI 38.9
--- NOTE | 2021-11-01 14:19 | XR_ITS ---
WS: [id number] Left ankle, 3 views, 11/01/2021 Clinical Data: injury/swelling Comparison: None. Findings: No fractures or dislocations are seen. The ankle mortise is normal. The talus and calcaneus are unrem arkable. No soft tissue swelling over the medial or lateral malleolus is seen. XR/XR ankle LT min 3V* [id number] Impression: Negative left ankle.
--- NOTE | 2021-11-01 14:20 | ED_ITS ---
HPI - Extremity Problem General: Chief complaint: Extremity Injury, Lower Stated complaint: STATES POSS BLOOD CLOT IN L LEG Time Seen by Provider: 11/01/21 14:09 Source: patient and family (daughter) Mode of arrival: wheelchair Limitations: no limitations History of Present Illness: HPI Narrative: Patient is a 66-year-old female presents to ED today along with her daughter for concerns of redness, swelling, and pain to her left lower extremity that she has noticed over the past 5 days. Patient states around that time. She twisted her left ankle. She has been ambulatory on the extremity since then. She denies any skin tear/abrasions during that time that could have introduced infection. She is concerned for a DVT. She does not complain of calf pain. Patient has not been running fevers. MD Complaint: extremity pain and extremity swelling Onset (ago): day(s) Pain Consistency: constant Location: left and lower extremity Exacerbating factors: walking and palpation Associated symptoms: Reports no associated symptoms; Deny chest pain or fever(s) Review of Systems Const: Denies: fever(s), chills, body aches, fatigue or malaise Card: Denies: chest pain Resp: Denies: dyspnea Musc: Reports: extremity pain and extremity swelling; Denies: neck pain, back pain, joint pain or joint swelling Skin/Breast: Reports: changes in skin color (L LE) Neuro: Denies: numbness in extremities, weakness in extremities, sensory changes or difficulty walking [facility] ED PFSH: Medical History Acute on chronic respiratory failure with hypoxia and hypercapnia Acute renal failure Cardiomyopathy Diabetes mellitus Elevated liver enzymes Hypertension Idiopathic scoliosis of thoracic spine Mixed hyperlipidemia Personal history of nicotine dependence Pulmonary edema Vitamin D deficiency Surgical History History of knee surgery Left 1977 Benign tumor removed Family History Mother Diabetes COPD (chronic obstructive pulmonary disease) Other CAD (coronary artery disease) Cancer Social History Smoking and tobacco status: current every day smoker Second hand smoke exposure: Yes Smoking risk assessment/counseling performed?: Yes Alcohol intake: never Desire information about alcohol rehabilitation?: No Counseling given: No Desire information about substance/drug rehabilitation?: No Counseling given: No Adopted: No Caregiver/support person: No Lives independently: Yes Household members: none Housing: House Marital status: Number of children: 5 service: No Current occupational status: unemployed Current occupational exposures/hazards: No History of recent travel: No Current gender identity: Female Financial difficulty paying for basics: Very Hard Physical Exam Const: COMMON NORMALS: no acute distress, patient oriented x3, no limitations and alert GENERAL APPEARANCE: cooperative NUTRITIONAL APPEARANCE: obese ORIENTATION/CONSCIOUSNESS: Yes awake, Yes oriented to person, Yes oriented to place and Yes oriented to time Resp: COMMON NORMALS: normal respiratory effort and clear to auscultation bilaterally AUSCULTATION: clear to auscultation bilaterally Cardio: COMMON NORMALS: regular rate and regular rhythm RATE: regular rate RHYTHM: regular rhythm Extremity: GENERAL: Yes normal exam except as noted OTHER: pt has extreme tenderness to L lower leg started about mid tibia and extending distally to the ankle; mild swelling; there is redness/warmth and cellulitic appearing changes; no abrasions/cuts/lacerations noted; no calf pain or palpable cords; negative Taryn's; DP/PT pulses present and normal; cap refill normal; sensory intact Neuro: COMMON NORMALS: patient oriented x3 SENSORIUM/ORIENTATION: Yes alert, Yes oriented to person, Yes oriented to place and Yes oriented to time Skin: NARRATIVE SKIN EXAM: see extremity assessment for pertinent skin findings Course Vital Signs: Vital signs: Vital Signs Temperature 98.6 F 11/01/21 13:31 Pulse Rate 92 11/01/21 13:31 Respiratory Rate 22 H 11/01/21 13:31 Blood Pressure 132/70 11/01/21 13:31 Pulse Oximetry 95 11/01/21 13:31 MDM - Extremity (Nontraumatic) MDM Narrative: Medical decision making narrative: Patient clinically appears well. She is afebrile and non-tachycardic. White count is 12.2. CRP is mildly elevated at 21.6. US negative for DVT. Clinically she has cellulitis of her left leg. She was given a dose of IV vancomycin will be sent home on amoxicillin and doxycycline per UTD algorithm for outpatient treatment of cellulitis. Strict return to ED precautions given regarding worsening symptoms. They were requesting refill of their of Ozempic diabetic medication as well as something for pain. Lab Data: Labs: Lab Results 11/01/21 11/01/21 14:54 14:54 WBC 12.2 10^3/uL H 10 ^3/uL (4.0-10.0) RBC 4.26 10^6/uL 10^6 /uL (4.1-5.3) Hgb 10.7 g/dL L g/dL (11.5-15.3) Hct 36.6 % L % (37.0-47.0) MCV 85.9 fl fl (81-99) MCH 25.1 pg L pg (28.0-34.0) MCHC 29.2 g/dL L g/dL (30.0-36.0) RDW 16.3 % H % (12.1-15.1) Plt Count 373 10^3/cmm 10^3 /cmm (130-400) MPV 9.2 fL fL (7.4-10.4) Neut % (Auto) 68.5 % % Lymph % (Auto) 20.3 % % [place] % (Auto) 7.2 % % Eos % (Auto) 3.3 % % Baso % (Auto) 0.4 % % Neut # (Auto) 8.38 10^3/uL H 10 ^3/uL (1.8-7.7) Lymph # (Auto) 2.5 10^3/uL 10^3/ uL (0.8-4.8) [place] # (Auto) 0.9 10^3/uL 10^3/ uL (0.2-0.9) Eos # (Auto) 0.4 10^3/uL 10^3/ uL (0.0-0.8) Baso # (Auto) 0.1 10^3/uL 10^3/ uL (0.0-0.1) Nucleated RBC % (a uto) 0 % % Nucleated RBCs # 0.0 /100WBC /100W BC Sodium 141 mmol/L mmol/L (136-145) Potassium 3.9 mmol/L mmol/L (3.5-5.1) Chloride 104 mmol/L mmol/L (98-107) Carbon Dioxide 25 mmol/L mmol/L (22-29) Anion Gap 15.9 (5-19) BUN 8 mg/dL mg/dL (8-23) Creatinine 0.9 mg/dL mg/dL (0.5-0.9) GFR Calculation 63.0 mL/min L mL/ min (90-130) Glucose 135 mg/dL H mg/dL (65-115) Calculated Osmolal ity 292 mOsm/kg mOsm/ kg (285-295) Calcium 8.1 mg/dL L mg/dL (8.5-10.5) Total Bilirubin 0.2 mg/dL mg/dL (0.15-1.2) AST 15 U/L U/L (0-32) ALT 21 U/L U/L (0-33) Alkaline Phosphata se 116 IU/L H IU/L (35-105) C-Reactive Protein 21.6 mg/L H mg/L (0.0-4.9) Total Protein 6.6 g/dL g/dL (6.6-8.7) Albumin 3.2 g/dL L g/dL (3.5-5.2) Globulin 3.4 g/dL g/dL (1.3-4.6) Imaging Data^: XR L ankle: Radiologist's impression: [address] [place] [address] XRay Report Signed Patient: Nehal Hull Unit #: [id number] : 1955 Age/Sex: 66 / F ADM Date: 11/01/21 Loc: ER Room/Bed: Attending Dr: Ordering Provider/Ordering MD: Zahida Glover Date of Service: 11/01/21 Procedure(s): XR ankle LT min 3V* [id number] Accession Number(s): [id number] Report Number: [id number] WS: [id number] Left ankle, 3 views, 11/01/2021 Clinical Data: injury/swelling Comparison: None. Findings: No fractures or dislocations are seen. The ankle mortise is normal. The talus and calcaneus are unremarkable. No soft tissue swelling over the medial or lateral malleolus is seen. XR/XR ankle LT min 3V* [id number] Impression: Negative left ankle. Dictated By: Ceci Vergara MD Signed By: Ceci Vergara MD Signed Date/Time: 11/01/211429 DD/ 1430 US venous L LE: Radiologist's impression: [id number], [place] [address]Xrocskzvla ReportSigned Patient: Nehal Hull KUnit #: [id number]: 1955cct#:[id number]/Sex: 66 / FADM Date: 11/01/21Loc: ERRoom/Bed:Attending Dr: Ordering Provider/Ordering MD: Zahida Glover Date of Service: 11/01/21 Procedure(s): [place] [address] Accession Number(s): [id number] Report Number: [id number] Nehal Hull Age: 66 Gender: F : 1955 Exam Date: 11/01/2021 14:56 Ordering Phys: Zahida Glover Technologist: Shelia Baca Exam Location: [facility] Indication: PAINFUL LT LOWER LEG HISTORY: Painful Red and Swollen Lower Lt Leg PROCEDURES: Venous duplex imaging was performed in only the left lower extremity. The following venous structures were evaluated: common femoral vein, profunda vein, proximal portion of the greater saphenous vein, superficial femoral vein, and the popliteal vein. In addition, the posterior tibial and peroneal trunk were evaluated. Serial compression, augmentation maneuvers, and spectral Doppler flow evaluation were performed. FINDINGS: Normal 2-D Doppler and augmentation and compressibility throughout the lower extremity venous structures. Additional imaging through the proximal calf veins also reveals no thrombus. Limited evaluation of the greater saphenous vein is patent with no thrombus.. CONCLUSIONS No evidence of left lower extremity DVT. Michael Hsu MD (Electronically Signed) Final Date: 01 November 2021 15:58 S Discharge Plan Discharge Patient Disposition: Home Clinical Impression: Cellulitis of left leg Condition: Stable Prescriptions: New doxycycline monohydrate 100 mg capsule 100 mg PO Q12H 10 Days Qty: 20 RF: 0 amoxicillin 875 mg tablet 875 mg PO BID Qty: 14 RF: 0 hydrocodone-acetaminophen 5-325 mg tablet 1 tab PO Q6H PRN (Reason: pain) Qty: 14 RF: 0 Ozempic 0.25 mg or 0.5 mg(2 mg/1.5 mL) pen injector 0.25 mg SUBCUT .qwk Qty: 1.5 RF: 0 No Action Flovent HFA 110 mcg/actuation HFA aerosol inhaler 2 puff inhalation BID Qty: 12 RF: 2 Hold Instructions: use nebulizer miscellaneous medical supply [facility] 1 each miscellaneous DAILY Qty: 1 RF: 0 (DME) pen needle, diabetic [BD Ultra-Fine Hollie Pen Needle] 32 gauge x 5/32 needle See Rx Instructions .ROUTE .MEDSUPPLY Qty: 100 RF: 5 ferrous gluconate 240 mg (27 mg iron) tablet 240 mg PO DAILY Qty: 30 RF: 2 metoprolol succinate 50 mg tablet extended release 24 hr 50 mg PO DAILY 30 Days Qty: 30 RF: 2 Klor-Con M20 20 mEq tablet,ER particles/crystals 20 meq PO DAILY Qty: 30 RF: 2 Xarelto 20 mg tablet 20 mg PO DAILY 30 Days Qty: 30 RF: 2 furosemide [Lasix] 40 mg tablet 40 mg PO QAM Qty: 30 RF: 0 zonisamide 50 mg capsule 50 mg PO BID 30 Days Qty: 60 RF: 2 ergocalciferol (vitamin D2) 1,250 mcg (50,000 unit) capsule 1,250 mcg PO .weekly Qty: 4 RF: 2 ascorbic acid (vitamin C) 1,000 mg tablet 1 g PO BID Qty: 60 RF: 2 zinc 50 mg tablet 50 mg PO DAILY Qty: 30 RF: 0 budesonide [Pulmicort] 0.5 mg/2 mL suspension for nebulization 0.5 mg inhalation BID Qty: 120 RF: 2 albuterol sulfate 2.5 mg /3 mL (0.083 %) solution for nebulization 2.5 mg inhalation Q4H PRN (Reason: shortness of breath or wheezing) Qty: 300 RF: 0 Farxiga 5 mg tablet 5 mg PO DAILY Qty: 30 RF: 2 atorvastatin 40 mg tablet 40 mg PO BEDTIME 30 Days Qty: 30 RF: 2 Adult Aspirin Regimen 81 mg tablet,delayed release (DR/EC) 81 mg PO DAILY 30 Days Qty: 30 RF: 2 duloxetine 60 mg capsule,delayed release(DR/EC) 60 mg PO BID 30 Days Qty: 60 RF: 2 hydroxyzine pamoate 50 mg capsule 50 mg PO TID PRN (Reason: anxiety) 30 Days Qty: 90 RF: 2 tramadol 50 mg tablet 50 mg PO TID PRN (Reason: pain) Qty: 90 RF: 2 dexamethasone 6 mg tablet 6 mg PO DAILY Qty: 10 RF: 0 (DME) pen needle, diabetic 33 gauge x 5/32 needle See Rx Instructions .ROUTE .MEDSUPPLY Qty: 100 RF: 5 Bevespi Aerosphere 9-4.8 mcg HFA aerosol inhaler 2 puff inhalation Q12H Qty: 10.7 RF: 2 Hold Instructions: use nebulizer albuterol sulfate 90 mcg/actuation HFA aerosol inhaler 1 inh INHALATION Q6H PRN (Reason: shortness of breath or wheezing) 30 Days Qty: 18 RF: 5 (DME) diabetic supplies, miscellan. Kit See Rx Instructions .ROUTE .MEDSUPPLY Qty: 1 RF: 0 Discharge Orders: Discharge ED (Routine); Ordered 11/01/21 Ordered By: Zahida Glover Referrals: Aileen Pelletier, CAR WASHER-C [Primary Care Provider] - Patient Instructions: Cellulitis (ED), Opioid Safety Activity Restrictions/Additional Instructions: [facility] is committed to fighting the nationwide opiate epidemic. We are providing ALL patients with information regarding opiate safety. If you rec eived opiate pain medication during your stay or if you received a prescription for opiate pain medication-please review this handout. If not, you may disregard. Thank you. As we discussed please begin with your antibiotics immediately. You need to return to the emergency department if redness and swelling continues to worsen over the next 48 hours despite antibiotic therapy. Continue to monitor diet and maintain good control of blood sugars. You need to follow-up with primary care at the end of the week if possible if not early next week for reevaluation. Coding Level of Care Code ED Incident Commander for Mary Jane Fwd Exam Expanded Problem Focused
[2021-11-01 15:00] LABS: Basophils # 0.1 10^3/uL (0.0-0.1); Basophils % 0.4 %; Eosinophils # 0.4 10^3/uL (0.0-0.8); Eosinophils % 3.3 %; Hematocrit 36.6 % (37.0-47.0); Hemoglobin 10.7 g/dL (11.5-15.3); Lymphocytes # 2.5 10^3/uL (0.8-4.8); Lymphocytes % 20.3 %; Mean Corpuscular HGB Conc 29.2 g/dL (30.0-36.0); Mean Corpuscular Hemoglobin 25.1 pg (28.0-34.0); Mean Corpuscular Volume 85.9 fl (81-99); Mean Platelet Volume 9.2 fL (7.4-10.4); Monocytes # 0.9 10^3/uL (0.2-0.9); Monocytes % 7.2 %; Neutrophils # 8.38 10^3/uL (1.8-7.7); Neutrophils % 68.5 %; Nucleated Red Blood Cells % 0 %; Platelet Count 373 10^3/cmm (130-400); Red Blood Count 4.26 10^6/uL (4.1-5.3); Red Cell Distribution Width 16.3 % (12.1-15.1); White Blood Count 12.2 10^3/uL (4.0-10.0)
[2021-11-01 15:32] LABS: Alanine Aminotransferase 21 U/L (0-33); Albumin Level 3.2 g/dL (3.5-5.2); Alkaline Phosphatase 116 IU/L (35-105); Blood Urea Nitrogen 8 mg/dL (8-23); C Reactive Protein 21.6 mg/L (0.0-4.9); Calcium 8.1 mg/dL (8.5-10.5); Carbon Dioxide 25 mmol/L (22-29); Chloride 104 mmol/L (98-107); Globulin 3.4 g/dL (1.3-4.6); Glucose 135 mg/dL (65-115); Osmolality Calculated 292 mOsm/kg (285-295); Sodium 141 mmol/L (136-145); Total Bilirubin 0.2 mg/dL (0.15-1.2); Total Protein 6.6 g/dL (6.6-8.7)
[2021-11-01 15:33] LABS: Anion Gap 15.9 (5-19); Aspartate Amino Transferase 15 U/L (0-32); Potassium 3.9 mmol/L (3.5-5.1)
[2021-11-01] MEDS: vancomycin 1,000 MG in sodium chloride 0.9% 250 ML 250 MG IV (16:38)
[2021-11-01] MEDS: morphine 4 mg/mL SDV 1 mL IVP (16:38)
== END 2021-11-01 17:54 | disposition home or self-care (01) ==
PROVIDERS: Emergency Provider Physician Assistant; PCP Nurse Practitioner
DX: L03.116 Cellulitis of left lower limb (principal); Z79.82 Long term (current) use of aspirin; E11.9 Type 2 diabetes mellitus without complications; I10 Essential (primary) hypertension; E78.2 Mixed hyperlipidemia; F17.210 Nicotine dependence, cigarettes, uncomplicated
CPT/HCPCS: 73610; 80053; 85025; 86140; 93971; 96365; 96375; 99283; J2270; J3370; J7050

== ENCOUNTER → 2022-01-30 16:05 | Outpatient (BNVA) | payer MEDICAID, SELFPAY | PROVIDERS: PCP Nurse Practitioner; Visit Provider Nurse Practitioner | DX: E11.65 Type 2 diabetes mellitus with hyperglycemia (principal); E55.9 Vitamin D deficiency, unspecified; J44.9 Chronic obstructive pulmonary disease, unspecified; I10 Essential (primary) hypertension; E78.2 Mixed hyperlipidemia; M41.24 Other idiopathic scoliosis, thoracic region; E61.1 Iron deficiency; F41.1 Generalized anxiety disorder; I48.91 Unspecified atrial fibrillation; I48.92 Unspecified atrial flutter; I50.9 Heart failure, unspecified; I50.32 Chronic diastolic (congestive) heart failure | CPT/HCPCS: 80053; 82306; 83036; 85025 ==

== ENCOUNTER → 2022-01-31 13:31 | Outpatient (BNVA) | payer MEDICAID, SELFPAY | PROVIDERS: PCP Nurse Practitioner; Visit Provider Nurse Practitioner | DX: E11.65 Type 2 diabetes mellitus with hyperglycemia (principal); E55.9 Vitamin D deficiency, unspecified | CPT/HCPCS: 81000 ==

== ENCOUNTER 2022-03-01 11:40 | Outpatient (CLI) | payer MEDICAID, SELFPAY ==
--- NOTE | 2022-03-01 11:51 | CT_ITS ---
WS: [id number] CT HEAD TECHNIQUE: Noncontrast CT of the head obtained from the skullbase to the vertex. CLINICAL INFORMATION: R41.3 - Other amnesia COMPARISON: None. DLP: 1001.[address] scans at [facility] use at least one of these dose optimization techniques: automated e xposure control; mA and/or kV adjustment per patient size (includes targeted exams where dose is matc hed to clinical indication); or iterative reconstruction. FINDINGS: No evidence of intracranial hemorrhage or mass effect. Ventricular system and basal cisterns are tapia nt. Mild small vessel changes with no significant parenchymal volume loss. No extra-axial fluid colle ctions. No evidence of mass or mass effect. Cavernous carotid calcification. Paranasal sinuses and mastoid air cells are well aerated. .Normal visualized soft tissues. CT/CT head wo con* [id number] IMPRESSION: 1. No evidence of intracranial hemorrhage or mass effect. 2. Mild small vessel changes. No significant parenchymal volume loss. 3. Paranasal sinuses and mastoid air cells well aerated. 4. Cavernous carotid vascular calcification. 5. No acute intracranial findings.
== END 2022-03-01 11:41 | disposition home or self-care (01) ==
LOC: RAD 11:44
PROVIDERS: PCP Nurse Practitioner; Visit Provider Nurse Practitioner
DX: R41.3 Other amnesia (principal)
CPT/HCPCS: 70450

== ENCOUNTER → 2022-04-03 16:02 | Outpatient (BNVA) | payer MEDICAID, SELFPAY | PROVIDERS: PCP Nurse Practitioner; Visit Provider Nurse Practitioner Family | DX: R50.9 Fever, unspecified (principal); L03.90 Cellulitis, unspecified; M79.89 Other specified soft tissue disorders | CPT/HCPCS: 81000 ==

== ENCOUNTER 2022-06-01 13:15 | Outpatient (CLI) | payer MEDICAID, SELFPAY ==
--- NOTE | 2022-06-01 13:30 | USCV_ITS ---
LE Venous Duplex LEFT Nehal Hull Age: 66 Gender: F : 1955 Exam Date: 06/01/2022 13:45 Ordering Phys: Bharti Rodriguez MARKETING ANALYTICS MANAGER-Frieda Technologist: AMANDA Exam Location: [facility] Indication: leg pain cellulitis PROCEDURES: Left lower extremity venous doppler FINDINGS: The veins of the left lower extremity are patent with normal venous flow dynamics. Patient did not tolerat compression or augmentation. There is subcutaneous left lower extremity edema noted. CONCLUSIONS No evidence of LLE DVT Michael Hsu MD (Electronically Signed) Final Date: 01 June 2022 17:24 S
== END 2022-06-01 13:16 | disposition home or self-care (01) ==
LOC: RAD 13:16
PROVIDERS: PCP Nurse Practitioner; Visit Provider Nurse Practitioner Family
DX: M79.89 Other specified soft tissue disorders (principal)
CPT/HCPCS: 93971

== ENCOUNTER → 2022-06-13 13:57 | Outpatient (BNVA) | payer MEDICAID, SELFPAY | PROVIDERS: PCP Nurse Practitioner; Visit Provider Nurse Practitioner Family | DX: R39.9 Unspecified symptoms and signs involving the genitourinary system (principal); N39.0 Urinary tract infection, site not specified; L03.116 Cellulitis of left lower limb; J44.9 Chronic obstructive pulmonary disease, unspecified; I50.9 Heart failure, unspecified; B33.24 Viral cardiomyopathy; I10 Essential (primary) hypertension; I48.91 Unspecified atrial fibrillation; E78.2 Mixed hyperlipidemia; I48.92 Unspecified atrial flutter | CPT/HCPCS: 81000; 81003; 87077; 87086; 87184 ==

== ENCOUNTER → 2022-09-06 13:27 | Outpatient (BNVA) | payer MEDICAID, SELFPAY | PROVIDERS: PCP Nurse Practitioner; Visit Provider Nurse Practitioner | DX: R35.0 Frequency of micturition (principal); E11.65 Type 2 diabetes mellitus with hyperglycemia; I48.91 Unspecified atrial fibrillation; I10 Essential (primary) hypertension; I48.92 Unspecified atrial flutter; E55.9 Vitamin D deficiency, unspecified; F41.1 Generalized anxiety disorder; E78.2 Mixed hyperlipidemia; J44.9 Chronic obstructive pulmonary disease, unspecified; M41.24 Other idiopathic scoliosis, thoracic region; I50.9 Heart failure, unspecified | CPT/HCPCS: 80053; 80061; 81000; 82043; 83036 ==

== ENCOUNTER → 2022-10-04 13:47 | Outpatient (BNVA) | payer MEDICAID, SELFPAY | PROVIDERS: PCP Nurse Practitioner; Visit Provider Internal Medicine Cardiovascular Disease | DX: I48.91 Unspecified atrial fibrillation (principal); I48.92 Unspecified atrial flutter; B33.24 Viral cardiomyopathy; F17.200 Nicotine dependence, unspecified, uncomplicated | CPT/HCPCS: 99214 ==

== ENCOUNTER → 2023-04-03 11:54 | Outpatient (BNVA) | payer MEDICARE, MEDICAID, SELFPAY | PROVIDERS: PCP Nurse Practitioner; Visit Provider Nurse Practitioner | DX: J44.9 Chronic obstructive pulmonary disease, unspecified (principal); E78.2 Mixed hyperlipidemia; I48.91 Unspecified atrial fibrillation; I48.92 Unspecified atrial flutter; F41.1 Generalized anxiety disorder; E55.9 Vitamin D deficiency, unspecified; E61.1 Iron deficiency; R31.29 Other microscopic hematuria; N39.0 Urinary tract infection, site not specified | CPT/HCPCS: 81000; 87077; 87086; 87184 ==

== ENCOUNTER → 2023-04-23 14:41 | Outpatient (BNVA) | payer MEDICARE, MEDICAID, SELFPAY | PROVIDERS: PCP Nurse Practitioner; Visit Provider Nurse Practitioner Family | DX: N39.0 Urinary tract infection, site not specified (principal); J44.1 Chronic obstructive pulmonary disease with (acute) exacerbation | CPT/HCPCS: 81000 ==

== ENCOUNTER → 2023-06-11 15:11 | Outpatient (BNVA) | payer MEDICARE, MEDICAID, SELFPAY | PROVIDERS: PCP Nurse Practitioner; Visit Provider Nurse Practitioner | DX: G47.10 Hypersomnia, unspecified (principal); J44.9 Chronic obstructive pulmonary disease, unspecified; F41.1 Generalized anxiety disorder; E78.2 Mixed hyperlipidemia; E11.65 Type 2 diabetes mellitus with hyperglycemia; E55.9 Vitamin D deficiency, unspecified; E61.1 Iron deficiency | CPT/HCPCS: 80053; 80061; 82306; 83036; 85025 ==

== ENCOUNTER → 2023-08-20 14:46 | Outpatient (BNVA) | payer MEDICARE, MEDICAID, SELFPAY | PROVIDERS: PCP Nurse Practitioner; Visit Provider Nurse Practitioner | DX: E11.65 Type 2 diabetes mellitus with hyperglycemia | CPT/HCPCS: 81003; 87077; 87086; 87184 ==

== ENCOUNTER 2023-09-10 20:00 | Outpatient (CLI) | payer MEDICARE, MEDICAID, SELFPAY | END 2023-09-10 20:01 | disposition home or self-care (01) | LOC: SLEEP 09-11 05:52 | PROVIDERS: PCP Nurse Practitioner; Visit Provider Nurse Practitioner | DX: G47.33 Obstructive sleep apnea (adult) (pediatric) (principal) | CPT/HCPCS: 95811 ==

== ENCOUNTER 2023-09-19 12:35 | Outpatient (CLI) | payer MEDICARE, MEDICAID, SELFPAY ==
--- NOTE | 2023-09-19 13:00 | USCV_ITS ---
Nehal Hull Age: 68 Gender: F : 1955 Exam Date: 09/19/2023 13:05 Ordering Phys: Aileen Pelletier Technologist: PIEDAD Exam Location: [facility] Indication: chf, copd BP: 105 / 60 HR: 88 Rhythm: Sinus Technical Quality: Poor MEASUREMENTS (Male / Female) Normal Values 2D ECHO LV Diastolic Diameter PLAX 4.6 cm 4.2 - 5.9 / 3.9 - 5.3 cm LV Systolic Diameter PLAX 3.5 cm IVS Diastolic Thickness 1.2 cm 0.6 - 1.0 / 0.6 - 0.9 cm IVS Systolic Thickness 2.1 cm LVPW Diastolic Thickness 0.9 cm 0.6 - 1.0 / 0.6 - 0.9 cm LVPW Systolic Thickness 1.3 cm LVOT Diameter 2.1 cm LV Ejection Fraction 2D Teich 48.0 % LV Ejection Fraction MOD 2C 75.2 % LV Ejection Fraction 2C AL 74.9 % LA Diameter 3.1 cm LA Width 3.6 cm LA Height 5.1 cm RA Width 2.7 cm RA Height 3.5 cm Aorta at Sinotubular Diameter 3.0 cm IVC Diameter 1.4 cm M-MODE Aortic Annulus Diameter 3.2 cm LA Ao Ratio MM 1.1 MV E Point Septal Separation 0.4 cm DOPPLER AV Peak Velocity 188.0 cm/s LVOT Peak Velocity 131.0 cm/s AV Area Cont Eq vti 2.9 cm squared AV Area Cont Eq pk 2.5 cm squared MV Peak Velocity 110.0 cm/s MV Area PHT 2.8 cm squared Mitral E to A Ratio 0.8 MV E' Velocity 56.5 cm/s Mitral E to MV E' Ratio 11.6 Mitral E to LV E' Lateral Ratio 10.1 Mitral E to LV E' Septal Ratio 13.5 TR Peak Velocity 93.7 cm/s TR Peak Gradient 3.5 mmHg Right Atrial Pressure 5.0 mmHg Pulmonary Artery Systolic Pressu 8.5 mmHg PV Peak Velocity 86.0 cm/s RV Acceleration Time 0.1 s RV Ejection Time 0.3 s RV AcT/ET 0.4 FINDINGS Left Ventricle Difficult study with poor windows and decreased visualization. The ventricle is probably normal in size and function. Wall motion disturbances cannot be determined. Ejection fraction is probably 60 to 65%. Grade 1 diastolic dysfunction. Right Ventricle Normal right ventricular size and systolic function. Normal right ventricular systolic pressure. Right Atrium The right atrium is normal in size. Left Atrium The left atrium is normal in size. Mitral Valve Mitral valve not well visualized. No obvious stenosis or regurgitation Aortic Valve Aortic valve not well visualized. No obvious stenosis or regurgitation Tricuspid Valve Tricuspid valve not well visualized. Pulmonic Valve Pulmonic valve not well visualized. Pericardium Normal pericardium without effusion. Aorta Normal ascending aorta dimension. IVC The inferior vena cava appears normal. CONCLUSIONS Difficult study with poor windows and decreased visualization. The ventricle is probably normal in size and function. Wall motion disturbances cannot be determined. Ejection fraction is probably 60 to 65%. Grade 1 diastolic dysfunction. The previous study was done over 3 years ago and was a poor quality study as well. It was performed with echo contrast. There has been no change. Dr. Alex Diego MD (Electronically Signed) Final Date: 19 September 2023 15:35 S
--- NOTE | 2023-09-19 13:45 | CT_ITS ---
WS: [id number] LDCT LUNG CANCER SCREENING HISTORY: Z87.891 - Personal history of nicotine dependence TECHNIQUE: Axial imaging performed from the apices to 1 cm below the costophrenic angles. Coronal and sagittal reformats are submitted with axial MIP series. All CT scans at [facility] use at least one of these dose optimization techniques: automated exposure control; mA and/or kV adjustment per patient size (includes targeted exams where dose is matched to clinical indication); or iterativ e reconstruction. DLP: 150.51 mGy.cm DIvol: Mean CTDIvol: 3.70 (mGy) COMPARISON: 04/13/2020 Diagnostic quality: Satisfactory Lungs: Stable 3 mm nodule RIGHT upper lobe since 04/13/2020. No new mass or nodule. No endobronchial l esions. Mild hyperexpansion. Mild chronic atelectasis at the RIGHT hilum. Heart: Normal size heart with no pericardial effusion.. Other findings: No adenopathy. No significant thoracic aorta atherosclerosis. Normal sized pulmonary artery. Small hiatal hernia. Stable 14 mm LEFT adrenal adenoma. Low-attenuation nodule in the cortex of the upper pole RIGHT kidney is stable. Prior cholecystectomy. Reverse S-shaped curvature thoracic spine. IMPRESSION: CT/CT lung screening 82129 LUNG-RADS: 2-Benign Appearance or Behavior FOLLOW UP: 12 Month: Continue annual screening with LDCT OTHER FINDINGS (S MODIFIER): None.
== END 2023-09-19 12:36 | disposition home or self-care (01) ==
LOC: RAD 12:35
PROVIDERS: PCP Nurse Practitioner; Visit Provider Nurse Practitioner
DX: Z12.2 Encounter for screening for malignant neoplasm of respiratory organs (principal); Z87.891 Personal history of nicotine dependence; J44.9 Chronic obstructive pulmonary disease, unspecified; I50.9 Heart failure, unspecified; I51.89 Other ill-defined heart diseases
CPT/HCPCS: 71271; 93306

== ENCOUNTER → 2023-11-29 14:42 | Outpatient (BNVA) | payer MEDICARE, MEDICAID, SELFPAY | PROVIDERS: PCP Nurse Practitioner; Visit Provider Nurse Practitioner Family | DX: R50.9 Fever, unspecified (principal) | CPT/HCPCS: 87400 ==

== ENCOUNTER → 2023-12-09 14:11 | Outpatient (BNVA) | payer MEDICARE, MEDICAID, SELFPAY | PROVIDERS: PCP Nurse Practitioner; Visit Provider Nurse Practitioner | DX: E11.65 Type 2 diabetes mellitus with hyperglycemia (principal) | CPT/HCPCS: 80053; 80061; 82607; 83036; 84443 ==

== ENCOUNTER → 2024-02-28 11:16 | Outpatient (BNVA) | payer MEDICARE, MEDICAID, SELFPAY | PROVIDERS: PCP Nurse Practitioner; Visit Provider Emergency Medicine | DX: R39.9 Unspecified symptoms and signs involving the genitourinary system (principal) | CPT/HCPCS: 81000; 87086 ==

== ENCOUNTER → 2024-04-14 11:38 | Outpatient (BNVA) | payer MEDICARE, MEDICAID, SELFPAY | PROVIDERS: PCP Nurse Practitioner; Visit Provider Nurse Practitioner | DX: J44.9 Chronic obstructive pulmonary disease, unspecified (principal) | CPT/HCPCS: 71046; 80053; 83036; 83880; 84443; 85025 ==

== ENCOUNTER 2024-04-19 16:26 | Emergency (ER) | payer MEDICARE, MEDICAID, SELFPAY ==
--- NOTE | 2024-04-19 16:34 | CTR_ITS ---
PROCEDURE INFORMATION: Exam: CT Head Without Contrast Exam date and time: 04/19/2024 4:58 PM Age: 68 years old Clinical indication: Other: Forehead swelling. TECHNIQUE: Imaging protocol: Computed tomography of the head without contrast. Radiation optimization: All CT scans at this facility use at least one of these dose optimization techniques: automated exposure control; mA and/or kV adjustment per patient size (includes targeted exams where dose is matched to clinical indication); or iterative reconstruction. COMPARISON: CT head wo con* [id number] 03/01/2022 12:01 PM RADIATION DOSE METRICS: Total DLP (mGy-cm): 1066.93 FINDINGS: Brain: No evidence for acute intracranial hemorrhage, mass effect, or acute infarct by CT. Mild generalized cerebral and cerebellar atrophy and mild presumed chronic small-vessel ischemic changes in the cerebral white matter. Cerebral ventricles: No ventriculomegaly. Paranasal sinuses: Hypoplastic left maxillary sinus which is now opacified by mucosal thickening. Mastoid air cells: Visualized mastoid air cells are well aerated. Bones: See Soft tissues finding. Soft tissues: There is somewhat broad mild abnormal soft tissue swelling and thickening in the right supraorbital forehead region which extends laterally along the superficial upper right periorbital tissues and along the right lateral temporal musculature. This is new compared to CT 03/01/2022. The underlying calvarium is intact. Frontal sinuses are clear. Etiology for this soft tissue swelling is uncertain and correlate clinically. CT/CT head wo con* [id number] IMPRESSION: 1. No acute intracranial abnormality. 2. There is somewhat broad mild abnormal soft tissue swelling and thickening in the right supraorbital forehead region extending along the superficial upper right periorbital tissues laterally and along the right lateral temporal musculature. Underlying calvarium intact and frontal sinuses are clear. This finding was not evident on CT 03/01/2022 an etiology for this is uncertain. Correlate with clinical findings and history.
[2024-04-19 16:42] VITALS: BP 156/103; PULSE 93; RESP 18; TEMP 36.8; O2SAT 92
--- NOTE | 2024-04-19 16:47 | ED_ITS ---
HPI - Skin/Abscess/Foreign Bdy 2 General: Chief complaint: Skin/Abscess/Foreign Body Stated complaint: FACE SWOLLEN Time Seen by Provider: 04/19/24 16:33 History of Present Illness: 68-year-old female with a history of con gestive heart failure, diabetes mellitus, cardiomyopathy, hyperlipidemia, hypertension, chronic hypoxemic respiratory failure and A-fib on Xarelto who presents with a spontaneous swelling over her right forehead. She is been having similar type issues. She started with some swelling in her forearms bilaterally that they thought might be abscess versus hematoma. This was back in November. She then has developed what appears to be a petechial type rash on her abdomen. She was seen at another hospital a few days back and started on steroids for this. States that the battery of tests were run at that time. They said her platelets were normal then. No known trauma. She has a small right corneal hemorrhage. Again no trauma with that. No altered mental status. No focal motor deficits. No chest pain. No shortness of breath. No abdominal pain. Review of Systems 2 Narrative: Constitutional symptoms: Negative except as documented in HPI. Skin symptoms: Negative except as documented in HPI. Eye symptoms: Negative except as documented in HPI. ENMT symptoms: Negative except as documented in HPI. Respiratory symptoms: Negative except as documented in HPI. Cardiovascular symptoms: Negative except as documented in HPI. Gastrointestinal symptoms: Negative except as documented in HPI. Genitourinary symptoms: Negative except as documented in HPI. Musculoskeletal symptoms: Negative except as documented in HPI. Neurologic symptoms: Negative except as documented in HPI. Psychiatric symptoms: Negative except as documented in HPI. Endocrine symptoms: Negative except as documented in HPI. PFSH ED 2 PFSH: Medical History CHF (congestive heart failure) Vitamin D deficiency Personal history of nicotine dependence Diabetes mellitus Cardiomyopathy Mixed hyperlipidemia Hypertension Idiopathic scoliosis of thoracic spine Elevated liver enzymes Acute renal failure Pulmonary edema Acute on chronic respiratory failure with hypoxia and hypercapnia Surgical History History of knee surgery Left 1977 Benign tumor removed Family History Mother Diabetes COPD (chronic obstructive pulmonary disease) Other CAD (coronary artery disease) Cancer Social History Smoking and tobacco/nicotine status: current every day tobacco/nicotine user Second hand smoke exposure: Yes Alcohol intake: never Substance/Drug Use: unknown Adopted: No Caregiver/support person: No Lives independently: Yes Household members: none Housing: House Marital status: Number of children: 5 service: No Current occupational status: unemployed Current occupational exposures/hazards: No Do you think of yourself as: Straight/Heterosexual Current gender identity: Female Physical Exam 2 Narrative: EXAM NARRATIVE: General: Alert, no acute distress. Skin: Warm, dry. Head: Normocephalic, right forehead down around the right eye there is edematous area. Some mild redness.. Neck: Supple, trachea midline. Eye: Extraocular movements are intact. Ears, nose, mouth and throat: mucosa moist. Cardiovascular: Regular, Normal peripheral perfusion. Respiratory: Lungs are clear to auscultation, respirations are non-labored, breath sounds are equal, Symmetrical chest wall expansion. Gastrointestinal: Soft, Nontender, Non distended, Normal bowel sounds. Musculoskeletal: Normal ROM, no deformity. Neurological: Alert and oriented, No focal neurological deficit observed. Psychiatric: Cooperative, appropriate mood & affect. Course 2 Vital Signs: Vital signs: Vital Signs Temperature 98.2 F 04/19/24 16:42 Pulse Rate 95 04/19/24 17:55 Respiratory Rate 18 04/19/24 16:42 Blood Pressure 155/103 04/19/24 17:55 Pulse Oximetry 99 04/19/24 17:55 Oxygen Delivery Me thod Room Air 04/19/24 17:55 Oxygen Flow Rate 2 04/19/24 16:42 MDM - Skin/Abscess/Foreign Bdy Medicial Decision Making Medical decision making: Differential diagnosis including but not limited to and based on the above HPI, review of systems and physical exam: Concern for infection, bleeding, thrombocytopenia lab work and a CT were ordered. Orders placed to evaluate differential diagnosis based on the above differential, HPI and physical exam Lab Review: Laboratory results were reviewed and interpreted by myself the emergency room physician. Patient has some leukocytosis and her BUN is elevated. These are both secondary to the steroids that she has been down also some hyperglycemia with glucose of 236. Platelets are normal. Her INR slightly elevated and she is on anticoagulant. CT head: Some soft tissue swelling on the right forehead with no abscess. No acute intracranial process. no intracranial hemorrhage, no evidence of infarct. no evidence of acute fracture.This was reviewed and interpreted by myself the ER physician. I reviewed the patient's medical record. Reexamination: Patient remained stable. No worsening swelling. No altered mental status. No increased work of breathing. This is a very interesting case. I am unclear what is causing her issues. Whether this be a vasculitis. Does not appear to be a cellulitis. Her CRP is not very elevated. I wonder if this is not just microvascular bleeding secondary to her anticoagulation. We discussed all of these things and talked about her going to see her primary and that she likely will need to see a specialist. Possibly dermatology or endocrinology. At this point her vitals are stable. I do not find any extremely alarming lab work and with the chronicity of this I think that follow-up with her primary is the next best step. Patient is already on steroids. She has multiple allergies to antibiotics so I do not think that is needed at this time. Assessment and plan: Facial swelling - Discharged home - Discussed findings and plan with patient. Answered any questions. - All laboratory values were reviewed and interpreted personally by myself, the ER physician - All imaging was reviewed and interpreted personally by myself, the ER physician. - Evaluation and treatment of this problem were appropriate in the emergency setting Lab Data 04/19/24 17:18 04/19/24 17:[address] 04/19/24 16:34 IMPRESSION: 1. No acute intracranial abnormality. 2. There is somewhat broad mild abnormal soft tissue swelling and thickening in the right supraorbital forehead region extending along the superficial upper right periorbital tissues laterally and along the right lateral temporal musculature. Underlying calvarium intact and frontal sinuses are clear. This finding was not evident on CT 03/01/2022 an etiology for this is uncertain. Correlate with clinical findings and history. Laboratory Results WBC 23.81 10^3/uL (3.29-11.43) H 04/19/24 17:18 RBC 5.48 10^6/uL (3.85-5.65) 04/19/24 17:18 Hgb 15.60 g/dL (11.27-16.99) 04/19/24 17:18 Hct 48.7 % (36-47) H 04/19/24 17:18 MCV 88.9 fl (85-98) 04/19/24 17:18 MCH 28.5 pg (27-33) 04/19/24 17:18 MCHC 32.0 g/dL (30-55) 04/19/24 17:18 RDW 13.3 % (12.1-15.1) 04/19/24 17:18 Plt Count 495 10^3/cmm (157-399) H 04/19/24 17:18 MPV 9.2 fL (7.4-10.4) 04/19/24 17:18 Neut % (Auto) 81.3 % 04/19/24 17:18 Lymph % (Auto) 10.5 % 04/19/24 17:18 [place] % (Auto) 7.4 % 04/19/24 17:18 Eos % (Auto) 0.1 % 04/19/24 17:18 Baso % (Auto) 0.3 % 04/19/24 17:18 Neut # (Auto) 19.35 10^3/uL (1.8-7.7) H 04/19/24 17:18 Lymph # (Auto) 2.5 10^3/uL (0.8-4.8) 04/19/24 17:18 [place] # (Auto) 1.8 10^3/uL (0.2-0.9) H 04/19/24 17:18 Eos # (Auto) 0.0 10^3/uL (0.0-0.8) 04/19/24 17:18 Baso # (Auto) 0.1 10^3/uL (0.0-0.1) 04/19/24 17:18 Nucleated RBC % (auto) 0 % 04/19/24 17:18 Nucleated RBCs # 0.0 /100WBC 04/19/24 17:18 ESR 27 mm/hr (0-15) H 04/19/24 17:18 PT 15.10 SECONDS (12.1-14.9) H 04/19/24 17:18 INR 1.15 (0.8-1.2) 04/19/24 17:18 APTT 23.5 SECONDS (23.9-36.7) L 04/19/24 17:18 Sodium 132 mmol/L (136-145) L 04/19/24 17:18 Potassium 3.7 mmol/L (3.5-5.1) 04/19/24 17:18 Chloride 89 mmol/L (98-107) L 04/19/24 17:18 Carbon Dioxide 31 mmol/L (22-29) H 04/19/24 17:18 Anion Gap 15.7 (5-19) 04/19/24 17:18 BUN 38 mg/dL (8-23) H 04/19/24 17:18 Creatinine 1.2 mg/dL (0.5-0.9) H 04/19/24 17:18 GFR Calculation 44.9 mL/min (90-130) L 04/19/24 17:18 Glucose 236 mg/dL (65-115) H 04/19/24 17:18 Calculated Osmolality 291 mOsm/kg (285-295) 04/19/24 17:18 Calcium 9.1 mg/dL (8.5-10.5) 04/19/24 17:18 Total Bilirubin 0.4 mg/dL (0.15-1.2) 04/19/24 17:18 AST 9 U/L (0-32) 04/19/24 17:18 ALT < 5 U/L (0-33) 04/19/24 17:18 Alkaline Phosphatase 145 U/L (35-105) H 04/19/24 17:18 C-Reactive Protein 11.9 mg/L (0.0-4.9) H 04/19/24 17:18 Total Protein 7.2 g/dL (6.6-8.7) 04/19/24 17:18 Albumin 3.7 g/dL (3.5-5.2) 04/19/24 17:18 Globulin 3.5 g/dL (1.3-4.6) 04/19/24 17:18 All radiology interpretation(s) finalized by discharge Discharge Plan Discharge Patient Disposition: Home Clinical Impression: Facial swelling Condition: Stable Prescriptions: No Action (DME) Oxygen concentrator and portable NC 2L See Rx Instructions .ROUTE .MEDSUPPLY Qty: 1 0RF Rx Instructions: Use 2L NC 24 hours for 99 months Adult Aspirin Regimen 81 mg tablet,delayed release (DR/EC) 81 mg PO DAILY 30 Days Qty: 30 2RF zinc 50 mg tablet 50 mg PO DAILY Qty: 30 0RF metolazone 5 mg tablet 5 mg PO DAILY PRN (Reason: swelling) Qty: 7 0RF MediHoney (honey) 100 % paste 1 applic topical BID Qty: 103 0RF levothyroxine 25 mcg tablet 25 mcg PO DAILY Qty: 30 2RF albuterol sulfate 2.5 mg /3 mL (0.083 %) solution for nebulization 2.5 mg inhalation Q4H PRN (Reason: shortness of breath or wheezing) Qty: 300 2RF atorvastatin 40 mg tablet 40 mg PO BEDTIME 30 Days Qty: 30 2RF budesonide [Pulmicort] 0.5 mg/2 mL suspension for nebulization 0.5 mg inhalation BID Qty: 120 2RF bupropion HCl [Wellbutrin XL] 150 mg tablet extended release 24 hr 150 mg PO QAM Qty: 30 2RF Farxiga 5 mg tablet 5 mg PO DAILY Qty: 30 2RF ergocalciferol (vitamin D2) 1,250 mcg (50,000 unit) capsule 1,250 mcg PO .weekly Qty: 4 2RF fluoxetine [Prozac] 40 mg capsule 40 mg PO QAM Qty: 30 2RF Trelegy Ellipta 100-62.5-25 mcg blister with device 1 inh inhalation Q24H Qty: 60 2RF furosemide [Lasix] 40 mg tablet 40 mg PO QAM Qty: 30 2RF hydroxyzine pamoate 50 mg capsule 50 mg PO TID PRN (Reason: anxiety) 30 Days Qty: 90 2RF levalbuterol tartrate [Xopenex HFA] 45 mcg/actuation HFA aerosol inhaler 2 inh inhalation Q6H Qty: 15 2RF metoprolol succinate [Toprol XL] 25 mg tablet extended release 24 hr 25 mg PO DAILY Qty: 30 2RF Klor-Con M20 20 mEq tablet,ER particles/crystals 20 meq PO DAILY Qty: 30 2RF Xarelto 20 mg tablet 20 mg PO DAILY 30 Days Qty: 30 2RF Rx Instructions: must administer with evening meal Entresto 49-51 mg tablet 1 tab PO BID Qty: 60 2RF Ozempic 0.25 mg or 0.5 mg (2 mg/3 mL) pen injector 0.25 mg SUBCUT .weekly Qty: 3 2RF zonisamide 50 mg capsule 50 mg PO BID Qty: 60 2RF Rx Instructions: for back pain (DME) nebulizer machine See Rx Instructions .Route .MEDSUPPLY Qty: 1 0RF Rx Instructions: As directed nebulizer machine w/kit and supplies 99 months nystatin 100,000 unit/mL suspension 4 - 6 ml PO TID 14 Days Qty: 473 0RF Rx Instructions: swish and swallow nystatin 100,000 unit/gram powder 1 applic topical TID Qty: 30 2RF nystatin 100,000 unit/gram cream 1 applic topical TID Qty: 30 2RF (DME) CPAP machine and supplies See Rx Instructions .ROUTE .MEDSUPPLY Qty: 1 0RF Rx Instructions: As directed tramadol 50 mg tablet 50 mg PO TID PRN (Reason: pain) Qty: 90 2RF (DME) diabetic supplies, miscellan. Kit See Rx Instructions .ROUTE .MEDSUPPLY Qty: 1 0RF Rx Instructions: Glucometer testing kit, lancets 100, strips 100 Discharge Orders: Discharge ED (Routine); Ordered 04/19/24 Ordered By: Kimberly Tee Referrals: Aileen Pelletier, DIRECTOR OF [employer]ETING [employer]PERATIONS-[employer] [Primary Care Provider] - Discharge Diet: Usual diet Discharge Activity: Increase activity as tolerated Activity Restrictions/Additional Instructions: Thank you for choosing [facility] for your healthcare needs today. Please realize this is an emergency room and that we are providing you with a medical screening exam and this may not be complete and all inclusive of all the testing and or work up that you may need to determine your ailment or severity of your illness. You have been screened and evaluated and felt safe for discharge. Health conditions do change or evolve sometimes and as such it is important that you follow up with your Primary Doctor to be re checked, 3-5 days is a general good time frame for follow up. You are always welcome to return to the ED for re assessment if your symptoms are worsening or you have new concerns Coding Level of Care Code ED [employer] for Mary Jane Coates
[2024-04-19 17:23] LABS: Basophils # 0.1 10^3/uL (0.0-0.1); Basophils % 0.3 %; Eosinophils % 0.1 %; Hematocrit 48.7 % (36-47); Lymphocytes # 2.5 10^3/uL (0.8-4.8); Lymphocytes % 10.5 %; Mean Corpuscular Hemoglobin 28.5 pg (27-33); Mean Corpuscular Volume 88.9 fl (85-98); Mean Platelet Volume 9.2 fL (7.4-10.4); Monocytes # 1.8 10^3/uL (0.2-0.9); Monocytes % 7.4 %; Neutrophils # 19.35 10^3/uL (1.8-7.7); Neutrophils % 81.3 %; Nucleated Red Blood Cells % 0 %; Platelet Count 495 10^3/cmm (157-399); Red Blood Count 5.48 10^6/uL (3.85-5.65); Red Cell Distribution Width 13.3 % (12.1-15.1); White Blood Count 23.81 10^3/uL (3.29-11.43)
[2024-04-19 17:34] LABS: INR 1.15 (0.8-1.2)
[2024-04-19 17:35] LABS: Erythrocyte Sedimentation Rate 27 mm/hr (0-15); Partial Thromboplastin Time 23.5 SECONDS (23.9-36.7)
[2024-04-19 17:39] LABS: Alanine Aminotransferase < 5 U/L (0-33); Albumin Level 3.7 g/dL (3.5-5.2); Alkaline Phosphatase 145 U/L (35-105); Anion Gap 15.7 (5-19); Aspartate Amino Transferase 9 U/L (0-32); Blood Urea Nitrogen 38 mg/dL (8-23); C Reactive Protein 11.9 mg/L (0.0-4.9); Calcium 9.1 mg/dL (8.5-10.5); Carbon Dioxide 31 mmol/L (22-29); Chloride 89 mmol/L (98-107); Globulin 3.5 g/dL (1.3-4.6); Glomerular Filtration Rate 44.9 mL/min (90-130); Glucose 236 mg/dL (65-115); Osmolality Calculated 291 mOsm/kg (285-295); Potassium 3.7 mmol/L (3.5-5.1); Sodium 132 mmol/L (136-145); Total Bilirubin 0.4 mg/dL (0.15-1.2); Total Protein 7.2 g/dL (6.6-8.7)
[2024-04-19 17:55] VITALS: BP 155/103; PULSE 95; O2SAT 99
[2024-04-19] MEDS: HYDROcodone-acetaminophen 10-325 mg Tablet 1 TAB PO (18:11)
[2024-04-19 20:13] VITALS: BP 155/103; PULSE 95; RESP 18; TEMP 36.8; O2SAT 99
--- NOTE | 2024-04-19 20:13 | PC.NURSE ---
CALLED [facility] TO SET UP O2. [facility] DELIVERED O2 TO PATIENT.
== END 2024-04-19 20:15 | disposition home or self-care (01) ==
PROVIDERS: Emergency Provider Emergency Medicine; PCP Nurse Practitioner
DX: M79.89 Other specified soft tissue disorders (principal); Z79.82 Long term (current) use of aspirin; Z79.85 Long-term (current) use of injectable non-insulin antidiabetic drugs; Z72.0 Tobacco use; I11.0 Hypertensive heart disease with heart failure; I50.9 Heart failure, unspecified; E11.9 Type 2 diabetes mellitus without complications; E78.2 Mixed hyperlipidemia
CPT/HCPCS: 36415; 70450; 80053; 85025; 85610; 85651; 85730; 86140; 99284

== ENCOUNTER → 2024-05-21 12:51 | Outpatient (BNVA) | payer MEDICARE, MEDICAID, SELFPAY | PROVIDERS: PCP Nurse Practitioner; Visit Provider Nurse Practitioner Family | DX: D48.5 Neoplasm of uncertain behavior of skin (principal); L95.8 Other vasculitis limited to the skin; L70.0 Acne vulgaris; L82.1 Other seborrheic keratosis | CPT/HCPCS: 11102; 99204 ==

== ENCOUNTER → 2024-06-01 11:54 | Outpatient (BNVA) | payer MEDICARE, MEDICAID, SELFPAY | PROVIDERS: PCP Nurse Practitioner; Visit Provider Family Medicine | DX: E11.22 Type 2 diabetes mellitus with diabetic chronic kidney disease (principal); N18.9 Chronic kidney disease, unspecified; E11.9 Type 2 diabetes mellitus without complications; I77.6 Arteritis, unspecified | CPT/HCPCS: 80053; 85025 ==

== ENCOUNTER → 2024-07-24 10:27 | Outpatient (BNVA) | payer MEDICARE, MEDICAID, SELFPAY | PROVIDERS: PCP Nurse Practitioner; Visit Provider Nurse Practitioner Family | DX: R39.9 Unspecified symptoms and signs involving the genitourinary system (principal); N39.0 Urinary tract infection, site not specified | CPT/HCPCS: 81000; 87077; 87086; 87184 ==

== ENCOUNTER 2024-08-04 06:30 | Outpatient (RCR) | payer MEDICARE, MEDICAID, SELFPAY | END 2024-09-03 23:59 | disposition home or self-care (01) | LOC: TPT 06:30 | PROVIDERS: PCP Nurse Practitioner | DX: S42.202D Unspecified fracture of upper end of left humerus, subsequent encounter for fracture with routine healing (principal); X58.XXXD Exposure to other specified factors, subsequent encounter | CPT/HCPCS: 97110; 97162 ==

== ENCOUNTER → 2024-08-04 10:00 | Outpatient (BNVA) | payer MEDICARE, MEDICAID, SELFPAY | PROVIDERS: PCP Nurse Practitioner; Visit Provider Nurse Practitioner | DX: R31.9 Hematuria, unspecified (principal) | CPT/HCPCS: 81003; 87086 ==

== ENCOUNTER → 2024-09-01 13:54 | Outpatient (BNVA) | payer MEDICARE, MEDICAID, SELFPAY | PROVIDERS: PCP Nurse Practitioner; Visit Provider Family Medicine | DX: N39.0 Urinary tract infection, site not specified (principal); M19.90 Unspecified osteoarthritis, unspecified site; M41.24 Other idiopathic scoliosis, thoracic region; G89.29 Other chronic pain | CPT/HCPCS: 81000 ==

== ENCOUNTER → 2024-11-17 16:35 | Outpatient (BNVA) | payer MEDICARE, MEDICAID, SELFPAY | PROVIDERS: PCP Nurse Practitioner; Visit Provider Nurse Practitioner | DX: E11.65 Type 2 diabetes mellitus with hyperglycemia (principal); Z79.4 Long term (current) use of insulin | CPT/HCPCS: 80053; 80061; 83036; 84443 ==

== ENCOUNTER → 2024-12-31 16:21 | Outpatient (BNVA) | payer MEDICARE, MEDICAID, SELFPAY | PROVIDERS: PCP Nurse Practitioner; Visit Provider Nurse Practitioner | DX: R05.9 Cough, unspecified (principal) | CPT/HCPCS: 71046; 87400; 87426 ==

== ENCOUNTER → 2025-03-10 13:37 | Outpatient (BNVA) | payer MEDICARE, MEDICAID, SELFPAY | PROVIDERS: PCP Nurse Practitioner; Visit Provider Nurse Practitioner | DX: N39.0 Urinary tract infection, site not specified (principal) | CPT/HCPCS: 81000 ==

== ENCOUNTER → 2025-03-18 13:49 | Outpatient (BNVA) | payer MEDICARE, MEDICAID, SELFPAY | PROVIDERS: PCP Nurse Practitioner; Visit Provider Family Medicine | DX: N28.9 Disorder of kidney and ureter, unspecified (principal); N39.0 Urinary tract infection, site not specified | CPT/HCPCS: 80048; 81000 ==

== ENCOUNTER 2025-03-25 12:39 | Outpatient (CLI) | payer OTHER, MEDICAID, SELFPAY ==
--- NOTE | 2025-03-25 12:45 | US_ITS ---
WS: [id number] RENAL ULTRASOUND HISTORY: R31.9 - Hematuria, unspecified COMPARISON: 11/08/2020 TECHNIQUE: 2-D and color Doppler imaging of the kidney submitted. Right kidney: 8.8 cm x 4.1 cm x 4.4 cm. Cortex: 1.2 cm Kidney is measuring smaller in size with diffuse cortical thinning as compared to the prior study from 2020. No obstruction. Reidentified is a hyperechoic cortical mass measuring 1.6 x 1.9 cm. Left kidney: 10.2 cm x 5.2 cm x 5.0 cm. Cortex: 1.8 cm No obstruction. Tiny cortical cyst superior pole with a maximal diameter 1.5 cm. Aorta: Normal. Urinary Bladder: Nondistended. US/US renal BI* [id number] IMPRESSION: 1. RIGHT kidney has decreased in size since 2020 with now diffuse cortical thi nning. No obstruction. 2. No change LEFT kidney. 3. RIGHT renal angiomyolipoma.
[2025-03-25 13:51] LABS: Estmated Average Glucose 157; Hemoglobin A1C 7.1 % (4.0-6.0)
[2025-03-25 13:59] LABS: Alanine Aminotransferase 12 U/L (0-33); Albumin Level 3.6 g/dL (3.5-5.2); Alkaline Phosphatase 84 U/L (35-105); Anion Gap 10.8 (5-19); Aspartate Amino Transferase 12 U/L (0-32); Blood Urea Nitrogen 15 mg/dL (8-23); Calcium 9.4 mg/dL (8.5-10.5); Carbon Dioxide 38 mmol/L (22-29); Chloride 96 mmol/L (98-107); Chol HDL Ratio 3.19 mg/dL (0.0-4.40); Cholesterol 169 mg/dL (0-200); Globulin 3.3 g/dL (1.3-4.6); Glomerular Filtration Rate 55.3 mL/min (90-130); Glucose 133 mg/dL (65-115); HDL Cholesterol 53 mg/dL (60-100); LDL Cholesterol Calculated 79 mg/dL (50-129); Osmolality Calculated 297 mOsm/kg (285-295); Sodium 142 mmol/L (136-145); Thyroid Stimulating Hormone 1.03 uIU/mL (0.27-4.20); Total Bilirubin 0.4 mg/dL (0.15-1.2); Total Protein 6.9 g/dL (6.6-8.7); Triglycerides 183 mg/dL (0-150); VLDL Cholestrol Calculation 37 mg/dL (0-30)
[2025-03-25 14:40] LABS: Potassium 2.8 mmol/L (3.5-5.1)
== END 2025-03-25 12:40 | disposition home or self-care (01) ==
LOC: RAD 12:41
PROVIDERS: PCP Nurse Practitioner; Visit Provider Nurse Practitioner
DX: R31.9 Hematuria, unspecified (principal); Z79.4 Long term (current) use of insulin; E11.65 Type 2 diabetes mellitus with hyperglycemia; I10 Essential (primary) hypertension; E03.8 Other specified hypothyroidism; R93.421 Abnormal radiologic findings on diagnostic imaging of right kidney; D17.71 Benign lipomatous neoplasm of kidney
CPT/HCPCS: 36415; 76770; 80053; 80061; 83036; 84443

== ENCOUNTER 2025-03-31 14:53 | Outpatient (CLI) | payer OTHER, MEDICAID, SELFPAY ==
[2025-03-31 15:49] LABS: Bilirubin Urine Negative (Negative); Blood Urine 1+ (Negative); Glucose Urine UA 2+ (Normal); Ketones Urine Trace (Negative); Leukocyte Esterase Urine 2+ (Negative); Nitrate Urine Negative (Negative); Protein Urine Trace (Negative); Urine Appearance Cloudy (CLEAR); Urine Color Yellow (Yellow); pH Urine 5.5 (5-7)
[2025-03-31 15:56] LABS: Anion Gap 14.7 (5-19); Blood Urea Nitrogen 11 mg/dL (8-23); Calcium 8.9 mg/dL (8.5-10.5); Carbon Dioxide 31 mmol/L (22-29); Chloride 102 mmol/L (98-107); Glomerular Filtration Rate 62.5 mL/min (90-130); Glucose 119 mg/dL (65-115); Osmolality Calculated 299 mOsm/kg (285-295); Potassium 3.7 mmol/L (3.5-5.1); Sodium 144 mmol/L (136-145)
[2025-03-31 15:56] LABS: Add Urine Microscopic? YES; Bacteria Urine 1+ /hpf; Hyaline Casts Urine 5.36 /lpf; Universal Test for UA Present (0); WBC Urine 51-100 /hpf (0-5)
[2025-03-31 16:15] LABS: Creatinine Urine, Random 208 mg/dL (28-217); Microalbum Creatinine Ratio Ur 14 mg/dL (0-20); Microalbumin Random Urine 3 ug/dL (0-20)
[2025-03-31 16:30] LABS: Specific Gravity, Urine 1.031 (1.005-1.030); UA Slide Review UA Slide Review Perf
[2025-03-31 16:31] LABS: Add Urine Culture? Yes
== END 2025-03-31 14:54 | disposition home or self-care (01) ==
LOC: LAB 14:55
PROVIDERS: Family Medicine; PCP Nurse Practitioner; Visit Provider Nurse Practitioner
DX: N18.9 Chronic kidney disease, unspecified (principal); I10 Essential (primary) hypertension; E11.65 Type 2 diabetes mellitus with hyperglycemia; Z79.4 Long term (current) use of insulin; E03.8 Other specified hypothyroidism; E87.6 Hypokalemia
CPT/HCPCS: 36415; 80048; 81001; 82044; 87086

== ENCOUNTER → 2025-09-14 16:36 | Outpatient (BNVA) | payer OTHER, MEDICAID, SELFPAY | PROVIDERS: PCP Nurse Practitioner; Visit Provider Nurse Practitioner | DX: E11.65 Type 2 diabetes mellitus with hyperglycemia (principal); Z79.4 Long term (current) use of insulin; E03.8 Other specified hypothyroidism; E55.9 Vitamin D deficiency, unspecified | CPT/HCPCS: 80053; 80061; 83036 ==

== ENCOUNTER 2025-09-16 09:45 | Outpatient (CLI) | payer OTHER, MEDICAID, SELFPAY ==
[2025-09-16 10:49] LABS: Glucose Urine UA 2+ (Normal); Nitrate Urine Negative (Negative)
[2025-09-16 10:51] LABS: Add Urine Microscopic? YES
[2025-09-16 11:13] LABS: Specific Gravity, Urine 1.032 (1.005-1.030); UA Slide Review UA Slide Review Perf
== END 2025-09-16 09:46 | disposition home or self-care (01) ==
LOC: LAB 09:47
PROVIDERS: PCP Nurse Practitioner; Visit Provider Nurse Practitioner
DX: E11.65 Type 2 diabetes mellitus with hyperglycemia (principal); Z79.4 Long term (current) use of insulin; E03.8 Other specified hypothyroidism; E55.9 Vitamin D deficiency, unspecified
CPT/HCPCS: 81001; 87086

== ENCOUNTER → 2025-10-25 14:03 | Outpatient (BNVA) | payer OTHER, MEDICAID, SELFPAY | PROVIDERS: PCP Nurse Practitioner | DX: M54.50 Low back pain, unspecified (principal); R31.29 Other microscopic hematuria | CPT/HCPCS: 81000; 87086 ==